=== PATIENT | female | born 1940 | race Caucasian/White ===

== ENCOUNTER → 2017-11-26 17:18 | Outpatient (CLI) | payer MEDICARE, SELFPAY ==
[2016-12-11 18:46] VITALS: BMI 32.9
[2016-12-11 21:25] VITALS: BP 138/54
== END ==
PROVIDERS: Family Provider Family Medicine Geriatric Medicine; PCP Family Medicine Geriatric Medicine; Visit Provider Anesthesiology Pain Medicine
DX: F11.20 Opioid dependence, uncomplicated (principal)

== ENCOUNTER → 2017-11-27 10:04 | Outpatient (CLI) | payer MEDICARE, SELFPAY ==
[2016-12-11 18:46] VITALS: BMI 32.9
[2016-12-11 21:25] VITALS: BP 138/54
[2017-11-27 10:57] LABS: Amphetamine Urine VISTA NEGATIVE (<1000 ng/mL); Barbiturate Urine VISTA NEGATIVE (< 200 ng/mL); Benzodiazepine Urine VISTA NEGATIVE (< 200 ng/mL); Cocaine Urine VISTA NEGATIVE (< 300 ng/mL); Ecstacy Urine VISTA NEGATIVE (< 500 ng/mL); Methadone Urine VISTA NEGATIVE (< 300 ng/mL); PCP Urine VISTA NEGATIVE (< 25 ng/mL); THC Urine VISTA POSITIVE (< 50 ng/mL); Vista UDS pH Range 5
== END ==
PROVIDERS: Family Provider Family Medicine Geriatric Medicine; PCP Family Medicine Geriatric Medicine; Visit Provider Anesthesiology Pain Medicine
DX: F11.20 Opioid dependence, uncomplicated (principal)
CPT/HCPCS: 80307

== ENCOUNTER → 2017-12-02 16:30 | Outpatient (CLI) | payer MEDICARE, SELFPAY ==
--- NOTE | 2017-12-02 16:52 | RAD_ITS ---
STUDY: X-RAY - ABDOMEN/PELVIS REASON FOR EXAM: Female, 77 years old. Diarrhea. TECHNIQUE: AP supine and upright views of the abdomen and pelvis. COMPARISON: None. FINDINGS: Normal visualized lung bases. There is an unremarkable bowel gas pattern. There is no demonstrated free abdominal air. The visualized liver, spleen and kidneys are grossly normal in size and morphology. Normal soft tissue structures. There are diffuse degenerative changes of the visualized lumbar spine. RAD/Abd Inc Decub and/or Erect IMPRESSION: No acute abnormality or evidence for obstruction. Electronically Signed: Lew Chávez MD at 17:12 EST , Service support ,
[2017-12-02 17:40] LABS: Absolute Lymphocyte Count 1.71 X10^3/ul (0.83-4.51); Absolute Neutrophil Count 5.4 X10^3/uL (2.0-7.7); Basophil# 0.04 X10^3/uL; Basophil% 0.5 % (0-1); Eosinophil# 0.11 X10^3/uL; Eosinophils% 1.4 % (0-5); Hematocrit 35.5 % (37-47); Hemoglobin 11.5 g/dl (12.0-15.0); Lymphocyte # 1.71 X10^3/ul (4.0); Lymphocyte % 21.8 % (19-41); Mean Corp Hgb Conc 32.4 g/gl (32-36); Mean Corpuscular Hgb 26.7 pg (27.0-32.0); Mean Corpuscular Volume 82.6 fL (81-99); Mean Platelet Vol. 10.1 fl (6.2-12.0); Monocyte# 0.59 X10^3/uL; Monocyte% 7.5 % (0-10); Neutrophil # 5.37 X10^3/uL (2.7-7.7); Neutrophil % 68.7 % (47-70); Platelet Count 244 K/mm3 (150-450); RBC Distribution Width CV 16.3 % (11.6-14.6); RBC Distribution Width SD 47.9 fl (35.1-43.9); White Blood Count 7.8 K/mm3 (4.4-11.0)
[2017-12-02 17:55] LABS: POSITIVE COUNT NO; POSITIVE DIFFERENTIAL NO; POSITIVE MORPHOLOGY NO
[2017-12-02 18:34] LABS: ALB/GLOB Ratio 0.9 RATIO (0.9-2.4); AST(SGOT) 15 U/L (15-37); Alanine Aminotransfer ALT/SGPT 16 U/L (13-56); Albumin, Serum 3.6 g/dL (3.2-5.0); Alkaline Phosphatase 82 U/L (45-117); Anion Gap 10 (5-15); BUN 11 mg/dL (7-18); BUN/Creat Ratio 10.4 RATIO (10-20); Chloride 106 mmol/L (98-107); Creatinine, Serum 1.06 mg/dL (0.55-1.02); EST Glomerular Filtration Rate 53 mL/min (>60); Est Glom Filt Rate - Afr Amer 65 mL/min (>60); Globulin 3.8 g/dL (2.2-4.2); Glucose 102 mg/dL (74-106); Iron 53 ug/dL (50-170); Iron Binding Capacity,Total 426 ug/dL (250-450); PERCENT IRON SATURATION 12.4 % (15.0-55.0); Potassium 3.9 mmol/L (3.5-5.1); Protein, Total 7.4 g/dL (6.4-8.2); Sodium Level 141 mmol/L (136-145)
== END ==
PROVIDERS: Family Provider Family Medicine Geriatric Medicine; PCP Family Medicine Geriatric Medicine; Visit Provider Family Medicine Geriatric Medicine
DX: D64.9 Anemia, unspecified (principal); R19.7 Diarrhea, unspecified
CPT/HCPCS: 36415; 74019; 80053; 83540; 83550; 85025

== ENCOUNTER → 2018-01-05 16:30 | Outpatient (CLI) | payer MEDICARE, SELFPAY ==
[2018-01-05 18:21] LABS: Vitamin D,25 Hydroxy 8.2 ng/mL (29.95-100.01)
[2018-01-05 18:29] LABS: ALB/GLOB Ratio 0.9 RATIO (0.9-2.4); AST(SGOT) 17 U/L (15-37); Alanine Aminotransfer ALT/SGPT 16 U/L (13-56); Albumin, Serum 3.5 g/dL (3.2-5.0); Alkaline Phosphatase 94 U/L (45-117); Anion Gap 10 (5-15); BUN 21 mg/dL (7-18); BUN/Creat Ratio 13.4 RATIO (10-20); Calcium,Total 8.5 mg/dL (8.5-10.1); Chloride 101 mmol/L (98-107); Creatinine, Serum 1.57 mg/dL (0.55-1.02); EST Glomerular Filtration Rate 34 mL/min (>60); Est Glom Filt Rate - Afr Amer 41 mL/min (>60); Glucose 83 mg/dL (74-106); Potassium 3.7 mmol/L (3.5-5.1); Protein, Total 7.5 g/dL (6.4-8.2); Sodium Level 139 mmol/L (136-145); Thyroid Stim Hormone (TSH) 2.23 uIU/mL (0.358-3.74)
[2018-01-05 20:54] LABS: Absolute Lymphocyte Count 1.62 X10^3/ul (0.83-4.51); Absolute Neutrophil Count 5.2 X10^3/uL (2.0-7.7); Basophil# 0.03 X10^3/uL; Basophil% 0.4 % (0-1); Eosinophil# 0.14 X10^3/uL; Eosinophils% 1.9 % (0-5); Hematocrit 36.2 % (37-47); Hemoglobin 11.1 g/dl (12.0-15.0); Lymphocyte # 1.62 X10^3/ul (4.0); Lymphocyte % 21.8 % (19-41); Mean Corp Hgb Conc 30.7 g/gl (32-36); Mean Corpuscular Hgb 25.1 pg (27.0-32.0); Mean Corpuscular Volume 81.9 fL (81-99); Mean Platelet Vol. 10.2 fl (6.2-12.0); Monocyte# 0.47 X10^3/uL; Monocyte% 6.3 % (0-10); Neutrophil # 5.17 X10^3/uL (2.7-7.7); Neutrophil % 69.5 % (47-70); Platelet Count 279 K/mm3 (150-450); RBC Distribution Width CV 15.4 % (11.6-14.6); Red Blood Count 4.42 M/mm3 (4.2-5.4); White Blood Count 7.4 K/mm3 (4.4-11.0)
[2018-01-05 20:55] LABS: POSITIVE COUNT NO; POSITIVE DIFFERENTIAL NO; POSITIVE MORPHOLOGY NO
== END ==
PROVIDERS: Family Provider Family Medicine Geriatric Medicine; PCP Family Medicine Geriatric Medicine; Visit Provider Family Medicine Geriatric Medicine
DX: E55.9 Vitamin D deficiency, unspecified (principal); I10 Essential (primary) hypertension
CPT/HCPCS: 36415; 80053; 82306; 84443; 85025

== ENCOUNTER → 2018-07-13 16:47 | Outpatient (CLI) | payer MEDICARE, SELFPAY ==
[2018-07-13 17:41] LABS: Absolute Lymphocyte Count 1.75 X10^3/ul (0.83-4.51); Absolute Neutrophil Count 5.5 X10^3/uL (2.0-7.7); Basophil# 0.04 X10^3/uL; Basophil% 0.5 % (0-1); Eosinophil# 0.19 X10^3/uL; Eosinophils% 2.4 % (0-5); Hemoglobin 10.8 g/dl (12.0-15.0); Lymphocyte # 1.75 X10^3/ul (4.0); Lymphocyte % 22.4 % (19-41); Mean Corp Hgb Conc 31.8 g/gl (32-36); Mean Corpuscular Hgb 25.9 pg (27.0-32.0); Mean Corpuscular Volume 81.5 fL (81-99); Mean Platelet Vol. 10.8 fl (6.2-12.0); Monocyte# 0.38 X10^3/uL; Monocyte% 4.9 % (0-10); Neutrophil # 5.45 X10^3/uL (2.7-7.7); Neutrophil % 69.7 % (47-70); Platelet Count 259 K/mm3 (150-450); RBC Distribution Width CV 15.4 % (11.6-14.6); RBC Distribution Width SD 45.2 fl (35.1-43.9); Red Blood Count 4.17 M/mm3 (4.2-5.4); White Blood Count 7.8 K/mm3 (4.4-11.0)
[2018-07-13 17:42] LABS: POSITIVE COUNT NO; POSITIVE DIFFERENTIAL NO; POSITIVE MORPHOLOGY NO
[2018-07-13 18:25] LABS: AST(SGOT) 15 U/L (15-37); Alanine Aminotransfer ALT/SGPT 19 U/L (13-56); Albumin, Serum 3.3 g/dL (3.2-5.0); Alkaline Phosphatase 80 U/L (45-117); Anion Gap 7 (5-15); BUN 23 mg/dL (7-18); Calcium,Total 8.6 mg/dL (8.5-10.1); Chloride 108 mmol/L (98-107); Creatinine, Serum 1.28 mg/dL (0.55-1.02); EST Glomerular Filtration Rate 43 mL/min (>60); Est Glom Filt Rate - Afr Amer 52 mL/min (>60); Globulin 3.4 g/dL (2.2-4.2); Glucose 97 mg/dL (74-106); Potassium 3.8 mmol/L (3.5-5.1); Protein, Total 6.7 g/dL (6.4-8.2); Sodium Level 143 mmol/L (136-145); Thyroid Stim Hormone (TSH) 1.02 uIU/mL (0.358-3.74); Vitamin D,25 Hydroxy 7.1 ng/mL (29.95-100.01)
== END ==
PROVIDERS: Family Provider Family Medicine Geriatric Medicine; PCP Family Medicine Geriatric Medicine; Visit Provider Family Medicine Geriatric Medicine
DX: I10 Essential (primary) hypertension (principal); E55.9 Vitamin D deficiency, unspecified
CPT/HCPCS: 36415; 80053; 82306; 84443; 85025

== ENCOUNTER → 2019-01-11 14:49 | Outpatient (CLI) | payer MEDICARE, SELFPAY ==
[2016-12-11 18:46] VITALS: BMI 32.9
[2019-01-11 15:20] LABS: Absolute Lymphocyte Count 1.17 X10^3/ul (0.83-4.51); Absolute Neutrophil Count 4.3 X10^3/uL (2.0-7.7); Basophil# 0.03 X10^3/uL; Basophil% 0.5 % (0-1); Eosinophil# 0.12 X10^3/uL; Hematocrit 37.9 % (37-47); Hemoglobin 11.5 g/dl (12.0-15.0); Lymphocyte # 1.17 X10^3/ul (4.0); Lymphocyte % 19.5 % (19-41); Mean Corp Hgb Conc 30.3 g/gl (32-36); Mean Corpuscular Hgb 24.3 pg (27.0-32.0); Mean Platelet Vol. 10.5 fl (6.2-12.0); Monocyte# 0.37 X10^3/uL; Monocyte% 6.2 % (0-10); Neutrophil % 71.6 % (47-70); Platelet Count 218 K/mm3 (150-450); RBC Distribution Width CV 16.5 % (11.6-14.6); RBC Distribution Width SD 47.1 fl (35.1-43.9); Red Blood Count 4.74 M/mm3 (4.2-5.4)
[2019-01-11 15:24] LABS: POSITIVE COUNT NO; POSITIVE DIFFERENTIAL NO; POSITIVE MORPHOLOGY NO
[2019-01-11 16:13] LABS: Vitamin D,25 Hydroxy 22.9 ng/mL (29.95-100.01)
[2019-01-11 16:14] LABS: AST(SGOT) 16 U/L (15-37); Alanine Aminotransfer ALT/SGPT 16 U/L (13-56); Albumin, Serum 3.6 g/dL (3.2-5.0); Alkaline Phosphatase 82 U/L (45-117); Anion Gap 4 (5-15); BUN 19 mg/dL (7-18); BUN/Creat Ratio 13.7 RATIO (10-20); Calcium,Total 8.6 mg/dL (8.5-10.1); Chloride 108 mmol/L (98-107); Creatinine, Serum 1.39 mg/dL (0.55-1.02); EST Glomerular Filtration Rate 39 mL/min (>60); Est Glom Filt Rate - Afr Amer 47 mL/min (>60); Globulin 3.6 g/dL (2.2-4.2); Glucose 95 mg/dL (74-106); Potassium 4.4 mmol/L (3.5-5.1); Protein, Total 7.2 g/dL (6.4-8.2); Sodium Level 139 mmol/L (136-145); Thyroid Stim Hormone (TSH) 0.83 uIU/mL (0.358-3.74)
== END ==
PROVIDERS: Family Provider Family Medicine Geriatric Medicine; PCP Family Medicine Geriatric Medicine; Visit Provider Family Medicine Geriatric Medicine
DX: I10 Essential (primary) hypertension (principal); E55.9 Vitamin D deficiency, unspecified
CPT/HCPCS: 36415; 80053; 82306; 84443; 85025

== ENCOUNTER 2019-06-19 11:45 | Emergency (ER) | payer MEDICARE, SELFPAY ==
[2019-06-19 11:45] VITALS: BP 215/96; PULSE 103; RESP 18; TEMP 36.7; O2SAT 95; BMI 36.7
--- NOTE | 2019-06-19 12:08 | CT_ITS ---
STUDY: CT ABDOMEN AND PELVIS WITHOUT CONTRAST REASON FOR EXAM: Female, 78 years old. Cramping. Diarrhea. History of appendectomy, hysterectomy and cholecystectomy. RADIATION DOSAGE (If Supplied By Facility): CTDIvol = ( 32.32 ) mGy, DLP = ( 1485.48 ) mGycm TECHNIQUE: Transaxial images were obtained from the dome of the diaphragm to the symphysis pubis without oral contrast, and without intravenous contrast. Sagittal and coronal images were reconstructed. Individualized dose optimization techniques were used for this CT. COMPARISON: 04/02/2016 FINDINGS: Evaluation of the abdominal viscera is limited in the absence of intravenous contrast. There is atelectasis at the lung bases. The visualized portions of the heart and pericardium are within normal limits. The patient is status post cholecystectomy. There are stable subcentimeter hypodensities in the liver which are too small to characterize. However, these likely represent cysts. The spleen is normal in size. The pancreas demonstrates an unremarkable unenhanced appearance. The adrenal glands are within normal limits. There are no renal or ureteral stones. There is no hydronephrosis. There is a small hiatal hernia. There is no bowel obstruction or inflammation. There are colonic diverticula noted without evidence of diverticulitis. There are surgical clips in the region of the appendix consistent with a prior appendectomy. The patient is status post hysterectomy. The aorta is normal in caliber. There is no abdominal or pelvic free air, free fluid, fluid collection or lymphadenopathy. There are no destructive osseous lesions. CT/Abdomen/Pelvis without Cont IMPRESSION: No acute abdominal or pelvic pathology demonstrated on this noncontrast CT. Electronically Signed: Alexi Velazquez, at 13:36 EDT Tel , Service support ,
--- NOTE | 2019-06-19 12:08 | EKG12_ITS ---
Test Reason : ABD PAIN Blood Pressure : / mmHG Vent. Rate : 082 BPM Atrial Rate : 082 BPM P-R Int : 160 ms QRS Dur : 106 ms QT Int : 432 ms P-R-T Axes : 089 066 004 degrees QTc Int : 504 ms Normal sinus rhythm Prolonged QT Nonspecific T- wave Abnormality Abnormal ECG Confirmed by INGRIS GARRIDO, RAINA ([id number]), photograph editor OMID MONTESINOS ([id number]) on 06/22/2019 10:58:29 AM Referred By: ROXIE Confirmed By:RAINA AMADO MD
[2019-06-19] MEDS: Morphine 4 MG/ML Syringe IV (12:22)
[2019-06-19] MEDS: 0.9% Normal Saline 1,000 ML 150 ML IV (12:22)
[2019-06-19] MEDS: Ondansetron 4 MG/2 ML Vial IV (12:22)
[2019-06-19 12:29] LABS: Absolute Lymphocyte Count 0.99 X10^3/uL (0.83-4.51); Absolute Neutrophil Count 3.9 X10^3/uL (2.0-7.7); Basophil# 0.04 X10^3/uL; Basophil% 0.7 % (0-1); Eosinophil# 0.12 X10^3/uL; Eosinophils% 2.2 % (0-5); Hematocrit 32.4 % (37-47); Hemoglobin 9.8 g/dL (12.0-15.0); Lymphocyte # 0.99 X10^3/ul (4.0); Lymphocyte % 18.3 % (19-41); Mean Corp Hgb Conc 30.2 g/dL (32-36); Mean Corpuscular Volume 79.4 fL (81-99); Mean Platelet Vol. 10.3 fl (6.2-12.0); Monocyte# 0.36 X10^3/uL; Monocyte% 6.7 % (0-10); NRBC Flagged by Analyzer 0 % (0-5); Neutrophil # 3.86 X10^3/uL (2.7-7.7); Neutrophil % 71.5 % (47-70); Platelet Count 198 K/mm3 (150-450); RBC Distribution Width CV 16.1 % (11.6-14.6); RBC Distribution Width SD 46.3 fl (35.1-43.9); Red Blood Count 4.08 M/mm3 (4.2-5.4); White Blood Count 5.4 K/mm3 (4.4-11.0)
[2019-06-19 12:44] LABS: ALB/GLOB Ratio 0.9 RATIO (0.9-2.4); AST(SGOT) 11 U/L (15-37); Alanine Aminotransfer ALT/SGPT 15 U/L (13-56); Albumin, Serum 3.4 g/dL (3.2-5.0); Alkaline Phosphatase 85 U/L (45-117); Anion Gap 4 (5-15); BUN 12 mg/dL (7-18); BUN/Creat Ratio 10.1 RATIO (10-20); Calcium,Total 8.6 mg/dL (8.5-10.1); Chloride 106 mmol/L (98-107); Creatinine, Serum 1.19 mg/dL (0.55-1.02); EST Glomerular Filtration Rate 47 mL/min (>60); Est Glom Filt Rate - Afr Amer 56 mL/min (>60); Estimated Creatinine Clearance 30.82 ml/min; Globulin 3.6 g/dL (2.2-4.2); Glucose 89 mg/dL (74-106); Lipase 66 U/L (73-393); Potassium 3.8 mmol/L (3.5-5.1); Sodium Level 139 mmol/L (136-145)
[2019-06-19 13:02] LABS: Lactic Acid 1.1 mmol/L (0.4-2.0)
[2019-06-19 13:08] LABS: Bacteria 0 SEEN /hpf (None Seen); Mucous, Urine 0 SEEN /hpf (<or=2+); Red Blood Cells-Urine 0 SEEN /hpf (0-5); White Blood Cells 0 SEEN /hpf (0-5)
[2019-06-19 13:10] LABS: Color, Urine Yellow (Yellow); Glucose, Dipstick Normal (Normal); Ketone-Dipstick Negative (Negative); Leukocyte Esterase-Dipstick Negative /ul (Negative); Nitrite-Dipstick Negative (Negative); Occult Blood-Urine 25 /ul (Negative); Protein-Dipstick Negative (Negative); Urine Bilirubin Dipstick Negative (Negative); Urine Clarity Clear (Clear); Urine Urobilinogen Normal (Normal)
[2019-06-19 13:15] VITALS: BP 204/94; PULSE 86; RESP 16; O2SAT 95
[2019-06-19 13:15] LABS: Squamous Epithelial Cells - UA 0-5 SEEN /hpf (5-10)
--- NOTE | 2019-06-19 13:50 | ED.DCSUM_ITS ---
- ER Visit Summary Date of Service: 06/19/19 Chief Complaint: [Abdominal pain and back pain] History of Present Illness: The patient is a 78 F [since the emergency department with abdominal pain for 1 month. Patient states that the pain is relatively continuous. Patient states that food seems to make the pain worse. Patient also states that she has intermittent diarrhea at times up to 8 episodes per day. Patient complains of some pain in her left buttock and lower back for the last for 5 days. She denies any weakness the extremity. She denies any change in bowel or bladder function. She denies urinary symptoms. She is had no fevers. She denies recent antibiotic usage. Patient states she had intermittent blood in her stool small amounts that her doctors attributed to hemorrhoids in the past. Patient also had one episode of dark stool that looked coffee colored 1 week ago. She has had colonoscopy and EGD within the last couple years. States she has had diarrhea intermittently since 22 April.] Physical Examination: [HEENT-PERRLA, EOMI. Cranial nerves II through XII grossly intact. TMs clear. Mucous membranes moist. No adenopathy. Cardiovascular-regular rate and rhythm without murmur or ectopy Lungs-clear to auscultation, chest wall stable without crepitus or subcu emphysema Abdomen-normoactive bowel sounds, soft. Patient has some mild diffuse tenderness to palpation. There is no rebound, rigidity, or perineal signs. No masses palpated. Back exam-patient has diffuse tenderness palpation over the left lumbar paraspinal musculature into the left buttock. Negative straight leg raises. Deep tendon reflexes are plus 2 out of 4 bilaterally at the patella and Achilles. Patient has normal 5 extension bilaterally. Has normal sensation to light touch. Extremities-intact ?4, normal range of motion, normal pulses, atraumatic] Test Results: [CBC with differential was unremarkable other than some chronic anemia with hemoglobin 9.8.. Chemistries were unremarkable.] LFTs were normal. Lipase was normal. Urinalysis normal. EKG obtained arrival shows sinus rhythm with a ventricular rate of 82 bpm and her troponin is less than 0.15. CT scan of the abdomen pelvis without contrast showed nothing acute. Emergency Department Course and Treatment: [Patient was given a liter normal same fluid bolus. Patient was medicated with Zofran and morphine. Patient was given Bentyl 20 mg p.o.] Treatment Plan: [Patient will be given a prescription for Bentyl. Patient advised to use Imodium for diarrhea. Patient states that she is had stool cultures already done as an outpatient and no etiologies been found for diarrhea. 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 Disposition: [Discharged home stable condition. Patient advised to follow-up with her primary care physician within next 3 to 5 days.] Impression: [Abdominal pain Back pain Chronic anemia] This note was generated with [employer] dictation software. It may contain incorrect words, spelling, and punctuation that were not noted in review of the chart prior to signing ED Disposition - Plan for ED Patient: Referrals: Steffen Roper Chi, MD [Primary Care Provider] -
--- NOTE | 2019-06-19 13:53 | ED.DEP ---
ED Disposition - Plan for ED Patient: Instructions: ABDOMINAL PAIN, Unknown Cause, (Female), BACK AND NECK PAIN, General Prescriptions: Dicyclomine HCl [Bentyl] 20 mg PO TIDAC #20 cap Prescription Printed Hydrocodone Bitart/Apap 5-325 [[place] 5MG-325MG] 1 tab PO Q4H PRN PRN 2 Days #15 tab PRN Reason: Pain Prescription Printed Referrals: Steffen Roper Chi, MD [Primary Care Provider] - 3-5 Days
[2019-06-19] MEDS: Dicyclomine 10 MG Capsule 20 MG PO (14:06)
[2019-06-19 14:12] VITALS: BP 194/86
== END 2019-06-19 14:14 | disposition home or self-care (01) ==
LOC: ED 12:10
PROVIDERS: Emergency Provider Emergency Medicine; Family Provider Family Medicine Geriatric Medicine; PCP Family Medicine Geriatric Medicine
DX: R10.9 Unspecified abdominal pain (principal); M54.9 Dorsalgia, unspecified; D64.9 Anemia, unspecified; R19.7 Diarrhea, unspecified; I25.10 Atherosclerotic heart disease of native coronary artery without angina pectoris; I50.9 Heart failure, unspecified; N18.9 Chronic kidney disease, unspecified; Z79.899 Other long term (current) drug therapy; Z95.1 Presence of aortocoronary bypass graft
CPT/HCPCS: 74176; 80053; 81001; 83605; 83690; 84484; 85025; 93005; 96361; 96374; 96375; 99284; J7030; A4216; J2405

== ENCOUNTER → 2019-07-01 16:16 | Outpatient (CLI) | payer MEDICARE, SELFPAY ==
[2019-06-19 11:45] VITALS: BMI 36.7
[2019-07-01 18:01] LABS: Amphetamine Urine VISTA NEGATIVE (<1000 ng/mL); Barbiturate Urine VISTA NEGATIVE (< 200 ng/mL); Benzodiazepine Urine VISTA NEGATIVE (< 200 ng/mL); Cocaine Urine VISTA NEGATIVE (< 300 ng/mL); Ecstacy Urine VISTA NEGATIVE (< 500 ng/mL); Methadone Urine VISTA NEGATIVE (< 300 ng/mL); PCP Urine VISTA NEGATIVE (< 25 ng/mL); THC Urine VISTA POSITIVE (< 50 ng/mL); Vista UDS pH Range 5
== END ==
PROVIDERS: Family Provider Family Medicine Geriatric Medicine; PCP Family Medicine Geriatric Medicine; Referring Provider Anesthesiology Pain Medicine; Visit Provider Anesthesiology Pain Medicine
DX: F11.20 Opioid dependence, uncomplicated (principal)
CPT/HCPCS: 80307

== ENCOUNTER → 2019-07-14 14:56 | Outpatient (CLI) | payer MEDICARE, SELFPAY ==
[2019-06-19 11:45] VITALS: BMI 36.7
[2019-07-14 15:42] LABS: Absolute Lymphocyte Count 1.32 X10^3/uL (0.83-4.51); Absolute Neutrophil Count 8.4 X10^3/uL (2.0-7.7); Basophil# 0.04 X10^3/uL; Basophil% 0.4 % (0-1); Eosinophil# 0.02 X10^3/uL; Eosinophils% 0.2 % (0-5); Hematocrit 37.6 % (37-47); Hemoglobin 11.4 g/dL (12.0-15.0); Lymphocyte # 1.32 X10^3/ul (4.0); Lymphocyte % 12.6 % (19-41); Mean Corp Hgb Conc 30.3 g/dL (32-36); Mean Corpuscular Hgb 23.8 pg (27.0-32.0); Mean Corpuscular Volume 78.5 fL (81-99); Mean Platelet Vol. 10.6 fl (6.2-12.0); Monocyte# 0.65 X10^3/uL; Monocyte% 6.2 % (0-10); NRBC Flagged by Analyzer 0 % (0-5); Neutrophil % 80.3 % (47-70); Platelet Count 308 K/mm3 (150-450); RBC Distribution Width CV 15.8 % (11.6-14.6); Red Blood Count 4.79 M/mm3 (4.2-5.4); White Blood Count 10.5 K/mm3 (4.4-11.0)
[2019-07-14 16:00] LABS: ALB/GLOB Ratio 0.9 RATIO (0.9-2.4); AST(SGOT) 14 U/L (15-37); Alanine Aminotransfer ALT/SGPT 31 U/L (13-56); Albumin, Serum 3.4 g/dL (3.2-5.0); Alkaline Phosphatase 73 U/L (45-117); Anion Gap 7 (5-15); BUN 37 mg/dL (7-18); BUN/Creat Ratio 23.9 RATIO (10-20); Calcium,Total 8.8 mg/dL (8.5-10.1); Chloride 110 mmol/L (98-107); Creatinine, Serum 1.55 mg/dL (0.55-1.02); EST Glomerular Filtration Rate 34 mL/min (>60); Est Glom Filt Rate - Afr Amer 42 mL/min (>60); Globulin 3.7 g/dL (2.2-4.2); Glucose 97 mg/dL (74-106); Potassium 4.9 mmol/L (3.5-5.1); Protein, Total 7.1 g/dL (6.4-8.2); Sodium Level 143 mmol/L (136-145); Thyroid Stim Hormone (TSH) 2.15 uIU/mL (0.358-3.74)
[2019-07-14 17:08] LABS: Vitamin D,25 Hydroxy 13.1 ng/mL (29.95-100.01)
== END ==
PROVIDERS: Family Provider Family Medicine Geriatric Medicine; PCP Family Medicine Geriatric Medicine; Visit Provider Family Medicine Geriatric Medicine
DX: I10 Essential (primary) hypertension (principal); E55.9 Vitamin D deficiency, unspecified
CPT/HCPCS: 36415; 80053; 82306; 84443; 85025

== ENCOUNTER 2019-08-07 22:16 | Emergency (ER) | payer MEDICARE, SELFPAY ==
[2019-08-07 22:17] VITALS: BP 229/92; PULSE 100; RESP 16; TEMP 36.8; O2SAT 97; BMI 35.9
--- NOTE | 2019-08-07 22:33 | EKG12_ITS ---
Test Reason : ABDOMINAL PAIN Blood Pressure : / mmHG Vent. Rate : 101 BPM Atrial Rate : 101 BPM P-R Int : 148 ms QRS Dur : 094 ms QT Int : 380 ms P-R-T Axes : 080 079 053 degrees QTc Int : 492 ms Sinus tachycardia Nonspecific ST abnormality Abnormal ECG Confirmed by BETTY GARRIDO, KAYCEE ([id number]), editor book DANG MERAZ ([id number]) on 08/13/2019 10:14:55 AM Referred By: RAJESH Confirmed By:KAYCEE HERNÁNDEZ MD
--- NOTE | 2019-08-07 22:33 | RAD_ITS ---
STUDY: X-RAY CHEST REASON FOR EXAM: Female, 79 years old. Short of breath. TECHNIQUE: 2 view chest. COMPARISON: 10/23/2016 CXR FINDINGS: No evidence of pneumonia, pulmonary edema, pneumothorax or pleural effusion. Mild elevation right hemidiaphragm. Cardiac silhouette, hilar and mediastinal contours with no acute findings. Atherosclerosis of the thoracic aorta. Prior sternotomy. Degenerative osseous changes with no acute osseous abnormality. RAD/Chest PA and Lateral IMPRESSION: No acute findings. Electronically Signed: Yousuf Tejada, at 0:11 EDT Tel , Service support ,
--- NOTE | 2019-08-07 22:38 | ED.DCSUM_ITS ---
History of Present Illness Chief Complaint: Abd Pain Informant: Patient Onset: Today Context: Gradual Onset Timing: Continuous Narrative: Patient is a 79-year-old female with history of coronary artery disease, Hypertension, CKD, diastolic heart failure and thrombocytopenia presenting from home via EMS for weakness, cough as well as nausea and vomiting. Patient states her symptoms started at 3 AM, approximately 18 hours ago. Friend in the room states that patient had a mild cough for the past few days it seems of been worsening. Patient states she has had sputum production that has been white associated with her cough. She has pain in her upper anterior chest when she coughs. She feels short of breath. She denies any difficulty breathing. She denies any swelling of her extremities or fever. Patient also notes that she had 2 episodes of vomiting as well as some diarrhea today. She denies any black or blood in her vomit or her stool. She notes that before the diarrhea she gets a diffuse cramping abdominal pain but currently denies any abdominal pain. Patient denies any skin changes or rash. She states everyone at home is been sick but she is the most severe in her symptoms. She had a hard time getting down the stairs because she felt like she was going to pass out which is why they called 911. Patient also comments that she did not take any of her blood pressure medication today. Past Medical History - Allergies and Home Meds Allergies/Adverse Reactions: Allergies Sulfa (Sulfonamide Antibiotics) Allergy (Verified 06/19/19 11:50) Hives Primary Care Physician: Steffen Roper Chi, MD [Primary Care Provider] - Surgical History: - - Hysterectomy, x 2, appendecomty, T+A, sinus surgery, coronary artery bypass 12/01/14 Smoking Status: Former smoker - Family History Maternal Family History: Reports: Stroke Paternal Family History: Reports: Heart Disease, Hypertension Review of Systems All systems negative except as indicated General: Reports: Malaise Cardiovascular: Reports: Chest pain - With coughing Respiratory: Reports: Dyspnea, Cough, Sputum Gastrointestinal: Reports: Abdominal pain - Cramping, Nausea, Vomiting, Diarrhea Physical Exam Vital Signs/Narrative: Vital Signs Temp Pulse Resp BP Pulse Ox 08/07/19 22:17 98.3 F 100 16 229/92 H 97 Inital Vital Signs reviewed: Yes General: Well nourished, Well developed, No Acute Distress Head: Normocephalic, Atraumatic Eyes: Perrl, EOMI ENT: Moist mucous membranes, No rhinorrhea. Negative for: Nasal congestion Neck: Supple, Nontender. Negative for: No JVD Cardiovascular: Regular rhythm, No murmurs, Tachycardia Respiratory: No distress, Chest nontender, Wheezing - Diffuse end expiratory wheezing present Abdomen: Soft, Nontender, Nondistended, Hyperactive bowel sounds Back: Nontender, Normal Inspection Extremities: Nontender, No edema. Negative for: Tenderness Skin: Normal color, No rash Neurological: Alert, Oriented x3, Cranial nerves II-XII grossly intact, Normal Strength, Normal Sensation Psychological: Normal affect, Normal Mood Diagnostic/Tx/Re-eval Chest X-Ray - ED: 2 View, Read by ED Physician, Read by Radiologist, No Acute Disease Clinical Impression(s) from Imaging Studies Chest X-Ray 08/07/19 22:33 IMPRESSION: No acute findings. Electronically Signed: Yousuf Tejada, at 0:11 EDT Tel , Service support , Laboratory Data 08/07/19 08/07/19 08/07/19 13:15 23:05 23:05 WBC 6.6 RBC 4.49 Hgb 11.0 L Hct 36.0 L MCV 80.2 L MCH 24.5 L MCHC 30.6 L RDW Std Deviation 50.3 H RDW Coeff of Genny 17.2 H Plt Count 150 MPV 9.9 Immature Gran % (Auto) 0.500 Neut % (Auto) 91.1 H Lymph % (Auto) 4.3 L [place] % (Auto) 3.5 Eos % (Auto) 0.3 Baso % (Auto) 0.3 Absolute Neuts (auto) 6.0 Absolute Lymphs (auto) 0.28 L Nucleated RBC % 0 Differential Comment SCANNED Sodium 135 L Potassium 3.8 Chloride 102 Carbon Dioxide 26.0 Anion Gap 7 BUN 11 Creatinine 1.03 H Estim Creat Clear Calc 38.24 Est GFR (MDRD) Af Amer 67 Est GFR (MDRD) Non-Af 55 L BUN/Creatinine Ratio 10.7 Glucose 106 Lactic Acid Calcium 8.6 Total Bilirubin 0.60 AST 18 ALT 18 Alkaline Phosphatase 86 Troponin I < 0.015 Total Protein 7.3 Albumin 3.4 Globulin 3.9 Albumin/Globulin Ratio 0.9 Urine Color Yellow Urine Clarity Clear Urine pH 8.0 Ur Specific [place] 1.010 Urine Protein 15 H Urine Glucose (UA) Normal Urine Ketones Negative Urine Occult Blood Negative Urine Nitrite Negative Urine Bilirubin Negative Urine Urobilinogen Normal Ur Leukocyte Esterase Negative Urine RBC 0 SEEN Urine WBC 0 SEEN Ur Squamous Epith Cells 0 SEEN Urine Bacteria 0 SEEN Urine Mucus 0 SEEN 08/07/19 23:05 WBC RBC Hgb Hct MCV MCH MCHC RDW Std Deviation RDW Coeff of Genny Plt Count MPV Immature Gran % (Auto) Neut % (Auto) Lymph % (Auto) [place]atte % (Auto) Eos % (Auto) Baso % (Auto) Absolute Neuts (auto) Absolute Lymphs (auto) Nucleated RBC % Differential Comment Sodium Potassium Chloride Carbon Dioxide Anion Gap BUN Creatinine Estim Creat Clear Calc Est GFR (MDRD) Af Amer Est GFR (MDRD) Non-Af BUN/Creatinine Ratio Glucose Lactic Acid 1.8 Calcium Total Bilirubin AST ALT Alkaline Phosphatase Troponin I Total Protein Albumin Globulin Albumin/Globulin Ratio Urine Color Urine Clarity Urine pH Ur Specific [place] Urine Protein Urine Glucose (UA) Urine Ketones Urine Occult Blood Urine Nitrite Urine Bilirubin Urine Urobilinogen Ur Leukocyte Esterase Urine RBC Urine WBC Ur Squamous Epith Cells Urine Bacteria Urine Mucus - Rhythm Strip Rhythm Strip: Sinus Tach Rate: 101 Ectopy: None - EKG Initial EKG Interpretation: Sinus Tachycardia, - - Sinus tachycardia rate of 101 Normal intervals Normal axis Normal ST segments - Medical Decision Making She is evaluated for cough, shortness of breath, nausea and generalized malaise. Vital signs are significant for hypertension tachycardia on arrival. Patient does states she did not take her blood pressure medications including metoprolol today because she was feeling unwell. Patient is given IV fluids.CBC is remarkable for mild anemia however this appears to be patient's baseline. Her BMP shows mildly elevated creatinine but again this is her baseline. Her troponin is normal as well as her lactate. Urinalysis is normal and shows no signs of infection. Chest x-ray does not show any signs of acute infection or fluid overload. Patient does have wheezing on her exam and is given breathing treatments. On reevaluation she states she feels better. I suspect as she might have a URI that is causing her symptoms. Chart review shows that patient does have a history of chronic diarrhea. Her abdomen is soft and nontender. Patient is also given Zofran and Tylenol initially. On reevaluation she states she is feeling better but is complaining of a sinus headache. She is because of sinus pressure and typical of the sinus headache for her. She is given a dose of IV Toradol. Patient be treated for likely acute bronchitis given her wheezing and cough. She is given first dose of prednisone in the emergency room. She is encouraged to follow-up with her primary care doctor. I suspect her hypertension and tachycardia are a result of rebound tachycardia from not taking her beta-jennifer today. EKG is normal and I do not suspect ACS. I do feel that patient is a good candidate for outpatient follow-up and she is agreeable with this. Patient is counseled on signs and symptoms requiring return to the emergency room. Patient verbalizes agreement and understand this plan. Patient discharged home in stable and improved condition. ED Disposition - Plan for ED Patient: Disposition: Home or Assisted Living Diagnosis: Bronchitis Instructions: Acute Bronchitis Prescriptions: Prednisone [Deltasone] 40 mg PO DAILY #8 tab Prescription Printed Ondansetron [Zofran Odt] 4 mg PO Q8H PRN PRN #10 tab PRN Reason: Nausea Prescription Printed Referrals: Steffen Roper Chi, MD [Primary Care Provider] - Additional Instructions: Return to the emergency room if you develop worsening symptoms. It is very important that you take your blood pressure and other daily medications regularly even when you are not feeling well. Please follow-up with your primary care doctor in the next 2 to 3 days. Drink plenty of fluids. You can use [id number] Flonase or nasal rinses as needed for your sinus congest ion. Take Tylenol as needed for headache.
[2019-08-07 22:56] VITALS: PULSE 105; RESP 18
[2019-08-07] MEDS: Ipratropium/Albuterol Sulfate 3 ML AMPUL.NEB INHALATION (22:56)
[2019-08-07 23:12] LABS: Absolute Lymphocyte Count 0.28 X10^3/uL (0.83-4.51); Basophil# 0.02 X10^3/uL; Basophil% 0.3 % (0-1); Eosinophil# 0.02 X10^3/uL; Eosinophils% 0.3 % (0-5); Lymphocyte # 0.28 X10^3/ul (4.0); Lymphocyte % 4.3 % (19-41); Mean Corp Hgb Conc 30.6 g/dL (32-36); Mean Corpuscular Hgb 24.5 pg (27.0-32.0); Mean Corpuscular Volume 80.2 fL (81-99); Mean Platelet Vol. 9.9 fl (6.2-12.0); Monocyte# 0.23 X10^3/uL; Monocyte% 3.5 % (0-10); NRBC Flagged by Analyzer 0 % (0-5); Neutrophil # 5.98 X10^3/uL (2.7-7.7); Neutrophil % 91.1 % (47-70); POSITIVE DIFFERENTIAL YES; Platelet Count 150 K/mm3 (150-450); RBC Distribution Width CV 17.2 % (11.6-14.6); RBC Distribution Width SD 50.3 fl (35.1-43.9); Red Blood Count 4.49 M/mm3 (4.2-5.4); White Blood Count 6.6 K/mm3 (4.4-11.0)
[2019-08-07 23:13] LABS: Differential Indicated SCAN CRITERIA MET
[2019-08-07] MEDS: Ondansetron 4 MG/2 ML Vial IV (23:15)
[2019-08-07] MEDS: Acetaminophen 500 MG Tablet 1000 MG PO (23:15)
[2019-08-07 23:22] LABS: Bacteria 0 SEEN /hpf (None Seen); Mucous, Urine 0 SEEN /hpf (<or=2+); Red Blood Cells-Urine 0 SEEN /hpf (0-5); Squamous Epithelial Cells - UA 0 SEEN /hpf (5-10); White Blood Cells 0 SEEN /hpf (0-5)
[2019-08-07 23:25] LABS: Color, Urine Yellow (Yellow); Glucose, Dipstick Normal (Normal); Ketone-Dipstick Negative (Negative); Leukocyte Esterase-Dipstick Negative /ul (Negative); Nitrite-Dipstick Negative (Negative); Occult Blood-Urine Negative /ul (Negative); Protein-Dipstick 15 mg/dl (Negative); Urine Bilirubin Dipstick Negative (Negative); Urine Clarity Clear (Clear); Urine Urobilinogen Normal (Normal)
[2019-08-07 23:31] LABS: ALB/GLOB Ratio 0.9 RATIO (0.9-2.4); AST(SGOT) 18 U/L (15-37); Alanine Aminotransfer ALT/SGPT 18 U/L (13-56); Albumin, Serum 3.4 g/dL (3.2-5.0); Alkaline Phosphatase 86 U/L (45-117); Anion Gap 7 (5-15); BUN 11 mg/dL (7-18); BUN/Creat Ratio 10.7 RATIO (10-20); Calcium,Total 8.6 mg/dL (8.5-10.1); Chloride 102 mmol/L (98-107); Creatinine, Serum 1.03 mg/dL (0.55-1.02); EST Glomerular Filtration Rate 55 mL/min (>60); Est Glom Filt Rate - Afr Amer 67 mL/min (>60); Estimated Creatinine Clearance 38.24 ml/min; Globulin 3.9 g/dL (2.2-4.2); Glucose 106 mg/dL (74-106); Potassium 3.8 mmol/L (3.5-5.1); Protein, Total 7.3 g/dL (6.4-8.2); Sodium Level 135 mmol/L (136-145)
[2019-08-07 23:38] LABS: Lactic Acid 1.8 mmol/L (0.4-2.0)
[2019-08-07 23:41] LABS: Differential Comment SCANNED
[2019-08-08 00:28] VITALS: BP 170/67; PULSE 106; RESP 17; O2SAT 95
[2019-08-08] MEDS: Ketorolac 15 MG/ML Vial IV (00:37)
[2019-08-08 00:44] VITALS: BP 153/62; PULSE 102; RESP 16; O2SAT 94
[2019-08-08] MEDS: predniSONE 20 MG Tablet 60 MG PO (01:08)
== END 2019-08-08 01:08 | disposition home or self-care (01) ==
PROVIDERS: Emergency Provider Emergency Medicine; Family Provider Family Medicine Geriatric Medicine; PCP Family Medicine Geriatric Medicine
DX: J40 Bronchitis, not specified as acute or chronic (principal); R00.0 Tachycardia, unspecified; I13.0 Hypertensive heart and chronic kidney disease with heart failure and stage 1 through stage 4 chronic kidney disease, or unspecified chronic kidney disease; N18.9 Chronic kidney disease, unspecified; I50.30 Unspecified diastolic (congestive) heart failure; I25.10 Atherosclerotic heart disease of native coronary artery without angina pectoris; D69.6 Thrombocytopenia, unspecified; Z79.899 Other long term (current) drug therapy; Z88.2 Allergy status to sulfonamides; Z95.1 Presence of aortocoronary bypass graft; Z87.891 Personal history of nicotine dependence
CPT/HCPCS: 71046; 80053; 81001; 83605; 84484; 85025; 93005; 94640; 96361; 96374; 96375; 99285; J7040; A4216; J2405

== ENCOUNTER → 2019-11-22 09:52 | Outpatient (CLI) | payer MEDICARE, SELFPAY ==
--- NOTE | 2019-11-22 09:58 | RAD_ITS ---
STUDY: X-RAY - LUMBAR SPINE REASON FOR EXAM: Female, 79 years old. back pain for several years; no known injury TECHNIQUE: 5 view(s) of the lumbar spine were obtained. COMPARISON: July 15, 2017 FINDINGS: Normal lumbar lordosis. There is moderate dextroscoliosis There is multilevel endplate spondylosis of the lumbar vertebrae. There is multi-level degenerative disc disease with multi-level disc space narrowing. There is atherosclerotic calcification of the abdominal aorta. RAD/L/S Spine Min 4 Views IMPRESSION: Degenerative changes of the spine. Electronically Signed: Jihan Benitez MD at 12:55 EST Tel , Service support ,
== END ==
PROVIDERS: PCP Family Medicine Geriatric Medicine; Referring Provider Nurse Practitioner Family; Visit Provider Nurse Practitioner Family
DX: M54.9 Dorsalgia, unspecified (principal)
CPT/HCPCS: 72110

== ENCOUNTER → 2019-12-10 11:23 | Outpatient (CLI) | payer MEDICARE, SELFPAY ==
--- NOTE | 2019-12-10 12:35 | RAD_ITS ---
STUDY: X-RAY - ABDOMEN/PELVIS REASON FOR EXAM: Female, 79 years old. ABDOMINAL PAIN AND DIARRHEA x10 DAYS TECHNIQUE: AP supine and upright views of the abdomen and pelvis. COMPARISON: None. FINDINGS: Normal visualized lung bases. Cholecystectomy clips project in the right upper abdomen. There is a single surgical clip in the right hemipelvis. Nondilated, nonspecific bowel gas pattern without frankly dilated loops of small bowel. There is no demonstrated free abdominal air. The visualized liver, spleen and kidneys are grossly normal in size and morphology. Normal soft tissue structures. There are diffuse degenerative changes of the visualized lumbar spine. There is dextroscoliosis of the lumbar spine. RAD/Abd Inc Decub and/or Erect IMPRESSION: 1. Nonobstructive bowel gas pattern. Electronically Signed: Nadeem Madrigal MD ([place]) at 15:32 EST , Service support ,
[2019-12-10 13:09] LABS: Absolute Neutrophil Count 6.6 X10^3/uL (2.0-7.7); Basophil# 0.02 X10^3/uL; Basophil% 0.2 % (0-1); Eosinophils% 1.2 % (0-5); Hematocrit 33.5 % (37-47); Hemoglobin 9.6 g/dL (12.0-15.0); Lymphocyte % 13.4 % (19-41); Mean Corp Hgb Conc 28.7 g/dL (32-36); Mean Corpuscular Hgb 21.7 pg (27.0-32.0); Mean Corpuscular Volume 75.8 fL (81-99); Mean Platelet Vol. 10.9 fl (6.2-12.0); Monocyte# 0.39 X10^3/uL; Monocyte% 4.8 % (0-10); NRBC Flagged by Analyzer 0 % (0-5); Neutrophil # 6.57 X10^3/uL (2.7-7.7); Platelet Count 260 K/mm3 (150-450); RBC Distribution Width CV 16.6 % (11.6-14.6); RBC Distribution Width SD 45.1 fl (35.1-43.9); Red Blood Count 4.42 M/mm3 (4.2-5.4); White Blood Count 8.2 K/mm3 (4.4-11.0)
[2019-12-10 13:29] LABS: ALB/GLOB Ratio 0.9 RATIO (0.9-2.4); AST(SGOT) 11 U/L (15-37); Alanine Aminotransfer ALT/SGPT 18 U/L (13-56); Albumin, Serum 3.3 g/dL (3.2-5.0); Alkaline Phosphatase 58 U/L (45-117); Amylase 36 U/L (25-115); Anion Gap 8 (5-15); BUN 24 mg/dL (7-18); BUN/Creat Ratio 20.5 RATIO (10-20); Chloride 108 mmol/L (98-107); Creatinine, Serum 1.17 mg/dL (0.55-1.02); EST Glomerular Filtration Rate 47 mL/min (>60); Est Glom Filt Rate - Afr Amer 57 mL/min (>60); Globulin 3.6 g/dL (2.2-4.2); Glucose 84 mg/dL (74-106); Lipase 59 U/L (73-393); Potassium 3.6 mmol/L (3.5-5.1); Protein, Total 6.9 g/dL (6.4-8.2); Sodium Level 139 mmol/L (136-145)
== END ==
LOC: POLAB3 11:23 → RAD 12:29
PROVIDERS: PCP Family Medicine Geriatric Medicine; Referring Provider Family Medicine Geriatric Medicine; Visit Provider Family Medicine Geriatric Medicine
DX: R10.9 Unspecified abdominal pain (principal); D64.9 Anemia, unspecified
CPT/HCPCS: 36415; 74019; 80053; 82150; 83690; 85025

== ENCOUNTER → 2020-01-10 18:51 | Outpatient (CLI) | payer MEDICARE, SELFPAY | PROVIDERS: PCP Family Medicine Geriatric Medicine; Visit Provider Family Medicine Geriatric Medicine | DX: R19.7 Diarrhea, unspecified (principal) | CPT/HCPCS: 82274; 83630; 87177; 87209; 87493; 87506 ==

== ENCOUNTER → 2020-04-18 16:34 | Outpatient (CLI) | payer MEDICARE, SELFPAY ==
[2020-04-18 17:20] LABS: Absolute Lymphocyte Count 0.84 X10^3/uL (0.83-4.51); Absolute Neutrophil Count 4.4 X10^3/uL (2.0-7.7); Basophil# 0.05 X10^3/uL; Basophil% 0.7 % (0-1); Eosinophil# 1.15 X10^3/uL; Eosinophils% 16.7 % (0-5); Hematocrit 23.8 % (37-47); Hemoglobin 6.6 g/dL (12.0-15.0); Lymphocyte # 0.84 X10^3/ul (4.0); Lymphocyte % 12.2 % (19-41); Mean Corp Hgb Conc 27.7 g/dL (32-36); Mean Corpuscular Hgb 20.8 pg (27.0-32.0); Mean Corpuscular Volume 74.8 fL (81-99); Mean Platelet Vol. 10.2 fl (6.2-12.0); Monocyte# 0.44 X10^3/uL; Monocyte% 6.4 % (0-10); NRBC Flagged by Analyzer 0 % (0-5); Neutrophil % 63.7 % (47-70); Platelet Count 205 K/mm3 (150-450); RBC Distribution Width CV 16.5 % (11.6-14.6); RBC Distribution Width SD 44.9 fl (35.1-43.9); Red Blood Count 3.18 M/mm3 (4.2-5.4); White Blood Count 6.9 K/mm3 (4.4-11.0)
[2020-04-18 18:27] LABS: Vitamin D,25 Hydroxy 13.7 ng/mL
[2020-04-18 18:36] LABS: ALB/GLOB Ratio 0.9 RATIO (0.9-2.4); AST(SGOT) 21 U/L (15-37); Alanine Aminotransfer ALT/SGPT 26 U/L (13-56); Albumin, Serum 3.1 g/dL (3.2-5.0); Alkaline Phosphatase 76 U/L (45-117); Anion Gap 6 (5-15); BUN 23 mg/dL (7-18); BUN/Creat Ratio 16.5 RATIO (10-20); Calcium,Total 8.3 mg/dL (8.5-10.1); Chloride 107 mmol/L (98-107); Creatinine, Serum 1.39 mg/dL (0.55-1.02); EST Glomerular Filtration Rate 39 mL/min (>60); Est Glom Filt Rate - Afr Amer 47 mL/min (>60); Globulin 3.4 g/dL (2.2-4.2); Glucose 100 mg/dL (74-106); Potassium 4.6 mmol/L (3.5-5.1); Protein, Total 6.5 g/dL (6.4-8.2); Sodium Level 140 mmol/L (136-145); Thyroid Stim Hormone (TSH) 1.59 uIU/mL (0.358-3.74)
== END ==
PROVIDERS: PCP Family Medicine Geriatric Medicine; Visit Provider Family Medicine Geriatric Medicine
DX: I10 Essential (primary) hypertension (principal); E55.9 Vitamin D deficiency, unspecified
CPT/HCPCS: 36415; 80053; 82306; 84443; 85025

== ENCOUNTER → 2020-04-20 07:42 | Outpatient (CLI) | payer MEDICARE, SELFPAY ==
[2020-04-19 12:58] LABS: Hematocrit 23.4 % (37-47); Hemoglobin 6.5 g/dL (12.0-15.0)
[2020-04-19 20:57] LABS: Xtra Tube EP Lab EXTRA TUBE
[2020-04-20] VITALS (7 sets, daily range): BP systolic 151–203; BP diastolic 75–118; PULSE 76–86; RESP 16–18; TEMP 36.1–36.4; O2SAT 95–97; BMI 36.3
[2020-04-20] MEDS: 0.9% NaCl Peripheral Flush Adult/Peds IV (08:10)
[2020-04-20] MEDS: Furosemide 20 MG/2 ML VIAL IV (10:17)
--- NOTE | 2020-04-20 12:20 | NURSING ---
Pt states she did not take her metoprolol this AM. Pt encouraged to take dose when she gets home and to call PCP regarding elevated BP.
== END ==
PROVIDERS: PCP Family Medicine Geriatric Medicine; Referring Provider Family Medicine Geriatric Medicine; Visit Provider Family Medicine Geriatric Medicine
DX: D64.9 Anemia, unspecified (principal)
CPT/HCPCS: 36415; 36430; 85014; 85018; 86850; 86900; 86901; 86920; 86922; J7040; P9016; P9040; A4216; J1940

== ENCOUNTER 2020-04-24 09:54 | Day surgery (SDC) | payer MEDICARE, SELFPAY ==
[2020-04-20 07:57] VITALS: BMI 36.3
[2020-04-24] VITALS (7 sets, daily range): BP systolic 147–163; BP diastolic 55–77; PULSE 59–62; RESP 16; TEMP 35.9–36.1; O2SAT 93–97; BMI 36.0
[2020-04-24] MEDS: Lactated Ringers 1,000 ML 100 ML IV (10:48)
[2020-04-24] MEDS: MethylPREDNISolone Acetate 80 MG/ML Vial (11:03)
[2020-04-24] MEDS: Bupivacaine 0.25% 30 ML Vial (11:03)
[2020-04-24] MEDS: 0.9% Normal Saline (Pres. free 10 ML Vial (11:03)
--- NOTE | 2020-04-24 11:10 | RAD_ITS ---
PROCEDURE: Caudal block. DATE OF EXAMINATION: April 24, 2020. INDICATION: Female, 79 years old. Back pain. FLUOROSCOPY TIME (if supplied): (4 seconds) minutes/seconds. 2 intraoperative images were obtained. Intraoperative imaging provided for caudal block. RAD/Fluoro Guided Needle Placement IMPRESSION: Intraoperative imaging provided for caudal block. Electronically Signed: Michael Rojas, at 9:04 EDT , Service support ,
--- NOTE | 2020-04-24 11:37 | PCM.OPRPT ---
Report of Operation Date of Procedure: 04/24/20 Description of Surgical Findings:: PREOPERATIVE DIAGNOSIS: Lumbosacral radiculopathy, lumbosacral degenerative disc disease, lumbosacral spinal stenosis POSTOPERATIVE DIAGNOSIS: Lumbosacral radiculopathy, lumbosacral degenerative disc disease, lumbosacral spinal stenosis PROCEDURE PERFORMED: Diagnostic/therapeutic caudal epidural steroid injection. ANESTHESIA: MAC. BLOOD LOSS: Minimal. COMPLICATIONS: None. DESCRIPTION OF PROCEDURE: History and physical of today was reviewed. Risks and benefits of the procedure were explained. The patient understood and agreed to proceed. Informed consent was obtained. IV inserted per routine protocol. The patient was taken to the operating room and placed in the prone position with a pillow positioned underneath the abdomen. The lower back and tailbone area was prepped and draped in a sterile fashion using iodine x3. Under fluoroscopy guidance on a lateral view, the caudal space was identified. The skin and subcutaneous tissue was anesthetized with approximately 3 mL of 1% lidocaine using a 25-gauge regular needle. Under direct visualization with fluoroscopy, using a 22-gauge 3-1/2-inch spinal needle, the needle was advanced via the skin through the sacral hiatus. The tip of the needle was passed through the sacrococcygeal ligament and advanced to approximately S4 area. After negative aspiration of blood or CSF, a total of 3 mL of contrast was injected to confirm correct placement of the needle as well as cephalad spread. The spread was followed to approximately L5 area. After confirmation on AP as well as lateral view and repeated negative aspiration, a total of 15 mL of preservative-free 0.125% Marcaine with 80 mg of Depo-Medrol was injected easily. The needle was then removed intact. The patient experienced no sign or symptoms of intrathecal or intravascular injection. The patient experienced no paresthesia. The procedure was completed without any apparent difficulty or any complications. The patient appeared to tolerate it well. ASSESSMENT AND PLAN: This is a 79-year-old female with lumbosacral radiculopathy, lumbosacral degenerative disc disease, lumbosacral spinal stenosis status post diagnostic/therapeutic caudal epidural steroid injection patient will continue her current medications, patient will follow approximately 2 weeks for reevaluation.
--- NOTE | 2020-05-16 04:12 | HP_ITS ---
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 Is patient in pain?: No Allergies Sulfa (Sulfonamide Antibiotics) Adverse Reaction (Intermediate, Verified 05/16/20 15:48) Hives Medications ALPRAZolam [Xanax] 0.5 mg PO PRN PRN 04/15/15 [History Confirmed 05/16/20] Furosemide [Lasix] 40 mg PO DAILY 04/15/15 [History Confirmed 05/16/20] Omeprazole [Prilosec] 40 mg PO DAILY 04/15/15 [History Confirmed 05/16/20] Ondansetron [Zofran Odt] 4 mg PO Q8H PRN PRN #10 tab 08/08/19 [Rx Confirmed 05/16/20] Hydrocodone/Acetaminophen [[place] 7.5-325 Tablet] 1 ea PO Q4H PRN PRN 04/13/20 [History Confirmed 05/16/20] Metoprolol(XL)Succ [Toprol Xl (Beta Linda)] 25 mg PO BID 04/13/20 [History Confirmed 05/16/20] Atorvastatin Calcium 40 mg PO DAILY 04/20/20 [History Confirmed 05/16/20] Naloxegol Oxalate [Movantik] 25 mg PO DAILY 04/20/20 [History Confirmed 05/16/20] buprenorphine 10 mcg/hour weekly transdermal patch 1 patch TRANSDERMAL QWEEK ea 05/16/20 [History Confirmed 05/16/20] PFSH Medical History Arthritis (Acute) Depression (Acute) GERD (gastroesophageal reflux disease) (Acute) High cholesterol (Acute) Hypertension (Chronic) Osteoarthritis (Acute) Vitamin D deficiency (Acute) Heart attack (Acute) SOB (shortness of breath) (Acute) Iron deficiency anemia due to chronic blood loss (Chronic) Anemia (Chronic) Chronic renal failure, stage 3 (moderate) (Chronic) CKD (chronic kidney disease) (Chronic) Hypertension (Chronic) Obesity (BMI 30-39.9) (Chronic) Cholelithiasis (Chronic) CAD (coronary artery disease) (Chronic) Diastolic heart failure (Chronic) Heme + stool (Chronic) Surgical History History of cardiac catheterization (Acute) S/P triple vessel bypass (Acute) History of appendectomy (Acute) History of sinus surgery (Acute) History of hysterectomy (Acute) History of section (Acute) Hx of cholecystectomy (Acute) Hx of CABG (Chronic) Family History Mother Hypertension CVA (cerebral vascular accident) Grandfather CVA (cerebral vascular accident) Grandmother CVA (cerebral vascular accident) Father Hypertension Social History (Updated 05/16/20 @ 16:[address] Yonathan Shi MD) Smoking Status: Former smoker alcohol intake: never substance use type: does not use HPI HPI HPI: JOSE ARRIETA, is a 79 F who presents to the office today for HPI HPI Surgical H&P: Yes HPI: JOSE ARRIETA, is a 79 F who presents to the office today for Iron deficiency anemia. The patient reports that she does struggle with constipation when her constipation resolves and she is able to have a bowel movement she has bright red blood in it. She reports that she does have hemorrhoids as well. She is having intermittent abdominal pain and she has been on a PPI for years. She reports that she has had this bright red blood and anemia for years as well. ROS General General: Yes fatigue; no weight change Musc Musculoskeletal: Yes back problems, arthritis and rheumatoid arthritis Cardio Cardiovascular: Yes high blood pressure and heart attack; no murmur, pacemaker, heart disease, atrial fibrillation, heart stent, palpitations, shortness of breat with exertion or chest pain Psych Psychiatric: Yes depression and anxiety Resp Respiratory: Yes shortness of breath, No sleep apnea, No cough, No COPD, No asthma, No emphysema, No wheezing Gastro Gastrointestinal: Yes abdominal pain, No nausea or vomiting, No diarrhea, Yes constipation, Yes blood in stool, Yes acid reflux, Yes hemorrhoids, No ulcers, No gallbladder problem, No black,tarry stools Geovanni Hematologic: No blood thinners, Yes anemia Exam Const General: cooperative Orientation: alert, oriented x3 Resp Effort & Inspection: normal respiratory effort Auscultation: clear to auscultation bilaterally Cardio Rate: regular rate Rhythm: regular rhythm Heart Sounds: no murmurs GI Inspection: non-distended Palpation: soft, nontender Assessment & Plan Problems 1. Iron deficiency anemia due to chronic blood loss D50.0 Plan The patient has iron deficiency and she has been on iron supplementation for her anemia for years. She reports that she has had bright red blood in her stool for years as well. She had her most recent colonoscopy in 2016 and her most recent EGD in 2014. I discussed EGD and colonoscopy with her. At this time the patient would like to avoid colonoscopy and I do believe that her having a cancerous bleeding lesion after having her colonoscopy 3 years ago is unlikely. She would like to perform the EGD first and if there is nothing identified then proceed with colonoscopy and I think this is prudent. I will perform EGD. I will also do biopsies to check for H. pylori. I explained endoscopy in detail to the patient. I explained the risks including but not limited to stroke or heart attack with anesthesia, perforation of the GI tract, bleeding, infection. I explained that any of these could necessitate further emergency surgery. The patient understands and all questions were answered sufficiently. The patient wishes to proceed with procedure. We discussed the current risks associated with COVID-19. While it is understood that there is a community spread of COVID-19, the risk of omari COVID-19 while at [facility] ([facility]) is very low; however, the risk cannot be completely mitigated because of the community spread of the disease. We discussed in detail the risk of exposure to and/or potential harm posed by the COVID-19 virus with having a surgery/procedure at this time versus the risk of delaying the surgery/procedure. It is not possible to know either the risk of delaying the surgery or procedure or chance of getting an infection with perfect accuracy, but a joint decision was made to proceed at this time with the scheduled surgery/procedure as indicated on the consent form. Patient was notified that we will need to comply with any screening or testing [facility] wishes to perform or that surgery may be delayed for any positive results. Yonathan Shi MD Pager: [facility] [address] [place] [address], [address] [place] [address] Office: Orders Orders: EGD Today D50.0 Coding Level of Care Code Off vis,new,level 3 Diagnoses Iron deficiency anemia due to chronic blood loss D50.0 05/16/20 1612 <Electronically signed by Yonathan finn MD> Date _ Yonathan Shi MD
== END 2020-04-24 12:06 | disposition home or self-care (01) ==
LOC: SDC 09:58 → AC 09:59
PROVIDERS: PCP Family Medicine Geriatric Medicine; Referring Provider Anesthesiology Pain Medicine; Visit Provider Anesthesiology Pain Medicine
PROC: 3E0S3BZ Introduction of Anesthetic Agent into Epidural Space, Percutaneous Approach (ICD-10-PCS; CPT 62282; principal; 2020-04-24 11:05)
DX: M51.17 Intervertebral disc disorders with radiculopathy, lumbosacral region (principal); M51.37 Other intervertebral disc degeneration, lumbosacral region; M48.07 Spinal stenosis, lumbosacral region; M19.90 Unspecified osteoarthritis, unspecified site; I10 Essential (primary) hypertension; E78.00 Pure hypercholesterolemia, unspecified; F32.9 Major depressive disorder, single episode, unspecified; F41.9 Anxiety disorder, unspecified; Z79.891 Long term (current) use of opiate analgesic; Z79.899 Other long term (current) drug therapy; Z78.0 Asymptomatic menopausal state; I25.2 Old myocardial infarction; Z87.891 Personal history of nicotine dependence; Z95.1 Presence of aortocoronary bypass graft
CPT/HCPCS: 62323; 76000; 77002; J7120; J3490

== ENCOUNTER 2020-06-09 07:30 | Day surgery (SDC) | payer MEDICARE, SELFPAY ==
--- NOTE | 2020-05-16 04:12 | HP_ITS ---
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 Is patient in pain?: No Allergies Sulfa (Sulfonamide Antibiotics) Adverse Reaction (Intermediate, Verified 05/16/20 15:48) Hives Medications ALPRAZolam [Xanax] 0.5 mg PO PRN PRN 04/15/15 [History Confirmed 05/16/20] Furosemide [Lasix] 40 mg PO DAILY 04/15/15 [History Confirmed 05/16/20] Omeprazole [Prilosec] 40 mg PO DAILY 04/15/15 [History Confirmed 05/16/20] Ondansetron [Zofran Odt] 4 mg PO Q8H PRN PRN #10 tab 08/08/19 [Rx Confirmed 05/16/20] Hydrocodone/Acetaminophen [[place] 7.5-325 Tablet] 1 ea PO Q4H PRN PRN 04/13/20 [History Confirmed 05/16/20] Metoprolol(XL)Succ [Toprol Xl (Beta Linda)] 25 mg PO BID 04/13/20 [History Confirmed 05/16/20] Atorvastatin Calcium 40 mg PO DAILY 04/20/20 [History Confirmed 05/16/20] Naloxegol Oxalate [Movantik] 25 mg PO DAILY 04/20/20 [History Confirmed 05/16/20] buprenorphine 10 mcg/hour weekly transdermal patch 1 patch TRANSDERMAL QWEEK ea 05/16/20 [History Confirmed 05/16/20] PFSH Medical History Arthritis (Acute) Depression (Acute) GERD (gastroesophageal reflux disease) (Acute) High cholesterol (Acute) Hypertension (Chronic) Osteoarthritis (Acute) Vitamin D deficiency (Acute) Heart attack (Acute) SOB (shortness of breath) (Acute) Iron deficiency anemia due to chronic blood loss (Chronic) Anemia (Chronic) Chronic renal failure, stage 3 (moderate) (Chronic) CKD (chronic kidney disease) (Chronic) Hypertension (Chronic) Obesity (BMI 30-39.9) (Chronic) Cholelithiasis (Chronic) CAD (coronary artery disease) (Chronic) Diastolic heart failure (Chronic) Heme + stool (Chronic) Surgical History History of cardiac catheterization (Acute) S/P triple vessel bypass (Acute) History of appendectomy (Acute) History of sinus surgery (Acute) History of hysterectomy (Acute) History of section (Acute) Hx of cholecystectomy (Acute) Hx of CABG (Chronic) Family History Mother Hypertension CVA (cerebral vascular accident) Grandfather CVA (cerebral vascular accident) Grandmother CVA (cerebral vascular accident) Father Hypertension Social History (Updated 05/16/20 @ 16:[address] Yonathan Shi MD) Smoking Status: Former smoker alcohol intake: never substance use type: does not use HPI HPI HPI: JOSE ARRIETA, is a 79 F who presents to the office today for HPI HPI Surgical H&P: Yes HPI: JOSE ARRIETA, is a 79 F who presents to the office today for Iron deficiency anemia. The patient reports that she does struggle with constipation when her constipation resolves and she is able to have a bowel movement she has bright red blood in it. She reports that she does have hemorrhoids as well. She is having intermittent abdominal pain and she has been on a PPI for years. She reports that she has had this bright red blood and anemia for years as well. ROS General General: Yes fatigue; no weight change Musc Musculoskeletal: Yes back problems, arthritis and rheumatoid arthritis Cardio Cardiovascular: Yes high blood pressure and heart attack; no murmur, pacemaker, heart disease, atrial fibrillation, heart stent, palpitations, shortness of breat with exertion or chest pain Psych Psychiatric: Yes depression and anxiety Resp Respiratory: Yes shortness of breath, No sleep apnea, No cough, No COPD, No asthma, No emphysema, No wheezing Gastro Gastrointestinal: Yes abdominal pain, No nausea or vomiting, No diarrhea, Yes constipation, Yes blood in stool, Yes acid reflux, Yes hemorrhoids, No ulcers, No gallbladder problem, No black,tarry stools Geovanni Hematologic: No blood thinners, Yes anemia Exam Const General: cooperative Orientation: alert, oriented x3 Resp Effort & Inspection: normal respiratory effort Auscultation: clear to auscultation bilaterally Cardio Rate: regular rate Rhythm: regular rhythm Heart Sounds: no murmurs GI Inspection: non-distended Palpation: soft, nontender Assessment & Plan Problems 1. Iron deficiency anemia due to chronic blood loss D50.0 Plan The patient has iron deficiency and she has been on iron supplementation for her anemia for years. She reports that she has had bright red blood in her stool for years as well. She had her most recent colonoscopy in 2016 and her most recent EGD in 2014. I discussed EGD and colonoscopy with her. At this time the patient would like to avoid colonoscopy and I do believe that her having a cancerous bleeding lesion after having her colonoscopy 3 years ago is unlikely. She would like to perform the EGD first and if there is nothing identified then proceed with colonoscopy and I think this is prudent. I will perform EGD. I will also do biopsies to check for H. pylori. I explained endoscopy in detail to the patient. I explained the risks including but not limited to stroke or heart attack with anesthesia, perforation of the GI tract, bleeding, infection. I explained that any of these could necessitate further emergency surgery. The patient understands and all questions were answered sufficiently. The patient wishes to proceed with procedure. We discussed the current risks associated with COVID-19. While it is understood that there is a community spread of COVID-19, the risk of omari COVID-19 while at [facility] ([facility]) is very low; however, the risk cannot be completely mitigated because of the community spread of the disease. We discussed in detail the risk of exposure to and/or potential harm posed by the COVID-19 virus with having a surgery/procedure at this time versus the risk of delaying the surgery/procedure. It is not possible to know either the risk of delaying the surgery or procedure or chance of getting an infection with perfect accuracy, but a joint decision was made to proceed at this time with the scheduled surgery/procedure as indicated on the consent form. Patient was notified that we will need to comply with any screening or testing [facility] wishes to perform or that surgery may be delayed for any positive results. Yonathan Shi MD Pager: [facility] [address] [place] [address], [address] [place] [address] Office: Orders Orders: EGD Today D50.0 Coding Level of Care Code Off vis,new,level 3 Diagnoses Iron deficiency anemia due to chronic blood loss D50.0 05/16/20 1612 <Electronically signed by Yonathan finn MD> Date _ Yonathan Shi MD I have re-examined the patient. There are no clinical changes since date of exam.
[2020-05-16 15:50] VITALS: BMI 39.2
[2020-06-08 14:49] VITALS: BMI 35.8
[2020-06-09 08:00] VITALS: BP 174/42; PULSE 58; RESP 16; TEMP 36.2; O2SAT 94; BMI 36.1
[2020-06-09] MEDS: Lactated Ringers 1,000 ML 100 ML IV (08:10)
--- NOTE | 2020-06-09 08:30 | IMM_PTH ---
PATIENT: JOSE ARRIETA LOC: EN U#:[id number] AGE/SX: 79/F ROOM: RE06/09/[address]: Dr. Yonathan Shi MD : 1940 BED: DIS: 06/09/2020 SPEC #: [id number] RECD: 06/09/20 11:19 STATUS: LUCIA REQ #: [id number] BRUNO: 06/09/20 08:[address]: Yonathan Shi DEPT: IMMUNOHISTOCHEMISTRY RECD BY: Machelle Drake ENTERED: 06/09/20 11:20 SP TYPE: IMMUNO OTHR DR: Dr. Steffen Roper MD Tissues: Stomach, NOS Procedures: H Pylori (initial) PHYSICIAN & INSTITUTION [place] [id number] SPECIMEN INFORMATION: Tissue Source: Antrum biopsy Clinical Info: Iron deficiency anemia Specimen Number: [id number] CPT code: 17087 METHODOLOGY: Deparaffinized sections of prefer/formalin-fixed tissue or PAP/DQ stained slides are incubated with monoclonal/polyclonal antibodies/oligonucleotide probes. Localization is made via biotin free immunoperoxidase method. Appropriate controls are performed and reacted as expected. Results on target cell population are indicated in the following table: RESULTS: ANTIBODY / CLONE RESULT H Pylori (polyclonal) negative These tests were developed and their performance characteristics determined by [facility]. They may not have been cleared or approved by the U.S. Food and Drug Administration. The FDA has determined that such clearance or approval is not necessary. INTERPRETATION: Antrum biopsy: Negative for Helicobacter pylori organisms. SJ:jesus alberto 06/12/20
--- NOTE | 2020-06-09 08:30 | EGD_PTH ---
PATIENT: JOSE ARRIETA LOC: EN U#:[id number] AGE/SX: 79/F ROOM: RE06/09/[address]: Dr. Yonathan Shi MD : 1940 BED: DIS: 06/09/2020 SPEC #: [id number] RECD: 06/09/20 10:16 STATUS: LUCIA KRYSTA #: [id number] BRUNO: 06/09/20 08:[address]: Yonathan Shi DEPT: SURGICAL PATHOLOGY RECD BY: Adam Arias ENTERED: 06/09/20 11:36 SP TYPE: EGD BIOPSY OT DR: Dr. Steffen Roper MD Tissues: Gastric mucous membrane Procedures: Surgery Specimen Level IV HEADER OPERATION: EGD ([facility]) PRE-OP DIAGNOSIS: Iron deficiency anemia TISSUE SUBMITTED: Antrum biopsy for histo and H. pylori MICROSCOPIC DIAGNOSIS Antrum, biopsy: Mild gastritis. See microscopic description and comment. SJ:jesus alberto 06/12/20 COMMENT The results of immunohistochemistry for Helicobacter pylori will be reported separately ([id number]). MICROSCOPIC DESCRIPTION Slides are reviewed. The specimen shows fragments of gastric mucosa with chronic inflammatory cell infiltrates in the lamina propria consisting of lymphocytes and plasma cells, consistent with mild chronic gastritis. GROSS DESCRIPTION Received in fixative is one container labeled with the patient's name and designated antrum biopsy. The specimen consists of two irregular fragments of light schulz soft tissue that in aggregate measure 0.6 x 0.3 x 0.1 cm. The specimen is totally submitted in one cassette. / CRISTO:jesus alberto 06/09/20 TC:5 CPT: 34451
--- NOTE | 2020-06-09 08:35 | OP.EGD_ITS ---
Patient Name: Pati Diaz Procedure Date: 06/09/2020 8:14 AM Date of : 1940 Age: 79 Procedure: Upper GI endoscopy Indications: Iron deficiency anemia Providers: Yonathan Shi MD Referring MD: Steffen Roper MD Medicines: Monitored Anesthesia Care Patient Profile: This is a 79 year old female. Refer to note in patient chart for documentation of history and physical. Complications: No immediate complications. Estimated blood loss: Minimal. Procedure: Pre-Anesthesia Assessment: - Prior to the procedure, a History and Physical was performed, and patient medications and allergies were reviewed. The patient's tolerance of previous anesthesia was also reviewed. The risks and benefits of the procedure and the sedation options and risks were discussed with the patient. All questions were answered, and informed consent was obtained. Prior Anticoagulants: The patient has taken no previous anticoagulant or antiplatelet agents. After reviewing the risks and benefits, the patient was deemed in satisfactory condition to undergo the procedure. After obtaining informed consent, the endoscope was passed under direct vision. Throughout the procedure, the patient's blood pressure, pulse, and oxygen saturations were monitored continuously. The Endoscope was introduced through the mouth, and advanced to the second part of duodenum. The upper GI endoscopy was accomplished without difficulty. The patient tolerated the procedure well. Scope In: 8:22:17 AM Scope Out: 8:24:47 AM Total Procedure Duration Time 0 hours 2 minutes 30 seconds Findings: The esophagus was normal. The stomach was normal. The examined duodenum was normal. Biopsies were taken with a cold forceps in the gastric antrum for Helicobacter pylori testing. Impression: - Normal esophagus. - Normal stomach. - Normal examined duodenum. - Biopsies were taken with a cold forceps for Helicobacter pylori testing. Recommendation: - Await pathology results. - Discharge patient to home. - Resume previous diet. - Continue present medications. Procedure Code(s): --- Professional --- 82579, Esophagogastroduodenoscopy, flexible, transoral; with biopsy, single or multiple Diagnosis Code(s): --- Professional --- D50.9, Iron deficiency anemia, unspecified CPT copyright 2017 [employer]. All rights reserved. The codes documented in this report are preliminary and upon medical assistant instructor review may be revised to meet current compliance requirements. Yonathan Shi MD 06/09/2020 8:34:54 AM This report has been signed electronically. Number of Addenda: 0 Note Initiated On: 06/09/2020 8:14 AM
--- NOTE | 2020-06-09 08:35 | OP.CCLET_ITS ---
06/09/2020 Steffen Roper MD [id number] [place] [address] Re : Upper GI endoscopy procedure for Pati Plunkettinger Dear Dr. Roper This procedure was performed on Tuesday, June 09, 2020. My impressions and recommendations are as follows: Impressions : - Normal esophagus. - Normal stomach. - Normal examined duodenum. - Biopsies were taken with a cold forceps for Helicobacter pylori testing. Recommendations : - Await pathology results. - Discharge patient to home. - Resume previous diet. - Continue present medications. My findings are described in the full procedure note, which is enclosed. If I can be of further assistance, please feel free to contact me at Doctor phone number(s): , Work: . Sincerely, Yonathan Sih MD 06/09/2020 8:34:54 AM This report has been signed electronically.
[2020-06-09 08:38] VITALS: BP 142/74; BP 174/42; PULSE 72; RESP 18; TEMP 36.8; O2SAT 95
[2020-06-09 08:40] VITALS: BP 160/62; BP 174/42; PULSE 71; RESP 18; O2SAT 94
[2020-06-09 08:45] VITALS: BP 131/61; BP 174/42; PULSE 61; RESP 18; O2SAT 94
[2020-06-09 08:50] VITALS: BP 133/59; BP 174/42; PULSE 60; RESP 18; O2SAT 96
[2020-06-09 08:55] VITALS: BP 131/60; BP 174/42; PULSE 57; RESP 18; TEMP 36.7; O2SAT 95
== END 2020-06-09 09:15 | disposition home or self-care (01) ==
LOC: EN 07:31 → AC 07:32
PROVIDERS: Anesthesiology; PCP Family Medicine Geriatric Medicine; Referring Provider Family Medicine Geriatric Medicine; Visit Provider Surgery
PROC: 0DJ08ZZ Inspection of Upper Intestinal Tract, Via Natural or Artificial Opening Endoscopic (ICD-10-PCS; CPT 43235; principal; 2020-06-09 08:25)
DX: D50.0 Iron deficiency anemia secondary to blood loss (chronic) (principal); K29.70 Gastritis, unspecified, without bleeding; K59.00 Constipation, unspecified; Z11.59 Encounter for screening for other viral diseases; K21.9 Gastro-esophageal reflux disease without esophagitis; I13.0 Hypertensive heart and chronic kidney disease with heart failure and stage 1 through stage 4 chronic kidney disease, or unspecified chronic kidney disease; N18.3 Chronic kidney disease, stage 3 (moderate); I50.32 Chronic diastolic (congestive) heart failure; I25.10 Atherosclerotic heart disease of native coronary artery without angina pectoris; E78.00 Pure hypercholesterolemia, unspecified; M19.90 Unspecified osteoarthritis, unspecified site; E55.9 Vitamin D deficiency, unspecified; E66.9 Obesity, unspecified; Z68.36 Body mass index [BMI] 36.0-36.9, adult; F32.9 Major depressive disorder, single episode, unspecified; F41.9 Anxiety disorder, unspecified; Z78.0 Asymptomatic menopausal state; I25.2 Old myocardial infarction; Z87.891 Personal history of nicotine dependence; Z95.1 Presence of aortocoronary bypass graft
CPT/HCPCS: 43239; 87635; 88305; 88342; 94799; J7120; J2405; U0003

== ENCOUNTER 2020-06-21 23:16 | Inpatient (IN) | payer MEDICARE, SELFPAY ==
[2020-06-21 23:17] VITALS: BP 176/69; PULSE 102; RESP 30; TEMP 37.7; O2SAT 83; BMI 37.3
--- NOTE | 2020-06-21 23:19 | EKG12_ITS ---
Test Reason : DYSRHYTHMIA Blood Pressure : / mmHG Vent. Rate : 102 BPM Atrial Rate : 102 BPM P-R Int : 162 ms QRS Dur : 110 ms QT Int : 356 ms P-R-T Axes : 072 073 038 degrees QTc Int : [address] & T wave abnormality, consider inferior ischemia Abnormal ECG Confirmed by ROSY GARRIDO, VERNON ([id number]), material expeditor ZOHAIB WU ([id number]) on 06/27/2020 8:04:57 AM Referred By: EVENS Confirmed By:CYNDIE GALLEGOS MD
[2020-06-21 23:23] VITALS: O2SAT 98
[2020-06-21 23:47] LABS: Absolute Lymphocyte Count 0.33 X10^3/uL (0.83-4.51); Absolute Neutrophil Count 3.4 X10^3/uL (2.0-7.7); Basophil# 0.01 X10^3/uL; Basophil% 0.3 % (0-1); Eosinophil# 0.03 X10^3/uL; Eosinophils% 0.8 % (0-5); Hematocrit 38.6 % (37-47); Hemoglobin 11.2 g/dL (12.0-15.0); Lymphocyte # 0.33 X10^3/ul (4.0); Lymphocyte % 8.7 % (19-41); Mean Corpuscular Hgb 25.3 pg (27.0-32.0); Mean Corpuscular Volume 87.1 fL (81-99); Mean Platelet Vol. 9.9 fl (6.2-12.0); Monocyte# 0.04 X10^3/uL; NRBC Flagged by Analyzer 0 % (0-5); Neutrophil # 3.39 X10^3/uL (2.7-7.7); Neutrophil % 88.9 % (47-70); POSITIVE DIFFERENTIAL YES; POSITIVE MORPHOLOGY YES; Platelet Count 141 K/mm3 (150-450); RBC Distribution Width CV 20.4 % (11.6-14.6); RBC Distribution Width SD 66.1 fl (35.1-43.9); Red Blood Count 4.43 M/mm3 (4.2-5.4); White Blood Count 3.8 K/mm3 (4.4-11.0)
[2020-06-21 23:59] LABS: Differential Indicated SCAN CRITERIA MET
[2020-06-22] VITALS (10 sets, daily range): BP systolic 107–162; BP diastolic 49–90; PULSE 71–102; RESP 16–18; TEMP 36.6–37.4; O2SAT 94–99; BMI 36.3
[2020-06-22 00:03] LABS: ALB/GLOB Ratio 0.9 RATIO (0.9-2.4); AST(SGOT) 19 U/L (15-37); Alanine Aminotransfer ALT/SGPT 16 U/L (13-56); Albumin, Serum 3.5 g/dL (3.2-5.0); Alkaline Phosphatase 83 U/L (45-117); Anion Gap 4 (5-15); BUN 22 mg/dL (7-18); Calcium,Total 8.8 mg/dL (8.5-10.1); Chloride 107 mmol/L (98-107); Creatinine, Serum 1.16 mg/dL (0.55-1.02); EST Glomerular Filtration Rate 48 mL/min (>60); Est Glom Filt Rate - Afr Amer 58 mL/min (>60); Estimated Creatinine Clearance 32.53 ml/min; Globulin 4.1 g/dL (2.2-4.2); Glucose 99 mg/dL (74-106); Lipase 84 U/L (73-393); Potassium 3.8 mmol/L (3.5-5.1); Protein, Total 7.6 g/dL (6.4-8.2); Sodium Level 140 mmol/L (136-145)
[2020-06-22 00:05] LABS: Lactic Acid 2.1 mmol/L (0.4-1.9)
[2020-06-22] MEDS: 0.9% Normal Saline 1,000 ML 125 ML IV (00:10)
--- NOTE | 2020-06-22 00:32 | PCM.CONS.GEN ---
Problem List (1) Gastrointestinal bleeding, lower Status: Acute Reason for Consult Date of Consultation: 06/22/20 History of Present Illness: The patient is a 79 year old F who I have been asked to see by Dr. Aldana. The patient has recently been under evaluation by Dr. Endy Shi and Dr. Brayden Lucero. By the report of the patient's daughter she is had persistent rectal bleeding. Tonight the bleeding was more than usual. They brought her to the emergency room. She was seen in the office on May 16, [address] Endy Shi. At that time she was referred for iron deficiency anemia. She complained of chronic constipation. There was complaint of bright red blood within her stool. She complains of hemorrhoids. It was reported that colonoscopy was done in 2016 and her most recent upper endoscopy at that time was 2014. Subsequently on June 09, 2020 she had an upper endoscopy. Normal esophagus stomach duodenum. That she showed mild gastritis. H. pylori was negative. She had been seen by Dr. Lucero on May 10, 2020. He noted iron deficiency anemia due to chronic blood loss and chronic renal failure stage III in addition to coronary artery disease and hypertension and dyslipidemia and GERD and hemorrhoids. He had noted that March 2020 she had received 2 units of blood transfusion. He treated her with IV iron infusion. On this occasion however she appears to be having more bright red rectal bleeding. She also had one episode of food emesis. There was no blood or discoloration of her emesis. The daughter was concerned enough that she brought the patient to the emergency room. White blood cell count is 3.8 with a hemoglobin 11.2 hematocrit 38.6 platelet count 141,000. BUN is 22 and creatinine 1.16. Lactic acid level was 2.1. Past Medical History Past Medical History (Chronic Problems): Chronic Problems (Last Reviewed 05/16/20 @ 15:50 by Divine Hanks) Hypertension (Chronic) Iron deficiency anemia due to chronic blood loss (Chronic) Anemia (Chronic) Chronic renal failure, stage 3 (moderate) (Chronic) CKD (chronic kidney disease) (Chronic) Hypertension (Chronic) Obesity (BMI 30-39.9) (Chronic) Cholelithiasis (Chronic) CAD (coronary artery disease) (Chronic) Diastolic heart failure (Chronic) Hx of CABG (Chronic) Heme + stool (Chronic) Medical History: Medical History (Last Reviewed 05/16/20 @ 15:50 by Divine Hanks) Arthritis (Acute) M19.90 Depression (Acute) F32.9 GERD (gastroesophageal reflux disease) (Acute) K21.9 High cholesterol (Acute) E78.00 Hypertension (Chronic) I10 Osteoarthritis (Acute) M19.90 Vitamin D deficiency (Acute) E55.9 Heart attack (Acute) I21.9 X2 SOB (shortness of breath) (Acute) R06.02 Iron deficiency anemia due to chronic blood loss (Chronic) D50.0 Anemia (Chronic) D64.9 Chronic renal failure, stage 3 (moderate) (Chronic) N18.3 CKD (chronic kidney disease) (Chronic) N18.9 Hypertension (Chronic) I10 Obesity (BMI 30-39.9) (Chronic) E66.9 Cholelithiasis (Chronic) K80.20 CAD (coronary artery disease) (Chronic) I25.10 Diastolic heart failure (Chronic) I50.30 Heme + stool (Chronic) Allergies Sulfa (Sulfonamide Antibiotics) Adverse Reaction (Intermediate, Verified 06/09/20 07:53) Hives Home Medications: Ambulatory Orders Medication Instructions Recorded Furosemide [Lasix] 40 mg PO DAILY 04/15/15 Omeprazole [Prilosec] 40 mg PO DAILY 04/15/15 Hydrocodone/Acetaminophen [[place] 1 ea PO Q4H PRN PRN 04/13/20 7.5-325 Tablet] Metoprolol(XL)Succ [Toprol Xl 25 mg PO BID 04/13/20 ([place]eta [place])] Atorvastatin Calcium 40 mg PO DAILY 04/20/20 Naloxegol Oxalate [Movantik] 25 mg PO DAILY PRN 04/20/20 buprenorphine 10 mcg/hour weekly 1 patch TRANSDERMAL QWEEK ea 05/16/20 transdermal patch Surgical History: Surgical History (Last Reviewed 05/16/20 @ 15:50 by Divine Hanks) History of cardiac catheterization (Acute) Z98.890 S/P triple vessel bypass (Acute) Z95.1 2015 History of appendectomy (Acute) Z90.49 History of sinus surgery (Acute) Z98.890 History of hysterectomy (Acute) Z90.710 History of section (Acute) Z98.891 Hx of cholecystectomy (Acute) Z90.49 2015 Hx of CABG (Chronic) Surgical History: - - Hysterectomy, x 2, appendecomty, T+A, sinus surgery, coronary artery bypass 12/01/14 Psychiatric History: Anxiety [employer]OR [employer] History: No pertinent [employer] history Smoking Status: Former smoker - *Family History Maternal Family History: Family History (Last Reviewed 05/16/20 @ 15:50 by Divine Hanks) Mother Hypertension CVA (cerebral vascular accident) Grandfather CVA (cerebral vascular accident) Grandmother CVA (cerebral vascular accident) Father Hypertension History Items: Stroke Paternal Family History: Family History (Last Reviewed 05/16/20 @ 15:50 by Divine Hanks) Mother Hypertension CVA (cerebral vascular accident) Grandfather CVA (cerebral vascular accident) Grandmother CVA (cerebral vascular accident) Father Hypertension History Items: Heart Disease, Hypertension Review of Systems Constitutional: Denies: Anorexia HEENT: Denies: Difficulty Swallowing Cardiovascular: Denies: Chest Pain Respiratory: Denies: Cough Gastrointestinal: Reports: Nausea, Vomiting. Denies: Abdominal Pain Endocrine: Denies: Change in Body Habitus Patient Problems: Active and Suspected Problems (Last Reviewed 05/16/20 @ 15:50 by Divine Hanks) Gastrointestinal bleeding, lower (Acute) - Physical Exam Vitals/I&O's: Vital Signs Temp Pulse Resp BP Pulse Ox 99.8 F H 102 H 30 H 176/69 H 98 06/21/20 23:17 06/21/20 23:17 06/21/20 23:17 06/21/20 23:17 06/21/20 23:23 Oxygen Flow Rate (L/min) 3 Oxygen Delivery Method Nasal Cannula Weight: 210 lb 12.191 oz Body Mass Index (BMI) 37.3 General: Alert, - - Patient is able to respond. She appears pale. She does not appear to be in acute distress. HEENT: Atraumatic Lungs: Wheezes Cardiovascular: Regular rate, Regular Rhythm, - - Harsh 3/6 systolic ejection murmur Abdomen: Soft, Hypoactive Bowel Sounds, - - Fullness noted with a 8 x 10 cm rubbery mass slight tenderness to the right of the umbilicus. Otherwise well-healed infraumbilical midline incision. Infrequent bowel sounds Extremities: No edema Neurological: - - Normal cognition Psych/Mental Status: Normal Affect Microbiology Past 72 Hours 06/21/20 23:25 Stool Stool Occult Blood (RADHA) - Final Occult Blood Positive Laboratory Results 06/21/20 22:55: WBC 3.8 L, RBC 4.43, Hgb 11.2 L, Hct 38.6, MCV 87.1, MCH 25.3 L, MCHC 29.0 L, RDW Std Deviation 66.1 H, RDW Coeff of Genny 20.4 H, Plt Count 141 L, MPV 9.9, Immature Gran % (Auto) 0.300, Neut % (Auto) 88.9 H, Lymph % (Auto) 8.7 L, [place] % (Auto) 1.0, Eos % (Auto) 0.8, Baso % (Auto) 0.3, Absolute Neuts (auto) 3.4, Absolute Lymphs (auto) 0.33 L, Nucleated RBC % 0 06/21/20 22:55: Sodium 140, Potassium 3.8, Chloride 107, Carbon Dioxide 29.0, Anion Gap 4 L, BUN 22 H, Creatinine 1.16 H, Estim Creat Clear Calc 32.53, Est GFR (MDRD) Af Amer 58 L, Est GFR (MDRD) Non-Af 48 L, BUN/Creatinine Ratio 19.0, Glucose 99, Calcium 8.8, Total Bilirubin 0.70, AST 19, ALT 16, Alkaline Phosphatase 83, Troponin I < 0.015, Total Protein 7.6, Albumin 3.5, Globulin 4.1, Albumin/Globulin Ratio 0.9, Lipase 84 06/21/20 23:25: Lactic Acid 2.1 H* 06/21/20 23:25: Blood Type A POSITIVE, Antibody Screen NEGATIVE Current Medications Sodium Chloride () 1,000 mls @ 125 mls/hr IV .Q8H [facility] Assessment/Plan All Active Problems (Last Reviewed 05/16/20 @ 15:50 by Divine Hanks) Gastrointestinal bleeding, lower (Acute) Arthritis (Acute) Depression (Acute) GERD (gastroesophageal reflux disease) (Acute) High cholesterol (Acute) Osteoarthritis (Acute) Vitamin D deficiency (Acute) Heart attack (Acute) SOB (shortness of breath) (Acute) History of cardiac catheterization (Acute) S/P triple vessel bypass (Acute) History of appendectomy (Acute) History of sinus surgery (Acute) History of hysterectomy (Acute) History of section (Acute) Hx of cholecystectomy (Acute) Dehydration (Resolved) Gastroenteritis (Resolved) Hypomagnesemia (Resolved) Hypophosphatemia (Resolved) Lactic acidosis (Resolved) Thrombocytopenia (Resolved) 79-year-old female. Pertinent findings include ongoing bright red rectal bleeding which apparently according to the daughter is been ongoing now for weeks but was much more excessive today. She appears pale although her lab work does not absolutely demonstrate a critical anemia I concur with hospitalization. On clinical examination she has a fullness in the abdomen to the right of the umbilicus. She is slightly tender there. This may simply be bowel filled with stool. She does not seem to have an acute surgical abdomen. She has wheezing at rest. She has a harsh cardiac murmur. I concur with medical hospitalization. She needs to be carefully observed and stabilized. Cardiac and pulmonary status needs to be maximized. Subsequently might consider a CT scan of the abdomen because of the fullness to the right of the umbilicus. In addition at this point I think that patient would likely be a candidate for colonoscopy if she is able to tolerate a bowel prep. I will notify Dr. Endy Shi in the morning of her presentation. We will provide ongoing surgical coverage. I will check coagulation factors. I recommend keeping her n.p.o. until director process review. Obviously serial laboratory will be obtained. I appreciate the opportunity of assisting with her surgical care Benjamin Solitario M.D., F.A.C.S.
[2020-06-22 00:43] LABS: Differential Comment SCANNED
[2020-06-22 00:44] LABS: Anisocytosis 1+; Ovalocyte 1+
--- NOTE | 2020-06-22 00:54 | CT_ITS ---
STUDY: CT ABDOMEN AND PELVIS WITH CONTRAST REASON FOR EXAM: Female, 79 years old. BLOODY STOOLS X 1 MONTH EMESIS NOW, HX APPY, HYSTERECTOMY, GB,MN,CABG RADIATION DOSAGE (If Supplied By Facility): CTDIvol = ( 20.01 ) mGy, DLP = ( 1145.54 ) mGycm TECHNIQUE: Transaxial images were obtained from the dome of the diaphragm to the symphysis pubis without oral contrast. IV 100mL Isovue-370 was administered. Sagittal and coronal images were reconstructed. Individualized dose optimization techniques were used for this CT. COMPARISON: 06/19/2019 FINDINGS: Atelectasis/scarring within the lungs. Coronary artery calcifications. Small right effusion and tiny left pleural effusions. Posterior segment right hepatic lobe partially exophytic 1.5 cm low-attenuation structure limited by patient''s motion artifact. Similar in size to prior exam. No significant intrahepatic ductal dilatation. Subcentimeter low-attenuation structure within the liver too small to characterize by CT criteria however statistically likely represents a cyst. There are surgical clips in the gallbladder fossa consistent with a prior cholecystectomy. There is mild splenomegaly. Normal pancreas. Normal bilateral adrenal glands. No hydronephrosis identified. Subcentimeter low-attenuation structures within the bilateral kidney are too small to characterize by CT criteria however statistically likely represent cysts. There is a small hiatal hernia. Evaluation of bowel is limited by lack of oral contrast. There is gastric wall thickening present. Correlate for gastritis. No dilated loops of bowel by CT criteria. No free air or free fluid identified. Diverticulosis. There is mild focal narrowing of a segment of sigmoid colon. No significant pericolonic stranding identified. There is non-visualization of the appendix. There is diffuse atherosclerotic calcification of the abdominal aorta, without a demonstrated aneurysm. Normal inferior vena cava. Normal retroperitoneum. Normal urinary bladder. There is absence of the uterus consistent with a prior hysterectomy. Scarring within the ventral abdominal wall soft tissues. There are diffuse degenerative changes of the visualized lumbar spine. Severe L5-S1 neural foraminal narrowing. Scoliotic curvature to the spine. CT/Abdomen/Pelvis W IV Cont ONLY IMPRESSION: Evaluation of bowel is limited by lack of oral contrast. There is gastric wall thickening present. This may represent gastritis. Within the stomach there is a 4 mm area of hyperdensity which may represent ingested material. However A small gastric bleed cannot be totally excluded. There was no noncontrast study performed to evaluate for post contrast blush. Consider direct visualization as clinically indicated. Bilateral pleural effusions. Status post cholecystectomy. Diverticulosis. There is a short segment mild sigmoid colonic wall thickening. There is no pericolonic stranding identified. This may represent underdistention. A mild focal colitis or underlying mass cannot be totally excluded. This could be further evaluated with follow-up nonemergent oral contrast enhanced study versus colonoscopy. Other findings as above. Electronically Signed: Geoff St, at 2:19 EDT Tel , Service support ,
[2020-06-22 01:02] LABS: International Normalized Ratio 1.1; Prothrombin Time (Protime)PT. 14.1 SECONDS (11.7-14.9)
[2020-06-22 01:03] LABS: Partial Thromboplast Time 31.9 Seconds (24.1-36.2)
--- NOTE | 2020-06-22 01:04 | HP.PCM_ITS ---
Problem List (1) Acute GI bleeding Status: Acute (2) Enterocolitis Status: Acute (3) Gastrointestinal bleeding, lower Status: Acute (4) Arthritis Status: Chronic (5) Depression Status: Chronic (6) GERD (gastroesophageal reflux disease) Status: Chronic (7) High cholesterol Status: Chronic (8) Hypertension Status: Chronic (9) Osteoarthritis Status: Chronic (10) Vitamin D deficiency Status: Chronic (11) Heart attack Status: Inactive Comment: X2 (12) SOB (shortness of breath) Status: Inactive (13) History of cardiac catheterization Status: Chronic (14) S/P triple vessel bypass Status: Chronic Comment: 2014 (15) History of appendectomy Status: Chronic (16) History of sinus surgery Status: Chronic (17) History of hysterectomy Status: Chronic (18) History of section Status: Chronic (19) Hx of cholecystectomy Status: Chronic Comment: 2014 (20) Iron deficiency anemia due to chronic blood loss Status: Chronic (21) Anemia Status: Chronic (22) Chronic renal failure, stage 3 (moderate) Status: Chronic (23) CKD (chronic kidney disease) Status: Chronic Qualifiers: Chronic kidney disease stage: stage 3 (moderate) Qualified Code(s): N18.3 - Chronic kidney disease, stage 3 (moderate) (24) Hypertension Status: Chronic (25) Obesity (BMI 30-39.9) Status: Chronic (26) Cholelithiasis Status: Chronic (27) CAD (coronary artery disease) Status: Chronic (28) Diastolic heart failure Status: Chronic (29) Hx of CABG Status: Chronic (30) Heme + stool Status: Chronic History of Present Illness Date of Admission: 06/22/20 Chief Complaint: Hematochezia The patient is a 79 year old F with a significant history of chronic pain and iron deficiency anemia who presents emergency department with hematochezia that started on the same day of presentation. Patient had extensive bloody stools. She began to shake after the episode of hematochezia. Further she had nausea vomiting and shortness of breath. She vomited about 4 times. Also she has abdominal pain. Of note patient has about 1 month history of hematochezia. EGD was done on 06/09/2020. EGD was unremarkable. Past Medical History Past Medical History (Chronic Problems): Chronic Problems (Last Reviewed 06/22/20 @ 04:[address] Saeid Salinas MD) Arthritis (Chronic) Depression (Chronic) GERD (gastroesophageal reflux disease) (Chronic) High cholesterol (Chronic) Hypertension (Chronic) Osteoarthritis (Chronic) Vitamin D deficiency (Chronic) History of cardiac catheterization (Chronic) S/P triple vessel bypass (Chronic) 2014 History of appendectomy (Chronic) History of sinus surgery (Chronic) History of hysterectomy (Chronic) History of section (Chronic) Hx of cholecystectomy (Chronic) 2014 Iron deficiency anemia due to chronic blood loss (Chronic) Anemia (Chronic) Chronic renal failure, stage 3 (moderate) (Chronic) CKD (chronic kidney disease) (Chronic) Hypertension (Chronic) Obesity (BMI 30-39.9) (Chronic) Cholelithiasis (Chronic) CAD (coronary artery disease) (Chronic) Diastolic heart failure (Chronic) Hx of CABG (Chronic) Heme + stool (Chronic) Medical History: Medical History (Last Reviewed 06/22/20 @ 04:[address] Saeid Salinas MD) Arthritis (Chronic) M19.90 Depression (Chronic) F32.9 GERD (gastroesophageal reflux disease) (Chronic) K21.9 High cholesterol (Chronic) E78.00 Hypertension (Chronic) I10 Osteoarthritis (Chronic) M19.90 Vitamin D deficiency (Chronic) E55.9 Heart attack (Inactive) I21.9 X2 SOB (shortness of breath) (Inactive) R06.02 Iron deficiency anemia due to chronic blood loss (Chronic) D50.0 Anemia (Chronic) D64.9 Chronic renal failure, stage 3 (moderate) (Chronic) N18.3 CKD (chronic kidney disease) (Chronic) N18.9 Hypertension (Chronic) I10 Obesity (BMI 30-39.9) (Chronic) E66.9 Cholelithiasis (Chronic) K80.20 CAD (coronary artery disease) (Chronic) I25.10 Diastolic heart failure (Chronic) I50.30 Heme + stool (Chronic) Allergies Sulfa (Sulfonamide Antibiotics) Adverse Reaction (Intermediate, Verified 06/09/20 07:53) Hives Home Medications: Ambulatory Orders Medication Instructions Recorded Furosemide [Lasix] 40 mg PO DAILY 04/15/15 Omeprazole [Prilosec] 40 mg PO DAILY 04/15/15 Hydrocodone/Acetaminophen [[place] 1 ea PO Q4H PRN PRN 04/13/20 7.5-325 Tablet] Metoprolol(XL)Succ [Toprol Xl 25 mg PO BID 04/13/20 ([place])] Atorvastatin Calcium 40 mg PO DAILY 04/20/20 Naloxegol Oxalate [Movantik] 25 mg PO DAILY PRN 04/20/20 buprenorphine 10 mcg/hour weekly 1 patch TRANSDERMAL QWEEK ea 05/16/20 transdermal patch Surgical History: Surgical History (Last Reviewed 06/22/20 @ 04:[address] 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 Saeid Salinas MD) Mother Hypertension CVA (cerebral vascular accident) Grandfather CVA (cerebral vascular accident) Grandmother CVA (cerebral vascular accident) Father Hypertension History Items: Stroke Paternal Family History: Family History (Last Reviewed 06/22/20 @ 04:[address] Saeid Salinas MD) Mother Hypertension CVA (cerebral vascular accident) Grandfather CVA (cerebral vascular accident) Grandmother CVA (cerebral vascular accident) Father Hypertension History Items: Heart Disease, Hypertension Review of Systems Constitutional: Denies: Fever, Weight Change HEENT: Denies: Head Aches, Sinus Congestion, Sinus Drainage Cardiovascular: Denies: Chest Pain, Palpitations Respiratory: Reports: Shortness of Breath. Denies: Cough, Sputum production Gastrointestinal: Reports: Abdominal Pain, Hematochezia, Nausea, Vomiting Genitourinary: Denies: Dysuria Musculoskeletal: Reports: Back Pain - Chronic. Denies: Joint Pain, Joint Tenderness Skin: Denies: Rash, Wounds Neurological: Denies: Numbness, Tingling, Focal weakness Psychiatric: Denies: Anxiety, Depression, Homicidal Ideations, Suicidal Ideations Hematologic/ Lymphatic: Denies: Easy Bruising, Easy Bleeding VTE Information - Inpt Only VTE Present on Admission: No VTE Mechan Device Prophylaxis: SCD's VTE Pharm Prophylaxis ordered?: No Patient Problems: Active and Suspected Problems (Last Reviewed 06/22/20 @ 04:[address] Saeid Salinas MD) Gastrointestinal bleeding, lower (Acute) Acute GI bleeding (Acute) Enterocolitis (Acute) - Physical Exam Vitals/I&O's: Vital Signs Temp Pulse Resp BP Pulse Ox 99.8 F H 102 H 30 H 176/69 H 98 06/21/20 23:17 06/21/20 23:17 06/21/20 23:17 06/21/20 23:17 06/21/20 23:23 Oxygen Flow Rate (L/min) 3 Oxygen Delivery Method Nasal Cannula Weight: 95.6 kg Body Mass Index (BMI) 37.3 General: Alert, Oriented x3, Cooperative HEENT: Atraumatic, PERRLA, EOMI, Normocephalic Neck: Supple, No JVD, Negative Carotid Bruits Lungs: Clear to auscultation, Normal air movement Cardiovascular: Regular rate, Normal S1, Normal S2, Murmur Abdomen: Bowel Sounds Present, Soft, Non Tender Extremities: Capillary Refill Less than 3 Seconds, Edema - Bilateral feet, 1+. Skin: No rashes, No breakdown Musculoskeletal: No Tenderness to Palpation of Joints or Extremities Neurological: Cranial nerves II-XII grossly intact Psych/Mental Status: Normal Affect, Appropriate Microbiology Past 72 Hours 06/21/20 23:25 Stool Stool Occult Blood (RADHA) - Final Occult Blood Positive Laboratory Results 06/21/20 22:55: WBC 3.8 L, RBC 4.43, Hgb 11.2 L, Hct 38.6, MCV 87.1, MCH 25.3 L, MCHC 29.0 L, RDW Std Deviation 66.1 H, RDW Coeff of Genny 20.4 H, Plt Count 141 L , MPV 9.9, Immature Gran % (Auto) 0.300, Neut % (Auto) 88.9 H, Lymph % (Auto) 8.7 L, [place] % (Auto) 1.0, Eos % (Auto) 0.8, Baso % (Auto) 0.3, Absolute Neuts (auto) 3.4, Absolute Lymphs (auto) 0.33 L, Nucleated RBC % 0, Differential Comment SCANNED, Anisocytosis 1+, Ovalocytes 1+ 06/21/20 22:55: Sodium 140, Potassium 3.8, Chloride 107, Carbon Dioxide 29.0, Anion Gap 4 L, BUN 22 H, Creatinine 1.16 H, Estim Creat Clear Calc 32.53, Est GFR (MDRD) Af Amer 58 L, Est GFR (MDRD) Non-Af 48 L, BUN/Creatinine Ratio 19.0, Glucose 99, Calcium 8.8, Total Bilirubin 0.70, AST 19, ALT 16, Alkaline Phosphatase 83, Troponin I < 0.015, Total Protein 7.6, Albumin 3.5, Globulin 4.1, Albumin/Globulin Ratio 0.9, Lipase 84 06/21/20 22:55: PT 14.1, INR 1.1, APTT 31.9 06/21/20 23:25: Lactic Acid 2.1 H* 06/21/20 23:25: Blood Type A POSITIVE, Antibody Screen NEGATIVE Current Medications Sodium Chloride () 1,000 mls @ 125 mls/hr IV .Q8H [facility] Assessment/Plan All Active Problems (Last Reviewed 06/22/20 @ 04:[address] Saeid Salinas MD) Gastrointestinal bleeding, lower (Acute) Acute GI bleeding (Acute) Enterocolitis (Acute) Dehydration (Resolved) Gastroenteritis (Resolved) Hypomagnesemia (Resolved) Hypophosphatemia (Resolved) Lactic acidosis (Resolved) Thrombocytopenia (Resolved) The patient is a 79 year old F with a significant history of chronic pain and iron deficiency anemia who presents emergency department with hematochezia; nausea vomiting and shortness of breath. Acute GI bleed General surgery saw patient at emergency department and recommended CT of the abdomen and pelvis which was ordered at emergency department. We will keep patient n.p.o. IV fluids started emergency department and continued. Of note patient takes Lasix as needed at home. Trend H&H. No chemical thromboprophylaxis. General surgery consult. Acute Gastroenteritis and colitis PRN Zofran ordered IV hydration as above. Follow abdominal CT scan Chronic pain Hold home p.o. pain medications. PRN morphine ordered. Hypertension Blood pressure is elevated. In the setting of GI bleed hold home metoprolol. Hydralazine PRN for systolic blood pressure of more than 170 Trend blood pressures. CKD stage III Stable. DVT prophylaxis SCD ordered. Inpatient E&M: 46964 Init Hosp L3
[2020-06-22] MEDS: Ondansetron 4 MG/2 ML Vial IV (02:45)
[2020-06-22 03:41] LABS: Reflex Lactate? Y
[2020-06-22] MEDS: Morphine 2 MG/ML Syringe 1 MG IV ×2 (03:42→12:54)
[2020-06-22] MEDS: 0.9% Normal Saline 1,000 ML 100 ML IV (03:42)
--- NOTE | 2020-06-22 04:03 | ED.VIS.GI ---
History of Present Illness Chief Complaint: GI Bleed Informant: Patient, Family - Abdominal Pain/Flank Pain Onset: Weeks Context: Sudden Onset Timing: Intermittent Quality: Aching Location: Diffuse - Nausea/Vomiting/Emesis GI Symptom: Nausea, Vomiting Onset: Today - Diarrhea/Melena/Hematochezia GI Symptom: Diarrhea, Hematochezia. Negative for: Melena Narrative: Patient is a 79-year-old female presenting from home via EMS for worsening rectal bleeding. Patient is having bright red blood per rectum as well as small clots. She states they are about the size of a nickel. Today patient also developed nausea and vomiting which is new. She is also had diarrhea. Patient is been under evaluation by Dr. Shi, for the past month as well as hematology for GI bleeding. Patient so far has had blood transfusion, iron transfusions as well as EGD. She not had a colonoscopy yet. Patient did have an episode of abdominal pain tonight which resolved. He states the pain was in her mid abdomen and radiated to her legs. Her last colonoscopy was in 2017. Patient states she is chronic chest pain which is a pressure in the center of her chest and is unchanged from her baseline. Past Medical History - Allergies and Home Meds Allergies/Adverse Reactions: Allergies Sulfa (Sulfonamide Antibiotics) Adverse Reaction (Intermediate, Verified 06/09/20 07:53) Hives Prior records reviewed: Yes Past Medical History: - - chronic renal failure stage III, coronary artery disease and hypertension and dyslipidemia and GERD and hemorrhoids Surgical History: - - Hysterectomy, x 2, appendecomty, T+A, sinus surgery, coronary artery bypass 12/01/14 Lives: With Family Smoking Status: Former smoker - Family History Maternal Family History: Family History (Last Reviewed 06/22/20 @ 04:[address] Saeid Salinas MD) Mother Hypertension CVA (cerebral vascular accident) Grandfather CVA (cerebral vascular accident) Grandmother CVA (cerebral vascular accident) Father Hypertension Family History: Reports: Stroke Paternal Family History: Family History (Last Reviewed 06/22/20 @ 04:[address] Saeid Salinas MD) Mother Hypertension CVA (cerebral vascular accident) Grandfather CVA (cerebral vascular accident) Grandmother CVA (cerebral vascular accident) Father Hypertension Family History: Reports: Heart Disease, Hypertension Review of Systems General: Denies: Chills, Fever, Sweats Eyes: Denies: Visual changes - bilaterally, Diplopia ENT: Denies: Rhinorrhea, Sore throat Cardiovascular: Denies: Chest pain, Palpitations Respiratory: Denies: Dyspnea, Cough, Dyspnea on exertion Gastrointestinal: Reports: Abdominal pain, Nausea, Vomiting, Diarrhea, Hematochezia. Denies: Melena Genitourinary: Denies: Dysuria, Hematuria, Frequency Musculoskeletal: Denies: Back pain, Extremity Pain Skin: Denies: Rash, Wounds Neurological: Denies: Headache, Weakness, Numbness Physical Exam Inital Vital Signs reviewed: Yes General: Well nourished, Well developed, Obese, No Acute Distress Head: Normocephalic, Atraumatic Eyes: Perrl, EOMI. Negative for: Pale conjunctiva ENT: Moist mucous membranes, No rhinorrhea Neck: Supple, Nontender, No JVD Cardiovascular: Regular rate, Regular rhythm, No murmurs Respiratory: No distress, CTA bilaterally, Chest nontender Abdomen: Soft, Nondistended, Normal bowel sounds, Tender - Diffuse, mild . Negative for: Guarding, Rebound tenderness Rectal: Guaiac positive, Nontender, - - Bright red blood seen on rectal exam, external hemorrhoids are present. Back: Nontender, Normal Inspection Extremities: Nontender, No edema Skin: Normal color, No rash Neurological: Alert, Oriented x3, Cranial nerves II-XII grossly intact, Normal Strength, Normal Sensation Psychological: Normal affect, Normal Mood Diagnostic/Tx/Re-eval Clinical Impression(s) from Imaging Studies Abdomen/Pelvis CT 06/22/20 00:54 IMPRESSION: Evaluation of bowel is limited by lack of oral contrast. There is gastric wall thickening present. This may represent gastritis. Within the stomach there is a 4 mm area of hyperdensity which may represent ingested material. However A small gastric bleed cannot be totally excluded. There was no noncontrast study performed to evaluate for post contrast blush. Consider direct visualization as clinically indicated. Bilateral pleural effusions. Status post cholecystectomy. Diverticulosis. There is a short segment mild sigmoid colonic wall thickening. There is no pericolonic stranding identified. This may represent underdistention. A mild focal colitis or underlying mass cannot be totally excluded. This could be further evaluated with follow-up nonemergent oral contrast enhanced study versus colonoscopy. Other findings as above. Electronically Signed: Geoff St, at 2:19 EDT Tel , Service support , Laboratory Data 06/21/20 06/21/20 06/21/20 22:55 22:55 22:55 WBC 3.8 L RBC 4.43 Hgb 11.2 L Hct 38.6 MCV 87.1 MCH 25.3 L MCHC 29.0 L RDW Std Deviation 66.1 H RDW Coeff of Genny 20.4 H Plt Count 141 L MPV 9.9 Immature Gran % (Auto) 0.300 Neut % (Auto) 88.9 H Lymph % (Auto) 8.7 L [place] % (Auto) 1.0 Eos % (Auto) 0.8 Baso % (Auto) 0.3 Absolute Neuts (auto) 3.4 Absolute Lymphs (auto) 0.33 L Nucleated RBC % 0 Differential Comment SCANNED Anisocytosis 1+ Ovalocytes 1+ PT 14.1 INR 1.1 APTT 31.9 Sodium 140 Potassium 3.8 Chloride 107 Carbon Dioxide 29.0 Anion Gap 4 L BUN 22 H Creatinine 1.16 H Estim Creat Clear Calc 32.53 Est GFR (MDRD) Af Amer 58 L Est GFR (MDRD) Non-Af 48 L BUN/Creatinine Ratio 19.0 Glucose 99 Lactic Acid Calcium 8.8 Total Bilirubin 0.70 AST 19 ALT 16 Alkaline Phosphatase 83 Troponin I < 0.015 Total Protein 7.6 Albumin 3.5 Globulin 4.1 Albumin/Globulin Ratio 0.9 Lipase 84 Blood Type Antibody Screen 06/21/20 06/21/20 23:25 23:25 WBC RBC Hgb Hct MCV MCH MCHC RDW Std Deviation RDW Coeff of Genny Plt Count MPV Immature Gran % (Auto) Neut % (Auto) Lymph % (Auto) [place] % (Auto) Eos % (Auto) Baso % (Auto) Absolute Neuts (auto) Absolute Lymphs (auto) Nucleated RBC % Differential Comment Anisocytosis Ovalocytes PT INR APTT Sodium Potassium Chloride Carbon Dioxide Anion Gap BUN Creatinine Estim Creat Clear Calc Est GFR (MDRD) Af Amer Est GFR (MDRD) Non-Af BUN/Creatinine Ratio Glucose Lactic Acid 2.1 H* Calcium Total Bilirubin AST ALT Alkaline Phosphatase Troponin I Total Protein Albumin Globulin Albumin/Globulin Ratio Lipase Blood Type A POSITIVE Antibody Screen NEGATIVE - Rhythm Strip Rhythm Strip: Sinus Tach Rate: 102 Ectopy: None - EKG Initial EKG Interpretation: Sinus Tachycardia, - - Sinus tachycardia at a rate of 102 Normal axis Nonspecific T wave inversions in 3 and aVF with no reciprocal changes Prior: Unchanged - 07/08/19 - Medical Decision Making Patient is evaluated for worsening bright red blood per rectum. She also has now associated diarrhea and vomiting. Chart view shows that patient does have a history of chronic diarrhea. Patient's anemia actually appears to be improving. Patient has been receiving iron transfusions and did receive blood transfusion 1 month ago. On exam patient does have persistent bright red blood per rectum however she remains hemodynamically stable in the emergency room. Type and screen is obtained however she is not transfused at this time. I did discussed the case with surgery on-call, Dr. Benjamin Solitario, who agrees that a medical admission would be appropriate as well as likely colonoscopy indicated. He did recommend a CT of the abdomen pelvis which is ordered. Patient's lactate is mildly elevated at 2.1. Patient is given IV fluids and Zofran with improvement of her symptoms while in the emergency room. Patient is admitted to PCU for further evaluation of this bright red blood per rectum. She is agreeable to plan. She is stable at time of disposition. ED Disposition - Plan for ED Patient: Disposition: Acute Care Hospital [facility] Diagnosis: CAD (coronary artery disease), Acute GI bleeding, Chronic renal failure, stage 3 (moderate), Elevated lactic acid level
[2020-06-22 04:08] LABS: Hematocrit 32.9 % (37-47); Hemoglobin 9.9 g/dL (12.0-15.0)
--- NOTE | 2020-06-22 05:59 | PCM.PN.BLA ---
Progress Note CT scan reviewed Admittedly I would have obtain 1 with oral contrast. This is a noncontrasted CT. However the mass that I was feeling to the right of the umbilicus correlates with subcutaneous scarring. There is a small incisional hernia close to the umbilicus. The other pertinent finding however does appear to be wall thickening and narrowing of the sigmoid colon. I believe that a colonoscopy is in order. As previously noted I will discuss with Dr. Endy Shi. Benjamin Solitario M.D., F.A.C.S. [facility] Vital Signs/Narrative: Vital Signs Temp Pulse Resp BP BP Pulse Ox 06/22/20 03:02 99.4 F H 102 H 16 162/87 H 99 06/22/20 02:09 98.0 F 102 H 18 153/90 H 98
--- NOTE | 2020-06-22 09:12 | PCM.PN.BLA ---
Progress Note I saw the patient this morning. The patient reports that she was feeling very constipated and had to push a lot and then had a bowel movement with dark and bright red blood. She is having some abdominal pain in the periumbilical region currently. She said that after she had the bloody bowel movement she also vomited but it was nonbloody. I recommend the patient have EGD and colonoscopy tomorrow and I have ordered a bowel prep. I have discussed this with her and she agrees. I explained endoscopy in detail to the patient. I explained the risks including but not limited to stroke or heart attack with anesthesia, perforation of the GI tract, bleeding, infection. I explained that any of these could necessitate further emergency surgery. The patient understands and all questions were answered sufficiently. The patient wishes to proceed with procedure. Yonathan Shi MD Pager: [facility] [address] [place] [address], [address] [place] [address] Office: [facility] Vital Signs/Narrative: Vital Signs Temp Pulse Resp BP Pulse Ox 06/22/20 08:20 16 06/22/20 07:59 97.8 F 75 16 107/71 99 06/22/20 07:36 95
[2020-06-22] MEDS: HYDROcodone Bitartrate/Apap 5/325 Tablet PO ×2 (11:17→21:56)
--- NOTE | 2020-06-22 11:53 | CASEMGMT ---
RHYS FLAHERTY assessment: Face to Face with patient for initial transition planning/care coordination assessment. RHYS FLAHERTY introduced self and role at [facility], pt voices understanding and consents to assessment at this time. Pt is sitting up in chair in no distress at this time. Pt is A/Ox4 at this time and answers all questions appropriately at this time. Care providers, pharmacy, and demographics verified at this time. Presentation: Pt w/ bloody stools for one month started vomiting this evening Admitting dx: Acute GI bleed PCP: [facility] Specialists: Yuridia, surg; Halima, heme; Aaron, GREGG Preferred Pharmacy: [facility] Insurance: [employer] Prescription Benefit: [employer] Living Will/HPOA: Pt states has LW/HPOA and is aware that they are not on file at [facility] at this time. Pt states her daughter, Amanda Lujan, is HPOA. LNOK: Amanda Lujan, daughter Living Arrangements: Pt states lives with daughter/son-in-law in 2 story home and states no concerns at home at this time. Pt states daughter helps with most ADL's but pt states she dresses/bathes self. Pt states that she does not go upstairs or long distances with her daughter's assist. Transportation: Pt states family drives and states no transportation concerns at this time. DME/HHC: Pt states has the following DME: cane, walker, grab bars, and shower chair. Pt states no need for any further DME at this time. Pt states has had HHC in the past and has been to [facility] in the past. Pt states no concerns with going home at time of discharge. Pt states is retired. Pt states does not smoke cigarettes or drink ETOH. Pt states no further concerns/needs at this time. CM to follow for PT/OT evals and any further discharge planning/needs. Advised pt to ask for CM if any further questions/concerns/needs arise, voices understanding. Pt Goal: Home Plan: [place] [facility] [place]
[2020-06-22] MEDS: Bisacodyl 5 MG Tablet 20 MG PO (12:53)
--- NOTE | 2020-06-22 13:30 | PCM.PN.HOSP ---
<Rhett Greer - Last Filed: 06/22/20 13:30> Patient Problems: Active and Suspected Problems (Last Updated 06/22/20 @ 09:[address] Germán Cortes MD) Acute GI bleeding (Acute) Elevated lactic acid level (Acute) Reason for Visit: GI bleed Subjective: EGD earlier this week negative. Was having red blood in her stool this week. Pt with ongoing fatigue. No LH/SOB. Agreeable to endoscopy tomorrow. Vitals/I&O's: Vital Signs Temp Pulse Resp BP Pulse Ox 98.3 F 71 18 129/49 H 96 06/22/20 12:40 06/22/20 12:40 06/22/20 12:40 06/22/20 12:40 06/22/20 12:40 Oxygen Flow Rate (L/min) 2 Oxygen Delivery Method Nasal Cannula Weight: 198 lb 6.656 oz Body Mass Index (BMI) 36.3 Intake and Output for Last 24 Hours 06/20/20 06/21/20 06/22/20 23:59 23:59 23:59 Intake Total / Balance / General: Alert, Oriented x3, Cooperative HEENT: Atraumatic, PERRLA, EOMI, Normocephalic Neck: Supple, No JVD, Negative Carotid Bruits Lungs: Clear to auscultation, Normal air movement Cardiovascular: Regular rate, No murmurs Abdomen: Bowel Sounds Present, Soft, Non Tender Extremities: No edema, Capillary Refill Less than 3 Seconds Skin: No rashes, No breakdown Musculoskeletal: No Tenderness to Palpation of Joints or Extremities Neurological: Cranial nerves II-XII grossly intact Psych/Mental Status: Normal Affect, Appropriate, Alert and oriented to time, place, person, mood and affect Microbiology Past 72 Hours 06/21/20 23:25 Stool Stool Occult Blood (RADHA) - Final Occult Blood Positive Laboratory Results 06/21/20 22:55: WBC 3.8 L, RBC 4.43, Hgb 11.2 L, Hct 38.6, MCV 87.1, MCH 25.3 L, MCHC 29.0 L, RDW Std Deviation 66.1 H, RDW Coeff of Genny 20.4 H, Plt Count 141 L, MPV 9.9, Immature Gran % (Auto) 0.300, Neut % (Auto) 88.9 H, Lymph % (Auto) 8.7 L, [place] % (Auto) 1.0, Eos % (Auto) 0.8, Baso % (Auto) 0.3, Absolute Neuts (auto) 3.4, Absolute Lymphs (auto) 0.33 L, Nucleated RBC % 0, Differential Comment SCANNED, Anisocytosis 1+, Ovalocytes 1+ 06/21/20 22:55: Sodium 140, Potassium 3.8, Chloride 107, Carbon Dioxide 29.0, Anion Gap 4 L, BUN 22 H, Creatinine 1.16 H, Estim Creat Clear Calc 32.53, Est GFR (MDRD) Af Amer 58 L, Est GFR (MDRD) Non-Af 48 L, BUN/Creatinine Ratio 19.0, Glucose 99, Calcium 8.8, Total Bilirubin 0.70, AST 19, ALT 16, Alkaline Phosphatase 83, Troponin I < 0.015, Total Protein 7.6, Albumin 3.5, Globulin 4.1, Albumin/Globulin Ratio 0.9, Lipase 84 06/21/20 22:55: PT 14.1, INR 1.1, APTT 31.9 06/21/20 23:25: Lactic Acid 2.1 H* 06/21/20 23:25: Blood Type A POSITIVE, Antibody Screen NEGATIVE 06/22/20 03:54: Hgb 9.9 L, Hct 32.9 L 06/22/20 03:54: Lactic Acid 1.0 Current Medications Acetaminophen (Tylenol) 650 mg PO Q6H PRN PRN PRN Reason: HEADACHE PAIN 1-10/10 Hydrocodone Bitart/Acetaminophen ([place] 5mg-325mg) 1 tablet PO Q6H PRN PRN PRN Reason: Pain Score 6-10/10 Last Admin: 06/22/20 11:17 Dose: 1 tablet Documented by: Bisacodyl (Dulcolax) 20 mg PO 1400 ONE Stop: 06/22/20 14:01 Last Admin: 06/22/20 12:53 Dose: 20 mg Documented by: Hydralazine HCl (Apresoline Iv) 5 mg IV Q6H PRN PRN PRN Reason: SBP GREATER THAN 170 Sodium Chloride () 1,000 mls @ 60 mls/hr IV .[id number] DORON Last Infusion: 06/22/20 09:47 Dose: 60 mls/hr Documented by: Pantoprazole Sodium 80 mg/ (Sodium Chloride) 100 mls @ 10 mls/hr CONT INF Q10H [facility] Last Admin: 06/22/20 06:00 Dose: 10 mls/hr Documented by: Morphine Sulfate () 1 mg IV Q4H PRN PRN PRN Reason: pain 6-1010 Last Admin: 06/22/20 12:54 Dose: 1 mg Documented by: Ondansetron HCl (Zofran) 4 mg IV Q8H PRN PRN PRN Reason: NAUSEA/VOMITING Polyethylene Glycol (Clearlax For Bowel Prep) 0 bottle PO .Q15-30 MIN PRN PRN Reason: 8 OZ [id number] FOR BOWEL PREP Sodium Chloride () 10 - 40 ml IV UD PRN PRN Reason: SALINE FLUSH [facility] Vital Signs/Narrative: Vital Signs Temp Pulse Resp BP Pulse Ox 06/22/20 12:40 98.3 F 71 18 129/49 H 96 Medical Necessity - Tobacco Use Smoking Status: Former smoker Assessment/Plan All Active Problems (Last Updated 06/22/20 @ 09:[address] Germán Cortes MD) Acute GI bleeding (Acute) Elevated lactic acid level (Acute) 1. Acute blood loss anemia 2/2 GI bleed - unclear source - Gen surgery consulted. Endoscopy tomorrow AM. EGD earlier this week - negative. H/H q8. Continue protonix. Pt not on blood thinners. CT abdomen shows gastritis, possible gastric bleed, pleural effusions, diverticulosis, mass not excluded. 2. Mild thrombocytopenia - recheck in AM. DVT ppx: SCDs This patient was seen by Rhett Greer PA-C under the supervision of Dr. Cortes <Germán Cortes - Last Filed: 06/22/20 13:57> Vitals/I&O's: Vital Signs Temp Pulse Resp BP Pulse Ox 98.3 F 71 18 129/49 H 96 06/22/20 12:40 06/22/20 12:40 06/22/20 12:40 06/22/20 12:40 06/22/20 12:40 Oxygen Flow Rate (L/min) 2 Oxygen Delivery Method Nasal Cannula Weight: 198 lb 6.656 oz Body Mass Index (BMI) 36.3 Intake and Output for Last 24 Hours 06/20/20 06/21/20 06/22/20 23:59 23:59 23:59 Intake Total Balance Microbiology Past 72 Hours 06/21/20 23:25 Stool Stool Occult Blood (RADHA) - Final Occult Blood Positive Laboratory Results 06/21/20 22:55: WBC 3.8 L, RBC 4.43, Hgb 11.2 L, Hct 38.6, MCV 87.1, MCH 25.3 L, MCHC 29.0 L, RDW Std Deviation 66.1 H, RDW Coeff of Genny 20.4 H, Plt Count 141 L, MPV 9.9, Immature Gran % (Auto) 0.300, Neut % (Auto) 88.9 H, Lymph % (Auto) 8.7 L, [place] % (Auto) 1.0, Eos % (Auto) 0.8, Baso % (Auto) 0.3, Absolute Neuts (auto) 3.4, Absolute Lymphs (auto) 0.33 L, Nucleated RBC % 0, Differential Comment SCANNED, Anisocytosis 1+, Ovalocytes 1+ 06/21/20 22:55: Sodium 140, Potassium 3.8, Chloride 107, Carbon Dioxide 29.0, Anion Gap 4 L, BUN 22 H, Creatinine 1.16 H, Estim Creat Clear Calc 32.53, Est GFR (MDRD) Af Amer 58 L, Est GFR (MDRD) Non-Af 48 L, BUN/Creatinine Ratio 19.0, Glucose 99, Calcium 8.8, Total Bilirubin 0.70, AST 19, ALT 16, Alkaline Phosphatase 83, Troponin I < 0.015, Total Protein 7.6, Albumin 3.5, Globulin 4.1, Albumin/Globulin Ratio 0.9, Lipase 84 06/21/20 22:55: PT 14.1, INR 1.1, APTT 31.9 06/21/20 23:25: Lactic Acid 2.1 H* 06/21/20 23:25: Blood Type A POSITIVE, Antibody Screen NEGATIVE 06/22/20 03:54: Hgb 9.9 L, Hct 32.9 L 06/22/20 03:54: Lactic Acid 1.0 Current Medications Acetaminophen (Tylenol) 650 mg PO Q6H PRN PRN PRN Reason: HEADACHE PAIN 1-1010 Hydrocodone Bitart/Acetaminophen ([place] 5mg-325mg) 1 tablet PO Q6H PRN PRN PRN Reason: Pain Score 6-10/10 Last Admin: 06/22/20 11:17 Dose: 1 tablet Documented by: Bisacodyl (Dulcolax) 20 mg PO 1400 ONE Stop: 06/22/20 14:01 Last Admin: 06/22/20 12:53 Dose: 20 mg Documented by: Hydralazine HCl (Apresoline Iv) 5 mg IV Q6H PRN PRN PRN Reason: SBP GREATER THAN 170 Sodium Chloride () 1,000 mls @ 60 mls/hr IV .[id number] [facility] Last Infusion: 06/22/20 09:47 Dose: 60 mls/hr Documented by: Pantoprazole Sodium 80 mg/ (Sodium Chloride) 100 mls @ 10 mls/hr CONT INF Q10H [facility] Last Admin: 06/22/20 06:00 Dose: 10 mls/hr Documented by: Morphine Sulfate () 1 mg IV Q4H PRN PRN PRN Reason: pain 6-1010 Last Admin: 06/22/20 12:54 Dose: 1 mg Documented by: Ondansetron HCl (Zofran) 4 mg IV Q8H PRN PRN PRN Reason: NAUSEA/VOMITING Polyethylene Glycol (Clearlax For Bowel Prep) 0 bottle PO .Q15-30 MIN PRN PRN Reason: 8 OZ Q15-90LAB FOR BOWEL PREP Sodium Chloride () 10 - 40 ml IV UD PRN PRN Reason: SALINE FLUSH STROKE Vital Signs/Narrative: Vital Signs Temp Pulse Resp BP Pulse Ox 06/22/20 12:40 98.3 F 71 18 129/49 H 96 Assessment/Plan Hospitalist note: I am seeing this patient in conjunction with Rhett Greer. I independently seen and examined the patient. Progress note above , laboratory data and imaging studies reviewed and I concur with above work-up and treatment plan. She complains of vague mild abdominal pain, no nausea or vomiting. She complained of weakness. Denied chest pain or shortness of breath. Denies dizziness or lightheadedness. Her vital signs are stable. - Physical Exam General: Alert, Oriented x3, Cooperative, No apparent distress. HEENT: Atraumatic, PERRLA, EOMI. Neck: Supple, No JVD, Negative Carotid Bruits, Trachea Midline, Thyroid Normal. Lungs: Clear to auscultation, Normal air movement, No rhonchi, No wheeze, No rales. Cardiovascular: Regular rate, Regular Rhythm, Normal S1, Normal S2, PMI Normal. Abdomen: Bowel Sounds Present, Soft, Non Tender, Non-Distended, No Hepato-splenomegaly. Extremities: No clubbing, No cyanosis, No edema Skin: No rashes, No breakdown Neurological: Cranial nerves are intact, neuro grossly intact Vital Signs are stable. Assessment and plan: #1 GI bleed: Unknown source. Hemoglobin and hematocrit are trending down. Patient's vital signs are stable. Apparently, she had upper EGD recently that shows no upper GI bleed. Today hemoglobin is 9.9, it was 11.2 on admission. Platelet count is close to normal, pro time and INR were normal. She is on IV Protonix drip. CT scan abdomen and pelvis reviewed. General surgery consulted, plan for upper EGD and colonoscopy tomorrow morning. #2 mild lactic acidosis: Direct due to acute illness and stress. No evidence of infection, sepsis or severe sepsis. Lactic acid is back to normal with IV fluids. Patient has been afebrile. #3 other chronic medical problems: Stable, continue current medications as above. This note was generated with [employer] dictation software. It may contain incorrect words, spelling, and punctuation that were not noted in checking the note before signing.
[2020-06-22 14:41] LABS: Hematocrit 31.3 % (37-47); Hemoglobin 9.4 g/dL (12.0-15.0)
[2020-06-22] MEDS: Polyethylene Glycol 3350 BOWEL PREP PO (15:18)
[2020-06-22] MEDS: 0.9% Normal Saline 1,000 ML 60 ML IV (16:58)
--- NOTE | 2020-06-22 19:00 | NURSING ---
All documentation, care, and medication administration completed by SN Magalis, done under the supervision of this RN.
[2020-06-22 22:41] LABS: Hematocrit 30.9 % (37-47); Hemoglobin 9.2 g/dL (12.0-15.0)
[2020-06-23] VITALS (21 sets, daily range): BP systolic 124–176; BP diastolic 56–77; PULSE 81–98; RESP 16–24; TEMP 36.2–37.3; O2SAT 91–100; BMI 36.3
--- NOTE | 2020-06-23 05:55 | EKG12_ITS ---
Test Reason : AM EKG Blood Pressure : / mmHG Vent. Rate : 090 BPM Atrial Rate : 090 BPM P-R Int : 164 ms QRS Dur : 104 ms QT Int : 410 ms P-R-T Axes : 074 086 022 degrees QTc Int : 501 ms Normal sinus rhythm Prolonged QT Abnormal ECG Confirmed by INGRIS GARRIDO, RAINA ([id number]), non linear editor OMID MONTESINOS ([id number]) on 06/29/2020 9:53:36 AM Referred By: MARCO ANTONIO Confirmed By:RAINA AMADO MD
[2020-06-23 06:21] LABS: Absolute Lymphocyte Count 0.31 X10^3/uL (0.83-4.51); Absolute Neutrophil Count 2.7 X10^3/uL (2.0-7.7); Basophil# 0.03 X10^3/uL; Basophil% 0.9 % (0-1); Eosinophil# 0.18 X10^3/uL; Eosinophils% 5.1 % (0-5); Hematocrit 31.3 % (37-47); Lymphocyte # 0.31 X10^3/ul (4.0); Lymphocyte % 8.8 % (19-41); Mean Corp Hgb Conc 28.8 g/dL (32-36); Mean Corpuscular Hgb 25.4 pg (27.0-32.0); Mean Corpuscular Volume 88.2 fL (81-99); Mean Platelet Vol. 10.2 fl (6.2-12.0); Monocyte# 0.25 X10^3/uL; Monocyte% 7.1 % (0-10); NRBC Flagged by Analyzer 0 % (0-5); Neutrophil # 2.73 X10^3/uL (2.7-7.7); Neutrophil % 77.8 % (47-70); POSITIVE DIFFERENTIAL YES; POSITIVE MORPHOLOGY YES; Platelet Count 107 K/mm3 (150-450); RBC Distribution Width CV 20.4 % (11.6-14.6); Red Blood Count 3.55 M/mm3 (4.2-5.4); White Blood Count 3.5 K/mm3 (4.4-11.0)
[2020-06-23 06:23] LABS: Differential Indicated SCAN CRITERIA MET
[2020-06-23 06:45] LABS: Anion Gap 7 (5-15); BUN 15 mg/dL (7-18); BUN/Creat Ratio 13.5 RATIO (10-20); Chloride 108 mmol/L (98-107); Creatinine, Serum 1.11 mg/dL (0.55-1.02); EST Glomerular Filtration Rate 50 mL/min (>60); Est Glom Filt Rate - Afr Amer 61 mL/min (>60); Glucose 83 mg/dL (74-106); Potassium 3.8 mmol/L (3.5-5.1); Sodium Level 140 mmol/L (136-145)
[2020-06-23 07:02] LABS: Differential Comment SCANNED; Hypochromasia 2+; Microcytosis 2+
[2020-06-23] MEDS: hydrALAZINE 20 MG/ML Vial 5 MG IV (10:09)
[2020-06-23] MEDS: 0.9% Saline Lock 10 ML Syringe IV (10:11)
[2020-06-23] MEDS: 0.9% Normal Saline 1,000 ML 60 ML IV (10:13)
[2020-06-23] MEDS: Lactated Ringers 1,000 ML 100 ML IV (10:38)
--- NOTE | 2020-06-23 11:00 | COLBX_PTH ---
PATIENT: JOSE ARRIETA LOC: [facility] U#:[id number] AGE/SX: 79/F ROOM: [facility] RE06/22/[address]: Dr. Germán Cortes MD : [id number] BED: 1 DIS: 06/24/2020 SPEC #: [id number] RECD: 06/23/20 12:06 STATUS: LUCIA KRYSTA #: [id number] BRUNO: 06/23/20 11:[address]: Yonathan Shi DEPT: SURGICAL PATHOLOGY RECD BY: Adam Arias ENTERED: 06/23/20 13:03 SP TYPE: COLON BX OTHR DR: MD Dr. Saeid Kearns MD Dr. Robert D Cebul, MD Dr. Tai Chi Kwok, MD Tissues: Cecum, NOS Procedures: Surgery Specimen Level IV HEADER OPERATION: [place] [place] DIAGNOSIS: Acute GI bleed TISSUE SUBMITTED: Cecum polyps (3) MICROSCOPIC DIAGNOSIS Cecum polyps (3), biopsy: Fragments of tubular adenoma. Hyperplastic polyp. CRISTO:jesus alberto 06/27/20 MICROSCOPIC DESCRIPTION Slides are reviewed. GROSS DESCRIPTION Received in fixative is one container labeled with the patient's name and designated cecum polyps. The specimen consists of multiple irregular fragments of schulz-pink polyp mixed with fecal material that in aggregate measure 1.7 x 1 x 0.3 cm. The specimen is totally submitted in one cassette. / CRISTO:jesus alberto 06/23/20 TC:1 CPT: 36016
--- NOTE | 2020-06-23 12:01 | PCM.PN.BLA ---
Progress Note I performed an EGD and colonoscopy on the patient. EGD was normal. Colonoscopy revealed 3 polyps in the cecum with no active bleeding. There is no old blood in the colon. Patient did have an inflamed hemorrhoid which was likely the cause of the bleeding. I would recommend starting a diet and stool softeners and observing until tomorrow. If the patient rebleeds she would need hemorrhoidectomy. Yonathan Shi MD Pager: [facility] [address] [place] [address] [address] [place] [address] Office: STROKE Vital Signs/Narrative: Vital Signs Temp Pulse Resp BP Pulse Ox 06/23/20 12:00 85 18 146/62 H 98 06/23/20 11:55 83 20 H 143/66 H 98 06/23/20 11:50 90 18 127/64 H 99 06/23/20 11:45 97.1 F L 88 18 135/63 H 100 06/23/20 10:26 98.8 F 97 24 H 172/59 H 91 06/23/20 10:09 92 06/23/20 09:50 98.4 F 92 22 H 176/77 H 92 06/23/20 09:11 92 22 H 92
--- NOTE | 2020-06-23 12:08 | OP.EGD_ITS ---
Patient Name: Pati Diaz Procedure Date: 06/23/2020 10:37 AM Date of : 1940 Age: 79 Procedure: Upper GI endoscopy Indications: Hematochezia Providers: Yonathan Shi MD Medicines: Monitored Anesthesia Care Patient Profile: This is a 79 year old female. Refer to note in patient chart for documentation of history and physical. Complications: No immediate complications. Procedure: Pre-Anesthesia Assessment: - Prior to the procedure, a History and Physical was performed, and patient medications and allergies were reviewed. The patient's tolerance of previous anesthesia was also reviewed. The risks and benefits of the procedure and the sedation options and risks were discussed with the patient. All questions were answered, and informed consent was obtained. Prior Anticoagulants: The patient has taken no previous anticoagulant or antiplatelet agents. After reviewing the risks and benefits, the patient was deemed in satisfactory condition to undergo the procedure. After obtaining informed consent, the endoscope was passed under direct vision. Throughout the procedure, the patient's blood pressure, pulse, and oxygen saturations were monitored continuously. The gastroscope was introduced through the mouth, and advanced to the second part of duodenum. The upper GI endoscopy was accomplished without difficulty. The patient tolerated the procedure well. Scope In: 11:06:16 AM Scope Out: 11:07:12 AM Total Procedure Duration Time 0 hours 0 minutes 56 seconds Findings: The esophagus was normal. The stomach was normal. The examined duodenum was normal. Impression: - Normal esophagus. - Normal stomach. - Normal examined duodenum. - No specimens collected. Recommendation: - [facility]. - Resume regular diet. - Continue present medications. Procedure Code(s): --- Professional --- 10650, Esophagogastroduodenoscopy, flexible, transoral; diagnostic, including collection of specimen(s) by brushing or washing, when performed (separate procedure) Diagnosis Code(s): --- Professional --- K92.1, Melena (includes Hematochezia) CPT copyright 2017 [employer]. All rights reserved. The codes documented in this report are preliminary and upon medical records director review may be revised to meet current compliance requirements. Yonathan Shi MD 06/23/2020 12:08:17 PM This report has been signed electronically. Number of Addenda: 0 Note Initiated On: 06/23/2020 10:37 AM
--- NOTE | 2020-06-23 12:08 | OP.CCLET_ITS ---
06/23/2020 Steffen Roper MD [address] [place] [address] Re : Upper GI endoscopy procedure for Pati Diaz Dear Dr. Roper This procedure was performed on Tuesday, June 23, 2020. My impressions and recommendations are as follows: Impressions : - Normal esophagus. - Normal stomach. - Normal examined duodenum. - No specimens collected. Recommendations : - [facility]. - Resume regular diet. - Continue present medications. My findings are described in the full procedure note, which is enclosed. If I can be of further assistance, please feel free to contact me at Doctor phone number(s): , Work: . Sincerely, Yonathan Shi MD 06/23/2020 12:08:17 PM This report has been signed electronically.
--- NOTE | 2020-06-23 12:11 | OP.COLON_ITS ---
Patient Name: Pati Diaz Procedure Date: 06/23/2020 11:07 AM Date of : 1940 Age: 79 Procedure: Colonoscopy Indications: Hematochezia Providers: Yonathan Shi MD Medicines: Monitored Anesthesia Care Patient Profile: This is a 79 year old female. Refer to note in patient chart for documentation of history and physical. Last Colonoscopy: 3 years ago. Complications: No immediate complications. Estimated blood loss: Minimal. Procedure: Pre-Anesthesia Assessment: - Prior to the procedure, a History and Physical was performed, and patient medications and allergies were reviewed. The patient's tolerance of previous anesthesia was also reviewed. The risks and benefits of the procedure and the sedation options and risks were discussed with the patient. All questions were answered, and informed consent was obtained. Prior Anticoagulants: The patient has taken no previous anticoagulant or antiplatelet agents. After reviewing the risks and benefits, the patient was deemed in satisfactory condition to undergo the procedure. - Prior to the procedure, a History and Physical was performed, and patient medications and allergies were reviewed. The patient's tolerance of previous anesthesia was also reviewed. The risks and benefits of the procedure and the sedation options and risks were discussed with the patient. All questions were answered, and informed consent was obtained. Prior Anticoagulants: The patient has taken no previous anticoagulant or antiplatelet agents. After reviewing the risks and benefits, the patient was deemed in satisfactory condition to undergo the procedure. After I obtained informed consent, the scope was passed under direct vision. Throughout the procedure, the patient's blood pressure, pulse, and oxygen saturations were monitored continuously. The colonoscope was introduced through the anus and advanced to the cecum, identified by appendiceal orifice and ileocecal valve. The colonoscopy was performed without difficulty. The patient tolerated the procedure well. Scope In: 11:11:13 AM Scope Withdrawal Time 0 hours 22 minutes 45 seconds Scope Out: 11:38:46 AM Total Procedure Duration Time 0 hours 27 minutes 33 seconds Findings: Three polyps were found in the cecum. These polyps were removed with a hot snare. Resection and retrieval were complete. Tissue edges were approximated and two hemostatic clips were successfully placed. There was no bleeding at the end of the procedure. Internal hemorrhoids were found during retroflexion and during anoscopy. The hemorrhoids were large. Impression: - Three polyps in the cecum, removed with a hot snare. Resected and retrieved. Clips were placed. - Internal hemorrhoids. Recommendation: - Repeat colonoscopy in 5 years for surveillance based on pathology results. - [facility]. - Resume previous diet. - Continue present medications. Procedure Code(s): --- Professional --- 55851, Colonoscopy, flexible; with removal of tumor(s), polyp(s), or other lesion(s) by snare technique Diagnosis Code(s): --- Professional --- D12.0, Benign neoplasm of cecum K64.8, Other hemorrhoids K92.1, Melena (includes Hematochezia) CPT copyright 2017 [employer] [place] [employer]. All rights reserved. The codes documented in this report are preliminary and upon auto air conditioning installer review may be revised to meet current compliance requirements. Yonathan Shi MD 06/23/2020 12:11:23 PM This report has been signed electronically. Number of Addenda: 0 Note Initiated On: 06/23/2020 11:07 AM
--- NOTE | 2020-06-23 12:11 | OP.CCLET_ITS ---
06/23/2020 Steffen Roper MD [address] [place] [address] Re : Colonoscopy procedure for Pati Diaz Dear Dr. Roper This procedure was performed on Tuesday, June 23, 2020. My impressions and recommendations are as follows: Impressions : - Three polyps in the cecum, removed with a hot snare. Resected and retrieved. Clips were placed. - Internal hemorrhoids. Recommendations : - Repeat colonoscopy in 5 years for surveillance based on pathology results. - [facility]. - Resume previous diet. - Continue present medications. My findings are described in the full procedure note, which is enclosed. If I can be of further assistance, please feel free to contact me at Doctor phone number(s): , Work: . Sincerely, Yonathan Shi MD 06/23/2020 12:11:23 PM This report has been signed electronically.
[2020-06-23 12:35] LABS: Pathologist Review Reviewed
--- NOTE | 2020-06-23 13:43 | PN_ITS ---
<Rhett rGeer - Last Filed: 06/23/20 13:43> Patient Problems: Active and Suspected Problems (Last Updated 06/22/20 @ 13:[address] Germán Cortes MD) Acute GI bleeding (Acute) Elevated lactic acid level (Acute) Reason for Visit: no active bleed noted on colon/egd. patient has polyps that were biopsied. pt had large internal hemorrhoids. pt is intermittently constipated with IBS and chronic opiate use. Vitals/I&O's: Vital Signs Temp Pulse Resp BP Pulse Ox 98.1 F 81 20 H 148/66 H 94 06/23/20 12:20 06/23/20 12:20 06/23/20 12:20 06/23/20 12:20 06/23/20 12:20 Oxygen Flow Rate (L/min) 4 Oxygen Delivery Method Nasal Cannula Weight: 198 lb 6.656 oz Body Mass Index (BMI) 36.3 Intake and Output for Last 24 Hours 06/21/20 06/22/20 06/23/20 23:59 23:59 23:59 Intake Total 4223.41 / 4223.41 880.66 / 880.66 Balance 4223.41 / 4223.41 880.66 / 880.66 General: Alert, Oriented x3, Cooperative HEENT: Atraumatic, PERRLA, EOMI, Normocephalic Neck: Supple, No JVD, Negative Carotid Bruits Lungs: Clear to auscultation, Normal air movement Cardiovascular: Regular rate, No murmurs, Murmur - 3/6 holosystolic murmur RSB 2nd ICS Abdomen: Bowel Sounds Present, Soft, Non Tender Extremities: No edema, Capillary Refill Less than 3 Seconds Skin: No rashes, No breakdown Musculoskeletal: No Tenderness to Palpation of Joints or Extremities Neurological: Cranial nerves II-XII grossly intact Psych/Mental Status: Normal Affect, Appropriate, Alert and oriented to time, place, person, mood and affect Microbiology Past 72 Hours 06/21/20 23:25 Stool Stool Occult Blood (RADHA) - Final Occult Blood Positive Laboratory Results 06/22/20 14:19: Hgb 9.4 L, Hct 31.3 L 06/22/20 22:32: Hgb 9.2 L, Hct 30.9 L 06/23/20 05:51: Sodium 140, Potassium 3.8, Chloride 108 H, Carbon Dioxide 25.0, Anion Gap 7, BUN 15, Creatinine 1.11 H, Estim Creat Clear Calc 32.50, Est GFR (MDRD) Af Amer 61, Est GFR (MDRD) Non-Af 50 L, BUN/Creatinine Ratio 13.5, Glucose 83, Calcium 8.0 L 06/23/20 05:51: WBC 3.5 L, RBC 3.55 L, Hgb 9.0 L, Hct 31.3 L, MCV 88.2, MCH 25.4 L, MCHC 28.8 L, RDW Std Deviation 67.0 H, RDW Coeff of Genny 20.4 H, Plt Count 107 L, MPV 10.2, Immature Gran % (Auto) 0.300, Neut % (Auto) 77.8 H, Lymph % (Auto) 8.8 L, Fulton % (Auto) 7.1, Eos % (Auto) 5.1 H, Baso % (Auto) 0.9, Absolute Neuts (auto) 2.7, Absolute Lymphs (auto) 0.31 L, Nucleated RBC % 0, Differential Comment SCANNED, Diff Path Review Reviewed, Hypochromasia 2+, Microcytosis 2+ Current Medications Acetaminophen (Tylenol) 650 mg PO Q6H PRN PRN PRN Reason: HEADACHE PAIN 1-10/10 Hydrocodone Bitart/Acetaminophen ([place] 5mg-325mg) 1 tablet PO Q6H PRN PRN PRN Reason: Pain Score 6-10/10 Last Admin: 06/22/20 21:56 Dose: 1 tablet Documented by: Atorvastatin Calcium (Lipitor) 40 mg PO QHS DORON Docusate Sodium (Colace) 100 mg PO BID DO[facility] Furosemide (Lasix) 40 mg PO DAILY DORON Hydralazine HCl (Apresoline Iv) 5 mg IV Q6H PRN PRN PRN Reason: SBP GREATER THAN 170 Last Admin: 06/23/20 10:09 Dose: 5 mg Documented by: Metoprolol Succinate (Toprol Xl (Beta Linda)) 25 mg PO BID DORON Morphine Sulfate () 1 mg IV Q4H PRN PRN PRN Reason: pain 6-10/10 Last Admin: 06/22/20 12:54 Dose: 1 mg Documented by: Ondansetron HCl (Zofran) 4 mg IV Q8H PRN PRN PRN Reason: NAUSEA/VOMITING Pantoprazole Sodium (Protonix) 40 mg PO DAILY [facility]OR[facility] Polyethylene Glycol (Clearlax For Bowel Prep) 0 bottle PO .Q15-30 MIN PRN PRN Reason: 8 OZ [id number] FOR BOWEL PREP Last Admin: 06/22/20 15:18 Dose: 238 gm Documented by: Sodium Chloride () 10 - 40 ml IV UD PRN PRN Reason: SALINE FLUSH Last Admin: 06/23/20 10:11 Dose: 10 ml Documented by: STROKE Vital Signs/Narrative: Vital Signs Temp Pulse Resp BP Pulse Ox 06/23/20 12:20 98.1 F 81 20 H 148/66 H 94 06/23/20 12:05 97.4 F L 81 18 148/56 H 98 06/23/20 12:00 85 18 146/62 H 98 06/23/20 11:55 83 20 H 143/66 H 98 06/23/20 11:50 90 18 127/64 H 99 06/23/20 11:45 97.1 F L 88 18 135/63 H 100 06/23/20 10:26 98.8 F 97 24 H 172/59 H 91 06/23/20 10:09 92 06/23/20 09:50 98.4 F 92 22 H 176/77 H 92 Medical Necessity - Tobacco Use Smoking Status: Former smoker Assessment/Plan All Active Problems (Last Updated 06/22/20 @ 13:[address] Germán Cortes MD) Acute GI bleeding (Acute) Elevated lactic acid level (Acute) 1. Acute blood loss anemia 2/2 GI bleed - unclear source - EGD clear, colonoscopy with polyps and internal hemorrhoids. no active bleed noted. monitor H/H overnight 2. Mild thrombocytopenia - recheck in AM. 3. chronic back pain - chronic opiate use with IBS - patient has intermittent constipation which likely worsens the hemorrhoids. Advised daily stools softener and metamucil. DVT ppx: SCDs This patient was seen by Rhett Greer PA-C under the supervision of Dr. Cortes <Germán Cortes - Last Filed: 06/24/20 11:57> Vitals/I&O's: Vital Signs Temp Pulse Resp BP Pulse Ox 99.2 F H 86 24 H 124/59 H 93 06/23/20 14:23 06/23/20 14:23 06/23/20 14:23 06/23/20 14:23 06/23/20 14:23 Oxygen Flow Rate (L/min) 3.5 Oxygen Delivery Method Nasal Cannula Weight: 198 lb 6.656 oz Body Mass Index (BMI) 36.3 Intake and Output for Last 24 Hours 06/21/20 06/22/20 06/23/20 23:59 23:59 23:59 Intake Total 4223.41 / 4223.41 1040.66 / 1040.66 Balance 4223.41 / 4223.41 1040.66 / 1040.66 Microbiology Past 72 Hours 06/21/20 23:25 Stool Stool Occult Blood (RADHA) - Final Occult Blood Positive Laboratory Results 06/22/20 22:32: Hgb 9.2 L, Hct 30.9 L 06/23/20 05:51: Sodium 140, Potassium 3.8, Chloride 108 H, Carbon Dioxide 25.0, Anion Gap 7, BUN 15, Creatinine 1.11 H, Estim Creat Clear Calc 32.50, Est GFR (MDRD) Af Amer 61, Est GFR (MDRD) Non-Af 50 L, BUN/Creatinine Ratio 13.5, Glucose 83, Calcium 8.0 L 06/23/20 05:51: WBC 3.5 L, RBC 3.55 L, Hgb 9.0 L, Hct 31.3 L, MCV 88.2, MCH 25.4 L, MCHC 28.8 L, RDW Std Deviation 67.0 H, RDW Coeff of Genny 20.4 H, Plt Count 107 L, MPV 10.2, Immature Gran % (Auto) 0.300, Neut % (Auto) 77.8 H, Lymph % (Auto) 8.8 L, Fulton % (Auto) 7.1, Eos % (Auto) 5.1 H, Baso % (Auto) 0.9, Absolute Neuts (auto) 2.7, Absolute Lymphs (auto) 0.31 L, Nucleated RBC % 0, Differential Comment SCANNED, Diff Path Review Reviewed, Hypochromasia 2+, Microcytosis 2+ Current Medications Acetaminophen (Tylenol) 650 mg PO Q6H PRN PRN PRN Reason: HEADACHE PAIN 1-07/29 Hydrocodone Bitart/Acetaminophen ([place] 5mg-325mg) 1 tablet PO Q6H PRN PRN PRN Reason: Pain Score 6-07/29 Last Admin: 06/23/20 13:46 Dose: 1 tablet Documented by: Atorvastatin Calcium (Lipitor) 40 mg PO QHS DORON Docusate Sodium (Colace) 100 mg PO BID DORON Furosemide (Lasix) 40 mg PO DAILY DORON Hydralazine HCl (Apresoline Iv) 5 mg IV Q6H PRN PRN PRN Reason: SBP GREATER THAN 170 Last Admin: 06/23/20 10:09 Dose: 5 mg Documented by: Metoprolol Succinate (Toprol Xl (Beta Linda)) 25 mg PO BID DORON Last Admin: 06/23/20 13:45 Dose: 25 mg Documented by: Morphine Sulfate () 1 mg IV Q4H PRN PRN PRN Reason: pain 6-07/29 Last Admin: 06/22/20 12:54 Dose: 1 mg Documented by: Ondansetron HCl (Zofran) 4 mg IV Q8H PRN PRN PRN Reason: NAUSEA/VOMITING Pantoprazole Sodium (Protonix) 40 mg PO DAILY [facility] Polyethylene Glycol (Clearlax For Bowel Prep) 0 bottle PO .Q15-30 MIN PRN PRN Reason: 8 OZ [id number] FOR BOWEL PREP Last Admin: 06/22/20 15:18 Dose: 238 gm Documented by: Sodium Chloride () 10 - 40 ml IV UD PRN PRN Reason: SALINE FLUSH Last Admin: 06/23/20 10:11 Dose: 10 ml Documented by: STROKE Vital Signs/Narrative: Vital Signs Temp Pulse Resp BP Pulse Ox 06/23/20 14:23 99.2 F H 86 24 H 124/59 H 93 06/23/20 14:05 99.2 F H 98 18 124/59 H 93 06/23/20 14:01 86 24 H 06/23/20 13:45 81 06/23/20 12:20 98.1 F 81 20 H 148/66 H 94 06/23/20 12:05 97.4 F L 81 18 148/56 H 98 06/23/20 12:00 85 18 146/62 H 98 06/23/20 11:55 83 20 H 143/66 H 98 06/23/20 11:50 90 18 127/64 H 99 06/23/20 11:45 97.1 F L 88 18 135/63 H 100 Assessment/Plan Hospitalist note: I am seeing this patient in conjunction with Rhett Greer. I independently seen and examined the patient. Progress note above , laboratory data and imaging studies reviewed and I concur with above work-up and treatment plan. She underwent upper EGD and colonoscopy today, had large internal hemorrhoids, no active GI bleed. Abdominal pain improved. Denied nausea or vomiting. Her vital signs are stable. - Physical Exam General: Alert, Oriented x3, Cooperative, No apparent distress. HEENT: Atraumatic, PERRLA, EOMI. Neck: Supple, No JVD, Negative Carotid Bruits, Trachea Midline, Thyroid Normal. Lungs: Clear to auscultation, Normal air movement, No rhonchi, No wheeze, No rales. Cardiovascular: Regular rate, Regular Rhythm, Normal S1, Normal S2, PMI Normal. Abdomen: Bowel Sounds Present, Soft, Non Tender, Non-Distended, No Hepato- splenomegaly. Extremities: No clubbing, No cyanosis, No edema Skin: No rashes, No breakdown Neurological: Cranial nerves are intact, neuro grossly intact Vital Signs are stable. Assessment and plan: #1 GI bleed: Unknown source. Upper EGD showed no ulcers or active bleeding. Colonoscopy revealed polyps and internal hemorrhoids, no active bleeding. This GI bleed probably due to hemorrhoids which currently are nonbleeding. Hemoglobin and hematocrit are trending down but not significantly. Patient's vital signs are stable. Plan to start diet, repeat CBC tomorrow morning, anticipate discharge home tomorrow morning. #2 mild lactic acidosis: Direct due to acute illness and stress. No evidence of infection, sepsis or severe sepsis. Lactic acid is back to normal with IV fluids. Patient has been afebrile. #3 other chronic medical problems: Stable, continue current medications as above. This note was generated with [employer] dictation software. It may contain incorrect words, spelling, and punctuation that were not noted in checking the note before signing. Inpatient E&M: 39162 Subs Hosp L2
[2020-06-23] MEDS: Metoprolol(XL)Succ 25 MG Tablet PO ×2 (13:45→21:27)
[2020-06-23] MEDS: HYDROcodone Bitartrate/Apap 5/325 Tablet PO ×2 (13:46→21:26)
--- NOTE | 2020-06-23 14:30 | NURSING ---
Read and Reviewed SN Documentation
--- NOTE | 2020-06-23 15:35 | CASEMGMT ---
This RN CM to room to discuss discharge plan with pt at this time. Pt declines HHC/OP therapy at this time. Pt states no concerns with going home at time of discharge. Pt voices no further questions/concerns/needs at this time. SStaten RN CM
--- NOTE | 2020-06-23 18:30 | NURSING ---
All documentation, care, and medication administration completed by SN Magalis, done under the supervision of this RN.
[2020-06-23] MEDS: Atorvastatin Calcium 40 MG Tablet PO (21:27)
[2020-06-24] VITALS (8 sets, daily range): BP systolic 126–191; BP diastolic 49–85; PULSE 63–77; RESP 15–18; TEMP 36.4–36.7; O2SAT 84–97; BMI 36.3
[2020-06-24] MEDS: Ondansetron 4 MG/2 ML Vial IV (02:20)
[2020-06-24] MEDS: 0.9% Saline Lock 10 ML Syringe IV (02:20)
--- NOTE | 2020-06-24 02:34 | NURSING ---
PT WOKE UP FEELING NAUSEATED AND SOB. UP TO THE BATHROOM & VOIDED YELLOW URINE. ASSISTED BACK TO BED BY FINANCIAL ADVISER. PT GIVEN ZOFRAN 4 MG IVP AND PLACED ON 2L N/C FOR RA POX OF 84% WHILE AMBULATING BACK FROM THE BATHROOM. BP WAS INITIALLY ELEVATED AT 191/82. AFTER RESTING IN BED FOR A FEW MINUTES, PT REPORTED SHE WAS STARTING TO FEEL BETTER. RECHECKED BP AND NOTED AT 143/67. 98% ON 2L N/C. WEANED DOWN TO 1L N/C. 96% AT THIS TIME. NO BLOODY STOOLS NOTED. WILL CONTINUE TO MONITOR.
--- NOTE | 2020-06-24 03:53 | NURSING ---
PT AWAKE RESTING IN BED & REPORTS HER NAUSEA HAS SUBSIDED AND SHE IS FEELING BETTER.
--- NOTE | 2020-06-24 05:30 | NURSING ---
96% on 1l n/c. weaned to room air at this time. pt denies c/o nausea. resting well.
[2020-06-24 08:31] LABS: Hematocrit 30.8 % (37-47); Hemoglobin 9.4 g/dL (12.0-15.0); Mean Corp Hgb Conc 30.5 g/dL (32-36); Mean Corpuscular Hgb 27.2 pg (27.0-32.0); Mean Platelet Vol. 11.3 fl (6.2-12.0); POSITIVE COUNT YES; Platelet Count 93 K/mm3 (150-450); RBC Distribution Width CV 19.4 % (11.6-14.6); Red Blood Count 3.46 M/mm3 (4.2-5.4); White Blood Count 5.3 K/mm3 (4.4-11.0)
[2020-06-24 08:41] LABS: Scan Indicated on CBC? Y/N YES- FLAGS NOTED
[2020-06-24] MEDS: Furosemide 40 MG Tablet PO (08:43)
[2020-06-24] MEDS: Pantoprazole Sodium 40 MG Tablet PO (08:43)
[2020-06-24] MEDS: Metoprolol(XL)Succ 25 MG Tablet PO (08:43)
--- NOTE | 2020-06-24 08:44 | PN.SURG_ITS ---
Patient Problems: Active and Suspected Problems (Last Updated 06/22/20 @ 13:[address] Germán Cortes MD) Acute GI bleeding (Acute) Elevated lactic acid level (Acute) Subjective: Patient reports no GI bleeding overnight. She is still having some epigastric pain but no nausea or vomiting. - Physical Exam Vitals/I&O's: Vital Signs Temp Pulse Resp BP Pulse Ox 97.6 F L 63 17 167/85 H 94 06/24/20 08:30 06/24/20 08:30 06/24/20 08:30 06/24/20 08:30 06/24/20 08:30 Oxygen Flow Rate (L/min) 1 Oxygen Delivery Method Room Air Weight: 198 lb 6.656 oz Body Mass Index (BMI) 36.3 Intake and Output for Last 24 Hours 06/22/20 06/23/20 06/24/20 23:59 23:59 23:59 Intake Total 4223.41 / 4223.41 1400.66 / 1550.66 150 / 150 Balance 4223.41 / 4223.41 1400.66 / 1550.66 150 / 150 General: Alert, Oriented x3 Cardiovascular: Regular rate, Regular Rhythm Abdomen: Soft, Non-Distended, Tender - Mild tenderness in the epigastric region Microbiology Past 72 Hours 06/21/20 23:25 Stool Stool Occult Blood (RADHA) - Final Occult Blood Positive Laboratory Results 06/21/20 22:55: Diff Path Review Pending 06/23/20 05:51: Diff Path Review Reviewed 06/24/20 06:20: WBC 5.3, RBC 3.46 L, Hgb 9.4 L, Hct 30.8 L, MCV 89.0, MCH 27.2, MCHC 30.5 L D, RDW Std Deviation 64.0 H, RDW Coeff of Genny 19.4 H, Plt Count 93 L , MPV 11.3 Current Medications Acetaminophen (Tylenol) 650 mg PO Q6H PRN PRN PRN Reason: HEADACHE PAIN 1-10/10 Hydrocodone Bitart/Acetaminophen ([place] 5mg-325mg) 1 tablet PO Q6H PRN PRN PRN Reason: Pain Score 6-10/10 Last Admin: 06/23/20 21:26 Dose: 1 tablet Documented by: Atorvastatin Calcium (Lipitor) 40 mg PO QHS [facility] Last Admin: 06/23/20 21:27 Dose: 40 mg Documented by: Docusate Sodium (Colace) 100 mg PO BID [facility] Last Admin: 06/23/20 21:27 Dose: Not Given Documented by: Furosemide (Lasix) 40 mg PO DAILY [facility] Hydralazine HCl (Apresoline Iv) 5 mg IV Q6H PRN PRN PRN Reason: SBP GREATER THAN 170 Last Admin: 06/23/20 10:09 Dose: 5 mg Documented by: Metoprolol Succinate (Toprol Xl (Beta Linda)) 25 mg PO BID [facility] Last Admin: 06/23/20 21:27 Dose: 25 mg Documented by: Morphine Sulfate () 1 mg IV Q4H PRN PRN PRN Reason: pain 6-07/29 Last Admin: 06/22/20 12:54 Dose: 1 mg Documented by: Ondansetron HCl (Zofran) 4 mg IV Q8H PRN PRN PRN Reason: NAUSEA/VOMITING Last Admin: 06/24/20 02:20 Dose: 4 mg Documented by: Pantoprazole Sodium (Protonix) 40 mg PO DAILY [facility] Polyethylene Glycol (Clearlax For Bowel Prep) 0 bottle PO .Q15-30 MIN PRN PRN Reason: 8 OZ [id number] FOR BOWEL PREP Last Admin: 06/22/20 15:18 Dose: 238 gm Documented by: Sodium Chloride () 10 - 40 ml IV UD PRN PRN Reason: SALINE FLUSH Last Admin: 06/24/20 02:20 Dose: 10 ml Documented by: Medical Necessity - Tobacco Use Smoking Status: Former smoker Assessment/Plan All Active Problems (Last Updated 06/22/20 @ 13:[address] Germán Cortes MD) Acute GI bleeding (Acute) Elevated lactic acid level (Acute) 79-year-old female with GI bleed 1. Patient EGD and colonoscopy yesterday. EGD was normal. Colonoscopy revealed 3 polyps in the ascending colon which were removed. There was no blood or stigmata of bleeding in the colon. She did have an inflamed hemorrhoid but she is not having continuing bleeding. I would recommend that she start Colace to avoid constipation. If the patient rebleeds I would recommend hemorrhoidectomy. Hemoglobin is stable and she is okay for discharge from my standpoint. She is to follow-up with me if there is any bleeding. Yonathan Shi MD Pager: [facility] [address] [place] [address], [address] [place] [address] Office:
[2020-06-24 09:24] LABS: Differential Comment SCANNED
--- NOTE | 2020-06-24 11:00 | DCINST_ITS ---
- Discharge Diagnoses Current Active Problems: Current Active and Chronic Problems (Last Updated 06/22/20 @ 13:[address] Germán Cortes MD) Acute GI bleeding (Acute) Elevated lactic acid level (Acute) Chronic renal failure, stage 3 (moderate) (Chronic) CAD (coronary artery disease) (Chronic) You will use the following diet at home:: Cardiac Your food should be the consistency of: Regular Your liquids should be the consistency of: Regular/Thin Discharge Activity: Return to Normal Activity Allergies/Adverse Reactions: Allergies Sulfa (Sulfonamide Antibiotics) Adverse Reaction (Intermediate, Verified 06/09/20 07:53) Hives Medications to take at Discharge Furosemide [Lasix] 40 mg PO DAILY 04/15/15 Omeprazole [Prilosec] 40 mg PO DAILY 04/15/15 Hydrocodone/Acetaminophen [[place] 7.5-325 Tablet] 1 ea PO Q4H PRN PRN 04/13/20 Metoprolol(XL)Succ [Toprol Xl (Beta Linda)] 25 mg PO BID 04/13/20 Atorvastatin Calcium 40 mg PO DAILY 04/20/20 Naloxegol Oxalate [Movantik] 25 mg PO DAILY PRN 04/20/20 buprenorphine 10 mcg/hour weekly transdermal patch 1 patch TRANSDERMAL QWEEK ea 05/16/20 Docusate Sodium [Colace] 100 mg PO DAILY #30 cap 06/24/20 The following prescriptions were given: Docusate Sodium [Colace] 100 mg PO DAILY #30 cap Transmission Status: Pending to [facility]/pharmacy #[id number] Primary Care Physician: Steffen Roper Chi, MD [Primary Care Provider] - Please follow up with your Primary Care Physician in: 1-2 weeks Test Results: Test results from this visit will be discussed in further detail at your follow- up appointment, if applicable. Please Follow Up With: Yonathan Shi MD When: as needed Proposed Discharge Date: 06/24/20
[2020-06-24] MEDS: HYDROcodone Bitartrate/Apap 5/325 Tablet PO (11:07)
--- NOTE | 2020-06-24 13:29 | DS.PCM_ITS ---
<Rhett Greer - Last Filed: 06/24/20 13:29> Discharge Date and Diagnosis - Problem List Patient Problems: Active and Suspected Problems (Last Updated 06/22/20 @ 13:[address] Germán Cortes MD) Acute GI bleeding (Acute) Elevated lactic acid level (Acute) Date of Admission: 06/22/20 Date of Discharge: 06/24/20 - Primary Discharge Diagnosis Acute Problems: Active Problems (Last Updated 06/22/20 @ 13:[address] 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 Germán Cortes MD) Depression (Chronic) GERD (gastroesophageal reflux disease) (Chronic) High cholesterol (Chronic) Osteoarthritis (Chronic) Vitamin D deficiency (Chronic) History of cardiac catheterization (Chronic) S/P triple vessel bypass (Chronic) 2014 Iron deficiency anemia due to chronic blood loss (Chronic) Chronic renal failure, stage 3 (moderate) (Chronic) Hypertension (Chronic) Obesity (BMI 30-39.9) (Chronic) CAD (coronary artery disease) (Chronic) Diastolic heart failure (Chronic) Hx of CABG (Chronic) Heme + stool (Chronic) Hospital Course and Treatment Imaging Results: CT/Abdomen/Pelvis W IV Cont ONLY IMPRESSION: Evaluation of bowel is limited by lack of oral contrast. There is gastric wall thickening present. This may represent gastritis. Within the stomach there is a 4 mm area of hyperdensity which may represent ingested material. However A small gastric bleed cannot be totally excluded. There was no noncontrast study performed to evaluate for post contrast blush. Consider direct visualization as clinically indicated. Bilateral pleural effusions. Status post cholecystectomy. Diverticulosis. There is a short segment mild sigmoid colonic wall thickening. There is no pericolonic stranding identified. This may represent underdistention. A mild focal colitis or underlying mass cannot be totally excluded. This could be further evaluated with follow-up nonemergent oral contrast enhanced study versus colonoscopy. Other findings as above. Consults: Gen Surg - [place] Operations: None Procedures: Colonoscopy, EGD Summary of Care Provided: Hospital course: The patient is a 79 year old F past medical history of chronic iron deficiency anemia followed by Dr. Daily for iron infusions as she is oral iron intoleramt, CKDIII, chronic back pain on chronic opiates at home, also with a history of chronic hemorrhoids, irritable bowel syndrome with intermittent constipation, who presented to the emergency room with complaints of blood in her stool. The patient had recently had an EGD which was negative for acute process. The patient had nay red blood in her stool. Her hemoglobin was decreased at 11.2, platelets were mildly low at 141. She was not on any blood thinning agents at home. The patient had a CT of the abdomen which showed gastric wall thickening possibly gastritis possible ingested material in the stomach, possible small gastric bleed. Patient was admitted to the PCU and placed on telemetry. The patient was seen by general surgery. General surgery recommended repeat EGD and colonoscopy. EGD was negative. Colonoscopy demonstrated large internal hemorrhoids, also there were polyps present which were removed. Internal hemorrhoids were felt to be the source of bleeding although no acute bleed was present on the endoscopies. Patient's hemoglobin decreased to 9.0 at its lowest before coming back up to 9.4 without any intervention. As the patient has intermittent constipation with her chronic opiate use we strongly recommended use of a daily stool softener. General surgery recommended Colace daily. She had no further blood loss from her stool. The patient was discharged home in stable condition. She will follow with her PCP in 1 to 2 weeks, and follow-up with general surgery as needed. This patient was seen by Rhett Greer PA-C under the supervision of Doctor Sophia. [] Patient Problems: Active and Suspected Problems (Last Updated 06/22/20 @ 13:[address] Germán Cortes MD) Acute GI bleeding (Acute) Elevated lactic acid level (Acute) - Physical Exam Vitals/I&O's: Vital Signs Temp Pulse Resp BP Pulse Ox 97.6 F L 63 17 167/85 H 94 06/24/20 08:30 06/24/20 08:43 06/24/20 08:30 06/24/20 08:43 06/24/20 08:30 Oxygen Flow Rate (L/min) 1 Oxygen Delivery Method Room Air Weight: 198 lb 6.656 oz Body Mass Index (BMI) 36.3 Intake and Output for Last 24 Hours 06/22/20 06/23/20 06/24/20 23:59 23:59 23:59 Intake Total 4223.41 / 4223.41 1400.66 / 1550.66 510 / 510 Balance 4223.41 / 4223.41 1400.66 / 1550.66 510 / 510 General: Alert, Oriented x3, Cooperative HEENT: Atraumatic, PERRLA, EOMI, Normocephalic Neck: Supple, No JVD, Negative Carotid Bruits Lungs: Clear to auscultation, Normal air movement Cardiovascular: Regular rate, No murmurs Abdomen: Bowel Sounds Present, Soft, Non Tender Extremities: No edema, Capillary Refill Less than 3 Seconds Skin: No rashes, No breakdown Musculoskeletal: No Tenderness to Palpation of Joints or Extremities Neurological: Cranial nerves II-XII grossly intact Psych/Mental Status: Normal Affect, Appropriate, Alert and oriented to time, place, person, mood and affect Microbiology Past 72 Hours 06/21/20 23:25 Stool Stool Occult Blood (RADHA) - Final Occult Blood Positive Laboratory Results 06/21/20 22:55: Diff Path Review Pending 06/24/20 06:20: WBC 5.3, RBC 3.46 L, Hgb 9.4 L, Hct 30.8 L, MCV 89.0, MCH 27.2, MCHC 30.5 L D, RDW Std Deviation 64.0 H, RDW Coeff of Genny 19.4 H, Plt Count 93 L , MPV 11.3, Differential Comment SCANNED Current Medications Acetaminophen (Tylenol) 650 mg PO Q6H PRN PRN PRN Reason: HEADACHE PAIN 1-10/10 Hydrocodone Bitart/Acetaminophen ([place] 5mg-325mg) 1 tablet PO Q6H PRN PRN PRN Reason: Pain Score 6-10/10 Last Admin: 06/24/20 11:07 Dose: 1 tablet Documented by: Atorvastatin Calcium (Lipitor) 40 mg PO QHS [facility] Last Admin: 06/23/20 21:27 Dose: 40 mg Documented by: Docusate Sodium (Colace) 100 mg PO BID [facility] Last Admin: 06/24/20 08:41 Dose: Not Given Documented by: Furosemide (Lasix) 40 mg PO DAILY [facility] Last Admin: 06/24/20 08:43 Dose: 40 mg Documented by: Hydralazine HCl (Apresoline Iv) 5 mg IV Q6H PRN PRN PRN Reason: SBP GREATER THAN 170 Last Admin: 06/23/20 10:09 Dose: 5 mg Documented by: Metoprolol Succinate (Toprol Xl (Beta Linda)) 25 mg PO BID [facility] Last Admin: 06/24/20 08:43 Dose: 25 mg Documented by: Morphine Sulfate () 1 mg IV Q4H PRN PRN PRN Reason: pain 6-10 Last Admin: 06/22/20 12:54 Dose: 1 mg Documented by: Ondansetron HCl (Zofran) 4 mg IV Q8H PRN PRN PRN Reason: NAUSEA/VOMITING Last Admin: 06/24/20 02:20 Dose: 4 mg Documented by: Pantoprazole Sodium (Protonix) 40 mg PO DAILY [facility] Last Admin: 06/24/20 08:43 Dose: 40 mg Documented by: Polyethylene Glycol (Clearlax For Bowel Prep) 0 bottle PO .Q15-30 MIN PRN PRN Reason: 8 OZ [id number] FOR BOWEL PREP Last Admin: 06/22/20 15:18 Dose: 238 gm Documented by: Sodium Chloride () 10 - 40 ml IV UD PRN PRN Reason: SALINE FLUSH Last Admin: 06/24/20 02:20 Dose: 10 ml Documented by: Discharge Diet: Low fat/ Low Cholesterol, 2000 mg Sodium Diet Discharge Activity: Return to Normal Activity Home Medications: Medications to take at Discharge Furosemide [Lasix] 40 mg PO DAILY 04/15/15 Omeprazole [Prilosec] 40 mg PO DAILY 04/15/15 Hydrocodone/Acetaminophen [[place] 7.5-325 Tablet] 1 ea PO Q4H PRN PRN 04/13/20 Metoprolol(XL)Succ [Toprol Xl (Beta Linda)] 25 mg PO BID 04/13/20 Atorvastatin Calcium 40 mg PO DAILY 04/20/20 Naloxegol Oxalate [Movantik] 25 mg PO DAILY PRN 04/20/20 buprenorphine 10 mcg/hour weekly transdermal patch 1 patch TRANSDERMAL QWEEK ea 05/16/20 Docusate Sodium [Colace] 100 mg PO DAILY #30 cap 06/24/20 Following Prescriptions Were Given to Patient: Docusate Sodium [Colace] 100 mg PO DAILY #30 cap Transmission Status: Received by [facility]pharmacy #[id number] Primary Care Physician: Steffen Roper Chi, MD [Primary Care Provider] - Please follow up with your Primary Care Physician in: 1-2 weeks Please Follow Up With: Yonathan Shi MD When: as needed Disposition: Home Minutes spent on discharge:: 35 Patient Condition:: Stable Medical Necessity - Tobacco Use Smoking Status: Former smoker Meaningful Use Info Meaningful Use Diagnoses (Choose all that apply): None applicable <Germán Cortes - Last Filed: 06/24/20 14:22> Discharge Date and Diagnosis - Primary Discharge Diagnosis Acute Problems: Active Problems (Last Updated 06/22/20 @ 13:[address] Germán Cortes MD) Acute GI bleeding (Acute) Elevated lactic acid level (Acute) - Secondary Discharge Diagnosis Chronic Problems: Chronic Problems (Last Updated 06/22/20 @ 13:[address] Germán Cortes MD) Depression (Chronic) GERD (gastroesophageal reflux disease) (Chronic) High cholesterol (Chronic) Osteoarthritis (Chronic) Vitamin D deficiency (Chronic) History of cardiac catheterization (Chronic) S/P triple vessel bypass (Chronic) 2014 Iron deficiency anemia due to chronic blood loss (Chronic) Chronic renal failure, stage 3 (moderate) (Chronic) Hypertension (Chronic) Obesity (BMI 30-39.9) (Chronic) CAD (coronary artery disease) (Chronic) Diastolic heart failure (Chronic) Hx of CABG (Chronic) Heme + stool (Chronic) Hospital Course and Treatment Summary of Care Provided: Hospitalist note: Discharge summary above reviewed and I concur with above discharge treatment plan. Patient presented to the emergency room because of rectal bleeding, found to have GI bleed. Patient was treated with IV fluids and IV PPI. She had recent upper EGD that showed no evidence of upper GI bleed, no ulcers or masses. On admission, hemoglobin was 11.2 g/dL and it came down because of the GI bleed and lowest was 9 g/dL. Upon discharge, hemoglobin was 9.4 g/dL. General surgery consulted and she underwent upper EGD and colonoscopy. Upper EGD was normal, there was no evidence of ulcers or bleeding. Colonoscopy performed and she was found to have 3 polyps in the cecum that was removed and biopsy lysed, there was no evidence of bleeding in the colon and she was found to have internal hemorrhoids which were not bleeding. Patient was found to have mild lactic acidosis which is attributed to acute illness and stress. There was no evidence of sepsis or severe sepsis, no infection. Lactic acid came back to normal with IV fluids and patient remained afebrile. After the upper EGD and colonoscopy, patient started back on diet. She had no more rectal bleeding. Hemoglobin and hematocrit remained stable. Patient discharged home on a stable medical condition, discharged on PPI and Colace daily to avoid constipation, general surgery stated that if the patient started bleeding again, she might need to go for hemorrhoidectomy, patient continued on her previous home medications without any changes, recommended follow-up with PCP in 1 to 2 weeks and follow-up with general surgery as needed. - Physical Exam General: Alert, Oriented x3, Cooperative, No apparent distress. HEENT: Atraumatic, PERRLA, EOMI. Neck: Supple, No JVD, Negative Carotid Bruits, Trachea Midline, Thyroid Normal. Lungs: Clear to auscultation, Normal air movement, No rhonchi, No wheeze, No r ales. Cardiovascular: Regular rate, Regular Rhythm, Normal S1, Normal S2, PMI Normal. Abdomen: Bowel Sounds Present, Soft, Non Tender, Non-Distended, No Hepato- splenomegaly. Extremities: No clubbing, No cyanosis, No edema Skin: No rashes, No breakdown Neurological: Cranial nerves are intact, neuro grossly intact Vital Signs are stable. This note was generated with [employer] dictation software. It may contain incorrect words, spelling, and punctuation that were not noted in checking the note before signing. - Physical Exam Vitals/I&O's: Vital Signs Temp Pulse Resp BP Pulse Ox 97.6 F L 63 17 167/85 H 94 06/24/20 08:30 06/24/20 08:43 06/24/20 08:30 06/24/20 08:43 06/24/20 08:30 Oxygen Flow Rate (L/min) 1 Oxygen Delivery Method Room Air Weight: 198 lb 6.656 oz Body Mass Index (BMI) 36.3 Intake and Output for Last 24 Hours 06/22/20 06/23/20 06/24/20 23:59 23:59 23:59 Intake Total 4223.41 / 4223.41 1400.66 / 1550.66 510 / 510 Balance 4223.41 / 4223.41 1400.66 / 1550.66 510 / 510 Microbiology Past 72 Hours 06/21/20 23:25 Stool Stool Occult Blood (RADHA) - Final Occult Blood Positive Laboratory Results 06/21/20 22:55: Diff Path Review February06/24/20 06:20: WBC 5.3, RBC 3.46 L, Hgb 9.4 L, Hct 30.8 L, MCV 89.0, MCH 27.2, MCHC 30.5 L D, RDW Std Deviation 64.0 H, RDW Coeff of Genny 19.4 H, Plt Count 93 L , MPV 11.3, Differential Comment SCANNED Current Medications Acetaminophen (Tylenol) 650 mg PO Q6H PRN PRN PRN Reason: HEADACHE PAIN -07/29 Hydrocodone Bitart/Acetaminophen ([place] 5mg-325mg) 1 tablet PO Q6H PRN PRN PRN Reason: Pain Score -07/29 Last Admin: 06/24/20 11:07 Dose: 1 tablet Documented by: Atorvastatin Calcium (Lipitor) 40 mg PO QHS [facility] Last Admin: 06/23/20 21:27 Dose: 40 mg Documented by: Docusate Sodium (Colace) 100 mg PO BID [facility] Last Admin: 06/24/20 08:41 Dose: Not Given Documented by: Furosemide (Lasix) 40 mg PO DAILY [facility] Last Admin: 06/24/20 08:43 Dose: 40 mg Documented by: Hydralazine HCl (Apresoline Iv) 5 mg IV Q6H PRN PRN PRN Reason: SBP GREATER THAN 170 Last Admin: 06/23/20 10:09 Dose: 5 mg Documented by: Metoprolol Succinate (Toprol Xl (Beta Linda)) 25 mg PO BID [facility] Last Admin: 06/24/20 08:43 Dose: 25 mg Documented by: Morphine Sulfate () 1 mg IV Q4H PRN PRN PRN Reason: pain -07/29 Last Admin: 06/22/20 12:54 Dose: 1 mg Documented by: Ondansetron HCl (Zofran) 4 mg IV Q8H PRN PRN PRN Reason: NAUSEA/VOMITING Last Admin: 06/24/20 02:20 Dose: 4 mg Documented by: Pantoprazole Sodium (Protonix) 40 mg PO DAILY [facility] Last Admin: 06/24/20 08:43 Dose: 40 mg Documented by: Polyethylene Glycol (Clearlax For Bowel Prep) 0 bottle PO .Q15-30 MIN PRN PRN Reason: 8 OZ [id number] FOR BOWEL PREP Last Admin: 06/22/20 15:18 Dose: 238 gm Documented by: Sodium Chloride () 10 - 40 ml IV UD PRN PRN Reason: SALINE FLUSH Last Admin: 06/24/20 02:20 Dose: 10 ml Documented by: Disposition: Home Minutes spent on discharge:: 32 Patient Condition:: Stable Meaningful Use Info Meaningful Use Diagnoses (Choose all that apply): None applicable Inpatient E&M: 40904 Disch Hosp
--- NOTE | 2020-06-24 16:31 | NURSING ---
Dc'd with daughter via wheelchair.
--- NOTE | 2020-06-27 11:50 | CASEMGMT ---
RHYS FLAHERTY DC PHONE CALL DC DATE: 06/27/2020 DC Disposition: Home Diagnosis on Discharge: WENDY Bleed LACE/STRATA: 07/22 Intro role of CM to patient's daughter, Amanda. Daughter stated patient is doing well, has her medications, and no questions re: instructions. Discussed f/u and recommendation to see PCP in 1-2 weeks. Daughter states she is seeing her pain management physician this friday and Dr. Stallings next week. Daughter states she will ask her mother re: PCP follow up. No further concerns and no care improvement suggestions were given. Janie CESARN RN ACM
[2020-06-27 13:42] LABS: Pathologist Review Reviewed
== END 2020-06-24 16:31 | disposition home or self-care (01) | DRG 394 ==
LOC: ED 06-22 01:27 → PCU 06-22 02:27
PROVIDERS: Physician Assistant; Surgery; Admitting Provider Hospitalist; Emergency Provider Emergency Medicine; PCP Family Medicine Geriatric Medicine; Visit Provider Hospitalist
PROC: 0DJD8ZZ Inspection of Lower Intestinal Tract, Via Natural or Artificial Opening Endoscopic (ICD-10-PCS; CPT 45378; principal; 2020-06-23 10:55)
DX: K64.8 Other hemorrhoids (principal); D50.0 Iron deficiency anemia secondary to blood loss (chronic); E87.2 Acidosis; I13.0 Hypertensive heart and chronic kidney disease with heart failure and stage 1 through stage 4 chronic kidney disease, or unspecified chronic kidney disease; I50.32 Chronic diastolic (congestive) heart failure; N18.3 Chronic kidney disease, stage 3 (moderate); D12.0 Benign neoplasm of cecum; K58.1 Irritable bowel syndrome with constipation; K59.03 Drug induced constipation; T40.605A Adverse effect of unspecified narcotics, initial encounter; D69.6 Thrombocytopenia, unspecified; I25.10 Atherosclerotic heart disease of native coronary artery without angina pectoris; E78.5 Hyperlipidemia, unspecified; M19.90 Unspecified osteoarthritis, unspecified site; G89.29 Other chronic pain; K21.9 Gastro-esophageal reflux disease without esophagitis; E66.9 Obesity, unspecified; Z68.36 Body mass index [BMI] 36.0-36.9, adult; I25.2 Old myocardial infarction; Z79.891 Long term (current) use of opiate analgesic; Z79.899 Other long term (current) drug therapy; Z87.891 Personal history of nicotine dependence; Z95.1 Presence of aortocoronary bypass graft
CPT/HCPCS: 36415; 74177; 80048; 80053; 82274; 83605; 83690; 84484; 85014; 85018; 85025; 85027; 85610; 85730; 86850; 86900; 86901; 88305; 93005; 97162; 97166; 97530; 99285; J7030; J7120; Q9967; A4216; J2405

== ENCOUNTER → 2020-07-13 16:42 | Outpatient (CLI) | payer MEDICARE, SELFPAY ==
[2020-06-23 10:26] VITALS: BMI 36.3
[2020-07-13 17:17] LABS: Absolute Lymphocyte Count 1.07 X10^3/uL (0.83-4.51); Absolute Neutrophil Count 4.4 X10^3/uL (2.0-7.7); Basophil# 0.06 X10^3/uL; Eosinophil# 0.08 X10^3/uL; Eosinophils% 1.4 % (0-5); Hemoglobin 10.7 g/dL (12.0-15.0); Lymphocyte # 1.07 X10^3/ul (4.0); Lymphocyte % 18.1 % (19-41); Mean Corp Hgb Conc 29.7 g/dL (32-36); Mean Corpuscular Hgb 25.7 pg (27.0-32.0); Mean Corpuscular Volume 86.3 fL (81-99); Mean Platelet Vol. 9.8 fl (6.2-12.0); Monocyte# 0.28 X10^3/uL; Monocyte% 4.7 % (0-10); NRBC Flagged by Analyzer 0 % (0-5); Neutrophil # 4.39 X10^3/uL (2.7-7.7); Neutrophil % 74.5 % (47-70); Platelet Count 203 K/mm3 (150-450); RBC Distribution Width CV 17.4 % (11.6-14.6); RBC Distribution Width SD 55.1 fl (35.1-43.9); Red Blood Count 4.17 M/mm3 (4.2-5.4); White Blood Count 5.9 K/mm3 (4.4-11.0)
[2020-07-13 17:48] LABS: Ferritin 57 ng/mL (8-252); Iron 56 ug/dL (50-170); Iron Binding Capacity,Total 334 ug/dL (250-450); PERCENT IRON SATURATION 16.8 % (15.0-55.0)
== END ==
PROVIDERS: PCP Family Medicine Geriatric Medicine; Referring Provider Internal Medicine Hematology & Oncology; Visit Provider Internal Medicine Hematology & Oncology
DX: D64.9 Anemia, unspecified (principal)
CPT/HCPCS: 82728; 83540; 83550; 85025

== ENCOUNTER → 2020-07-17 16:29 | Outpatient (CLI) | payer MEDICARE, SELFPAY ==
[2020-06-23 10:26] VITALS: BMI 36.3
[2020-07-17 17:19] LABS: Absolute Lymphocyte Count 0.83 X10^3/uL (0.83-4.51); Absolute Neutrophil Count 3.7 X10^3/uL (2.0-7.7); Basophil# 0.02 X10^3/uL; Basophil% 0.4 % (0-1); Eosinophil# 0.47 X10^3/uL; Eosinophils% 8.9 % (0-5); Hematocrit 35.1 % (37-47); Hemoglobin 10.9 g/dL (12.0-15.0); Lymphocyte # 0.83 X10^3/ul (4.0); Lymphocyte % 15.7 % (19-41); Mean Corp Hgb Conc 31.1 g/dL (32-36); Mean Corpuscular Hgb 26.2 pg (27.0-32.0); Mean Corpuscular Volume 84.4 fL (81-99); Mean Platelet Vol. 10.2 fl (6.2-12.0); Monocyte# 0.25 X10^3/uL; Monocyte% 4.7 % (0-10); NRBC Flagged by Analyzer 0 % (0-5); Neutrophil % 69.9 % (47-70); Platelet Count 177 K/mm3 (150-450); RBC Distribution Width CV 17.2 % (11.6-14.6); RBC Distribution Width SD 52.9 fl (35.1-43.9); Red Blood Count 4.16 M/mm3 (4.2-5.4); White Blood Count 5.3 K/mm3 (4.4-11.0)
[2020-07-17 18:21] LABS: Vitamin D,25 Hydroxy 13.1 ng/mL
[2020-07-17 18:24] LABS: AST(SGOT) 13 U/L (15-37); Alanine Aminotransfer ALT/SGPT 13 U/L (13-56); Albumin, Serum 3.4 g/dL (3.2-5.0); Alkaline Phosphatase 84 U/L (45-117); Anion Gap 4 (5-15); BUN 13 mg/dL (7-18); Calcium,Total 8.7 mg/dL (8.5-10.1); Chloride 109 mmol/L (98-107); Creatinine, Serum 1.08 mg/dL (0.55-1.02); EST Glomerular Filtration Rate 52 mL/min (>60); Est Glom Filt Rate - Afr Amer 63 mL/min (>60); Globulin 3.3 g/dL (2.2-4.2); Glucose 104 mg/dL (74-106); Protein, Total 6.7 g/dL (6.4-8.2); Sodium Level 141 mmol/L (136-145); Thyroid Stim Hormone (TSH) 1.48 uIU/mL (0.358-3.74)
== END ==
PROVIDERS: PCP Family Medicine Geriatric Medicine; Visit Provider Family Medicine Geriatric Medicine
DX: I10 Essential (primary) hypertension (principal); E55.9 Vitamin D deficiency, unspecified
CPT/HCPCS: 36415; 80053; 82306; 84443; 85025

== ENCOUNTER 2020-09-06 13:22 | Inpatient (IN) | payer MEDICARE, SELFPAY ==
[2020-07-26 14:07] VITALS: BMI 35.6
[2020-09-06] VITALS (12 sets, daily range): BP systolic 122–158; BP diastolic 57–104; PULSE 98–112; RESP 18–22; TEMP 36.8–37.7; O2SAT 92–98; BMI 35.4; BMI 33.0; BMI 33.1
--- NOTE | 2020-09-06 13:37 | EKG12_ITS ---
Test Reason : Blood Pressure : / mmHG Vent. Rate : 107 BPM Atrial Rate : 107 BPM P-R Int : 164 ms QRS Dur : 104 ms QT Int : 368 ms P-R-T Axes : 062 056 031 degrees QTc Int : 491 ms Sinus tachycardia Otherwise normal ECG Confirmed by ROSY GARRIDO, VERNON ([id number]), purchasing expeditor ZOHAIB WU ([id number]) on 09/11/2020 9:30:10 A M Referred By: SHIRA Confirmed By:CYNDIE GALLEGOS MD
--- NOTE | 2020-09-06 13:57 | ED.DCSUM_ITS ---
History of Present Illness Chief Complaint: Nausea/Vomiting Informant: Patient Narrative: Patient is an 80-year-old female who presents to the emergency department for nausea/vomiting and diarrhea. She has been having shortness of breath. Her symptoms have been going on for the past 4 days. She has a dry cough. Her daughter who she lives with did test positive for coronavirus. Patient has not been taking anything for her symptoms. She denies any chest pain. No leg swelling or calf pain. She does have a history of coronary artery disease with bypass graft. She has a very distant smoking history. She denies any significant abdominal pain. Past Medical History - Allergies and Home Meds Allergies/Adverse Reactions: Allergies Sulfa (Sulfonamide Antibiotics) Adverse Reaction (Intermediate, Verified 07/19/20 15:40) Hives Prior records reviewed: Yes Past Medical History: - - CAD, hypertension, hyperlipidemia Surgical History: - - Hysterectomy, x 2, appendecomty, T+A, sinus surgery, coronary artery bypass 12/01/14 Smoking Status: Former smoker - Family History Maternal Family History: Family History (Last Reviewed 07/19/20 @ 15:40 by Gertrude Gaviria) Mother Hypertension CVA (cerebral vascular accident) Grandfather CVA (cerebral vascular accident) Grandmother CVA (cerebral vascular accident) Father Hypertension Family History: Reports: Stroke Paternal Family History: Family History (Last Reviewed 07/19/20 @ 15:40 by Gertrude Gaviria) Mother Hypertension CVA (cerebral vascular accident) Grandfather CVA (cerebral vascular accident) Grandmother CVA (cerebral vascular accident) Father Hypertension Family History: Reports: Heart Disease, Hypertension Review of Systems All systems negative except as indicated General: Denies: Chills, Fever, Sweats Eyes: Denies: Visual changes - bilaterally, Diplopia ENT: Denies: Rhinorrhea, Sore throat Cardiovascular: Denies: Chest pain, Palpitations Respiratory: Reports: Dyspnea, Cough. Denies: Sputum Gastrointestinal: Reports: Nausea, Vomiting, Diarrhea. Denies: Abdominal pain Genitourinary: Denies: Dysuria, Hematuria, Frequency Musculoskeletal: Denies: Back pain, Extremity Pain Skin: Denies: Rash, Wounds Neurological: Denies: Headache, Weakness, Numbness Physical Exam Vital Signs/Narrative: Vital Signs Temp Pulse Resp BP Pulse Ox 09/06/20 13:36 95 09/06/20 13:26 99.7 F H 112 H 18 147/104 H 92 Inital Vital Signs reviewed: Yes General: Well nourished, Well developed, No Acute Distress Head: Normocephalic, Atraumatic Eyes: Perrl, EOMI ENT: Moist mucous membranes, No rhinorrhea Neck: Supple, Nontender Cardiovascular: Regular rhythm, No murmurs, Tachycardia, Murmur Respiratory: No distress, CTA bilaterally, Chest nontender Abdomen: Soft, Nontender, Nondistended, Normal bowel sounds Back: Nontender, Normal Inspection Extremities: Nontender, No edema, - - Legs tender to palpation bilateral. Skin: Normal color, No rash Neurological: Alert, Cranial nerves II-XII grossly intact, Normal Strength, Normal Sensation Psychological: Normal affect, Normal Mood Diagnostic/Tx/Re-eval Chest X-Ray - ED: - - Single view x-ray did not show any acute cardiopulmonary abnormality. No evidence of consolidation. Normal cardiac silhouette. Status post CABG. Agree with radiologist. - EKG Initial EKG Interpretation: - - Rate of 107 bpm and normal sinus rhythm. Normal intervals. Normal axis. No ST elevations or depressions appreciated. No T wave abnormalities. - Medical Decision Making Patient presents to the emergency department for shortness of breath and nausea/vomiting and diarrhea. She has a coronavirus exposure. I believe this is most likely what is causing her symptoms. Will check basic lab work, chest x-ray. Will give Zofran for symptomatic treatment. Will give small dose of fluids due to the coronavirus suspicion and tachycardia. Upon arrival to the emergency department she is borderline hypoxic. When ambulating she desatted to 88% is requiring supplemental oxygen via nasal cannula. No significant acute abnormality on lab work. Given her hypoxia, comorbidities and Covid status will bring her to the hospital for further evaluation and management. Will defer treatment to hospitalist. She otherwise has been stable throughout ED stay. Patient updated on findings. ED Disposition - Plan for ED Patient: Disposition: Acute Care Hospital [facility] Diagnosis: Pneumonia due to COVID-19 virus, Hypoxia, Nausea and vomiting, Diarrhea
[2020-09-06 14:10] LABS: Absolute Lymphocyte Count 0.32 X10^3/uL (0.83-4.51); Absolute Neutrophil Count 2.5 X10^3/uL (2.0-7.7); Hematocrit 36.2 % (37-47); Hemoglobin 11.6 g/dL (12.0-15.0); Lymphocyte # 0.32 X10^3/ul (4.0); Lymphocyte % 10.6 % (19-41); Mean Corpuscular Volume 84.2 fL (81-99); Monocyte# 0.14 X10^3/uL; Monocyte% 4.6 % (0-10); NRBC Flagged by Analyzer 0 % (0-5); Neutrophil # 2.54 X10^3/uL (2.7-7.7); Neutrophil % 84.1 % (47-70); POSITIVE DIFFERENTIAL YES; Platelet Count 154 K/mm3 (150-450); RBC Distribution Width SD 46.1 fl (35.1-43.9)
--- NOTE | 2020-09-06 14:20 | RAD_ITS ---
STUDY: X-RAY CHEST REASON FOR EXAM: Female, 80 years old. Increased shortness of breath and nausea/vomiting 4 days ago, patient''s daughter COVID positive TECHNIQUE: Single AP portable view of the chest. COMPARISON: Comparison is made with prior study dated 08/07/2019. FINDINGS: EKG electrodes are seen. The lungs are clear and expanded. There is no demonstrated pleural abnormality. Sternal cerclage wires and vascular clips are present from a prior sternotomy and coronary artery bypass graft procedure (CABG). Borderline cardiomegaly. Normal mediastinum and zoë. Normal visualized pulmonary arteries. There is atherosclerotic tortuosity of the aortic arch and descending thoracic aorta. There are diffuse degenerative changes of the visualized thoracic spine. Normal visualized ribs, clavicles, and shoulders. There is no demonstrated abnormality of the visualized soft tissue structures of the upper abdomen. RAD/Chest 1 View (Portable) IMPRESSION: Status post CABG. No acute abnormality is seen. Electronically Signed: Michael Rojas, at 14:56 EST , Service support ,
[2020-09-06 14:25] LABS: Differential Indicated SCAN CRITERIA MET
[2020-09-06 14:27] LABS: ALB/GLOB Ratio 0.7 RATIO (0.9-2.4); AST(SGOT) 23 U/L (15-37); Alanine Aminotransfer ALT/SGPT 15 U/L (13-56); Albumin, Serum 2.7 g/dL (3.2-5.0); Alkaline Phosphatase 66 U/L (45-117); Anion Gap 5 (5-15); BUN 13 mg/dL (7-18); BUN/Creat Ratio 13.2 RATIO (10-20); Calcium,Total 8.3 mg/dL (8.5-10.1); Chloride 103 mmol/L (98-107); Creatinine, Serum 0.99 mg/dL (0.55-1.02); EST Glomerular Filtration Rate 58 mL/min (>60); Est Glom Filt Rate - Afr Amer 70 mL/min (>60); Estimated Creatinine Clearance 35.85 ml/min; Globulin 3.7 g/dL (2.2-4.2); Glucose 89 mg/dL (74-106); Potassium 3.2 mmol/L (3.5-5.1); Protein, Total 6.4 g/dL (6.4-8.2); Sodium Level 136 mmol/L (136-145)
[2020-09-06] MEDS: Ondansetron 4 MG/2 ML Vial IV ×2 (14:29→21:22)
[2020-09-06 14:32] LABS: Differential Comment SCANNED
[2020-09-06 15:08] LABS: Probe Check PASS; Specimen Processing Control PASS
--- NOTE | 2020-09-06 17:10 | PCM.HP.STD ---
History of Present Illness Date of Admission: 09/06/20 Chief Complaint: Shortness of breath nausea and vomiting The patient is a 80 year old F with an extensive past medical history as outlined was admitted through the ED on 09/06/2020 with a complaint of nausea, vomiting and shortness of breath for the past 4 days prior to admission. She also had an associated dry cough. She lives with her daughter and daughter had tested positive for Covid. Her symptoms were not improving so she decided coming to the ED. She denied any chest pain, palpitations, dizziness or any other symptoms. Review of systems otherwise negative. In the ED, vitals showed temperature of 99 Fahrenheit with blood pressure of 158/74, pulse rate of 102 and respiratory of 22. She was saturating at 96% on 2 L of oxygen. Chemistry showed sodium of 136 with potassium of 3.2. Initial troponin was negative. CBC showed WBC of 3 with hemoglobin of 11.6 and platelets of 154. Chest x-ray showed no acute cardiopulmonary process. Patient is being admitted to be managed for COVID-19 infection and acute hypoxic respiratory insufficiency due to Covid. [] Past Medical History Past Medical History (Chronic Problems): Chronic Problems (Last Reviewed 07/19/20 @ 15:39 by Gertrude Gaviria) Hemorrhoids (Chronic) Depression (Chronic) GERD (gastroesophageal reflux disease) (Chronic) High cholesterol (Chronic) Osteoarthritis (Chronic) Vitamin D deficiency (Chronic) History of cardiac catheterization (Chronic) S/P triple vessel bypass (Chronic) 2014 Iron deficiency anemia due to chronic blood loss (Chronic) Chronic renal failure, stage 3 (moderate) (Chronic) Hypertension (Chronic) Obesity (BMI 30-39.9) (Chronic) CAD (coronary artery disease) (Chronic) Diastolic heart failure (Chronic) Hx of CABG (Chronic) Heme + stool (Chronic) Medical History: Medical History (Last Reviewed 07/19/20 @ 15:39 by Gertrude Gaviria) Depression (Chronic) F32.9 GERD (gastroesophageal reflux disease) (Chronic) K21.9 High cholesterol (Chronic) E78.00 Osteoarthritis (Chronic) M19.90 Vitamin D deficiency (Chronic) E55.9 Iron deficiency anemia due to chronic blood loss (Chronic) D50.0 Chronic renal failure, stage 3 (moderate) (Chronic) N18.3 Hypertension (Chronic) I10 Obesity (BMI 30-39.9) (Chronic) E66.9 CAD (coronary artery disease) (Chronic) I25.10 Diastolic heart failure (Chronic) I50.30 Heme + stool (Chronic) Heart attack (Inactive) I21.9 X2 Allergies Sulfa (Sulfonamide Antibiotics) Adverse Reaction (Intermediate, Verified 07/19/20 15:40) Hives Home Medications: Ambulatory Orders Medication Instructions Recorded Omeprazole [Prilosec] 40 mg PO DAILY 04/15/15 Hydrocodone/Acetaminophen [[place] 1 tab PO Q8H PRN PRN 04/13/20 7.5-325 Tablet] Metoprolol(XL)Succ [Toprol Xl 25 mg PO BID 04/13/20 ([place])] Atorvastatin Calcium 40 mg PO DAILY 04/20/20 Docusate Sodium [Colace] 100 mg PO DAILY #30 cap 06/24/20 Paroxetine [Paxil] 20 mg PO DAILY 09/06/20 Surgical History: Surgical History (Last Reviewed 07/19/20 @ 15:39 by Gertrude Gaviria) History of cardiac catheterization (Chronic) Z98.890 S/P triple vessel bypass (Chronic) Z95.1 2015 Hx of CABG (Chronic) History of appendectomy (Inactive) Z90.49 History of section (Inactive) Z98.891 History of hysterectomy (Inactive) Z90.710 History of sinus surgery (Inactive) Z98.890 Hx of cholecystectomy (Inactive) Z90.49 2014 Surgical History: - - Hysterectomy, x 2, appendecomty, T+A, sinus surgery, coronary artery bypass 12/01/14 Psychiatric History: Anxiety 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 Smoking Status: Former smoker Alcohol: None Drugs: None - *Family History Maternal Family History: Family History (Last Reviewed 07/19/20 @ 15:40 by Gertrude Gaviria) Mother Hypertension CVA (cerebral vascular accident) Grandfather CVA (cerebral vascular accident) Grandmother CVA (cerebral vascular accident) Father Hypertension History Items: Stroke Paternal Family History: Family History (Last Reviewed 07/19/20 @ 15:40 by Gertrude Gaviria) Mother Hypertension CVA (cerebral vascular accident) Grandfather CVA (cerebral vascular accident) Grandmother CVA (cerebral vascular accident) Father Hypertension History Items: Heart Disease, Hypertension Review of Systems Constitutional: Reports: Anorexia, Malaise, Weakness. Denies: Chills, Fever Eyes: Denies: Blurred vision HEENT: Denies: Head Aches, Sinus Congestion, Sinus Drainage Cardiovascular: Denies: Chest Pain, Palpitations Respiratory: Reports: Cough, Shortness of Breath, Shortness of breath at rest, Shortness of breath upon exertion. Denies: Sputum production, Wheezing Gastrointestinal: Reports: Nausea, Vomiting. Denies: Abdominal Pain Genitourinary: Denies: Dysuria Musculoskeletal: Denies: Joint Pain, Joint Tenderness Skin: Denies: Rash, Wounds Neurological: Denies: Numbness, Tingling, Focal weakness Psychiatric: Denies: Anxiety, Depression, Homicidal Ideations, Suicidal Ideations Hematologic/ Lymphatic: Denies: Easy Bruising, Easy Bleeding VTE Information - Inpt Only VTE Present on Admission: No VTE Pharm Prophylaxis ordered?: Yes Patient Problems: Active and Suspected Problems (Last Reviewed 07/19/20 @ 15:39 by Gertrude Gaviria) Pneumonia due to COVID-19 virus (Acute) Hypoxia (Acute) Nausea and vomiting (Acute) Diarrhea (Acute) - Physical Exam Vitals/I&O's: Vital Signs Temp Pulse Resp BP Pulse Ox 99 F 102 H 22 H 158/74 H 96 09/06/20 15:32 09/06/20 15:32 09/06/20 15:32 09/06/20 15:32 09/06/20 17:05 Oxygen Flow Rate (L/min) 2 Oxygen Delivery Method Nasal Cannula Weight: 193 lb 12.581 oz Body Mass Index (BMI) 35.4 Intake and Output for Last 24 Hours 09/04/20 09/05/20 09/06/20 23:59 23:59 23:59 Intake Total 500 / 500 Balance 500 / 500 General: Alert, Oriented x3, Cooperative, No apparent distress HEENT: Atraumatic, PERRLA, EOMI, Normocephalic Oral: Dry Mucosa Neck: Supple, No JVD, Negative Carotid Bruits Lungs: Tachypneic, - - mildly diminished breath sounds bibasally, no wheezes or crackles. On 2L of oxygen Cardiovascular: Normal S1, Normal S2, No murmurs, Tachycardic Abdomen: Bowel Sounds Present, Soft, Non Tender, Non-Distended, No Hepato-splenomegaly Extremities: No clubbing, No cyanosis, No edema, Capillary Refill Less than 3 Seconds Skin: No rashes, No breakdown Musculoskeletal: No Tenderness to Palpation of Joints or Extremities Lymphatic: No Cervical, Supraclavicular, or Inguinal Adenopathy Neurological: Cranial nerves II-XII grossly intact, Neuro grossly intact, Motor Exam 5/5 strength throughout Psych/Mental Status: Normal Affect, Appropriate, Alert and oriented to time, place, person, mood and affect Laboratory Results 09/06/20 13:58: WBC 3.0 L, RBC 4.30, Hgb 11.6 L, Hct 36.2 L, MCV 84.2, MCH 27.0, MCHC 32.0, RDW Std Deviation 46.1 H, RDW Coeff of Genny 15.0 H, Plt Count 154, MPV 10.0, Immature Gran % (Auto) 0.700, Neut % (Auto) 84.1 H, Lymph % (Auto) 10.6 L, [place] % (Auto) 4.6, Eos % (Auto) 0.0, Baso % (Auto) 0.0, Absolute Neuts (auto) 2.5, Absolute Lymphs (auto) 0.32 L, Nucleated RBC % 0, Differential Comment SCANNED, Diff Path Review February foll 09/06/20 13:58: Sodium 136, Potassium 3.2 L, Chloride 103, Carbon Dioxide 28.0, Anion Gap 5, BUN 13, Creatinine 0.99, Estim Creat Clear Calc 35.85, Est GFR (MDRD) Af Amer 70, Est GFR (MDRD) Non-Af 58 L, BUN/Creatinine Ratio 13.2, Glucose 89, Calcium 8.3 L, Total Bilirubin 0.70, AST 23, ALT 15, Alkaline Phosphatase 66, Troponin I < 0.015, Total Protein 6.4, Albumin 2.7 L, Globulin 3.7, Albumin/Globulin Ratio 0.7 L 09/06/20 14:03: COVID-19 (MARGARET) Positive Diagnostic Data Chest X-Ray 09/06/20 14:20 IMPRESSION: Status post CABG. No acute abnormality is seen. Electronically Signed: Michael Rojas, at 14:56 EST , Service support , Assessment/Plan All Active Problems (Last Reviewed 07/19/20 @ 15:39 by Gertrude Gaviria) Pneumonia due to COVID-19 virus (Acute) Hypoxia (Acute) Nausea and vomiting (Acute) Diarrhea (Acute) Acute GI bleeding (Acute) Elevated lactic acid level (Acute) Hyperplastic colon polyp (Resolved) Patient admitted with a complaint of shortness of breath, nausea and vomiting #Acute hypoxic respiratory insufficiency due to COVID-19 infection Currently on 2 L of oxygen. Chest x-ray showed no acute cardiopulmonary process. Start on IV 6 mg daily. Titrate oxygen to maintain saturation above 90%. Consult infectious diseases. *COVID-19 infection: as Above #Hypokalemia: Patient is 3.2. Will replace per protocol and trend. #SIRS criteria: Likely due to COVID-19 infection. No evidence of superimposed bacterial infection. Will hold off on antibiotics for now. Check procalcitonin. *Hyperlipidemia: On atorvastatin #Hypertension: On metoprolol 25 mg twice daily. DVT prophylaxis: Lovenox CODE STATUS: Full code Patient counseled extensively about different types of CODE STATUS including full code, DNR CCA and DNR CCA. Patient elects to be full code. Total [id number] time 16 minutes. Inpatient E&M: 30285 Init Hosp L3 Procedures: 29066 Advncd Care Plan 30 Min
[2020-09-06] MEDS: 0.9% Normal Saline 1,000 ML 100 ML IV (21:08)
[2020-09-06] MEDS: 0.9% Saline Lock 10 ML Syringe IV (21:11)
[2020-09-06] MEDS: Enoxaparin 30 MG/0.3 ML Syringe SC (21:22)
[2020-09-06] MEDS: Metoprolol(XL)Succ 25 MG Tablet PO (21:22)
[2020-09-06] MEDS: HYDROcodone Bitartrate/Apap 5/325 Tablet PO (21:23)
[2020-09-07] VITALS (16 sets, daily range): BP systolic 140–178; BP diastolic 60–109; PULSE 70–88; RESP 16–20; TEMP 36.4–37.2; O2SAT 98–100
[2020-09-07] MEDS: 0.9% Saline Lock 10 ML Syringe IV ×3 (06:56→14:39)
--- NOTE | 2020-09-07 07:23 | PN_ITS ---
Patient Problems: Active and Suspected Problems (Last Reviewed 07/19/20 @ 15:39 by Gertrude Gaviria) Pneumonia due to COVID-19 virus (Acute) Hypoxia (Acute) Nausea and vomiting (Acute) Diarrhea (Acute) Reason for Visit: Acute hypoxic respiratory failure secondary to COVID-19 pneumonia. Objective: Patient is admitted with 4 days symptoms of nausea, vomiting, dry cough. Exposed to her daughter who is COVID-19 positive. She has history of coronary artery disease status post triple-vessel CABG in 2015, anemia of chronic anemia, CKD stage III and chronic diastolic heart failure. Patient denies history of emphysema. Patient diarrhea has improved. Started on oral diet. Did not vomit in the morning. Still cough and complain of chest congestion. No dysuria. General: Alert, Oriented x3, Cooperative HEENT: Atraumatic, PERRLA, EOMI, Normocephalic Oral: No Gingival or Mucosal Lesions/ Ulcerations Neck: Supple, No JVD, Negative Carotid Bruits Lungs: Air entry diminished in bilateral lung bases. Mild bilateral expiratory rhonchi. Hypoxia. Cardiovascular: Regular rate, Regular Rhythm, Normal S1, Normal S2, No murmurs Abdomen: Bowel Sounds Present, Soft, Non Tender, Non-Distended : No renal angle tenderness. No suprapubic tenderness. Extremities: No edema, Capillary Refill Less than 3 Seconds Skin: No rashes, No breakdown Musculoskeletal: No Tenderness to Palpation of Joints or Extremities Neurological: Cranial nerves II-XII grossly intact, Deep Tendon Reflexes 2+/4 and Symmetrical, Neuro grossly intact Psych/Mental Status: Normal Affect, Appropriate. Vitals/I&O's: Vital Signs Temp Pulse Resp BP Pulse Ox 97.5 F L 75 20 H 152/109 H 98 09/07/20 06:45 09/07/20 06:45 09/07/20 06:45 09/07/20 06:45 09/07/20 06:45 Oxygen Flow Rate (L/min) 1 Oxygen Delivery Method Nasal Cannula Weight: 181 lb Body Mass Index (BMI) 33.0 Intake and Output for Last 24 Hours 09/05/20 09/06/20 09/07/20 23:59 23:59 23:59 Intake Total 500 / 700 1278.33 / 1278.33 Balance 500 / 700 1278.33 / 1278.33 Microbiology Past 72 Hours 11/18/20 19:20 Mucosa - Nose Respiratory Panel (PCR) - Final 09/06/20 22:43 Urine, Clean Catch Legionella Antigen - Final 09/06/20 22:43 Urine, Clean Catch Streptococcus pneumoniae Antigen (M - Final Laboratory Results 09/06/20 13:58: WBC 3.0 L, RBC 4.30, Hgb 11.6 L, Hct 36.2 L, MCV 84.2, MCH 27.0, MCHC 32.0, RDW Std Deviation 46.1 H, RDW Coeff of [place] 15.0 H, Plt Count 154, MPV 10.0, Immature Gran % (Auto) 0.700, Neut % (Auto) 84.1 H, Lymph % (Auto) 10.6 L, [place] % (Auto) 4.6, Eos % (Auto) 0.0, Baso % (Auto) 0.0, Absolute Neuts (auto) 2.5, Absolute Lymphs (auto) 0.32 L, Nucleated RBC % 0, Differential Comment SCANNED, Diff Path Review February09/06/20 13:58: Sodium 136, Potassium 3.2 L, Chloride 103, Carbon Dioxide 28.0, Anion Gap 5, BUN 13, Creatinine 0.99, Estim Creat Clear Calc 35.85, Est GFR (MDRD) Af Amer 70, Est GFR (MDRD) Non-Af 58 L, BUN/Creatinine Ratio 13.2, Gluc ose 89, Calcium 8.3 L, Total Bilirubin 0.70, AST 23, ALT 15, Alkaline Phosphatase 66, Troponin I < 0.015, Total Protein 6.4, Albumin 2.7 L, Globulin 3 .7, Albumin/Globulin Ratio 0.7 L 09/06/20 14:03: COVID-19 (MARGARET) Positive Current Medications Acetaminophen (Acetaminophen 325 Mg Tablet) 650 mg PO Q4H PRN PRN PRN Reason: Pain Score 1-10/Temp > 100.7 F Hydrocodone Bitart/Acetaminophen (Hydrocodone Bitartrate/Apap 5/325 Tablet) 1 tablet PO Q8H PRN PRN PRN Reason: PAIN 1-10/FEVER Last Admin: 09/06/20 21:23 Dose: 1 tablet Documented by: Albuterol Sulfate (Albuterol Sulfate 8 Gm Inhaler (60 Puffs)) 2 puff INHALATION Q4H PRN PRN PRN Reason: Shortness of Breath/Wheezing Atorvastatin Calcium (Atorvastatin Calcium 40 Mg Tablet) 40 mg PO DAILY [facility] Dexamethasone Sodium Phosphate (Dexamethasone 10 Mg/Ml Vial) 6 mg IV DAILY [facility] Docusate Sodium (Docusate Sodium 100 Mg Capsule) 100 mg PO DAILY [facility] Enoxaparin Sodium (Enoxaparin 30 Mg/0.3 Ml Syringe) 30 mg SC BID [facility] Last Admin: 09/06/20 21:22 Dose: 30 mg Documented by: Hydralazine HCl (Hydralazine 20 Mg/Ml Vial) 10 mg IV Q4H PRN PRN PRN Reason: sys >160 Metoprolol Succinate (Metoprolol(Xl)Succ 25 Mg Tablet) 25 mg PO BID [facility] Last Admin: 09/06/20 21:22 Dose: 25 mg Documented by: Morphine Sulfate (Morphine 2 Mg/Ml Syringe) 1 - 2 mg IV Q4H PRN PRN PRN Reason: Pain Score 4-5 Morphine Sulfate (Morphine 2 Mg/Ml Syringe) 2 - 4 mg IV Q3H PRN PRN PRN Reason: Pain Score 6-10 Nitroglycerin (Nitroglycerin (Inpatient Use) 0.4 Mg Tab.Subl) 0.4 mg SUBLINGUAL Q5M PRN PRN Reason: CARDIAC/CHEST PAIN Nutritional Formula (Lactose Free) (Ensure Enlive 120 Ml Liquid) 120 ml PO 4X/DAY [facility] Last Admin: 09/06/20 21:22 Dose: 120 ml Documented by: Nystatin (Nystatin Powder 15gm Bottle) 1 applic TOPICAL BID [facility]; Protocol Ondansetron HCl (Ondansetron 4 Mg/2 Ml Vial) 4 mg IV Q8H PRN PRN PRN Reason: NAUSEA/VOMITING Last Admin: 09/06/20 21:22 Dose: 4 mg Documented by: Oxycodone HCl (Oxycodone 5 Mg Tablet) 5 mg PO Q4H PRN PRN PRN Reason: Pain Score 4-5 Pantoprazole Sodium (Pantoprazole Sodium 40 Mg Tablet) 40 mg PO DAILY [facility] Paroxetine HCl (Paroxetine 20 Mg Tablet) 20 mg PO DAILY [facility] Potassium Chloride (Potassium Chloride 20 Meq Tablet) 40 meq PO X1 ONE Stop: 09/07/20 07:22 Prochlorperazine Edisylate (Prochlorperazine 10 Mg/2 Ml Vial) 10 mg IV Q6H PRN PRN PRN Reason: Nausea/Vomiting Sodium Chloride (0.9% Saline Lock 10 Ml Syringe) 10 - 40 ml IV UD PRN PRN Reason: SALINE FLUSH Last Admin: 09/07/20 06:56 Dose: 10 ml Documented by: ROSE Vital Signs/Narrative: Vital Signs Temp Pulse Resp BP Pulse Ox 09/07/20 06:45 97.5 F L 75 20 H 152/109 H 98 Medical Necessity - Tobacco Use Smoking Status: Former smoker Tobacco Use: Cigarettes Assessment/Plan All Active Problems (Last Reviewed 07/19/20 @ 15:39 by Gertrude Gaviria) Pneumonia due to COVID-19 virus (Acute) Hypoxia (Acute) Nausea and vomiting (Acute) Diarrhea (Acute) Acute GI bleeding (Acute) Elevated lactic acid level (Acute) Hyperplastic colon polyp (Resolved) Patient is admitted with 4 days symptoms of nausea, vomiting, dry cough. Exposed to her daughter who is COVID-19 positive. She has history of coronary artery disease attention status post triple-vessel CABG in 2014, chronic tiredness since anemia, CKD stage III and chronic diastolic heart failure #Acute hypoxic respiratory insufficiency due to COVID-19 infection:: Currently on 1 to 2 L of oxygen. Chest x-ray does not show acute cardiopulmonary abnormality. Seen by ID. On dexamethasone oral, remdesivir. *COVID-19 infection: as Above. Currently no evidence of superimposed bacterial infection. Patient had mild to moderate symptoms of COVID-19. #Hypokalemia: Patient is 3.2. Repeat K3.8. Magnesium 1.5 and magnesium sulfate 2 g IV ordered. *Hyperlipidemia: On atorvastatin #Hypertension: On metoprolol 25 mg twice daily. DVT prophylaxis: Lovenox Clinical Impression(s) from Imaging Studies Chest X-Ray 09/06/20 14:20 IMPRESSION: Status post CABG. No acute abnormality is seen. Microbiology Past 72 Hours 09/06/20 19:20 Mucosa - Nose Respiratory Panel (PCR) - Final 09/06/20 22:43 Urine, Clean Catch Legionella Antigen - Final 09/06/20 22:43 Urine, Clean Catch Streptococcus pneumoniae Antigen (M - Final Laboratory Results 09/06/20 13:58: WBC 3.0 L, RBC 4.30, Hgb 11.6 L, Hct 36.2 L, MCV 84.2, MCH 27.0, MCHC 32.0, RDW Std Deviation 46.1 H, RDW Coeff of [place] 15.0 H, Plt Count 154, MPV 10.0, Immature Gran % (Auto) 0.700, Neut % (Auto) 84.1 H, Lymph % (Auto) 10.6 L, [place] % (Auto) 4.6, Eos % (Auto) 0.0, Baso % (Auto) 0.0, Absolute Neuts (auto) 2.5, Absolute Lymphs (auto) 0.32 L, Nucleated RBC % 0, Differential Comment SCANNED, Diff Path Review February09/06/20 13:58: Sodium 136, Potassium 3.2 L, Chloride 103, Carbon Dioxide 28.0, Anion Gap 5, BUN 13, Creatinine 0.99, Estim Creat Clear Calc 35.85, Est GFR (MDRD) Af Amer 70, Est GFR (MDRD) Non-Af 58 L, BUN/Creatinine Ratio 13.2, Glucose 89, Calcium 8.3 L, Total Bilirubin 0.70, AST 23, ALT 15, Alkaline Phosphatase 66, Troponin I < 0.015, Total Protein 6.4, Albumin 2.7 L, Globulin 3.7, Albumin/Globulin Ratio 0.7 L 09/06/20 14:03: COVID-19 (MARGARET) Positive Inpatient E&M: 49050 Subs Hosp L2
[2020-09-07 08:00] LABS: Absolute Lymphocyte Count 0.58 X10^3/uL (0.83-4.51); Absolute Neutrophil Count 1.5 X10^3/uL (2.0-7.7); Basophil# 0.01 X10^3/uL; Basophil% 0.4 % (0-1); Eosinophil# 0.02 X10^3/uL; Eosinophils% 0.9 % (0-5); Hematocrit 39.2 % (37-47); Hemoglobin 11.3 g/dL (12.0-15.0); Lymphocyte # 0.58 X10^3/ul (4.0); Lymphocyte % 25.8 % (19-41); Mean Corp Hgb Conc 28.8 g/dL (32-36); Mean Corpuscular Hgb 26.1 pg (27.0-32.0); Mean Corpuscular Volume 90.5 fL (81-99); Mean Platelet Vol. 9.7 fl (6.2-12.0); Monocyte# 0.18 X10^3/uL; NRBC Flagged by Analyzer 0 % (0-5); Neutrophil # 1.45 X10^3/uL (2.7-7.7); Neutrophil % 64.5 % (47-70); POSITIVE DIFFERENTIAL YES; POSITIVE MORPHOLOGY YES; Platelet Count 145 K/mm3 (150-450); RBC Distribution Width CV 15.1 % (11.6-14.6); RBC Distribution Width SD 50.3 fl (35.1-43.9); Red Blood Count 4.33 M/mm3 (4.2-5.4); White Blood Count 2.3 K/mm3 (4.4-11.0)
[2020-09-07 08:06] LABS: Differential Indicated SCAN CRITERIA MET
[2020-09-07 08:49] LABS: Magnesium 1.5 mg/dL (1.6-2.6)
[2020-09-07] MEDS: Enoxaparin 30 MG/0.3 ML Syringe SC ×2 (08:49→22:24)
[2020-09-07] MEDS: Metoprolol(XL)Succ 25 MG Tablet PO ×2 (08:49→22:24)
[2020-09-07] MEDS: Atorvastatin Calcium 40 MG Tablet PO (08:50)
[2020-09-07] MEDS: Pantoprazole Sodium 40 MG Tablet PO (08:50)
[2020-09-07] MEDS: Docusate Sodium 100 MG Capsule PO (08:50)
[2020-09-07 08:51] LABS: ALB/GLOB Ratio 0.7 RATIO (0.9-2.4); AST(SGOT) 17 U/L (15-37); Alanine Aminotransfer ALT/SGPT 15 U/L (13-56); Albumin, Serum 2.4 g/dL (3.2-5.0); Alkaline Phosphatase 59 U/L (45-117); Anion Gap 4 (5-15); BUN 11 mg/dL (7-18); BUN/Creat Ratio 11.9 RATIO (10-20); Calcium,Total 8.1 mg/dL (8.5-10.1); Chloride 110 mmol/L (98-107); Creatinine, Serum 0.92 mg/dL (0.55-1.02); EST Glomerular Filtration Rate 62 mL/min (>60); Est Glom Filt Rate - Afr Amer 75 mL/min (>60); Estimated Creatinine Clearance 38.57 ml/min; Globulin 3.5 g/dL (2.2-4.2); Glucose 78 mg/dL (74-106); Potassium 3.8 mmol/L (3.5-5.1); Protein, Total 5.9 g/dL (6.4-8.2); Sodium Level 139 mmol/L (136-145)
[2020-09-07] MEDS: Paroxetine 20 MG Tablet PO (08:51)
[2020-09-07] MEDS: dexAMETHasone 10 MG/ML Vial 6 MG IV (08:51)
[2020-09-07] MEDS: Nystatin Powder 15gm Bottle 1 APPLIC TOPICAL ×2 (08:51→22:23)
[2020-09-07 12:51] LABS: Pathologist Review Reviewed
--- NOTE | 2020-09-07 12:56 | CON.PCM_ITS ---
Problem List (1) Pneumonia due to COVID-19 virus Status: Acute Reason for Consult: covid Consulted by: Dr. Day History of Present Illness: The patient is a 80 year old F presented with 6 days of symptoms, c/o headache, aches, cough, SOB with yellow sputum. Not on O2 at home. Lives with daughter who has covid. No change in taste or smell. Came to ED, sat of 92%, admitted on dex. Full ROS performed and neg except as noted above. - Medical History Past Medical History (Chronic Problems): Chronic Problems (Last Reviewed 07/19/20 @ 15:39 by Gertrude Gaviria) Hemorrhoids (Chronic) Depression (Chronic) GERD (gastroesophageal reflux disease) (Chronic) High cholesterol (Chronic) Osteoarthritis (Chronic) Vitamin D deficiency (Chronic) History of cardiac catheterization (Chronic) S/P triple vessel bypass (Chronic) 2014 Iron deficiency anemia due to chronic blood loss (Chronic) Chronic renal failure, stage 3 (moderate) (Chronic) Hypertension (Chronic) Obesity (BMI 30-39.9) (Chronic) CAD (coronary artery disease) (Chronic) Diastolic heart failure (Chronic) Hx of CABG (Chronic) Heme + stool (Chronic) Allergies/Adverse Reactions: Allergies Sulfa (Sulfonamide Antibiotics) Adverse Reaction (Intermediate, Verified 07/19/20 15:40) Hives Home Medications: Ambulatory Orders Medication Instructions Recorded Omeprazole [Prilosec] 40 mg PO DAILY 04/15/15 Hydrocodone/Acetaminophen [[place] 1 tab PO Q8H PRN PRN 04/13/20 7.5-325 Tablet] Metoprolol(XL)Succ [Toprol Xl 25 mg PO BID 04/13/20 ([place])] Atorvastatin Calcium 40 mg PO DAILY 04/20/20 Docusate Sodium [Colace] 100 mg PO DAILY #30 cap 06/24/20 Paroxetine [Paxil] 20 mg PO DAILY 09/06/20 - Social History SMOKING STATUS:: Former smoker Vital Signs Temp Pulse Resp BP Pulse Ox 98.7 F 84 18 158/60 H 98 09/07/20 08:40 09/07/20 10:00 09/07/20 08:40 09/07/20 08:49 09/07/20 08:40 Oxygen Flow Rate (L/min) 1 Oxygen Delivery Method Nasal Cannula Weight: 82.1 kg Body Mass Index (BMI) 33.0 Microbiology Past 72 Hours 09/06/20 19:20 Respiratory Panel (PCR) - Final Mucosa - Nose 09/06/20 22:43 Legionella Antigen - Final Urine, Clean Catch Streptococcus pneumoniae Antigen (M - Final Laboratory Tests Past 24 Hrs 09/06/20 09/06/20 09/06/20 13:58 13:58 14:03 WBC 3.0 L RBC 4.30 Hgb 11.6 L Hct 36.2 L MCV 84.2 MCH 27.0 MCHC 32.0 RDW Std Deviation 46.1 H RDW Coeff of Genny 15.0 H Plt Count 154 MPV 10.0 Immature Gran % (Auto) 0.700 Neut % (Auto) 84.1 H Lymph % (Auto) 10.6 L [place] % (Auto) 4.6 Eos % (Auto) 0.0 Baso % (Auto) 0.0 Absolute Neuts (auto) 2.5 Absolute Lymphs (auto) 0.32 L Nucleated RBC % 0 Differential Comment SCANNED Diff Path Review Reviewed Sodium 136 Potassium 3.2 L Chloride 103 Carbon Dioxide 28.0 Anion Gap 5 BUN 13 Creatinine 0.99 Estim Creat Clear Calc 35.85 Est GFR (MDRD) Af Amer 70 Est GFR (MDRD) Non-Af 58 L BUN/Creatinine Ratio 13.2 Glucose 89 Calcium 8.3 L Magnesium Total Bilirubin 0.70 AST 23 ALT 15 Alkaline Phosphatase 66 Troponin I < 0.015 Total Protein 6.4 Albumin 2.7 L Globulin 3.7 Albumin/Globulin Ratio 0.7 L COVID-19 (MARGARET) Positive 09/07/20 09/07/20 09/07/20 07:36 07:36 07:36 WBC 2.3 L RBC 4.33 Hgb 11.3 L Hct 39.2 MCV 90.5 D MCH 26.1 L MCHC 28.8 L D RDW Std Deviation 50.3 H RDW Coeff of [place]enny 15.1 H Plt Count 145 L MPV 9.7 Immature Gran % (Auto) 0.400 Neut % (Auto) 64.5 Lymph % (Auto) 25.8 [place] % (Auto) 8.0 Eos % (Auto) 0.9 Baso % (Auto) 0.4 Absolute Neuts (auto) 1.5 L Absolute Lymphs (auto) 0.58 L Nucleated RBC % 0 Differential Comment COMMENT Diff Path Review May foll Sodium 139 Potassium 3.8 Chloride 110 H Carbon Dioxide 25.0 Anion Gap 4 L BUN 11 Creatinine 0.92 Estim Creat Clear Calc 38.57 Est GFR (MDRD) Af Amer 75 Est GFR (MDRD) Non-Af 62 BUN/Creatinine Ratio 11.9 Glucose 78 Calcium 8.1 L Magnesium 1.5 L Total Bilirubin 0.50 AST 17 ALT 15 Alkaline Phosphatase 59 Troponin I Total Protein 5.9 L Albumin 2.4 L Globulin 3.5 Albumin/Globulin Ratio 0.7 L COVID-19 (MARGARET) - Other Studies Radiology: [] reviewed Other Studies: [] Route of nutrition/ use of supplements: [] Nutritional Intake: [] IV Site: [] Peña Catheter: [] - Physical Exam General: Alert, Oriented x3, Cooperative, No apparent distress HEENT: Atraumatic, PERRLA, EOMI Neck: Supple, No Nodes Lungs: Diminished Cardiovascular: Regular rate, Regular Rhythm Abdomen: Soft, Non Tender, Non-Distended Extremities: No edema Skin: No rashes IV Site: Peripheral, without redness Musculoskeletal: No Tenderness to Palpation of Joints or Extremities Neurological: Cranial nerves II-XII grossly intact - Assessment/Plan Antibiotics: [] Assessment/Plan: [] Active and Suspected Problems (Last Reviewed 07/19/20 @ 15:39 by Gertrude Gaviria) Pneumonia due to COVID-19 virus (Acute) Hypoxia (Acute) Nausea and vomiting (Acute) Diarrhea (Acute) covid with hypoxia, mild symptoms, sx started around 09/01. Will order dex po, remdesivir. Will follow, thank you
[2020-09-07] MEDS: hydrALAZINE 20 MG/ML Vial 10 MG IV (14:38)
--- NOTE | 2020-09-07 14:57 | CASEMGMT ---
Attempted multiple times to reach pt via phone without success at this time. Pt is in COVID precautions. CM will attempt to reach daughter at this time. SStgurpreet JOINER CM
--- NOTE | 2020-09-07 15:00 | CASEMGMT ---
Attempted multiple times to reach pt via phone without success at this time. Pt is in COVID precautions. CM will attempt to reach pt at later time. SStgurpreet JOINER CM
[2020-09-07] MEDS: ALPRAZolam 0.25 MG Tablet 0.125 MG PO (16:54)
[2020-09-07] MEDS: Ondansetron 4 MG/2 ML Vial IV (22:30)
[2020-09-08] VITALS (7 sets, daily range): BP systolic 148–153; BP diastolic 75–87; PULSE 72–81; RESP 16–24; TEMP 36.4–36.6; O2SAT 94–99
[2020-09-08 06:02] LABS: Absolute Lymphocyte Count 0.37 X10^3/uL (0.83-4.51); Absolute Neutrophil Count 2.8 X10^3/uL (2.0-7.7); Basophil# 0.02 X10^3/uL; Basophil% 0.6 % (0-1); Hematocrit 38.6 % (37-47); Lymphocyte # 0.37 X10^3/ul (4.0); Lymphocyte % 10.9 % (19-41); Mean Corp Hgb Conc 28.5 g/dL (32-36); Mean Corpuscular Hgb 26.7 pg (27.0-32.0); Mean Corpuscular Volume 93.7 fL (81-99); Mean Platelet Vol. 10.4 fl (6.2-12.0); Monocyte# 0.16 X10^3/uL; Monocyte% 4.7 % (0-10); NRBC Flagged by Analyzer 0 % (0-5); Neutrophil # 2.83 X10^3/uL (2.7-7.7); Neutrophil % 83.5 % (47-70); POSITIVE DIFFERENTIAL YES; Platelet Count 178 K/mm3 (150-450); RBC Distribution Width CV 15.2 % (11.6-14.6); RBC Distribution Width SD 52.9 fl (35.1-43.9); Red Blood Count 4.12 M/mm3 (4.2-5.4); White Blood Count 3.4 K/mm3 (4.4-11.0)
[2020-09-08 06:04] LABS: Differential Indicated SCAN CRITERIA MET
[2020-09-08 06:27] LABS: Differential Comment SCANNED
[2020-09-08 06:36] LABS: ALB/GLOB Ratio 0.9 RATIO (0.9-2.4); AST(SGOT) 24 U/L (15-37); Alanine Aminotransfer ALT/SGPT 17 U/L (13-56); Albumin, Serum 2.8 g/dL (3.2-5.0); Alkaline Phosphatase 63 U/L (45-117); Anion Gap 9 (5-15); BUN 20 mg/dL (7-18); BUN/Creat Ratio 21.8 RATIO (10-20); Calcium,Total 8.3 mg/dL (8.5-10.1); Chloride 111 mmol/L (98-107); Creatinine, Serum 0.92 mg/dL (0.55-1.02); EST Glomerular Filtration Rate 63 mL/min (>60); Est Glom Filt Rate - Afr Amer 76 mL/min (>60); Estimated Creatinine Clearance 38.57 ml/min; Globulin 3.2 g/dL (2.2-4.2); Glucose 117 mg/dL (74-106); Magnesium 2.1 mg/dL (1.6-2.6); Potassium 4.8 mmol/L (3.5-5.1); Sodium Level 140 mmol/L (136-145)
[2020-09-08 09:29] LABS: Procalcitonin 0.04 ng/mL (0.00-0.09)
[2020-09-08] MEDS: Docusate Sodium 100 MG Capsule PO (09:48)
[2020-09-08] MEDS: dexAMETHasone 4 MG Tablet 6 MG PO (09:48)
[2020-09-08] MEDS: Nystatin Powder 15gm Bottle 1 APPLIC TOPICAL (09:49)
[2020-09-08] MEDS: Enoxaparin 30 MG/0.3 ML Syringe SC (09:49)
[2020-09-08] MEDS: Atorvastatin Calcium 40 MG Tablet PO (09:49)
[2020-09-08] MEDS: Paroxetine 20 MG Tablet PO (09:49)
[2020-09-08] MEDS: Metoprolol(XL)Succ 25 MG Tablet PO (09:50)
[2020-09-08] MEDS: Pantoprazole Sodium 40 MG Tablet PO (09:50)
--- NOTE | 2020-09-08 10:00 | PCM.DC ---
- Discharge Diagnoses Current Active Problems: Current Active and Chronic Problems (Last Reviewed 07/19/20 @ 15:39 by Gertrude Gaviria) Pneumonia due to COVID-19 virus (Acute) Hypoxia (Acute) Nausea and vomiting (Acute) Diarrhea (Acute) You will use the following diet at home:: Cardiac Your food should be the consistency of: Regular Discharge Activity: May Not Drive Call your doctor if you observe: Fever of 101 or Higher, Coldness, Increased Pain, Numbness or Tingling, Change in Color, Inability to urinate, Inability to have a bowel movement, Using more than one pad per hour, Shortness of breath, Dizziness, Fainting spells, Swelling in the ankles, Chest pain, Prolonged hiccoughing, Increased palpitations (irregular heartbeat), Calf discomfort, Uncontrolled pain Additional Instructions: Self quarantine for 2 weeks from the start of the symptoms, therefore 10 more days, till 09/18/2020 Allergies/Adverse Reactions: Allergies Sulfa (Sulfonamide Antibiotics) Adverse Reaction (Intermediate, Verified 07/19/20 15:40) Hives Medications to take at Discharge Omeprazole [Prilosec] 40 mg PO DAILY 04/15/15 Hydrocodone/Acetaminophen [[place] 7.5-325 Tablet] 1 tab PO Q8H PRN PRN 04/13/20 Metoprolol(XL)Succ [Toprol Xl (Beta Linda)] 25 mg PO BID 04/13/20 Atorvastatin Calcium 40 mg PO DAILY 04/20/20 Docusate Sodium [Colace] 100 mg PO DAILY #30 cap 06/24/20 Paroxetine [Paxil] 20 mg PO DAILY 09/06/20 Albuterol Inhaler [Ventolin Hfa] 2 puff INHALATION Q4H PRN PRN #1 inhaler 09/08/20 Dexamethasone [Decadron] 6 mg PO DAILY #8 tab 09/08/20 Guaifenesin [Mucinex] 1,200 mg PO BID #14 tab.er.12h 09/08/20 The following prescriptions were given: Dexamethasone [Decadron] 6 mg PO DAILY #8 tab Transmission Status: Pending to [id number] Guaifenesin [Mucinex] 1,200 mg PO BID #14 tab.er.12h Transmission Status: Pending to [id number] Albuterol Inhaler [Ventolin Hfa] 2 puff INHALATION Q4H PRN PRN #1 inhaler PRN Reason: Shortness of Breath/Wheezing Transmission Status: Pending to [facility]/pharmacy #[id number] Primary Care Physician: Steffen Roper Chi, MD [Primary Care Provider] - Please follow up with your Primary Care Physician in: In 1 to 2 weeks Test Results: Test results from this visit will be discussed in further detail at your follow-up appointment, if applicable. Please Follow Up With: Brayden Lucero MD When: For chronic iron versus anemia. Mild leukopenia
--- NOTE | 2020-09-08 10:05 | PCM.DC.SUM ---
Discharge Date and Diagnosis - Problem List Patient Problems: Active and Suspected Problems (Last Reviewed 07/19/20 @ 15:39 by Gertrude Gaviria) Pneumonia due to COVID-19 virus (Acute) Hypoxia (Acute) Nausea and vomiting (Acute) Diarrhea (Acute) Date of Admission: 09/06/20 Date of Discharge: 09/08/20 - Primary Discharge Diagnosis Acute Problems: Active Problems (Last Reviewed 07/19/20 @ 15:39 by Gertrude Gaviria) Pneumonia due to COVID-19 virus (Acute) Hypoxia (Acute) Nausea and vomiting (Acute) Diarrhea (Acute) - Secondary Discharge Diagnosis Chronic Problems: Chronic Problems (Last Reviewed 07/19/20 @ 15:39 by Gertrude Gaviria) Hemorrhoids (Chronic) Depression (Chronic) GERD (gastroesophageal reflux disease) (Chronic) High cholesterol (Chronic) Osteoarthritis (Chronic) Vitamin D deficiency (Chronic) History of cardiac catheterization (Chronic) S/P triple vessel bypass (Chronic) 2014 Iron deficiency anemia due to chronic blood loss (Chronic) Chronic renal failure, stage 3 (moderate) (Chronic) Hypertension (Chronic) Obesity (BMI 30-39.9) (Chronic) CAD (coronary artery disease) (Chronic) Diastolic heart failure (Chronic) Hx of CABG (Chronic) Heme + stool (Chronic) Hospital Course and Treatment Operations: None Summary of Care Provided: The patient is a 80 year old F was admitted with 4 days symptoms of nausea, vomiting, dry cough. Exposed to her daughter who is COVID-19 positive. She has history of coronary artery disease attention status post triple-vessel CABG in 2014, chronic tiredness since anemia, CKD stage III and chronic diastolic heart failure #Acute hypoxic respiratory insufficiency due to COVID-19 infection: She was admitted on Covid cohort floor. Initially put on oxygen but hypoxia resolved. Chest x-ray does not show acute cardiopulmonary abnormality. Seen by ID. On dexamethasone oral, remdesivir. Patient remdesivir discontinued as she improved. Discharged on dexamethasone 6 mg daily, to complete a total of 10 days. *COVID-19 infection: Currently no evidence of superimposed bacterial infection. Patient had mild to moderate symptoms of COVID-19. Currently only mild occasional cough otherwise no symptoms. #Hypokalemia: Patient is 3.2. Magnesium was 1.5. Potassium and magnesium were replaced. Repeat K4.8. Magnesium repeat 2.1. *Hyperlipidemia: On atorvastatin #Hypertension: On metoprolol 25 mg twice daily. DVT prophylaxis: Lovenox Discharge medication reconciliation done. Discharge follow-up instructions completed. Discharge process discussed with the patient and all questions were answered to patient's satisfaction. Total time spent, exact 35 minutes on discharge meds reconciliation, examination, coordination of care with nurses and ancillary staff, review of imaging and blood test and discussion with the patient on follow-up instructions Clinical Impression(s) from Imaging Studies Chest X-Ray 09/06/20 14:20 IMPRESSION: Status post CABG. No acute abnormality is seen. Patient Problems: Active and Suspected Problems (Last Reviewed 07/19/20 @ 15:39 by Gertrude Gaviria) Pneumonia due to COVID-19 virus (Acute) Hypoxia (Acute) Nausea and vomiting (Acute) Diarrhea (Acute) Objective: Seen and examined. Patient does not have shortness of breath. Mild occasional dry cough. No sputum production. Denies nausea, vomiting. Diarrhea has resolved. Tolerating oral diet. Wants to go home. General: Alert, Oriented x3, Cooperative HEENT: Atraumatic, PERRLA, EOMI, Normocephalic Oral: No Gingival or Mucosal Lesions/ Ulcerations Neck: Supple, No JVD, Negative Carotid Bruits Lungs: Air entry diminished in bilateral lung bases. No crepitation/rhonchi. Hypoxia resolved. Patient pulse ox 94% on room air Cardiovascular: Regular rate, Regular Rhythm, Normal S1, Normal S2, No murmurs Abdomen: Bowel Sounds Present, Soft, Non Tender, Non-Distended : No renal angle tenderness. No suprapubic tenderness. Extremities: No edema, Capillary Refill Less than 3 Seconds Skin: No rashes, No breakdown Musculoskeletal: No Tenderness to Palpation of Joints or Extremities Neurological: Cranial nerves II-XII grossly intact, Deep Tendon Reflexes 2+/4 and Symmetrical, Neuro grossly intact Psych/Mental Status: Normal Affect, Appropriate. - Physical Exam Vitals/I&O's: Vital Signs Temp Pulse Resp BP Pulse Ox 97.5 F L 73 24 H 153/75 H 94 09/08/20 09:43 09/08/20 09:50 09/08/20 09:43 09/08/20 09:50 09/08/20 09:43 Oxygen Flow Rate (L/min) 1 Oxygen Delivery Method Room Air Weight: 180 lb 15.992 oz Body Mass Index (BMI) 33.0 Intake and Output for Last 24 Hours 09/06/20 09/07/20 09/08/20 23:59 23:59 23:59 Intake Total 500 / 700 3302.33 / 3302.33 120 / 120 Balance 500 / 700 3302.33 / 3302.33 120 / 120 Microbiology Past 72 Hours 09/06/20 19:20 Mucosa - Nose Respiratory Panel (PCR) - Final 09/06/20 22:43 Urine, Clean Catch Legionella Antigen - Final 09/06/20 22:43 Urine, Clean Catch Streptococcus pneumoniae Antigen (M - Final Laboratory Results 09/06/20 13:58: Diff Path Review Reviewed 09/08/20 05:10: WBC 3.4 L, RBC 4.12 L, Hgb 11.0 L, Hct 38.6, MCV 93.7, MCH 26.7 L, MCHC 28.5 L, RDW Std Deviation 52.9 H, RDW Coeff of Genny 15.2 H, Plt Count 178, MPV 10.4, Immature Gran % (Auto) 0.300, Neut % (Auto) 83.5 H, Lymph % (Auto) 10.9 L, [place] % (Auto) 4.7, Eos % (Auto) 0.0, Baso % (Auto) 0.6, Absolute Neuts (auto) 2.8, Absolute Lymphs (auto) 0.37 L, Nucleated RBC % 0, Differential Comment SCANNED, Diff Path Review February09/08/20 05:10: Sodium 140, Potassium 4.8, Chloride 111 H, Carbon Dioxide 20.0 L, Anion Gap 9, BUN 20 H, Creatinine 0.92, Estim Creat Clear Calc 38.57, Est GFR (MDRD) Af Amer 76, Est GFR (MDRD) Non-Af 63, BUN/Creatinine Ratio 21.8 H, Glucose 117 H, Calcium 8.3 L, Magnesium 2.1, Total Bilirubin 0.50, AST 24, ALT 17, Alkaline Phosphatase 63, Total Protein 6.0 L, Albumin 2.8 L, Globulin 3.2, Albumin/Globulin Ratio 0.9 09/08/20 05:10: Blood Type A POSITIVE 09/08/20 05:10: Procalcitonin 0.04 Current Medications Acetaminophen (Acetaminophen 325 Mg Tablet) 650 mg PO Q4H PRN PRN PRN Reason: Pain Score 1-10/Temp > 100.7 F Hydrocodone Bitart/Acetaminophen (Hydrocodone Bitartrate/Apap 5/325 Tablet) 1 tablet PO Q8H PRN PRN PRN Reason: PAIN 1-10/FEVER Last Admin: 09/06/20 21:23 Dose: 1 tablet Documented by: Albuterol Sulfate (Albuterol Sulfate 8 Gm Inhaler (60 Puffs)) 2 puff INHALATION Q4H PRN PRN PRN Reason: Shortness of Breath/Wheezing Alprazolam (Alprazolam 0.25 Mg Tablet) 0.125 mg PO BID PRN PRN PRN Reason: ANXIETY Last Admin: 09/07/20 16:54 Dose: 0.125 mg Documented by: Atorvastatin Calcium (Atorvastatin Calcium 40 Mg Tablet) 40 mg PO DAILY [facility] Last Admin: 09/08/20 09:49 Dose: 40 mg Documented by: Dexamethasone (Dexamethasone 4 Mg Tablet) 6 mg PO DAILY [facility] Stop: 09/16/20 10:01 Last Admin: 09/08/20 09:48 Dose: 6 mg Documented by: Docusate Sodium (Docusate Sodium 100 Mg Capsule) 100 mg PO DAILY [facility] Last Admin: 09/08/20 09:48 Dose: 100 mg Documented by: Enoxaparin Sodium (Enoxaparin 30 Mg/0.3 Ml Syringe) 30 mg SC BID [facility] Last Admin: 09/08/20 09:49 Dose: 30 mg Documented by: Hydralazine HCl (Hydralazine 20 Mg/Ml Vial) 10 mg IV Q4H PRN PRN PRN Reason: sys >160 Last Admin: 09/07/20 14:38 Dose: 10 mg Documented by: Remdesivir 100 mg/ Sodium (Chloride) 250 mls @ 125 mls/hr IV DAILY [facility]; Protocol Stop: 09/11/20 11:59 Metoprolol Succinate (Metoprolol(Xl)Succ 25 Mg Tablet) 25 mg PO BID [facility] Last Admin: 09/08/20 09:50 Dose: 25 mg Documented by: Morphine Sulfate (Morphine 2 Mg/Ml Syringe) 1 - 2 mg IV Q4H PRN PRN PRN Reason: Pain Score 4-5 Morphine Sulfate (Morphine 2 Mg/Ml Syringe) 2 - 4 mg IV Q3H PRN PRN PRN Reason: Pain Score 6-10 Nitroglycerin (Nitroglycerin (Inpatient Use) 0.4 Mg Tab.Subl) 0.4 mg SUBLINGUAL Q5M PRN PRN Reason: CARDIAC/CHEST PAIN Nystatin (Nystatin Powder 15gm Bottle) 1 applic TOPICAL BID [facility]; Protocol Last Admin: 09/08/20 09:49 Dose: 1 dose Documented by: Ondansetron HCl (Ondansetron 4 Mg/2 Ml Vial) 4 mg IV Q8H PRN PRN PRN Reason: NAUSEA/VOMITING Last Admin: 09/07/20 22:30 Dose: 4 mg Documented by: Oxycodone HCl (Oxycodone 5 Mg Tablet) 5 mg PO Q4H PRN PRN PRN Reason: Pain Score 4-5 Pantoprazole Sodium (Pantoprazole Sodium 40 Mg Tablet) 40 mg PO DAILY [facility] Last Admin: 09/08/20 09:50 Dose: 40 mg Documented by: Paroxetine HCl (Paroxetine 20 Mg Tablet) 20 mg PO DAILY [facility] Last Admin: 09/08/20 09:49 Dose: 20 mg Documented by: Prochlorperazine Edisylate (Prochlorperazine 10 Mg/2 Ml Vial) 10 mg IV Q6H PRN PRN PRN Reason: Nausea/Vomiting Sodium Chloride (0.9% Saline Lock 10 Ml Syringe) 10 - 40 ml IV UD PRN PRN Reason: SALINE FLUSH Last Admin: 09/07/20 14:39 Dose: 10 ml Documented by: Discharge Activity: May Not Drive Call your doctor if you observe: Fever of 101 or Higher, Coldness, Increased Pain, Numbness or Tingling, Change in Color, Inability to urinate, Inability to have a bowel movement, Using more than one pad per hour, Shortness of breath, Dizziness, Fainting spells, Swelling in the ankles, Chest pain, Prolonged hiccoughing, Increased palpitations (irregular heartbeat), Calf discomfort, Uncontrolled pain Home Medications: Medications to take at Discharge Omeprazole [Prilosec] 40 mg PO DAILY 04/15/15 Hydrocodone/Acetaminophen [[place] 7.5-325 Tablet] 1 tab PO Q8H PRN PRN 04/13/20 Metoprolol(XL)Succ [Toprol Xl (Beta Linda)] 25 mg PO BID 04/13/20 Atorvastatin Calcium 40 mg PO DAILY 04/20/20 Docusate Sodium [Colace] 100 mg PO DAILY #30 cap 06/24/20 Paroxetine [Paxil] 20 mg PO DAILY 09/06/20 Albuterol Inhaler [Ventolin Hfa] 2 puff INHALATION Q4H PRN PRN #1 inhaler 09/08/20 Dexamethasone [Decadron] 6 mg PO DAILY #8 tab 09/08/20 Guaifenesin [Mucinex] 1,200 mg PO BID #14 tab.er.12h 09/08/20 Following Prescriptions Were Given to Patient: Dexamethasone [Decadron] 6 mg PO DAILY #8 tab Transmission Status: Received by [facility]/pharmacy #[id number] Guaifenesin [Mucinex] 1,200 mg PO BID #14 tab.er.12h Transmission Status: Received by [facility]/pharmacy #[id number] Albuterol Inhaler [Ventolin Hfa] 2 puff INHALATION Q4H PRN PRN #1 inhaler PRN Reason: Shortness of Breath/Wheezing Transmission Status: Re[facility] by [id number] Primary Care Physician: Steffen Roper Chi, MD [Primary Care Provider] - Please follow up with your Primary Care Physician in: In 1 to 2 weeks Please Follow Up With: Brayden Lucero MD When: For chronic iron versus anemia. Mild leukopenia Medical Necessity - Tobacco Use Smoking Status: Former smoker Tobacco Use: Cigarettes Meaningful Use Info Meaningful Use Diagnoses (Choose all that apply): None applicable Inpatient E&M: 00173 [facility]
--- NOTE | 2020-09-08 10:48 | CASEMGMT ---
RN CM Assessment Note. Intro role of CM to patient in room via phone. The patient was awake, alert and able to participate in assessment. Denies needs @ home. States she will be staying with her daughter who recently was positive for Covid, is through quarantine and is back to work. Daughter will be able to assist with groceries, etc. Diagnosis: COVID-19 PCP: Dr. Roper Insurance: [facility] Medicare Pharmacy: [facility] Medical Living arrangements: living with her daughter, Amanda Lujan. Patient states she is independent in ADL and daughter is able to assist if needed. DME: walker cane DERIK Plan: home on discharge. No needs identified. Janie NEVAREZ RN ACM
[2020-09-08 13:45] LABS: Pathologist Review Reviewed
[2020-09-08 13:52] LABS: Pathologist Review Reviewed
--- NOTE | 2020-09-12 13:19 | CASEMGMT ---
RHYS CM DC PHONE CALL DC DATE: 09.08.2020 DC DISPOSITION: Home DC DIAGNOSIS: COVID-19 LACE/STRATA: 11 F/U APPTS MADE PRIOR TO DC: no Attempted call to patient's phone. No answer, and no messaging with name identifier. Janie CESARN RN ACM
== END 2020-09-08 12:16 | disposition home or self-care (01) | DRG 177 ==
LOC: ED 14:56 → MS2 16:07
PROVIDERS: Family Medicine; Admitting Provider Student in an Organized Health Care Education/Training Program; Emergency Provider Emergency Medicine; PCP Family Medicine Geriatric Medicine; Visit Provider Internal Medicine
DX: U07.1 COVID-19 (principal); J12.89 Other viral pneumonia; I13.0 Hypertensive heart and chronic kidney disease with heart failure and stage 1 through stage 4 chronic kidney disease, or unspecified chronic kidney disease; I50.32 Chronic diastolic (congestive) heart failure; N18.30 Chronic kidney disease, stage 3 unspecified; E87.6 Hypokalemia; R09.02 Hypoxemia; I25.10 Atherosclerotic heart disease of native coronary artery without angina pectoris; E78.5 Hyperlipidemia, unspecified; R11.2 Nausea with vomiting, unspecified; R19.7 Diarrhea, unspecified; M19.90 Unspecified osteoarthritis, unspecified site; E55.9 Vitamin D deficiency, unspecified; K21.9 Gastro-esophageal reflux disease without esophagitis; F32.9 Major depressive disorder, single episode, unspecified; F41.9 Anxiety disorder, unspecified; E66.9 Obesity, unspecified; Z68.35 Body mass index [BMI] 35.0-35.9, adult; Z79.899 Other long term (current) drug therapy; I25.2 Old myocardial infarction; Z87.891 Personal history of nicotine dependence; Z95.1 Presence of aortocoronary bypass graft
CPT/HCPCS: 36415; 71045; 80053; 83735; 84145; 84484; 85025; 86900; 86901; 87449; 87633; 87635; 93005; 97162; 97166; 99285; J7030; J7040; J7050; A4216; J2405; U0002

== ENCOUNTER 2020-09-24 10:46 | Inpatient (IN) | payer MEDICARE, SELFPAY ==
[2020-09-06 17:49] VITALS: BMI 33.0
[2020-09-24] VITALS (11 sets, daily range): BP systolic 156–193; BP diastolic 76–95; PULSE 66–97; RESP 17–22; TEMP 36.3–36.7; O2SAT 96–99; BMI 34.2; BMI 33.7
--- NOTE | 2020-09-24 11:11 | CT_ITS ---
STUDY: CT ABDOMEN AND PELVIS WITH CONTRAST REASON FOR EXAM: Female, 80 years old. RIGHT SIDED AB PAIN. PRIOR GB,APPY AND HYSTERECTOMY RADIATION DOSAGE (If Supplied By Facility): CTDIvol = ( 25.78 ) mGy, DLP = ( 1400.09 ) mGycm TECHNIQUE: Transaxial images were obtained from the dome of the diaphragm to the symphysis pubis without oral contrast. Oral and amp; IV Gastrografin and amp; 100mL Isovue-370 was administered. Sagittal and coronal images were reconstructed. Individualized dose optimization techniques were used for this CT. COMPARISON: None. FINDINGS: Lung bases demonstrate no evidence for consolidative process. Pleural-based nodularity and scarring in the left lower lobe as well as the left lingula. Patchy pleural-based nodules in the right middle lobe also seen. No pericardial effusion. Coronary vascular calcifications. The adrenal glands appear unremarkable. Pancreas are within normal limits. Gallbladder is nondistended. Prior cholecystectomy. Low-attenuation cystic lesion in the right hepatic lobe posterior segment likely exophytic small cysts. Portal vein is patent. No discrete lesions in the spleen. Mild splenomegaly There is uncomplicated colonic diverticulosis seen. Nonspecific wall thickening of the colonic loops seen which can be seen in the setting of colitis No evidence for acute appendicitis. Nonobstructive bowel gas pattern. Kidneys demonstrate no evidence for hydronephrosis. Degenerative changes of the sacroiliac joints and the lumbar spine. Multilevel neural foraminal narrowing. Central canal stenosis in the lumbar spine. IMPRESSION: Nonspecific wall thickening of the colonic loops which can be seen in the setting of colitis. No evidence for acute appendicitis or diverticulitis. Nonobstructive bowel gas pattern. Splenomegaly No evidence for obstructive uropathy. Pleural-based nodularity in the lung bases Electronically Signed: Indio Padilla, at 14:24 EST Tel , Service support , CT/Abdomen/Pelvis WITH Contrast
--- NOTE | 2020-09-24 11:11 | EKG12_ITS ---
Test Reason : ABDOMINAL PAIN Blood Pressure : / mmHG Vent. Rate : 093 BPM Atrial Rate : 093 BPM P-R Int : 160 ms QRS Dur : 094 ms QT Int : 382 ms P-R-T Axes : 054 057 080 degrees QTc Int : 474 ms Normal sinus rhythm Possible Left atrial enlargement Nonspecific ST and T wave abnormality Abnormal ECG Confirmed by INGRIS GARRIDO, RAINA ([id number]), electronic news gathering editor ZOHAIB WU ([id number]) on 09/26/2020 8:44:06 AM Referred By: Confirmed By:RAINA AMADO MD
--- NOTE | 2020-09-24 11:13 | CT_ITS ---
STUDY: CTA CHEST REASON FOR EXAM: Female, 80 years old. R/O PE chest pain RADIATION DOSAGE (If Supplied By Facility): CTDIvol = ( 25.78 ) mGy, DLP = ( 1400.09 ) mGycm TECHNIQUE: The examination was performed with the intravenous administration of Oral and amp; IV Gastrografin and amp; 100mL Isovue-370. Post-processing of the angiographic images was performed, with multiplanar reformation and 3D reconstruction. Individualized dose optimization techniques were used for this CT. COMPARISON: None. FINDINGS: The pulmonary artery and its branches demonstrate no evidence of filling defects. Calcifications of the thoracic aorta. Coronary vascular calcifications. Filling defect in the right atrium noted right atrial thrombus is not excluded. Please consider cardiac echo examination. Reflux of contrast into the IVC. Prior CABG. No evidence for mediastinal lymphadenopathy. Bilateral mild pulmonary congestive changes noted and patchy interstitial opacities likely subsegmental atelectasis in the lung bases. Upper abdominal structures demonstrate no acute abnormalities. Small exophytic lesion in the right hepatic lobe posterior segment possibly cyst IMPRESSION: No evidence for acute pulmonary embolism. No evidence for aortic dissection. Bilateral mild pulmonary edema with cardiomegaly and coronary vascular calcifications. Following defect in the region of the right atrium seen. Right atrial thrombus is not excluded. Please consider cardiac echo. Electronically Signed: [place] Padilla, at 14:46 EST Tel , Service support , CT/CTA Chest W/WO Contrast
--- NOTE | 2020-09-24 11:19 | ED.VISSUMM ---
- ER Visit Summary Date of Service: 09/24/20 Chief Complaint: Abdominal pain History of Present Illness: The patient is a 80 F presenting with abdominal pain. She states this started 3 days ago. Pain is in the right upper and left upper quadrant. She has associated nausea with no vomiting. She is having frequent diarrhea. She states she is unsure if she has blood in her stool because she has hemorrhoids and it is not uncommon for her to have blood in her stools. She denies fever. She was diagnosed with Covid September 06. She was admitted from September 06 and September 08. She states she was starting to improve and then 3 days ago developed this abdominal pain. She has history of appendectomy, cholecystectomy, hysterectomy. Physical Examination: Vitals are stable. Patient is afebrile. Alert no acute distress. HEENT exam is unremarkable. Neck is supple. Lungs are clear and equal bilaterally. Heart is regular rate and rhythm. Abdomen is soft right upper and left upper quadrant tenderness with no guarding or rebound Extremities are unremarkable. Skin is warm and dry. No focal neurologic deficit. Remainder of exam is unremarkable. Emergency Department Course and Treatment: Patient was given IV fluids, morphine, Zofran. CBC shows hemoglobin 11.3, platelet 108. Chemistries show potassium 3.2, creatinine 1.05. Lipase is normal. Troponin 0.05. Lactic acid is normal. CTA chest was obtained and shows No evidence for acute pulmonary embolism. No evidence for aortic dissection. Bilateral mild pulmonary edema with cardiomegaly and coronary vascular calcifications. Following defect in the region of the right atrium seen. Right atrial thrombus is not excluded. Please consider cardiac echo. CT abdomen shows nonspecific wall thickening of the colonic loops which can be seen in the setting of colitis. No evidence for acute appendicitis or diverticulitis. Nonobstructive bowel gas pattern. Splenomegaly. No evidence for obstructive uropathy. Pleural-based nodularity in the lung bases. Stool studies were ordered. Urine culture was ordered. Patient was given Rocephin. Discussed with hospitalist for admission. Disposition: Admission Impression: UTI, colitis, abdominal pain This note was generated with wumo dictation software. It may contain incorrect words, spelling, and punctuation that were not noted in review of the chart prior to signing ED Disposition - Plan for ED Patient: Disposition: Acute Care Hospital [facility]
[2020-09-24] MEDS: 0.9% Normal Saline 1,000 ML 1000 ML IV (11:33)
[2020-09-24] MEDS: Ondansetron 4 MG/2 ML Vial IV (11:34)
[2020-09-24] MEDS: Morphine 4 MG/ML Syringe IV ×2 (11:35→12:54)
[2020-09-24 11:48] LABS: Absolute Lymphocyte Count 0.51 X10^3/uL (0.83-4.51); Absolute Neutrophil Count 3.8 X10^3/uL (2.0-7.7); Basophil# 0.02 X10^3/uL; Basophil% 0.4 % (0-1); Eosinophil# 0.12 X10^3/uL; Eosinophils% 2.6 % (0-5); Hematocrit 34.8 % (37-47); Hemoglobin 11.3 g/dL (12.0-15.0); Lymphocyte # 0.51 X10^3/ul (4.0); Lymphocyte % 10.9 % (19-41); Mean Corp Hgb Conc 32.5 g/dL (32-36); Mean Corpuscular Hgb 27.5 pg (27.0-32.0); Mean Corpuscular Volume 84.7 fL (81-99); Mean Platelet Vol. 10.8 fl (6.2-12.0); Monocyte# 0.26 X10^3/uL; Monocyte% 5.5 % (0-10); NRBC Flagged by Analyzer 0 % (0-5); Neutrophil # 3.77 X10^3/uL (2.7-7.7); Neutrophil % 80.4 % (47-70); POSITIVE DIFFERENTIAL YES; Platelet Count 108 K/mm3 (150-450); RBC Distribution Width CV 16.4 % (11.6-14.6); Red Blood Count 4.11 M/mm3 (4.2-5.4); White Blood Count 4.7 K/mm3 (4.4-11.0)
[2020-09-24 11:55] LABS: Differential Indicated SCAN CRITERIA MET
[2020-09-24 12:01] LABS: ALB/GLOB Ratio 0.8 RATIO (0.9-2.4); AST(SGOT) 14 U/L (15-37); Alanine Aminotransfer ALT/SGPT 18 U/L (13-56); Albumin, Serum 2.8 g/dL (3.2-5.0); Alkaline Phosphatase 66 U/L (45-117); Anion Gap 7 (5-15); BUN 12 mg/dL (7-18); BUN/Creat Ratio 11.4 RATIO (10-20); Calcium,Total 8.5 mg/dL (8.5-10.1); Chloride 111 mmol/L (98-107); Creatinine, Serum 1.05 mg/dL (0.55-1.02); EST Glomerular Filtration Rate 54 mL/min (>60); Est Glom Filt Rate - Afr Amer 65 mL/min (>60); Globulin 3.5 g/dL (2.2-4.2); Glucose 91 mg/dL (74-106); Lipase 53 U/L (73-393); Potassium 3.2 mmol/L (3.5-5.1); Protein, Total 6.3 g/dL (6.4-8.2); Sodium Level 144 mmol/L (136-145)
[2020-09-24 12:09] LABS: Differential Comment SCANNED
[2020-09-24 12:10] LABS: Lactic Acid 1.1 mmol/L (0.4-1.9)
[2020-09-24 12:54] LABS: Mucous, Urine 0 SEEN /hpf (<or=2+)
[2020-09-24 12:56] LABS: Color, Urine Straw (Yellow); Glucose, Dipstick Normal (Normal); Ketone-Dipstick Negative (Negative); Leukocyte Esterase-Dipstick 100 /ul (Negative); Nitrite-Dipstick Positive (Negative); Occult Blood-Urine 150 /ul (Negative); Protein-Dipstick Negative (Negative); Urine Bilirubin Dipstick Negative (Negative); Urine Clarity Sl. Cloudy (Clear); Urine Urobilinogen Normal (Normal); Urine pH 6.5 (5.0 - 8.0)
[2020-09-24 13:06] LABS: Bacteria 3+ /hpf (None Seen); Red Blood Cells-Urine 10-25 SEEN /hpf (0-5); Squamous Epithelial Cells - UA 0-5 SEEN /hpf (5-10); White Blood Cells 10-25 SEEN /hpf (0-5)
--- NOTE | 2020-09-24 13:45 | ED.RN ---
dr loza aware that pt with 3/4 bottom of bsc with nay blood from hemmorhoids. pt reports that has had in past when gets diarrhea flare up
--- NOTE | 2020-09-24 15:25 | HP.PCM_ITS ---
History of Present Illness Date of Admission: 09/24/20 Chief Complaint: abdominal pain, diarrhea The patient is a 80 year old F with a past medical history as outlined was admitted through the ED on 09/24/2020 with a complaint of abdominal pain and diarrhea which have been going on for 2 days prior to admission. Patient was diagnosed with Covid on September 06, 2020 was on admission in the hospital from September 06 to September 08, 2020. She has been feeling well at home but subsequently started having abdominal pain which was mainly in the epigastric region. She states she ate a big Mac and a milkshake on the day symptoms started. Her daughter also had the same thing but did not have the same symptom s. Abdominal pain was accompanied by profuse diarrhea. She states there was some blood in the diarrhea but she thinks this was from her hemorrhoids as she often has occasional blood in her stool. She denied any fever or chills and had assisted nausea but no vomiting. Review of symptoms otherwise negative. She denied any chest pain or palpitations. In the ED, vitals showed temperature of 98 Fahrenheit with blood pressure of 156/79, pulse rate of 96 and respiratory of 17. Pulse ox was 98% on room air. Chemistry showed potassium of 3.2 and creatinine of 1.05. Initial troponin was 0.05. CBC showed hemoglobin of 11.3 with WBC of 4.7 and platelets of 108. Lipase was 53. CT of the chest was negative for any PE and showed bilateral mild pulmonary edema with cardiomegaly and coronary vascular calcifications with a filling defect seen in the region of the right atrium; right atrial thrombus cannot be excluded. CT of the abdomen showed nonspecific wall thickening of the colonic loops which could be seen in the setting of colitis and a nonobstructive gas pattern with splenomegaly. UA showed evidence of UTI. She has been admitted to be managed for colitis likely due to acute gastroenteritis and UTI. [] Past Medical History Past Medical History (Chronic Problems): Chronic Problems (Last Reviewed 07/19/20 @ 15:39 by Gertrude Gaviria) Hemorrhoids (Chronic) Depression (Chronic) GERD (gastroesophageal reflux disease) (Chronic) High cholesterol (Chronic) Osteoarthritis (Chronic) Vitamin D deficiency (Chronic) History of cardiac catheterization (Chronic) S/P triple vessel bypass (Chronic) 2014 Iron deficiency anemia due to chronic blood loss (Chronic) Chronic renal failure, stage 3 (moderate) (Chronic) Hypertension (Chronic) Obesity (BMI 30-39.9) (Chronic) CAD (coronary artery disease) (Chronic) Diastolic heart failure (Chronic) Hx of CABG (Chronic) Heme + stool (Chronic) Medical History: Medical History (Last Reviewed 07/19/20 @ 15:39 by Gertrude Gaviria) Depression (Chronic) F32.9 GERD (gastroesophageal reflux disease) (Chronic) K21.9 High cholesterol (Chronic) E78.00 Osteoarthritis (Chronic) M19.90 Vitamin D deficiency (Chronic) E55.9 Iron deficiency anemia due to chronic blood loss (Chronic) D50.0 Chronic renal failure, stage 3 (moderate) (Chronic) N18.3 Hypertension (Chronic) I10 Obesity (BMI 30-39.9) (Chronic) E66.9 CAD (coronary artery disease) (Chronic) I25.10 Diastolic heart failure (Chronic) I50.30 Heme + stool (Chronic) Heart attack (Inactive) I21.9 X2 Allergies Sulfa (Sulfonamide Antibiotics) Adverse Reaction (Intermediate, Verified 07/19/20 15:40) Hives Home Medications: Ambulatory Orders Medication Instructions Recorded Omeprazole [Prilosec] 40 mg PO DAILY 04/15/15 Hydrocodone/Acetaminophen [[place] 1 tab PO Q8H PRN PRN 04/13/20 7.5-325 Tablet] Metoprolol(XL)Succ [Toprol Xl 25 mg PO BID 04/13/20 ([place])] Atorvastatin Calcium 40 mg PO DAILY 04/20/20 Albuterol Inhaler [Ventolin Hfa] 2 puff INHALATION Q4H PRN PRN #1 09/08/20 inhaler Docusate Sodium [Colace] 100 mg PO DAILY PRN 09/24/20 Linaclotide [Linzess] mcg PO DAILY PRN 09/24/20 Surgical History: Surgical History (Last Reviewed 07/19/20 @ 15:39 by Gertrude Gaviria) History of cardiac catheterization (Chronic) Z98.890 S/P triple vessel bypass (Chronic) Z95.1 2015 Hx of CABG (Chronic) History of appendectomy (Inactive) Z90.49 History of section (Inactive) Z98.891 History of hysterectomy (Inactive) Z90.710 History of sinus surgery (Inactive) Z98.890 Hx of cholecystectomy (Inactive) Z90.49 2015 Surgical History: - - Hysterectomy, x 2, appendecomty, T+A, sinus surgery, coronary artery bypass 12/01/14 Psychiatric History: Anxiety PST MANAGER History: No pertinent PST MANAGER history Smoking Status: Former smoker Tobacco Use: Cigarettes - *Family History Maternal Family History: Family History (Last Reviewed 07/19/20 @ 15:40 by Gertrude Gaviria) Mother Hypertension CVA (cerebral vascular accident) Grandfather CVA (cerebral vascular accident) Grandmother CVA (cerebral vascular accident) Father Hypertension History Items: Stroke Paternal Family History: Family History (Last Reviewed 07/19/20 @ 15:40 by Gertrude Gaviria) Mother Hypertension CVA (cerebral vascular accident) Grandfather CVA (cerebral vascular accident) Grandmother CVA (cerebral vascular accident) Father Hypertension History Items: Heart Disease, Hypertension Review of Systems Constitutional: Reports: Anorexia, Malaise, Weakness, Fatigue. Denies: Chills, Fever Eyes: Denies: Blurred vision HEENT: Denies: Head Aches, Sinus Congestion, Sinus Drainage Cardiovascular: Denies: Chest Pain, Palpitations Respiratory: Denies: Cough, Shortness of Breath, Shortness of breath at rest, Shortness of breath upon exertion, Sputum production Gastrointestinal: Reports: Abdominal Pain, Diarrhea, Hematochezia, Nausea. Denies: Dyspepsia, Hematemesis, Melena, Vomiting Genitourinary: Denies: Dysuria Musculoskeletal: Denies: Joint Pain, Joint Tenderness Skin: Denies: Rash, Wounds Neurological: Denies: Numbness, Tingling, Focal weakness Psychiatric: Denies: Anxiety, Depression, Homicidal Ideations, Suicidal Ideations Hematologic/ Lymphatic: Denies: Easy Bruising, Easy Bleeding VTE Information - Inpt Only VTE Present on Admission: No VTE Pharm Prophylaxis ordered?: Yes - Physical Exam Vitals/I&O's: Vital Signs Temp Pulse Resp BP Pulse Ox 98.0 F 81 17 157/88 H 99 09/24/20 10:49 09/24/20 12:18 09/24/20 12:18 09/24/20 12:18 09/24/20 12:18 Oxygen Delivery Method Room Air Weight: 187 lb 6.287 oz Body Mass Index (BMI) 34.2 Intake and Output for Last 24 Hours 09/22/20 09/23/20 09/24/20 23:59 23:59 23:59 Intake Total 1000 / 1000 Balance 1000 / 1000 General: Alert, Oriented x3, Cooperative, No apparent distress HEENT: Atraumatic, PERRLA, EOMI, Normocephalic Oral: Dry Mucosa Neck: Supple, No JVD, Negative Carotid Bruits Lungs: Clear to auscultation, Normal air movement, No rhonchi, No wheeze, No rales Cardiovascular: Regular rate, Regular Rhythm, Normal S1, Normal S2, No murmurs Abdomen: Bowel Sounds Present, Soft, Non Tender, Non-Distended, No Hepato- splenomegaly, Obese Extremities: No clubbing, No cyanosis, No edema, Capillary Refill Less than 3 Seconds Skin: No rashes, No breakdown Musculoskeletal: No Tenderness to Palpation of Joints or Extremities Lymphatic: No Cervical, Supraclavicular, or Inguinal Adenopathy Neurological: Cranial nerves II-XII grossly intact, Neuro grossly intact, Motor Exam 5/5 strength throughout Psych/Mental Status: Normal Affect, Appropriate, Alert and oriented to time, place, person, mood and affect Laboratory Results 09/24/20 11:40: WBC 4.7, RBC 4.11 L, Hgb 11.3 L, Hct 34.8 L, MCV 84.7, MCH 27.5, MCHC 32.5, RDW Std Deviation 50.0 H, RDW Coeff of Genny 16.4 H, Plt Count 108 L, MPV 10.8, Immature Gran % (Auto) 0.200, Neut % (Auto) 80.4 H, Lymph % (Auto) 10.9 L, [place] % (Auto) 5.5, Eos % (Auto) 2.6, Baso % (Auto) 0.4, Absolute Neuts ( auto) 3.8, Absolute Lymphs (auto) 0.51 L, Nucleated RBC % 0, Differential Comment SCANNED 09/24/20 11:40: Sodium 144, Potassium 3.2 L, Chloride 111 H, Carbon Dioxide 26.0, Anion Gap 7, BUN 12, Creatinine 1.05 H, Estim Creat Clear Calc 33.80, Est GFR (MDRD) Af Amer 65, Est GFR (MDRD) Non-Af 54 L, BUN/Creatinine Ratio 11.4, Glucose 91, Calcium 8.5, Total Bilirubin 0.60, AST 14 L, ALT 18, Alkaline Phosphatase 66, Troponin I 0.050 H, Total Protein 6.3 L, Albumin 2.8 L, Globulin 3.5, Albumin/Globulin Ratio 0.8 L, Lipase 53 L 09/24/20 11:40: Lactic Acid 1.1 09/24/20 12:50: Urine Color Straw, Urine Clarity Sl. Cloudy, Urine pH 6.5, Ur Specific Flushing 1.010, Urine Protein Negative, Urine Glucose (UA) Normal, Urine Ketones Negative, Urine Occult Blood 150 H, Urine Nitrite Positive H, Urine Bilirubin Negative, Urine Urobilinogen Normal, Ur Leukocyte Esterase 100 H, Urine RBC 10-25 SEEN, Urine WBC 10-25 SEEN, Ur Squamous Epith Cells 0-5 SEEN, Urine Bacteria 3+, Urine Mucus 0 SEEN Diagnostic Data Abdomen/Pelvis CT 09/24/20 11:11 Chest CTA 09/24/20 11:13 Assessment/Plan All Active Problems (Last Reviewed 07/19/20 @ 15:39 by Gertrude Gaviria) Pneumonia due to COVID-19 virus (Acute) Hypoxia (Acute) Nausea and vomiting (Acute) Diarrhea (Acute) Acute GI bleeding (Acute) Elevated lactic acid level (Acute) Hyperplastic colon polyp (Resolved) 80 y/o admitted with a complaint of abdominal pain and diarrhea # Acute gastroenteritis * CT fo the abdomen showed evidence of colitis * admit to [facility] * keep on clear liquids * hydrate wtih IVF NS @ 125cc/hr * check stool for enteric pathogens and parasites * started on IV ceftriaxone o/a of UTI * will add on metronidazole * # UTI; UA showed evidence of UTI. get urine culture. IV ceftriaxone # Colitis due to gastroenteritis * as under gastroenteritis #Possible right atrial thrombus * CTA of the chest shwoed a filling defect in the right atrium; * will get 2D echo tomorrow * #Hypokalemia: K is 3.2. Will replace and monitor #Indeterminate troponin * Troponin on admission was 0.050. Denies any chest pain. We will cycle troponins x3. * : 1 nitroglycerin as needed. P.o. aspirin 81 mg daily. * #Hypertension: on metoprolol #Hyperlipidemia: on statin DVT prophylaxis: SCDs Inpatient E&M: 63017 Init Hosp L2
[2020-09-24] MEDS: Ceftriaxone 1 GM/50 ML BAG IV (15:34)
[2020-09-24] MEDS: 0.9% Normal Saline 1,000 ML 125 ML IV (16:40)
--- NOTE | 2020-09-24 16:52 | NURSING ---
flagyl not on nursing unit, meds in [facility] not confirmed at this time, unable to remove k dur, or or [place] for pt at this time
--- NOTE | 2020-09-24 17:12 | NURSING ---
tang still not on unit for pt administration unable to obtain k+ or norco from [facility]
[2020-09-24] MEDS: metroNIDAZOLE 500 MG/100 ML BAG 100 MG IV ×2 (17:55→22:22)
[2020-09-24] MEDS: HYDROcodone Bitartrate/Apap 5/325 Tablet PO (18:14)
[2020-09-24] MEDS: Morphine 2 MG/ML Syringe IV ×2 (19:24→22:22)
[2020-09-24] MEDS: Metoprolol(XL)Succ 25 MG Tablet PO (21:44)
[2020-09-24] MEDS: Atorvastatin Calcium 40 MG Tablet PO (21:44)
[2020-09-24] MEDS: Labetalol (Prefilled) 20 MG/4 ML 10 MG IV (23:18)
[2020-09-25] VITALS (15 sets, daily range): BP systolic 122–182; BP diastolic 55–82; PULSE 67–82; RESP 18–20; TEMP 36.4–36.9; O2SAT 94–98
[2020-09-25] MEDS: Morphine 2 MG/ML Syringe IV ×5 (01:55→22:29)
[2020-09-25] MEDS: 0.9% Normal Saline 1,000 ML 125 ML IV (01:55)
[2020-09-25] MEDS: HYDROcodone Bitartrate/Apap 5/325 Tablet PO (03:40)
[2020-09-25] MEDS: Labetalol (Prefilled) 20 MG/4 ML 10 MG IV ×2 (04:06→15:56)
[2020-09-25] MEDS: metroNIDAZOLE 500 MG/100 ML BAG 100 MG IV (05:44)
--- NOTE | 2020-09-25 05:55 | ECHOD_ITS ---
Reason For Study: R/O RIGHT ATRIAL THROMBUS Procedure This was a 2D Doppler, Color Flow transthoracic echocardiogram. Exam performed portable in patient room. Left Ventricle Normal LV size. Moderate concentric left ventricular hypertrophy. Left ventricular systolic function is normal. The estimated ejection fraction is 60 %. Stage 2 diastolic dysfunction. No regional wall motion abnormalities noted. Right Ventricle Normal RV size. Normal systolic function. Atria Normal left atrium. Normal right atrium. Immobile mass of the right atrium. Mass plastered against the right atrial wall measuring 2.4 x 1.3 cm. Mitral Valve There is mild mitral annular calcification. Tricuspid Valve Trivial tricuspid valve insufficiency. Aortic Valve Trisinus/trileaflet aortic valve. Mild focal aortic valve calcification. Mean aortic valve gradient 20 mmHg. Mild (1+) aortic valve insufficiency. Pulmonic Valve Normal pulmonic valve. Great Vessels Normal aortic root. The pulmonary artery is normal size. Normal inferior vena cava. Pericardium/Pleural No pericardial effusion. MMode/2D Measurements & Calculations LVIDd: 4.2 cm IVSd: 1.3 cm LVOT diam: 2.0 cm LVIDs: 3.0 cm LVPWd: 1.3 cm LVOT area: 3.1 cm2 FS: 30.0 % Ao root diam: 3.0 cm LAV(MOD-bp): 50.0 ml LVAd ap4: 24.2 cm2 LAV(MOD-bp) Indexed: 27.1 ml/m2 EDV(MOD-sp4): 67.8 ml LAV(MOD-sp2): 48.8 ml EDV(sp4-el): 70.3 ml LAV(MOD-sp4): 48.0 ml LVAs ap4: 15.0 cm2 ESV(MOD-sp4): 29.4 ml ESV(sp4-el): 30.0 ml EF(MOD-sp4): 56.7 % EF(sp4-el): 57.3 % SV(MOD-sp4): 38.4 ml SV(sp4-el): 40.2 ml LA A4 area: 18.7 cm2 LA dimension(2D): 4.0 cm RA A4 area: 13.9 cm2 Time Measurements MV dec time: 0.22 sec Doppler Measurements & Calculations MV E max apolinar: 160.3 cm/sec Lat Peak E' Apolinar: 5.8 cm/sec Med Peak E' Apolinar: 4.1 cm/sec MV A max apolinar: 128.4 cm/sec E/E' lat: 27.5 E/E' med: 38.7 MV E/A: 1.2 Ao V2 max: 288.1 cm/sec AI max apolinar: 440.1 cm/sec LV V1 max: 76.0 cm/sec Ao max P.2 mmHg AI max P.5 mmHg LV V1 max P.3 mmHg Ao V2 mean: 207.0 cm/sec LV V1 mean P.5 mmHg Ao mean P.9 mmHg AI dec slope: 431.0 cm/sec2 LV V1 mean: 57.7 cm/sec Ao V2 VTI: 76.6 cm AI P1/2t: 299.1 msec LV V1 VTI: 20.7 cm SILKE(I,D): 0.85 cm2 SILKE(V,D): 0.83 cm2 SV(LVOT): 64.9 ml PA V2 max: 87.1 cm/sec Interpretation Summary Normal LV size. Left ventricular systolic function is normal. The estimated ejection fraction is 60 %. Stage 2 diastolic dysfunction. Moderate concentric left ventricular hypertrophy. Mass plastered against the right atrial wall measuring 2.4 x 1.3 cm Ordering Physician: Renetta Hernandez Referring Physician: ALIYA MARTINEZ Performed By: Krystyna Andres RDCS
[2020-09-25 06:46] LABS: Absolute Lymphocyte Count 0.52 X10^3/uL (0.83-4.51); Absolute Neutrophil Count 2.9 X10^3/uL (2.0-7.7); Basophil# 0.02 X10^3/uL; Basophil% 0.5 % (0-1); Eosinophil# 0.13 X10^3/uL; Eosinophils% 3.3 % (0-5); Hematocrit 29.9 % (37-47); Hemoglobin 9.5 g/dL (12.0-15.0); Lymphocyte # 0.52 X10^3/ul (4.0); Lymphocyte % 13.1 % (19-41); Mean Corp Hgb Conc 31.8 g/dL (32-36); Mean Corpuscular Hgb 27.7 pg (27.0-32.0); Mean Corpuscular Volume 87.2 fL (81-99); Mean Platelet Vol. 10.6 fl (6.2-12.0); Monocyte# 0.33 X10^3/uL; Monocyte% 8.3 % (0-10); NRBC Flagged by Analyzer 0 % (0-5); Neutrophil # 2.94 X10^3/uL (2.7-7.7); Neutrophil % 74.3 % (47-70); POSITIVE COUNT YES; POSITIVE DIFFERENTIAL YES; Platelet Count 82 K/mm3 (150-450); RBC Distribution Width SD 54.3 fl (35.1-43.9); Red Blood Count 3.43 M/mm3 (4.2-5.4)
[2020-09-25 06:54] LABS: Differential Indicated SCAN CRITERIA MET
[2020-09-25 07:15] LABS: Anion Gap 5 (5-15); BUN 7 mg/dL (7-18); Calcium,Total 7.4 mg/dL (8.5-10.1); Chloride 112 mmol/L (98-107); Creatinine, Serum 0.78 mg/dL (0.55-1.02); EST Glomerular Filtration Rate 76 mL/min (>60); Est Glom Filt Rate - Afr Amer 92 mL/min (>60); Estimated Creatinine Clearance 35.49 ml/min; Glucose 91 mg/dL (74-106); Potassium 3.6 mmol/L (3.5-5.1); Sodium Level 141 mmol/L (136-145)
[2020-09-25] MEDS: Metoprolol(XL)Succ 25 MG Tablet PO ×2 (09:59)
[2020-09-25] MEDS: Pantoprazole Sodium 40 MG Tablet PO (10:01)
--- NOTE | 2020-09-25 10:10 | CASEMGMT ---
RN CM Face to Face with patient for initial transition planning/care coordination assessment. RN CM introduced self and role at [facility]. Patient lying in bed, alert and oriented. Patient willing to participate in assessment and is able to answer all questions appropriately. Care providers, pharmacy, and demographics verified. Patient wishes to discharge home, denies need for home health at this time. Patient states she has no further needs or concerns at this time. CM to follow for discharge planning needs that may arise. PCP: Judson Specialists: Jazmine, oncology; Aaron, pain Preferred Pharmacy: [facility] Insurance: [employer] Prescription Benefit: yes Living Will/HPOA: yes, daughter Amanda Tai LNOK: Daughter Living Arrangements: Patient lives with daughter in a 2 story home and is able to ambulate stairs. Patient is independent at home. Transportation: self DME/HHC: patient states she has shower chair, cane, walker, grab bars at home. Patient denies previous HHC. Disposition Plan: Patient to discharge home with family support and follow-up plans in place. Lillie NEVAREZ, RN, CM
[2020-09-25] MEDS: 0.9% Saline Lock 10 ML Syringe IV ×6 (10:55→19:22)
[2020-09-25] MEDS: HYDROCODONE/APAP 7.5-325/15ML 15 ML UDC PO ×2 (12:17→21:26)
[2020-09-25] MEDS: proMETHazine 25 MG/ML Syringe 6.25 MG IV (12:17)
--- NOTE | 2020-09-25 13:59 | PN_ITS ---
Reason for Visit: gastroenteritis Subjective: Still with chest and abdominal pain and requesting more morphine. Vitals/I&O's: Vital Signs Temp Pulse Resp BP Pulse Ox 36.9 C 71 18 154/81 H 98 09/25/20 09:50 09/25/20 10:00 09/25/20 10:00 09/25/20 09:59 09/25/20 09:50 Oxygen Flow Rate (L/min) 97 Oxygen Delivery Method Room Air Weight: 83.6 kg Body Mass Index (BMI) 33.7 Intake and Output for Last 24 Hours 09/23/20 09/24/20 09/25/20 23:59 23:59 23:59 Intake Total 1962.5 / 2362.5 2026.5 / 2026.5 Output Total 550 / 550 Balance 1961.5 / 2111.1476.5 / 1476.5 General: Alert, No apparent distress HEENT: Atraumatic, Normocephalic Oral: Moist Mucosa, No Gingival or Mucosal Lesions/ Ulcerations Neck: No Nodes, Thyroid Normal Size and Texture Lungs: Clear to auscultation, Normal air movement, No rhonchi, No wheeze Cardiovascular: Regular rate, Regular Rhythm, Normal S1, Normal S2, No murmurs Abdomen: Bowel Sounds Present, Soft, Non Tender, Non-Distended, No Hepato- splenomegaly Extremities: No edema, No Calf Tenderness Microbiology Past 72 Hours 09/24/20 12:50 Urine, Clean Catch Urine Culture - Preliminary Presumptive E. coli Laboratory Results 09/25/20 06:23: WBC 4.0 L, RBC 3.43 L, Hgb 9.5 L, Hct 29.9 L, MCV 87.2, MCH 27.7, MCHC 31.8 L, RDW Std Deviation 54.3 H, RDW Coeff of Genny 17.0 H, Plt Count 82 L, MPV 10.6, Immature Gran % (Auto) 0.500, Neut % (Auto) 74.3 H, Lymph % (Auto) 13.1 L, Lewis % (Auto) 8.3, Eos % (Auto) 3.3, Baso % (Auto) 0.5, Absolute Neuts (auto) 2.9, Absolute Lymphs (auto) 0.52 L, Nucleated RBC % 0, Diff Path Review February09/25/20 06:23: Sodium 141, Potassium 3.6, Chloride 112 H, Carbon Dioxide 24.0, Anion Gap 5, BUN 7, Creatinine 0.78, Estim Creat Clear Calc 35.49, Est GFR (MDRD) Af Amer 92, Est GFR (MDRD) Non-Af 76, BUN/Creatinine Ratio 9.0 L, Glucose 91, Calcium 7.4 L Current Medications Hydrocodone Bitart/Acetaminophen (Hydrocodone/Apap 7.5-325/15ml 15 Ml Udc) 15 ml PO Q6H PRN PRN PRN Reason: pain 6-10/10 Last Admin: 09/25/20 12:17 Dose: 15 ml Documented by: Albuterol Sulfate (Albuterol 2.5 Mg/3 Ml Vial.Neb.) 2.5 mg INHALATION Q4H PRN PRN PRN Reason: Shortness of Breath/Wheezing Atorvastatin Calcium (Atorvastatin Calcium 40 Mg Tablet) 40 mg PO QHS [facility] Last Admin: 09/24/20 21:44 Dose: 40 mg Documented by: Labetalol HCl (Labetalol (Prefilled) 20 Mg/4 Ml) 10 mg IV Q4 PRN PRN Reason: SOB> 160 OR DBP > 120 Last Admin: 09/25/20 04:06 Dose: 10 mg Documented by: Metoprolol Succinate (Metoprolol(Xl)Succ 25 Mg Tablet) 25 mg PO BID [facility] Last Admin: 09/25/20 09:59 Dose: 25 mg Documented by: Morphine Sulfate (Morphine 2 Mg/Ml Syringe) 2 mg IV Q3H PRN PRN PRN Reason: breakthrough pain Last Admin: 09/25/20 10:54 Dose: 2 mg Documented by: Nitroglycerin (Nitroglycerin (Inpatient Use) 0.4 Mg Tab.Subl) 0.4 mg SUBLINGUAL Q5M PRN PRN Reason: CARDIAC/CHEST PAIN Ondansetron HCl (Ondansetron 4 Mg/2 Ml Vial) 4 mg IV Q8H PRN PRN PRN Reason: NAUSEA/VOMITING Oxycodone HCl (Oxycodone 5 Mg Tablet) 5 mg PO Q4H PRN PRN PRN Reason: Pain Score 4-5 Oxycodone HCl (Oxycodone 5 Mg Tablet) 10 mg PO Q4H PRN PRN PRN Reason: Pain Score 6-10 Pantoprazole Sodium (Pantoprazole Sodium 40 Mg Tablet) 40 mg PO DAILY DORON Last Admin: 09/25/20 10:01 Dose: 40 mg Documented by: Promethazine HCl (Promethazine 25 Mg/Ml Syringe) 6.25 mg IV Q6H PRN PRN PRN Reason: NAUSEA/VOMITING Last Admin: 09/25/20 12:17 Dose: 6.25 mg Documented by: Sodium Chloride (0.9% Saline Lock 10 Ml Syringe) 10 - 40 ml IV UD PRN PRN Reason: SALINE FLUSH Last Admin: 09/25/20 12:17 Dose: 10 ml Documented by: STROKE Vital Signs/Narrative: Vital Signs Pulse Resp 09/25/20 10:00 71 18 Medical Necessity - Tobacco Use Smoking Status: Former smoker Tobacco Use: Cigarettes Assessment/Plan All Active Problems (Last Reviewed 07/19/20 @ 15:39 by Gertrude Gaviria) Pneumonia due to COVID-19 virus (Acute) Hypoxia (Acute) Nausea and vomiting (Acute) Diarrhea (Acute) Acute GI bleeding (Acute) Elevated lactic acid level (Acute) Hyperplastic colon polyp (Resolved) 1. colitis * amp/SB * supportive mgmt * no clinical ischemic colitis * pain out of proportion to exam. 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 Marroquin, it appears more like a clot rather than myxoma * he recommended NOAC, particularlly with apixaban 5mg BID and follow up as outpt. 3. UTI: ruled out 4. elevated troponin: scant elevation 5. VTE prophylaxis: anticoagulation Inpatient E&M: 83220 Subs Hosp L2
[2020-09-25 14:22] LABS: Pathologist Review Reviewed
--- NOTE | 2020-09-25 14:49 | CON.PCM_ITS ---
Reason for Consult Date of Consultation: 09/25/20 Reason for Consultation: Right atrial thrombus History of Present Illness: The patient is a 80 year old F who was admitted through the emergency room with abdominal pain and diarrhea. She had previously been diagnosed with Covid in [place] August 2020 and after she was discharged while at home she started having abdominal discomfort in the epigastric region accompanied by profuse diarrhea. She presented to the emergency room was evaluated she was noted to be afebrile but mildly hypertensive and she denied any chest discomfort but for reasons that are not entirely clear she had a CT scan of her chest which was negative for PE but she did have mild evidence of pulmonary edema coronary calcifications and a filling defect was seen in the region of the right atrium. An echocardiogram was requested and recommended and this was performed and confirmed a right atrial mass which appeared to be adherent to the right atrial wall. It was not pedunculated and measured 2.3 x 1.4 cm. She has not had any prior pulmonary emboli. There is no evidence of a malignancy apparent at this time. Cardiology was called to opine on the right atrial mass. She denies any chest pain or shortness breath or paroxysmal nocturnal dyspnea. [] She has not had any strokelike symptoms. Past Medical History Allergies/Adverse Reactions: Allergies Sulfa (Sulfonamide Antibiotics) Adverse Reaction (Intermediate, Verified 07/19/20 15:40) Hives Home Medications: Ambulatory Orders Medication Instructions Recorded Omeprazole [Prilosec] 40 mg PO DAILY 04/15/15 Hydrocodone/Acetaminophen [[place] 1 tab PO Q8H PRN PRN 04/13/20 7.5-325 Tablet] Metoprolol(XL)Succ [Toprol Xl 25 mg PO BID 04/13/20 (Beta Linda)] Atorvastatin Calcium 40 mg PO DAILY 04/20/20 Albuterol Inhaler [Ventolin Hfa] 2 puff INHALATION Q4H PRN PRN #1 09/08/20 inhaler Docusate Sodium [Colace] 100 mg PO DAILY PRN 09/24/20 Linaclotide [Linzess] mcg PO DAILY PRN 09/24/20 Past Medical History (Chronic Problems): Chronic Problems (Last Reviewed 07/19/20 @ 15:39 by Gertrude Gaviria) Hemorrhoids (Chronic) Depression (Chronic) GERD (gastroesophageal reflux disease) (Chronic) High cholesterol (Chronic) Osteoarthritis (Chronic) Vitamin D deficiency (Chronic) History of cardiac catheterization (Chronic) S/P triple vessel bypass (Chronic) 2014 Iron deficiency anemia due to chronic blood loss (Chronic) Chronic renal failure, stage 3 (moderate) (Chronic) Hypertension (Chronic) Obesity (BMI 30-39.9) (Chronic) CAD (coronary artery disease) (Chronic) Diastolic heart failure (Chronic) Hx of CABG (Chronic) Heme + stool (Chronic) Surgical History: - - Hysterectomy, x 2, appendecomty, T+A, sinus surgery, coronary artery bypass 12/01/14 Psychiatric History: Anxiety CASH ACCOUNTANT History: No pertinent CASH ACCOUNTANT history - *Family History Maternal Family History: Family History (Last Reviewed 07/19/20 @ 15:40 by Gertrude Gaviria) Mother Hypertension CVA (cerebral vascular accident) Grandfather CVA (cerebral vascular accident) Grandmother CVA (cerebral vascular accident) Father Hypertension History Items: Stroke Paternal Family History: Family History (Last Reviewed 07/19/20 @ 15:40 by Gertrude Gaviria) Mother Hypertension CVA (cerebral vascular accident) Grandfather CVA (cerebral vascular accident) Grandmother CVA (cerebral vascular accident) Father Hypertension History Items: Heart Disease, Hypertension Smoking Status: Former smoker Tobacco Use: Cigarettes Review of Systems - Review of Systems General: Denies: Fever, Night Sweats, Fatigue HEENT: Denies: Vision Change Cardiovascular: Denies: Chest Discomfort, Shortness of Breath, Orthopnea, PND, Peripheral Edema, Palpitations, Lightheadedness, Dizziness, Near Syncope, Syncope Respiratory: Denies: Cough, Sputum Production, Hemoptysis Gastrointestinal: Reports: Indigestion, Abdominal Discomfort, Diarrhea. Denies: Hematemesis, Hematochezia, Melena Genitourinary: Denies: Dysuria, Hematuria Skin: Denies: Rash Neurological: Denies: Dizziness Psychiatric: Denies: Anxiety Subjectve: Elderly lady in bed asleep, recently administered pain medication Objective: Vital Signs Temp Pulse Resp BP Pulse Ox 98.5 F 76 18 154/81 H 98 09/25/20 09:50 09/25/20 14:00 09/25/20 10:00 09/25/20 09:59 09/25/20 09:50 Oxygen Flow Rate (L/min) 97 Oxygen Delivery Method Room Air Weight: 184 lb 4.903 oz Body Mass Index (BMI) 33.7 Intake and Output for Last 24 Hours 09/23/20 09/24/20 09/25/20 23:59 23:59 23:59 Intake Total 1962.5 / 2362.5 2027.5 / 2026.5 Output Total 550 / 550 Balance 1962.5 / 2112.5 1477.5 / 1477.5 General: Awake, Alert, Oriented x 3 HEENT: PERRL, EOMI, Sclera Non Icteric Neck: Supple, Good ROM, No Lymph Node Enlargement Lungs: Clear to auscultation Cardiovascular: Regular Rhythm, Normal S1, Normal S2, No Murmurs, No Rubs, No Gallops Vascular: No Carotid Bruits, Normal Femoral Pulses, Normal Radial Pulses, Normal Dorsalis Pedal Pulse, Normal Posterior Tibial Pulses Abdomen: Bowel Sounds Present, Soft, Non Tender, No HSM, No Organomegaly Extremities: No Cyanosis, No Clubbing, No edema Neurological: No Focal Motor or Sensory Deficit 09/25/20 06:23: WBC 4.0 L, RBC 3.43 L, Hgb 9.5 L, Hct 29.9 L, MCV 87.2, MCH 27.7, MCHC 31.8 L, Plt Count 82 L, MPV 10.6, Immature Gran % (Auto) 0.500, Neut % (Auto) 74.3 H, Lymph % (Auto) 13.1 L, [place] % (Auto) 8.3, Eos % (Auto) 3.3, Baso % (Auto) 0.5, Absolute Neuts (auto) 2.9, Nucleated RBC % 0 09/25/20 06:23: Sodium 141, Potassium 3.6, Chloride 112 H, Carbon Dioxide 24.0, Anion Gap 5, BUN 7, Creatinine 0.78, Est GFR (MDRD) Af Amer 92, Est GFR (MDRD) Non-Af 76, BUN/Creatinine Ratio 9.0 L, Glucose 91, Calcium 7.4 L Rhythm: EKG: Normal sinus rhythm ECHO: See report Stress Test: Cardiac Cath: PCI: CT Surgery: Holter monitor: EPS: PPM: CXR: Chest CT Scan: Assessment/Plan 1. Asymptomatic right atrial mass Patient presents with abdominal discomfort and has a CT scan which diagnosis a possible right atrial thrombus which appears to be on the echocardiogram as well. The etiology of the above is unclear. At this time it does not appear that there is any malignancy apparent. She however has had recent Covid infection and this may be part of the thrombogenicity of the Covid sequela. * My recommendation at this time will be to start her on anticoagulation with a NOAC with Eliquis 5 mg twice a day * Monitor her hemoglobin * Repeat her echocardiogram in 3 months * Depending on those findings further recommendations will be made. * 2. Status post coronary bypass surgery * The above appears to be stable at this particular time we will continue to follow * 3. Hypertension * Good control continue current medical therapy. * * Thank you for allowing me to participate in the care of your patient. Please don't hesitate to call if any issues arise.
[2020-09-25] MEDS: Ondansetron 4 MG/2 ML Vial IV (18:17)
[2020-09-25] MEDS: Atorvastatin Calcium 40 MG Tablet PO (21:24)
[2020-09-25] MEDS: APIXABAN 5 MG TABLET PO (21:24)
[2020-09-26] VITALS (7 sets, daily range): BP systolic 135–150; BP diastolic 59–75; PULSE 62–103; RESP 18; TEMP 36.6–36.8; O2SAT 93–95
[2020-09-26] MEDS: Morphine 2 MG/ML Syringe IV ×2 (03:07→09:09)
[2020-09-26] MEDS: oxyCODONE 5 MG Tablet 10 MG PO (04:32)
[2020-09-26 07:34] LABS: Absolute Lymphocyte Count 0.51 X10^3/uL (0.83-4.51); Absolute Neutrophil Count 3.7 X10^3/uL (2.0-7.7); Basophil# 0.02 X10^3/uL; Basophil% 0.4 % (0-1); Eosinophil# 0.19 X10^3/uL; Eosinophils% 4.1 % (0-5); Hemoglobin 10.6 g/dL (12.0-15.0); Lymphocyte # 0.51 X10^3/ul (4.0); Lymphocyte % 10.9 % (19-41); Mean Corp Hgb Conc 31.2 g/dL (32-36); Mean Corpuscular Volume 86.7 fL (81-99); Mean Platelet Vol. 10.9 fl (6.2-12.0); Monocyte# 0.25 X10^3/uL; Monocyte% 5.4 % (0-10); NRBC Flagged by Analyzer 0 % (0-5); Neutrophil # 3.69 X10^3/uL (2.7-7.7); POSITIVE COUNT YES; POSITIVE DIFFERENTIAL YES; Platelet Count 86 K/mm3 (150-450); RBC Distribution Width CV 17.3 % (11.6-14.6); RBC Distribution Width SD 53.9 fl (35.1-43.9); Red Blood Count 3.92 M/mm3 (4.2-5.4); White Blood Count 4.7 K/mm3 (4.4-11.0)
[2020-09-26 07:47] LABS: Differential Indicated SCAN CRITERIA MET
[2020-09-26 07:52] LABS: Anion Gap 7 (5-15); BUN 7 mg/dL (7-18); BUN/Creat Ratio 8.8 RATIO (10-20); Calcium,Total 7.9 mg/dL (8.5-10.1); Chloride 111 mmol/L (98-107); Creatinine, Serum 0.79 mg/dL (0.55-1.02); EST Glomerular Filtration Rate 74 mL/min (>60); Est Glom Filt Rate - Afr Amer 90 mL/min (>60); Estimated Creatinine Clearance 35.49 ml/min; Glucose 90 mg/dL (74-106); Potassium 3.5 mmol/L (3.5-5.1); Sodium Level 141 mmol/L (136-145)
[2020-09-26 08:04] LABS: Platelet Estimate MOD DEC (ADEQ)
--- NOTE | 2020-09-26 08:51 | RAD_ITS ---
STUDY: X-RAY - ABDOMEN/PELVIS REASON FOR EXAM: Female, 80 years old. Colitis, abd pain TECHNIQUE: Single AP view of the abdomen / pelvis. COMPARISON: None. FINDINGS: There is elevation of the right hemidiaphragm. Oral contrast is seen within the right hemicolon. Surgical clips are seen in the right upper quadrant in keeping with prior cholecystectomy. There are calcified phleboliths in the pelvis. There are diffuse degenerative changes of the visualized lumbar spine. Mild dextroscoliosis. RAD/Abdomen Single View IMPRESSION: Follow-up contrast is seen within the right hemicolon. The gas pattern is unremarkable. Electronically Signed: Michael Rojas, at 10:47 EST , Service support ,
[2020-09-26] MEDS: 0.9% Saline Lock 10 ML Syringe IV ×2 (09:10→12:23)
[2020-09-26] MEDS: Ondansetron 4 MG/2 ML Vial IV (09:10)
[2020-09-26] MEDS: APIXABAN 5 MG TABLET PO (10:51)
[2020-09-26] MEDS: Pantoprazole Sodium 40 MG Tablet PO (10:52)
[2020-09-26] MEDS: HYDROCODONE/APAP 7.5-325/15ML 15 ML UDC PO (12:33)
--- NOTE | 2020-09-26 14:25 | DCINST_ITS ---
You will use the following diet at home:: No restrictions Your food should be the consistency of: Regular Call your doctor if you observe: - - blood in stool. dark tarry stools. worsening abdominal pain. Allergies/Adverse Reactions: Allergies Sulfa (Sulfonamide Antibiotics) Adverse Reaction (Intermediate, Verified 07/19/20 15:40) Hives Medications to take at Discharge Omeprazole [Prilosec] 40 mg PO DAILY 04/15/15 Hydrocodone/Acetaminophen [[place] 7.5-325 Tablet] 1 tab PO Q8H PRN PRN 04/13/20 Metoprolol(XL)Succ [Toprol Xl ([place])] 25 mg PO BID 04/13/20 Atorvastatin Calcium 40 mg PO DAILY 04/20/20 Albuterol Inhaler [Ventolin Hfa] 2 puff INHALATION Q4H PRN PRN #1 inhaler 09/08/20 Docusate Sodium [Colace] 100 mg PO DAILY PRN 09/24/20 Linaclotide [Linzess] mcg PO DAILY PRN 09/24/20 Apixaban [Eliquis] 5 mg PO BID #60 tab 09/26/20 Ciprofloxacin [Cipro] 500 mg PO BID #10 tab 09/26/20 Metronidazole 500 mg PO TID #15 tab 09/26/20 Ondansetron [Zofran] 8 mg PO Q8H #20 tab 09/26/20 The following prescriptions were given: Ciprofloxacin [Cipro] 500 mg PO BID #10 tab Transmission Status: Pending to [facility]/pharmacy #[id number] Apixaban [Eliquis] 5 mg PO BID #60 tab Transmission Status: Pending to [facility]/pharmacy #[id number] Metronidazole 500 mg PO TID #15 tab Transmission Status: Pending to [facility]acy [id number] Ondansetron [Zofran] 8 mg PO Q8H #20 tab Transmission Status: Pending to [facility]acy [id number] Primary Care Physician: Steffen Roper Chi, MD [Primary Care Provider] - Within 1 Week Test Results: Test results from this visit will be discussed in further detail at your follow- up appointment, if applicable. Please Follow Up With: Brayden Lucero MD When: 1-2 months Please Follow Up With: Aleksey Marroquin MD - cardiology When: 3 months Proposed Discharge Date: 09/26/20
--- NOTE | 2020-09-26 14:28 | DS.PCM_ITS ---
Discharge Date and Diagnosis Date of Admission: 09/24/20 Date of Discharge: 09/26/20 - Primary Discharge Diagnosis Acute Problems: colitisi right atrial thrombus - Secondary Discharge Diagnosis Chronic Problems: Chronic Problems (Last Reviewed 07/19/20 @ 15:39 by Gertrude Gaviria) Hemorrhoids (Chronic) Depression (Chronic) GERD (gastroesophageal reflux disease) (Chronic) High cholesterol (Chronic) Osteoarthritis (Chronic) Vitamin D deficiency (Chronic) History of cardiac catheterization (Chronic) S/P triple vessel bypass (Chronic) 2014 Iron deficiency anemia due to chronic blood loss (Chronic) Chronic renal failure, stage 3 (moderate) (Chronic) Hypertension (Chronic) Obesity (BMI 30-39.9) (Chronic) CAD (coronary artery disease) (Chronic) Diastolic heart failure (Chronic) Hx of CABG (Chronic) Heme + stool (Chronic) Hospital Course and Treatment Imaging Results: 09/26/20 08:51 Abdomen Single View [RAD] Urgent Operations: None Procedures: 2-D Echocardiogram Summary of Care Provided: The patient is a 80 year old F presents with chest and abdominal pain. Patient was found to have nonspecific wall thickening of the colonic loops. Patient started on antibiotics for colitis. Patient did have a CAT scan of her chest and showed a right atrial area that did not fill. Echocardiogram showed was co ncerning for thrombus. Patient was seen by cardiology who recommended apixaban. Patient will follow up with cardiology in the next coming months for repeat echocardiogram to see how long the anticoagulation would need to continue. Patient splinting abdominal pain and nausea. Patient's abdominal pain is out of proportion to exam and patient planing of nausea but wanting to eat. Patient has eaten today and tolerated that well. Concern is patient may be embellishing some of her symptoms but otherwise patient is otherwise stable. For the right atrial thrombus, it is unclear the patient did develop that 1 possibility could be hypercoagulable state associated with her previous COVID-19 infection but it is still unclear. [] - Physical Exam Vitals/I&O's: Vital Signs Temp Pulse Resp BP Pulse Ox 36.6 C 96 18 135/75 H 95 09/26/20 09:18 09/26/20 14:00 09/26/20 09:18 09/26/20 10:53 09/26/20 09:18 Oxygen Flow Rate (L/min) 97 Oxygen Delivery Method Room Air Weight: 83.6 kg Body Mass Index (BMI) 33.7 Intake and Output for Last 24 Hours 09/24/20 09/25/20 09/26/20 23:59 23:59 23:59 Intake Total 1962.5 / 2362.5 2551.5 / 2551.5 224 / 224 Output Total 800 / 800 Balance 1962.5 / 2112.5 1751.5 / 1751.5 224 / 224 General: Alert, No apparent distress HEENT: Atraumatic, Normocephalic Oral: Moist Mucosa, No Gingival or Mucosal Lesions/ Ulcerations Neck: No Nodes, Thyroid Normal Size and Texture Lungs: Clear to auscultation, Normal air movement, No rhonchi, No wheeze, No rales Cardiovascular: Regular rate, Regular Rhythm, Normal S1, Normal S2, No murmurs Abdomen: Bowel Sounds Present, Soft, Non Tender, Non-Distended, No Hepato- splenomegaly Extremities: No edema, No Calf Tenderness Microbiology Past 72 Hours 09/24/20 12:50 Urine, Clean Catch Urine Culture - Preliminary Presumptive E. coli Laboratory Results 09/26/20 07:03: WBC 4.7, RBC 3.92 L, Hgb 10.6 L, Hct 34.0 L, MCV 86.7, MCH 27.0, MCHC 31.2 L, RDW Std Deviation 53.9 H, RDW Coeff of [place] 17.3 H, Plt Count 86 L, MPV 10.9, Immature Gran % (Auto) 0.200, Neut % (Auto) 79.0 H, Lymph % (Auto) 10.9 L, [place] % (Auto) 5.4, Eos % (Auto) 4.1, Baso % (Auto) 0.4, Absolute Neuts (auto) 3.7, Absolute Lymphs (auto) 0.51 L, Nucleated RBC % 0, Platelet Estimate MOD DEC 09/26/20 07:03: Sodium 141, Potassium 3.5, Chloride 111 H, Carbon Dioxide 23.0, Anion Gap 7, BUN 7, Creatinine 0.79, Estim Creat Clear Calc 35.49, Est GFR (MDRD) Af Amer 90, Est GFR (MDRD) Non-Af 74, BUN/Creatinine Ratio 8.8 L, Glucose 90, Calcium 7.9 L Current Medications Hydrocodone Bitart/Acetaminophen (Hydrocodone/[place]ap 7.5-325/15ml 15 Ml Udc) 15 ml PO Q6H PRN PRN PRN Reason: pain 6-10/10 Last Admin: 09/26/20 12:33 Dose: 15 ml Documented by: Albuterol Sulfate (Albuterol 2.5 Mg/3 Ml Vial.Neb.) 2.5 mg INHALATION Q4H PRN PRN PRN Reason: Shortness of Breath/Wheezing Apixaban (Apixaban 5 Mg Tablet) 5 mg PO BID [facility] Last Admin: 09/26/20 10:51 Dose: 5 mg Documented by: Atorvastatin Calcium (Atorvastatin Calcium 40 Mg Tablet) 40 mg PO QHS [facility] Last Admin: 09/25/20 21:24 Dose: 40 mg Documented by: Ampicillin Sodium/Sulbactam (Sodium 3 gm/ Sodium Chloride) 112 mls @ 150 mls/hr IV Q6 [facility] Last Infusion: 09/26/20 13:09 Dose: Infused Documented by: Labetalol HCl (Labetalol (Prefilled) 20 Mg/4 Ml) 10 mg IV Q4 PRN PRN Reason: SOB> 160 OR DBP > 120 Last Admin: 09/25/20 15:56 Dose: 10 mg Documented by: Metoprolol Succinate (Metoprolol(Xl)Succ 25 Mg Tablet) 25 mg PO BID [facility] Last Admin: 09/26/20 10:53 Dose: Not Given Documented by: Morphine Sulfate (Morphine 2 Mg/Ml Syringe) 2 mg IV Q3H PRN PRN PRN Reason: breakthrough pain 1-10 Last Admin: 09/26/20 09:09 Dose: 2 mg Documented by: Nitroglycerin (Nitroglycerin (Inpatient Use) 0.4 Mg Tab.Subl) 0.4 mg SUBLINGUAL Q5M PRN PRN Reason: CARDIAC/CHEST PAIN Ondansetron HCl (Ondansetron 4 Mg/2 Ml Vial) 4 mg IV Q8H PRN PRN PRN Reason: NAUSEA/VOMITING Last Admin: 09/26/20 09:10 Dose: 4 mg Documented by: Oxycodone HCl (Oxycodone 5 Mg Tablet) 5 mg PO Q4H PRN PRN PRN Reason: Pain Score 6-10 Pantoprazole Sodium (Pantoprazole Sodium 40 Mg Tablet) 40 mg PO DAILY [facility] Last Admin: 09/26/20 10:52 Dose: 40 mg Documented by: Promethazine HCl (Promethazine 25 Mg/Ml Syringe) 6.25 mg IV Q6H PRN PRN PRN Reason: NAUSEA/VOMITING Last Admin: 09/25/20 12:17 Dose: 6.25 mg Documented by: Sodium Chloride (0.9% Saline Lock 10 Ml Syringe) 10 - 40 ml IV UD PRN PRN Reason: SALINE FLUSH Last Admin: 09/26/20 12:23 Dose: 10 ml Documented by: Discharge Diet: No Restrictions Call your doctor if you observe: - - blood in stool. dark tarry stools. worseni ng abdominal pain. Home Medications: Medications to take at Discharge Omeprazole [Prilosec] 40 mg PO DAILY 04/15/15 Hydrocodone/Acetaminophen [[place] 7.5-325 Tablet] 1 tab PO Q8H PRN PRN 04/13/20 Metoprolol(XL)Succ [Toprol Xl ([place])] 25 mg PO BID 04/13/20 Atorvastatin Calcium 40 mg PO DAILY 04/20/20 Albuterol Inhaler [Ventolin Hfa] 2 puff INHALATION Q4H PRN PRN #1 inhaler 09/08/20 Docusate Sodium [Colace] 100 mg PO DAILY PRN 09/24/20 Linaclotide [Linzess] mcg PO DAILY PRN 09/24/20 Apixaban [Eliquis] 5 mg PO BID #60 tab 09/26/20 Ciprofloxacin [Cipro] 500 mg PO BID #10 tab 09/26/20 Metronidazole 500 mg PO TID #15 tab 09/26/20 Ondansetron [Zofran] 8 mg PO Q8H #20 tab 09/26/20 Following Prescriptions Were Given to Patient: Ciprofloxacin [Cipro] 500 mg PO BID #10 tab Transmission Status: [facility] to [id number] Apixaban [Eliquis] 5 mg PO BID #60 tab Transmission Status: P[facility] to [id number] Metronidazole 500 mg PO TID #15 tab Transmission Status: P[facility] to [id number] Ondansetron [Zofran] 8 mg PO Q8H #20 tab Transmission Status: [id number] Primary Care Physician: Steffen Roper Chi, MD [Primary Care Provider] - Within 1 Week Please Follow Up With: Brayden Lucero MD When: 1-2 months Please Follow Up With: Aleksey Marroquin MD - cardiology When: 3 months Disposition: Home Minutes spent on discharge:: 32 Patient Condition:: Fair Medical Necessity - Tobacco Use Smoking Status: Former smoker Tobacco Use: Cigarettes Meaningful Use Info Meaningful Use Diagnoses (Choose all that apply): None applicable Inpatient E&M: 23515 Disch Hosp
--- NOTE | 2020-09-26 16:09 | NURSING ---
PT NOTIFIED DAUGHTER OF DC
--- NOTE | 2020-09-28 15:16 | CASEMGMT ---
RHYS FLAHERTY Discharge Follow-up Phone Call: CHANTE: Wagner Strata: 3 Call Date: 09/28/20 Discharge Date: 09/26/20 Time of Call: 1515 Duration: 5min Admitting Diagnosis: Colitis RHYS FLAHERTY completed follow-up phone call after recent hospitalization. Patient states she is still nausea, but is taking medication and it helps. Patient had no questions or concerns regarding discharge instructions. Patient states she was able to fill prescriptions without any issues. Patient aware of follow-up appt with PCP on 10/02. Patient had no further questions or concerns at this time.
== END 2020-09-26 16:56 | disposition home or self-care (01) | DRG 392 ==
LOC: ED 12:19 → MS3 15:54
PROVIDERS: Admitting Provider Student in an Organized Health Care Education/Training Program; Emergency Provider Emergency Medicine; PCP Family Medicine Geriatric Medicine
DX: K52.9 Noninfective gastroenteritis and colitis, unspecified (principal); I13.0 Hypertensive heart and chronic kidney disease with heart failure and stage 1 through stage 4 chronic kidney disease, or unspecified chronic kidney disease; I50.32 Chronic diastolic (congestive) heart failure; N18.30 Chronic kidney disease, stage 3 unspecified; I51.3 Intracardiac thrombosis, not elsewhere classified; E87.6 Hypokalemia; I25.10 Atherosclerotic heart disease of native coronary artery without angina pectoris; E78.5 Hyperlipidemia, unspecified; M19.90 Unspecified osteoarthritis, unspecified site; K21.9 Gastro-esophageal reflux disease without esophagitis; E66.9 Obesity, unspecified; Z68.33 Body mass index [BMI] 33.0-33.9, adult; Z79.01 Long term (current) use of anticoagulants; Z79.899 Other long term (current) drug therapy; Z86.19 Personal history of other infectious and parasitic diseases; Z87.891 Personal history of nicotine dependence; Z95.1 Presence of aortocoronary bypass graft
CPT/HCPCS: 36415; 71275; 74018; 74177; 80048; 80053; 81001; 83605; 83690; 84484; 85025; 87086; 87088; 87186; 93005; 93306; 97162; 99285; J7030; Q9957; Q9967; A4216; J0295; J2405

== ENCOUNTER → 2020-10-24 15:19 | Outpatient (CLI) | payer MEDICARE, SELFPAY ==
[2020-09-24 16:15] VITALS: BMI 33.7
[2020-10-24 17:18] LABS: Absolute Lymphocyte Count 0.82 X10^3/uL (0.83-4.51); Absolute Neutrophil Count 3.8 X10^3/uL (2.0-7.7); Basophil# 0.04 X10^3/uL; Basophil% 0.8 % (0-1); Eosinophil# 0.13 X10^3/uL; Eosinophils% 2.6 % (0-5); Hematocrit 34.3 % (37-47); Hemoglobin 10.7 g/dL (12.0-15.0); Lymphocyte # 0.82 X10^3/ul (4.0); Lymphocyte % 16.1 % (19-41); Mean Corp Hgb Conc 31.2 g/dL (32-36); Mean Corpuscular Hgb 27.6 pg (27.0-32.0); Mean Corpuscular Volume 88.6 fL (81-99); Mean Platelet Vol. 9.8 fl (6.2-12.0); Monocyte# 0.27 X10^3/uL; Monocyte% 5.3 % (0-10); NRBC Flagged by Analyzer 0 % (0-5); Neutrophil # 3.81 X10^3/uL (2.7-7.7); Platelet Count 192 K/mm3 (150-450); RBC Distribution Width CV 17.5 % (11.6-14.6); RBC Distribution Width SD 57.1 fl (35.1-43.9); Red Blood Count 3.87 M/mm3 (4.2-5.4); White Blood Count 5.1 K/mm3 (4.4-11.0)
[2020-10-24 17:47] LABS: Ferritin 113 ng/mL (8-252); Iron 67 ug/dL (50-170); Iron Binding Capacity,Total 329 ug/dL (250-450); PERCENT IRON SATURATION 20.4 % (15.0-55.0)
== END ==
PROVIDERS: PCP Family Medicine Geriatric Medicine; Visit Provider Internal Medicine Hematology & Oncology
DX: N39.0 Urinary tract infection, site not specified (principal); D50.0 Iron deficiency anemia secondary to blood loss (chronic)
CPT/HCPCS: 36415; 82728; 83540; 83550; 85025; 87077; 87086; 87088; 87186

== ENCOUNTER 2020-12-04 08:01 | Day surgery (SDC) | payer MEDICARE, SELFPAY ==
[2020-11-06 15:51] VITALS: BMI 32.9
[2020-12-04] VITALS (7 sets, daily range): BP systolic 101–178; BP diastolic 51–83; PULSE 55–59; RESP 16; TEMP 35.7–36.6; O2SAT 96–98; BMI 35.0
[2020-12-04] MEDS: Lactated Ringers 1,000 ML 100 ML IV (08:43)
--- NOTE | 2020-12-04 09:08 | RAD_ITS ---
STUDY: X-RAY - LUMBAR SPINE REASON FOR EXAM: Female, 80 years old. LEFT L3-S1 FACET INJECTION TECHNIQUE: 3 view(s) of the lumbar spine were obtained. COMPARISON: None FINDINGS: Intraoperative imaging provided for left L3-S1 facet joint injection. RAD/Lumbar Spine 2 or 3 Views IMPRESSION: Intraoperative imaging provided for left L3-S1 facet joint injection. Electronically Signed: Michael Rojas MD at 12:25 EST , Service support ,
[2020-12-04] MEDS: MethylPREDNISolone Acetate 40 MG/ML Vial IM (09:17)
[2020-12-04] MEDS: Bupivacaine 0.25% 30 ML Vial (09:18)
[2020-12-04] MEDS: Lidocaine 1% (5 ml sdv) 5 ML Vial (09:18)
--- NOTE | 2020-12-04 15:50 | OP.PCM_ITS ---
Report of Operation Date of Procedure: 12/04/20 Description of Surgical Findings:: PREOPERATIVE DIAGNOSIS: Lumbosacral spondylosis, lumbosacral degenerative disc disease, lumbar facet arthropathy POSTOPERATIVE DIAGNOSIS: Lumbosacral spondylosis, lumbosacral degenerative disc disease, lumbar facet arthropathy PROCEDURE PERFORMED: Left-sided lumbar facet steroid injection, L3, L4, L5, and S1. ANESTHESIA: MAC. BLOOD LOSS: Minimal. COMPLICATIONS: None. DESCRIPTION OF PROCEDURE: History and physical of today was reviewed. Risks and benefits of the procedure were explained. The patient understood and agreed to proceed. Informed consent was obtained. IV inserted per routine protocol. The patient was taken to the operating room and placed in the prone position with a pillow positioned underneath the abdomen. The left side of her lower back was prepped and draped in a sterile fashion using iodine x3. Under fluoroscopy on oblique view, the L3 through S1 vertebral bodies were visualized. The skin and subcutaneous tissue was anesthetized with approximately 5 mL of 1% lidocaine using a 25-gauge regular needle. Under direct visualization with fluoroscopy, at approximately 25-degree angle starting on the left L3, ending on the left S1, passing through the L4 and L5, using a 22-gauge 3-1/2-inch spinal needle, the needle was advanced via the skin. The tip of the needle was maneuvered and directed towards the superior medial gutter of the transverse process at the vicinity of the medial branch. Once tip of the needle was in contact with the bone, the needle was pulled approximately 2 mm off the bone. A fter negative aspiration of blood or CSF and confirmation on AP as well as oblique view, a total of 8 mL of preservative-free 0.25% Marcaine with 80 mg of Depo-Medrol was injected in divided doses between those four levels. The needles were then removed intact. The patient experienced no sign or symptoms of intrathecal or intravascular injection. The patient experienced no paresthesia. The procedure was completed without any apparent difficulty or any complications. The patient appeared to tolerate it well. ASSESSMENT AND PLAN: This is an 80-year-old female with lumbosacral spondylosis, lumbosacral degenerative disc disease, lumbar facet arthropathy, status post left-sided lumbar facet steroid injection L3-S1, patient will continue her current medications, patient will follow in approximately 2 weeks for reevaluation.
== END 2020-12-04 10:10 | disposition home or self-care (01) ==
LOC: SDC 08:02 → AC 08:02
PROVIDERS: PCP Family Medicine Geriatric Medicine; Referring Provider Anesthesiology Pain Medicine; Visit Provider Anesthesiology Pain Medicine
PROC: 3E0T3BZ Introduction of Anesthetic Agent into Peripheral Nerves and Plexi, Percutaneous Approach (ICD-10-PCS; CPT 64493; principal; 2020-12-04 09:15)
DX: M47.27 Other spondylosis with radiculopathy, lumbosacral region (principal); M51.37 Other intervertebral disc degeneration, lumbosacral region; M46.96 Unspecified inflammatory spondylopathy, lumbar region; I10 Essential (primary) hypertension; E78.00 Pure hypercholesterolemia, unspecified; M19.90 Unspecified osteoarthritis, unspecified site; E55.9 Vitamin D deficiency, unspecified; K21.9 Gastro-esophageal reflux disease without esophagitis; F32.9 Major depressive disorder, single episode, unspecified; Z79.891 Long term (current) use of opiate analgesic; I25.2 Old myocardial infarction; Z78.0 Asymptomatic menopausal state; Z95.1 Presence of aortocoronary bypass graft
CPT/HCPCS: 01992; 64493; 64494; 64495; 64483; 72100

== ENCOUNTER → 2021-01-15 16:38 | Outpatient (CLI) | payer MEDICARE, SELFPAY ==
[2020-12-04 08:27] VITALS: BMI 35.0
[2021-01-15 17:32] LABS: Absolute Lymphocyte Count 0.95 X10^3/uL (0.83-4.51); Absolute Neutrophil Count 4.4 X10^3/uL (2.0-7.7); Basophil# 0.04 X10^3/uL; Basophil% 0.7 % (0-1); Eosinophil# 0.11 X10^3/uL; Eosinophils% 1.9 % (0-5); Hematocrit 32.1 % (37-47); Hemoglobin 9.9 g/dL (12.0-15.0); Lymphocyte # 0.95 X10^3/ul (4.0); Mean Corp Hgb Conc 30.8 g/dL (32-36); Mean Corpuscular Hgb 27.3 pg (27.0-32.0); Mean Corpuscular Volume 88.4 fL (81-99); Mean Platelet Vol. 10.2 fl (6.2-12.0); Monocyte# 0.38 X10^3/uL; Monocyte% 6.4 % (0-10); NRBC Flagged by Analyzer 0 % (0-5); Neutrophil # 4.43 X10^3/uL (2.7-7.7); Neutrophil % 74.8 % (47-70); Platelet Count 211 K/mm3 (150-450); RBC Distribution Width CV 15.5 % (11.6-14.6); RBC Distribution Width SD 49.9 fl (35.1-43.9); Red Blood Count 3.63 M/mm3 (4.2-5.4); White Blood Count 5.9 K/mm3 (4.4-11.0)
[2021-01-15 17:42] LABS: Vitamin D,25 Hydroxy 12.6 ng/mL
[2021-01-15 17:53] LABS: AST(SGOT) 19 U/L (15-37); Alanine Aminotransfer ALT/SGPT 22 U/L (13-56); Albumin, Serum 3.4 g/dL (3.2-5.0); Alkaline Phosphatase 78 U/L (45-117); Anion Gap 5 (5-15); BUN 20 mg/dL (7-18); BUN/Creat Ratio 20.8 RATIO (10-20); Chloride 110 mmol/L (98-107); Creatinine, Serum 0.96 mg/dL (0.55-1.02); EST Glomerular Filtration Rate 59 mL/min (>60); Est Glom Filt Rate - Afr Amer 72 mL/min (>60); Globulin 3.4 g/dL (2.2-4.2); Glucose 90 mg/dL (74-106); Protein, Total 6.8 g/dL (6.4-8.2); Sodium Level 142 mmol/L (136-145); Thyroid Stim Hormone (TSH) 1.85 uIU/mL (0.358-3.74)
== END ==
PROVIDERS: PCP Family Medicine Geriatric Medicine; Visit Provider Family Medicine Geriatric Medicine
DX: E55.9 Vitamin D deficiency, unspecified (principal); I10 Essential (primary) hypertension
CPT/HCPCS: 36415; 80053; 82306; 84443; 85025

== ENCOUNTER → 2021-02-05 13:46 | Outpatient (CLI) | payer MEDICARE, SELFPAY ==
[2020-12-04 08:27] VITALS: BMI 35.0
[2021-02-05 14:08] LABS: Absolute Lymphocyte Count 1.06 X10^3/uL (0.83-4.51); Absolute Neutrophil Count 4.2 X10^3/uL (2.0-7.7); Basophil# 0.04 X10^3/uL; Basophil% 0.7 % (0-1); Eosinophil# 0.25 X10^3/uL; Eosinophils% 4.2 % (0-5); Hematocrit 34.1 % (37-47); Hemoglobin 10.4 g/dL (12.0-15.0); Lymphocyte # 1.06 X10^3/ul (0.83-4.51); Lymphocyte % 17.8 % (19-41); Mean Corp Hgb Conc 30.5 g/dL (32-36); Mean Corpuscular Hgb 26.9 pg (27.0-32.0); Mean Corpuscular Volume 88.3 fL (81-99); Mean Platelet Vol. 9.5 fl (6.2-12.0); Monocyte# 0.38 X10^3/uL; Monocyte% 6.4 % (0-10); NRBC Flagged by Analyzer 0 % (0-5); Neutrophil % 70.6 % (47-70); Platelet Count 211 K/mm3 (150-450); RBC Distribution Width CV 15.4 % (11.6-14.6); RBC Distribution Width SD 49.6 fl (35.1-43.9); Red Blood Count 3.86 M/mm3 (4.2-5.4)
[2021-02-05 14:28] LABS: Ferritin 38 ng/mL (8-252); Iron 62 ug/dL (50-170); Iron Binding Capacity,Total 371 ug/dL (250-450); PERCENT IRON SATURATION 16.7 % (15.0-55.0)
== END ==
PROVIDERS: PCP Family Medicine Geriatric Medicine; Referring Provider Internal Medicine Hematology & Oncology; Visit Provider Internal Medicine Hematology & Oncology
DX: D50.0 Iron deficiency anemia secondary to blood loss (chronic) (principal)
CPT/HCPCS: 36415; 82728; 83540; 83550; 85025

== ENCOUNTER 2021-03-05 07:24 | Day surgery (SDC) | payer MEDICARE, SELFPAY ==
[2021-02-08 13:05] VITALS: BMI 34.3
[2021-03-05 07:50] VITALS: BP 170/72; PULSE 66; RESP 18; TEMP 36.4; O2SAT 98; BMI 34.0
[2021-03-05] MEDS: Lactated Ringers 1,000 ML 100 ML IV (08:05)
--- NOTE | 2021-03-05 08:53 | RAD_ITS ---
STUDY: X-RAY - LUMBAR SPINE REASON FOR EXAM: Female, 80 years old. Low back pain, facet injection TECHNIQUE: 5 limited intraoperative view(s) of the lumbar spine were obtained. COMPARISON: None FINDINGS: 5 Limited C-arm films of the lumbar spine were performed as the patient has undergone left-sided facet joint injection from L3 to S1. No plain film evidence of complications noted. RAD/Lumbar Spine 2 or 3 Views IMPRESSION: Facet joint injections from L3 to S1. Electronically Signed: Leroy Murphy MD at 10:40 EDT , Service support ,
[2021-03-05] MEDS: Bupivacaine 0.25% 30 ML Vial (08:56)
[2021-03-05] MEDS: Lidocaine 1% (5 ml sdv) 5 ML Vial (08:56)
[2021-03-05] MEDS: MethylPREDNISolone Acetate 80 MG/ML Vial (08:56)
--- NOTE | 2021-03-05 09:06 | OP.PCM_ITS ---
Report of Operation Date of Procedure: 03/05/21 Description of Surgical Findings:: PREOPERATIVE DIAGNOSIS: Lumbosacral spondylosis, lumbosacral degenerative disc disease, lumbar facet arthropathy POSTOPERATIVE DIAGNOSIS: Lumbosacral spondylosis, lumbosacral degenerative disc disease, lumbar facet arthropathy PROCEDURE PERFORMED: Left-sided lumbar facet steroid injection, L3, L4, L5, and S1. ANESTHESIA: MAC. BLOOD LOSS: Minimal. COMPLICATIONS: None. DESCRIPTION OF PROCEDURE: History and physical of today was reviewed. Risks and benefits of the procedure were explained. The patient understood and agreed to proceed. Informed consent was obtained. IV inserted per routine protocol. The patient was taken to the operating room and placed in the prone position with a pillow positioned underneath the abdomen. The left side of her lower back was prepped and draped in a sterile fashion using iodine x3. Under fluoroscopy on oblique view, the L3 through S1 vertebral bodies were visualized. The skin and subcutaneous tissue was anesthetized with approximately 5 mL of 1% lidocaine using a 25-gauge regular needle. Under direct visualization with fluoroscopy, at approximately 25-degree angle starting on the left L3, ending on the left S1, passing through the L4 and L5, using a 22-gauge 3-1/2-inch spinal needle, the needle was advanced via the skin. The tip of the needle was maneuvered and directed towards the superior medial gutter of the transverse process at the vicinity of the medial branch. Once tip of the needle was in contact with the bone, the needle was pulled approximately 2 mm off the bone. After negative aspiration of blood or CSF and confirmation on AP as well as oblique view, a total of 8 mL of preservative-free 0.25% Marcaine with 80 mg of Depo-Medrol was injected in divided doses between those four levels. The needles were then removed intact. The patient experienced no sign or symptoms of intrathecal or intravascular injection. The patient experienced no paresthesia. The procedure was completed without any apparent difficulty or any complications. The patient appeared to tolerate it well. ASSESSMENT AND PLAN: This is an 80-year-old female with lumbosacral spondylosis, lumbosacral degenerative disc disease, lumbar facet arthropathy status post left-sided lumbar facet steroid injection L3-S1, patient will continue her current medic ations, patient will follow in approximately 2 weeks for reevaluation.
[2021-03-05 09:08] VITALS: BP 132/62; BP 150/90; PULSE 59; RESP 16; TEMP 36.4; O2SAT 97
[2021-03-05 09:10] VITALS: BP 141/86; BP 150/90; PULSE 56; RESP 16; O2SAT 97
[2021-03-05 09:15] VITALS: BP 150/90; BP 151/71; PULSE 56; RESP 16; O2SAT 97
[2021-03-05 09:19] VITALS: BP 150/90; BP 163/58; PULSE 55; RESP 16; TEMP 36.9; O2SAT 100
[2021-03-05 09:31] VITALS: BP 150/90
== END 2021-03-05 09:45 | disposition home or self-care (01) ==
LOC: SDC 07:24 → AC 07:25
PROVIDERS: PCP Family Medicine Geriatric Medicine; Referring Provider Anesthesiology Pain Medicine; Visit Provider Anesthesiology Pain Medicine
PROC: 3E0T3BZ Introduction of Anesthetic Agent into Peripheral Nerves and Plexi, Percutaneous Approach (ICD-10-PCS; CPT 64493; principal; 2021-03-05 08:55)
DX: M51.17 Intervertebral disc disorders with radiculopathy, lumbosacral region (principal); M47.27 Other spondylosis with radiculopathy, lumbosacral region; M46.96 Unspecified inflammatory spondylopathy, lumbar region; I13.0 Hypertensive heart and chronic kidney disease with heart failure and stage 1 through stage 4 chronic kidney disease, or unspecified chronic kidney disease; N18.30 Chronic kidney disease, stage 3 unspecified; I50.32 Chronic diastolic (congestive) heart failure; I25.10 Atherosclerotic heart disease of native coronary artery without angina pectoris; E78.00 Pure hypercholesterolemia, unspecified; D64.9 Anemia, unspecified; E55.9 Vitamin D deficiency, unspecified; M19.90 Unspecified osteoarthritis, unspecified site; K21.9 Gastro-esophageal reflux disease without esophagitis; F32.9 Major depressive disorder, single episode, unspecified; E66.9 Obesity, unspecified; Z68.33 Body mass index [BMI] 33.0-33.9, adult; Z79.891 Long term (current) use of opiate analgesic; Z79.01 Long term (current) use of anticoagulants; Z79.899 Other long term (current) drug therapy; I25.2 Old myocardial infarction; Z95.1 Presence of aortocoronary bypass graft
CPT/HCPCS: 01992; 64493; 64494; 64495; 64483; 72100; J7120

== ENCOUNTER 2021-04-20 14:19 | Observation (INO) | payer MEDICARE, SELFPAY ==
[2021-04-19 14:11] VITALS: BMI 33.8
[2021-04-20] VITALS (15 sets, daily range): BP systolic 143–228; BP diastolic 52–94; PULSE 61–89; RESP 14–24; TEMP 36.7; O2SAT 94–97; BMI 35.9; BMI 34.7
--- NOTE | 2021-04-20 14:29 | EKG12_ITS ---
Test Reason : CP Blood Pressure : / mmHG Vent. Rate : 065 BPM Atrial Rate : 065 BPM P-R Int : 154 ms QRS Dur : 096 ms QT Int : 454 ms P-R-T Axes : 079 061 119 degrees QTc Int : 472 ms Normal sinus rhythm T wave abnormality, consider lateral ischemia Prolonged QT Abnormal ECG Confirmed by INGRIS GARRIDO, RAINA ([id number]), mushroom press operator OMID MONTESINOS ([id number]) on 04/25/2021 1:29:00 PM Referred By: JOSE ALFREDO Confirmed By:RAINA AMADO MD
--- NOTE | 2021-04-20 14:36 | ED.VIS.CHEST ---
HPI History of Present Illness Chief Complaint: Chest Pain Informant: patient Onset/Context/Timing Onset: Today and Hours Timing: Continuous Quality: Positive for Heaviness Location: Substernal Current Severity: Mild Worsened By: Nothing Relieved By: Nothing Associated Symptoms: Positive for Nausea and Dyspnea; Negative for Vomiting, Diaphoresis, Cough and Fever Narrative Narrative: 80-year-old female history of prior CA with triple bypass 2014. Denies any stents. Currently on no blood thinners not even aspirin. Patient states that today around 10 AM she noticed chest discomfort across her chest. Still having it mildly. Brought in by squad. Treated with p.o. aspirin. No history of DVT or PE. Not pleuritic. No hemoptysis. No new leg calf pain or swelling. No recent travel surgery or immobilization. Prior Similar Symptoms: Yes Recent Illness/Hospitalization: No CVD Risk Factors: Positive for Hypertension; Negative for Diabetes, Hypercholesterolemia, Family History 1' </=55 and Smoking PE Risk Factors: Negative for Recent Travel/Surgery, Recent Immobilization, Prior DVT or PE, Cancer and OCP + Smoking + >/=35 TAD Risk Factors: Negative for Marfan's Syndrome, Hypertension and Family History [facility] Medical History Blood in urine CAD (coronary artery disease) Chronic renal failure, stage 3 (moderate) Depression Diastolic heart failure GERD (gastroesophageal reflux disease) Heart attack Heme + stool High cholesterol Hypertension Iron deficiency anemia due to chronic blood loss Obesity (BMI 30-39.9) Osteoarthritis Vitamin D deficiency Home Medications omeprazole 40 mg PO DAILY 04/15/15 [History Last Taken 04/20/21] metoprolol succinate 25 mg PO BID 04/13/20 [History Last Taken 04/20/21] atorvastatin 40 mg PO DAILY 04/20/20 [History Last Taken 04/20/21] apixaban 5 mg PO BID #60 tab 09/26/20 [Rx Last Taken 12/04/20 06:45 5 MG] ondansetron HCl 8 mg PO Q8H PRN 11/06/20 [History Last Taken 04/20/21] acetaminophen [Tylenol Arthritis] 1,300 mg PO Q12H PRN 04/20/21 [History Last Taken 04/20/21 .] magnesium oxide 400 mg PO DAILY 04/20/21 [History Last Taken 04/20/21] potassium 99 mg PO DAILY 04/20/21 [History Last Taken 04/20/21] Allergy/AdvReac Type Severity Reaction Status Date / Time Sulfa (Sulfonamide AdvReac Intermediate Hives Verified 04/20/21 14:24 Antibiotics) Family History Mother Hypertension CVA (cerebral vascular accident) Grandfather CVA (cerebral vascular accident) Grandmother CVA (cerebral vascular accident) Father Hypertension Surgical History History of appendectomy History of cardiac catheterization History of section History of hysterectomy History of sinus surgery Hx of CABG Hx of cholecystectomy S/P triple vessel bypass Social History Smoking Status: Former smoker alcohol intake: never substance use type: does not use ROS ROS ED ROS Narrative Chest pain, nausea and mild shortness of breath. No recent illness. Has had some recent intermittent chest pain but not frequently. Review of Systems ROS Unobtainable: Denies due to encephalopathy Constitutional Constitutional ED: Denies fever(s) Eyes Eyes: Denies none or change in vision ENT ENT ED: Denies ear pain or sore throat Cardiovascular Cardiovascular: Reports as per HPI and chest pain; Denies palpitations Respiratory/Chest Respiratory/Chest: Reports dyspnea; Denies cough Gastrointestinal Gastrointestinal: Reports nausea; Denies abdominal pain, diarrhea or vomiting Genitourinary Genitourinary ED: Denies dysuria Musculoskeletal Musculoskeletal: Denies myalgias Integumentary Denies rash Neurologic Neurologic: Denies headache(s) Psychiatric Psychiatric: Denies depression Endocrine Endocrinology: Denies polyuria Hematologic/Lymphatic Hematologic/Lymphatic: Denies easy bruising Allergic/Immunologic Allergic/Immunologic ED: Denies urticaria EXAM Physical Exam Narrative Exam Narrative: Older female no acute distress. Vital signs stable. She is afebrile. Pulse ox 96% on room air no signs of hypoxia. HEENT exam unremarkable. Moist mucous membranes. Neck nontender no JVD. Lungs clear to auscultation bilaterally. Heart regular rate and rhythm 3/6 stock ejection murmur. Abdomen soft nontender normal bowel sounds no peritoneal signs. Moving all 4 extremities. Calves have no edema. Neurologically she is awake alert with no focal motor deficits. Const Vital Signs: 04/20/21 14:20 04/20/21 14:24 04/20/21 14:35 Temperature 98.0 F 98.0 F Temperature Source Temporal Temporal Pulse Rate 68 63 67 Respiratory Rate 18 14 24 H Respiratory Effort Respiratory Pattern Blood Pressure 205/69 H 205/69 H 165/52 H Blood Pressure Mean 114 114 89 Pulse Ox 96 97 96 Oxygen Delivery Method Room Air Room Air Room Air 04/20/21 14:37 04/20/21 14:48 04/20/21 15:28 Temperature Temperature Source Pulse Rate 61 Respiratory Rate 20 H Respiratory Effort Normal Non-Labored Respiratory Pattern Normal Blood Pressure 143/59 H Blood Pressure Mean 87 Pulse Ox 94 94 Oxygen Delivery Method Room Air Room Air 04/20/21 16:16 Temperature Temperature Source Pulse Rate 67 Respiratory Rate 18 Respiratory Effort Respiratory Pattern Blood Pressure 150/60 H Blood Pressure Mean 90 Pulse Ox 95 Oxygen Delivery Method Room Air Positive well nourished and well developed General Appearance ED: well developed HEENT Reports moist mucous membranes normocephalic and atraumatic; Negative for trauma or tenderness Eyes PERRL and EOMs intact bilaterally General Eye ED: Negative for pale conjunctiva Neck no lymphadenopathy, supple and no JVD General: Negative for tenderness Chest Wall inspection of chest normal and palpation of chest normal Resp normal respiratory effort and clear to auscultation bilaterally Effort and Inspection: respiratory distress Cardio regular rate and regular rhythm; Negative for no murmurs GI normal to inspection, nondistended, normoactive bowel sounds, soft to palpation, non-tender, non-distended and no masses Back/Spine no CVA tenderness and no thoracic nor lumbar tenderness General Back: Negative for CVA tenderness Extremity normal to inspection General Extremety ED: Negative for edema or tenderness General Extremity: Negative for edema Neuro oriented x3 and CN's II-XII intact bilaterally Sensorium / Orientation: awake, alert, oriented to person, oriented to place and oriented to time Motor Exam: strength 5/5 throughout Psych mental status grossly normal Skin no rashes or lesions noted and no wounds Heart Score History: Moderately Suspicious ECG: Nonspecific Repolarization Age: >/= 65 years Risk Factors: >/= 3 Risk Factors or History of CAD Troponin: </= Normal Limit Score: 6 MDM MDM MDM Narrative Medical decision making narrative: Patient with chest pain is not reproducible. She has EKG with inverted T waves in V3 through V6 which is unchanged from a EKG from September 2020. She undergo cardiac work-up. Receive aspirin. And most likely need admission for further testing. Repeat exam at 430 no change. Went over all test results with the patient and friend at bedside. And she will be admitted. I am hospitalist on page. Patient is clinically doing well at this time. Lab Data Attestation: I reviewed the patient's lab results. Lab results narrative: Electrolytes gap of 5. Creatinine of 1. Troponin high-sensitivity 14. Chest x-ray portable 1 view interpreted by myself and radiologist shows cardiomegaly with mild CHF.CBC White count of 6. Hemoglobin 8.8 Labs: Laboratory Results - last 24 hr 04/20/21 04/20/21 14:20 14:20 WBC 6.6 RBC 3.34 L Hgb 8.8 L Hct 28.4 L MCV 85.0 MCH 26.3 L MCHC 31.0 L RDW Std Deviation 52.0 H RDW Coeff of Genny 17.1 H Plt Count 189 MPV 10.1 Immature Gran % (Auto) 0.300 Neut % (Auto) 80.3 H Lymph % (Auto) 10.7 L [place] % (Auto) 5.5 Eos % (Auto) 2.4 Baso % (Auto) 0.8 Absolute Neuts (auto) 5.3 Absolute Lymphs (auto) 0.70 L Nucleated RBC % 0 Sodium 142 Potassium 3.9 Chloride 110 H Carbon Dioxide 27.0 Anion Gap 5 BUN 18 Creatinine 1.08 H Estim Creat Clear Calc 32.86 Est GFR (MDRD) Af Amer 63 Est GFR (MDRD) Non-Af 52 L BUN/Creatinine Ratio 16.7 Glucose 105 Calcium 8.9 Troponin I High Sens 14.6 Radiography Chest X-Ray - ED: 1 View, Read by ED Physician, Read by Radiologist, Cardiomegaly and CHF Diagnostic Testing: Radiology Impression Chest X-Ray 04/20/21 14:39 IMPRESSION: Mild cardiomegaly and mild degree of CHF. Electronically Signed: Michael Rojas MD at 14:56 EDT , Service support , Rhythm Strip Rhythm Strip: Sinus Rhythm Rate: 65 Ectopy: None EKG Initial EKG: Attestation: I personally reviewed and interpreted this EKG as follows: Interpretation: Sinus Rhythm, No Acute Injury Pattern and Inverted T-Waves Comments: Normal sinus rhythm rate of 65 with inverted T waves V3 through V6 which are new and changed from a prior EKG from September 2020. Prior: Changed Discharge Plan Dx/Rx/DC Orders Clinical Impression: Chest pain Disposition Disposition: Acute Care Hospital [facility]
[2021-04-20 14:39] LABS: Absolute Neutrophil Count 5.3 X10^3/uL (2.0-7.7); Basophil# 0.05 X10^3/uL; Basophil% 0.8 % (0-1); Eosinophil# 0.16 X10^3/uL; Eosinophils% 2.4 % (0-5); Hematocrit 28.4 % (37-47); Hemoglobin 8.8 g/dL (12.0-15.0); Lymphocyte % 10.7 % (19-41); Mean Corpuscular Hgb 26.3 pg (27.0-32.0); Mean Platelet Vol. 10.1 fl (6.2-12.0); Monocyte# 0.36 X10^3/uL; Monocyte% 5.5 % (0-10); NRBC Flagged by Analyzer 0 % (0-5); Neutrophil # 5.26 X10^3/uL (2.7-7.7); Neutrophil % 80.3 % (47-70); Platelet Count 189 K/mm3 (150-450); RBC Distribution Width CV 17.1 % (11.6-14.6); Red Blood Count 3.34 M/mm3 (4.2-5.4); White Blood Count 6.6 K/mm3 (4.4-11.0)
--- NOTE | 2021-04-20 14:39 | RAD_ITS ---
STUDY: X-RAY CHEST REASON FOR EXAM: Female, 80 years old. Chest pain TECHNIQUE: Single AP portable view of the chest. COMPARISON: Comparison is made with prior study dated 09/06/2020. FINDINGS: EKG electrodes are seen. Mild degree of vascular congestion and mild increased interstitial markings along the peripheral aspects of both lower lobes suggests a mild degree of CHF. There is no demonstrated pleural abnormality. Sternal cerclage wires and vascular clips are present from a prior sternotomy and coronary artery bypass graft procedure (CABG). Mild cardiomegaly. Normal mediastinum and zoë. Normal visualized pulmonary arteries. Normal visualized aortic arch and descending thoracic aorta. There are diffuse degenerative changes of the visualized thoracic spine. Normal visualized ribs, clavicles, and shoulders. There is no demonstrated abnormality of the visualized soft tissue structures of the upper abdomen. RAD/Chest 1 View (Portable) IMPRESSION: Mild cardiomegaly and mild degree of CHF. Electronically Signed: Michael Rojas MD at 14:56 EDT , Service support ,
[2021-04-20 15:06] LABS: Anion Gap 5 (5-15); BUN 18 mg/dL (7-18); BUN/Creat Ratio 16.7 RATIO (10-20); Calcium,Total 8.9 mg/dL (8.5-10.1); Chloride 110 mmol/L (98-107); Creatinine, Serum 1.08 mg/dL (0.55-1.02); EST Glomerular Filtration Rate 52 mL/min (>60); Est Glom Filt Rate - Afr Amer 63 mL/min (>60); Estimated Creatinine Clearance 32.86 ml/min; Glucose 105 mg/dL (74-106); Potassium 3.9 mmol/L (3.5-5.1); Sodium Level 142 mmol/L (136-145); Troponin-I HS 14.6 pg/mL (3.0-53.7)
--- NOTE | 2021-04-20 16:52 | NURSING ---
124 CP, CAD, HX S/P CABG KOR
--- NOTE | 2021-04-20 17:17 | PCM.HP.STD ---
Documented by User: Bere Buck NP, GEOPHYSICS SCIENTIST-C 04/20/21 17:41 HPI - General General Date of Admission: 04/20/21 HPI Narrative JOSE ARRIETA, is a 80 F who presents to the Emergency Room due chest pressure and dyspnea. Patient reports the symptoms have been intermittent for the past few months. She states symptoms typically occur with exertion and resolve with rest. Today, she states symptoms were worse than previous episodes and she felt pressure up into her neck as well. She reports associated nausea. Denies diaphoresis, palpitations. Patient reports a history of CABG in 2014. She denies any stress test or heart cath since that time. Patient reports being diagnosed with clot in her heart September 2020. She was placed on Eliquis at that time however states she quit taking Eliquis in March due to routine bleeding of hemorrhoids. She states she she has not followed up with cardiology in the past several years. She has a past medical history of CAD with history of CABG, hypertension, hyperlipidemia, GERD. [facility] Medical History (Updated 04/20/21 @ 17:54 by Lillie Antony) Anemia Anxiety Blood in urine CAD (coronary artery disease) Chronic renal failure, stage 3 (moderate) Depression Diastolic heart failure GERD (gastroesophageal reflux disease) GI bleed Heart attack Heme + stool High cholesterol Hypertension Iron deficiency anemia due to chronic blood loss Marijuana use Obesity (BMI 30-39.9) Osteoarthritis Vitamin D deficiency Home Medications omeprazole 40 mg PO DAILY 04/15/15 [History Last Taken 04/20/21] atorvastatin 40 mg PO DAILY 04/20/20 [History Last Taken 04/20/21] apixaban 5 mg PO BID #60 tab 09/26/20 [Rx Last Taken 12/04/20 06:45 5 MG] ondansetron HCl 8 mg PO Q8H PRN 11/06/20 [History Last Taken 04/20/21] acetaminophen [Tylenol Arthritis] 1,300 mg PO Q12H PRN 04/20/21 [History Last Taken 04/20/21 .] magnesium oxide 400 mg PO DAILY 04/20/21 [History Last Taken 04/20/21] meloxicam 15 mg PO DAILY 04/20/21 [History Last Taken 04/20/21] metoprolol tartrate 25 mg PO BID 04/20/21 [History Last Taken 04/20/21] potassium 99 mg PO DAILY 04/20/21 [History Last Taken 04/20/21] Allergy/AdvReac Type Severity Reaction Status Date / Time Sulfa (Sulfonamide Allergy Intermediate Hives Verified 04/20/21 17:56 Antibiotics) Family History Mother Hypertension CVA (cerebral vascular accident) Grandfather CVA (cerebral vascular accident) Grandmother CVA (cerebral vascular accident) Father Hypertension Surgical History (Updated 04/20/21 @ 17:55 by Lillie Antony) History of appendectomy History of cardiac catheterization History of section History of hysterectomy History of sinus surgery Hx of bilateral cataract extraction Hx of CABG Hx of cholecystectomy Hx of tonsillectomy S/P triple vessel bypass Social History (Updated 04/20/21 @ 17:25 by Bere Buck GEOPHYSICS SCIENTIST, GEOPHYSICS SCIENTIST-C) Smoking Status: Former smoker alcohol intake: never substance use type: marijuana and other details: reports occasional marijuana use ROS Constitutional Constitutional: Denies change in weight, chills, fatigue, fever(s) or weakness Cardiovascular Cardiovascular: Reports chest pain; Denies edema, lightheadedness, palpitations or syncope Respiratory/Chest Respiratory/Chest: Reports shortness of breath with exertion; Denies cough, dyspnea, productive cough, shortness of breath at rest or wheezing Gastrointestinal Gastrointestinal: Denies abdominal pain, constipation, diarrhea, nausea or vomiting Genitourinary Genitourinary: Denies burning urination, difficulty urinating, dysuria, hematuria, urinary frequency, urinary incontinence or urinary urgency Musculoskeletal Musculoskeletal: Denies back pain, joint pain or muscle weakness Integumentary Integumentary: Denies erythema, lesions, rash or wounds Neurologic Neurologic: Denies abnormal speech, confusion, dizziness, focal weakness, numbness, paresthesias, seizure-like activity or syncope Psychiatric Psychiatric: Denies anxiety or depression Hematologic/Lymphatic Hematologic/Lymphatic: Denies anemia, easy bleeding or easy bruising Allergic/Immunologic Allergic/Immunologic: Denies hives or asthma Vital Signs Vital Signs Vital Signs: 04/20/21 14:20 04/20/21 14:24 04/20/21 14:35 Temperature 98.0 F 98.0 F Temperature Source Temporal Temporal Pulse Rate 68 63 67 Respiratory Rate 18 14 24 H Respiratory Effort Respiratory Pattern Blood Pressure 205/69 H 205/69 H 165/52 H Blood Pressure Mean 114 114 89 Pulse Ox 96 97 96 Oxygen Delivery Method Room Air Room Air Room Air 04/20/21 14:37 04/20/21 14:48 04/20/21 15:28 Temperature Temperature Source Pulse Rate 61 Respiratory Rate 20 H Respiratory Effort Normal Non-Labored Respiratory Pattern Normal Blood Pressure 143/59 H Blood Pressure Mean 87 Pulse Ox 94 94 Oxygen Delivery Method Room Air Room Air 04/20/21 16:16 04/20/21 17:13 Temperature 98.1 F Temperature Source Oral Pulse Rate 67 74 Respiratory Rate 18 20 H Respiratory Effort Respiratory Pattern Blood Pressure 150/60 H 155/91 H Blood Pressure Mean 90 112 Pulse Ox 95 95 Oxygen Delivery Method Room Air Room Air Weight Weight: 196 lb 6.91 oz Body Mass Index (BMI) 35.9 Physical Exam Const alert, oriented x3 and no apparent distress Orientation / Consciousness: awake, oriented to person, oriented to place and oriented to time HEENT normocephalic and moist oral mucous membranes Eyes PERRL, EOMs intact bilaterally and conjunctivae normal Neck no lymphadenopathy Resp normal respiratory effort and clear to auscultation bilaterally Cardio Rate: regular rate Rhythm: regular rhythm Heart Sounds: murmur Peripheral Pulses: pulses 2+ throughout GI normal to inspection, nondistended, normoactive bowel sounds, non-tender and non-distended Extremity normal to inspection Skin no rashes or lesions noted Lesions: no lesions Rashes: no rashes Trauma: no lacerations or abrasions Neuro CN's II-XII intact bilaterally, no focal motor deficits, no sensory deficits noted and deep tendon reflexes 2+ bilaterally Psych mental status grossly normal and affect normal Results Lab / Micro Data Result Diagrams: 04/20/21 14:20 04/20/21 14:20 Labs: Laboratory Results - last 24 hr 04/20/21 04/20/21 14:20 14:20 WBC 6.6 RBC 3.34 L Hgb 8.8 L Hct 28.4 L MCV 85.0 MCH 26.3 L MCHC 31.0 L RDW Std Deviation 52.0 H RDW Coeff of Genny 17.1 H Plt Count 189 MPV 10.1 Immature Gran % (Auto) 0.300 Neut % (Auto) 80.3 H Lymph % (Auto) 10.7 L [place] % (Auto) 5.5 Eos % (Auto) 2.4 Baso % (Auto) 0.8 Absolute Neuts (auto) 5.3 Absolute Lymphs (auto) 0.70 L Nucleated RBC % 0 Sodium 142 Potassium 3.9 Chloride 110 H Carbon Dioxide 27.0 Anion Gap 5 BUN 18 Creatinine 1.08 H Estim Creat Clear Calc 32.86 Est GFR (MDRD) Af Amer 63 Est GFR (MDRD) Non-Af 52 L BUN/Creatinine Ratio 16.7 Glucose 105 Calcium 8.9 Troponin I High Sens 14.6 Rhythm Strip Rhythm Strip: Sinus Rhythm Rate: 65 Ectopy: None Radiology Impression Chest X-Ray 04/20/21 14:39 IMPRESSION: Mild cardiomegaly and mild degree of CHF. Electronically Signed: Michael Rojas MD at 14:56 EDT , Service support , Assessment & Plan Assessment/Plan (1) Chest pain: PLAN: 1. Chest pain, dyspnea on exertion-initial troponin negative. EKG without ST-T changes. Given concerning symptoms as well as history, will consult cardiology. Trend enzymes. Aspirin, statin. Lipid profile in a.m. Plan for stress test and echo in a.m. 2. CAD with history of CABG-on statin, metoprolol. Aspirin 81 mg added. Does not follow-up with cardiology, encouraged to establish with cardiology at discharge. 3. 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 Echocardiogram ordered. Patient was to follow-up for repeat echocardiogram to reassess thrombus did not complete this. 4. Hypertension-stable, continue home metoprolol regimen. 5. Hyperlipidemia-continue statin. Fasting lipid profile in a.m. 6. Chronic normocytic anemia-appears at baseline, trend CBC. DVT prophylaxis-Lovenox subcu CODE STATUS: Discussed with patient in length including differences between full code, DNR CCA and DNR CC. Patient elects DNR CCA no intubation CODE STATUS. This patient was seen by CLINTON Anglin under the supervision of Dr. Hernandez. Documented by User: Dr. Renetta Hernandez MD 04/20/21 18:46 HPI - General General Date of Admission: 04/20/21 [facility] Medical History (Updated 04/20/21 @ 17:54 by Lillie Antony) Anemia Anxiety Blood in urine CAD (coronary artery disease) Chronic renal failure, stage 3 (moderate) Depression Diastolic heart failure GERD (gastroesophageal reflux disease) GI bleed Heart attack Heme + stool High cholesterol Hypertension Iron deficiency anemia due to chronic blood loss Marijuana use Obesity (BMI 30-39.9) Osteoarthritis Vitamin D deficiency Home Medications omeprazole 40 mg PO DAILY 04/15/15 [History Last Taken 04/20/21] atorvastatin 40 mg PO DAILY 04/20/20 [History Last Taken 04/20/21] apixaban 5 mg PO BID #60 tab 09/26/20 [Rx Last Taken 12/04/20 06:45 5 MG] ondansetron HCl 8 mg PO Q8H PRN 11/06/20 [History Last Taken 04/20/21] acetaminophen [Tylenol Arthritis] 1,300 mg PO Q12H PRN 04/20/21 [History Last Taken 04/20/21 .] magnesium oxide 400 mg PO DAILY 04/20/21 [History Last Taken 04/20/21] meloxicam 15 mg PO DAILY 04/20/21 [History Last Taken 04/20/21] metoprolol tartrate 25 mg PO BID 04/20/21 [History Last Taken 04/20/21] potassium 99 mg PO DAILY 04/20/21 [History Last Taken 04/20/21] Allergy/AdvReac Type Severity Reaction Status Date / Time Sulfa (Sulfonamide Allergy Intermediate Hives Verified 04/20/21 17:56 Antibiotics) Family History Mother Hypertension CVA (cerebral vascular accident) Grandfather CVA (cerebral vascular accident) Grandmother CVA (cerebral vascular accident) Father Hypertension Surgical History (Updated 04/20/21 @ 17:55 by Lillie Antony) History of appendectomy History of cardiac catheterization History of section History of hysterectomy History of sinus surgery Hx of bilateral cataract extraction Hx of CABG Hx of cholecystectomy Hx of tonsillectomy S/P triple vessel bypass Social History (Updated 04/20/21 @ 17:25 by Bere Buck NP, GEOPHYSICS SCIENTIST-C) Smoking Status: Former smoker alcohol intake: never substance use type: marijuana and other details: reports occasional marijuana use Results Lab / Micro Data Result Diagrams: 04/20/21 14:20 04/20/21 14:20 Charges/Coding Addendum Addendum: Patient seen by Bere ALONZO under my supervision Patient is an 80 y/o female with a PMH as outlined who was admitted with a complaint of shortness of breath, and chest pressure. Symptoms had been going on for a few months, and she described the chest pain as pressure, with associated nausea, and relieved by aspirin and SL nitroglycerin. She says diagnosed with a clot in her heart in September 2020, and was placed on blood thinners but stopped taking it in March due to bleeding hemorrhoids. Review of systems was otherwise negative. O/E: Constitutional Constitutional: Denies change in weight, chills, fatigue, fever(s) or weakness Cardiovascular Cardiovascular: Reports chest pain; Denies edema, lightheadedness, palpitations or syncope Respiratory/Chest Respiratory/Chest: Reports shortness of breath with exertion; Denies cough, dyspnea, productive cough, shortness of breath at rest or wheezing Gastrointestinal Gastrointestinal: Denies abdominal pain, constipation, diarrhea, nausea or vomiting Genitourinary Genitourinary: Denies burning urination, difficulty urinating, dysuria, hematuria, urinary frequency, urinary incontinence or urinary urgency Musculoskeletal Musculoskeletal: Denies back pain, joint pain or muscle weakness Integumentary Integumentary: Denies erythema, lesions, rash or wounds Neurologic Neurologic: Denies abnormal speech, confusion, dizziness, focal weakness, numbness, paresthesias, seizure-like activity or syncope Psychiatric Psychiatric: Denies anxiety or depression Hematologic/Lymphatic Hematologic/Lymphatic: Denies anemia, easy bleeding or easy bruising Allergic/Immunologic Allergic/Immunologic: Denies hives or asthma She has been admitted to be managed for chest pain rule out ACS. She did have some T wave inversions in the lateral leads will consult cardiology. Cycle troponins. 2D echo and stress test unless otherwise stated by cardiology. Sublingual nitroglycerin as needed. 2D echo to assess for the right atrial thrombus as patient stopped Eliquis herself recently. Rest as per Bere Buck NP-see his note which I reviewed and endorsed. Visit Charges OBSV E&M: [id number] Initial observation care L2
--- NOTE | 2021-04-20 17:42 | EKG12_ITS ---
Test Reason : CP Blood Pressure : / mmHG Vent. Rate : 078 BPM Atrial Rate : 078 BPM P-R Int : 158 ms QRS Dur : 104 ms QT Int : 432 ms P-R-T Axes : 072 069 108 degrees QTc Int : 492 ms Normal sinus rhythm ST & T wave abnormality, consider lateral ischemia Abnormal ECG When compared with ECG of 20-APR-2021 20:00, MANUAL COMPARISON REQUIRED, DATA IS UNCONFIRMED Confirmed by BETTY GARRIDO, KAYCEE ([id number]), image editor ZOHAIB WU ([id number]) on 05/01/2021 7:46:44 AM Referred By: DR DANIELSON Confirmed By:KAYCEE HERNÁNDEZ MD
[2021-04-20 17:54] LABS: Magnesium 1.9 mg/dL (1.6-2.6)
[2021-04-20 19:23] LABS: Troponin-I HS 13.3 pg/mL (3.0-53.7)
[2021-04-20 22:41] LABS: Troponin-I HS 12.9 pg/mL (3.0-53.7)
[2021-04-20] MEDS: Metoprolol Tartrate 25 MG Tablet PO (22:44)
[2021-04-20] MEDS: hydrALAZINE 20 MG/ML Vial 10 MG IV (23:37)
[2021-04-20] MEDS: 0.9% Saline Lock 10 ML Syringe IV (23:37)
[2021-04-21] VITALS (16 sets, daily range): BP systolic 119–162; BP diastolic 51–94; PULSE 79–97; RESP 18–20; TEMP 36.7–36.9; O2SAT 93–100
--- NOTE | 2021-04-21 00:25 | EKG12_ITS ---
Test Reason : CP Blood Pressure : / mmHG Vent. Rate : 089 BPM Atrial Rate : 089 BPM P-R Int : 154 ms QRS Dur : 104 ms QT Int : 408 ms P-R-T Axes : 069 065 100 degrees QTc Int : 496 ms Normal sinus rhythm ST & T wave abnormality, consider lateral ischemia Abnormal ECG When compared with ECG of 21-APR-2021 00:30, MANUAL COMPARISON REQUIRED, DATA IS UNCONFIRMED Confirmed by BETTY GARRIDO, KAYCEE ([id number]), communications editor ZOHAIB WU ([id number]) on 05/01/2021 7:46:10 AM Referred By: MARYJO Confirmed By:KAYCEE HERNÁNDEZ MD
[2021-04-21] MEDS: Nitroglycerin (INPATIENT USE) 0.4 MG TAB.SUBL SL ×3 (00:55→18:04)
[2021-04-21] MEDS: Ondansetron 4 MG/2 ML Vial IV (00:56)
[2021-04-21] MEDS: 0.9% Saline Lock 10 ML Syringe IV (00:57)
[2021-04-21] MEDS: oxyCODONE 5 MG Tablet PO ×2 (00:57→05:08)
[2021-04-21] MEDS: LORazepam 0.5 MG Tablet PO (00:57)
[2021-04-21] MEDS: Albuterol 2.5 MG/3 ML VIAL.NEB. INHALATION (01:15)
[2021-04-21] MEDS: Aspirin E.C. 81 MG Tablet PO (05:08)
--- NOTE | 2021-04-21 05:55 | ECHOCS_ITS ---
Reason For Study: Chest Pain Procedure This was a 2D Doppler, Color Flow transthoracic echocardiogram. The study was technically difficult. Contrast injection was performed. Exam performed portable in patient room. Left Ventricle Moderate concentric left ventricular hypertrophy. The estimated ejection fraction is EF 55-60 %. Right Ventricle Normal right ventricle. Normal systolic function. Atria The left atrium is mildly enlarged. Normal right atrium. Mitral Valve There is mild mitral annular calcification. Mild-Moderate (1-2+) mitral valve insufficiency. Tricuspid Valve Normal tricuspid valve. Trivial tricuspid valve insufficiency. Aortic Valve Moderate restriction of the aortic valve. Severe aortic stenosis. Mild (1+) aortic valve insufficiency. Pulmonic Valve The pulmonic valve is not well visualized. Great Vessels Normal aortic root. Pericardium/Pleural No pericardial effusion. Medication Diluted definity 2ml given slow IV push to enhance endocardial definition. MMode/2D Measurements & Calculations LVIDd: 4.9 cm IVSd: 1.5 cm LVOT diam: 2.0 cm LVIDs: 3.3 cm LVPWd: 1.3 cm FS: 31.6 % LVOT area: 3.0 cm2 Ao root diam: 3.5 cm LAV(MOD-bp): 54.7 ml LA A4 area: 19.0 cm2 LA dimension: 4.3 cm LAV(MOD-bp) Indexed: 29.2 ml/m2 LAV(MOD-sp2): 51.4 ml LAV(MOD-sp4): 56.8 ml RA A4 area: 13.2 cm2 Time Measurements MV dec time: 0.22 sec Doppler Measurements & Calculations MV E max apolinar: 169.9 cm/sec Lat Peak E' Apolinar: 6.6 cm/sec Med Peak E' Apolinar: 5.3 cm/sec MV A max apolinar: 118.1 cm/sec E/E' lat: 25.6 E/E' med: 32.1 MV E/A: 1.4 MV V2 max: 171.2 cm/sec MV P1/2t max apolinar: 170.1 cm/sec Ao V2 max: 304.5 cm/sec MV max P.7 mmHg MV P1/2t: 63.3 msec Ao max P.2 mmHg MV V2 mean: 87.7 cm/sec MV dec slope: 787.8 cm/sec2 Ao V2 mean: 210.5 cm/sec MV mean P.9 mmHg Ao mean P.2 mmHg MV V2 VTI: 39.9 cm MVA(P1/2t): 3.5 cm2 Ao V2 VTI: 72.1 cm MVA(VTI): 1.5 cm2 SILKE(I,D): 0.80 cm2 SILKE(V,D): 0.82 cm2 LV V1 max: 83.0 cm/sec SV(LVOT): 57.9 ml PA V2 max: 98.7 cm/sec LV V1 max P.8 mmHg LV V1 mean P.3 mmHg LV V1 mean: 53.5 cm/sec LV V1 VTI: 19.2 cm ECHO/Echo Complete W/ Contrast Interpretation Summary The estimated ejection fraction is EF 55-60 %. The left atrium is mildly enlarged. SILKE 0.8 cm[,mean gradient 20 mmhg,Max .2 Recommendation: further evaluation to assess Severity of by LHC/RHC Ordering Physician: Bere Buck Referring Physician: Steffen Roper Chi Performed By: Gary Miller RCS
[2021-04-21 07:17] LABS: Absolute Lymphocyte Count 0.58 X10^3/uL (0.83-4.51); Absolute Neutrophil Count 7.5 X10^3/uL (2.0-7.7); Basophil# 0.04 X10^3/uL; Basophil% 0.5 % (0-1); Eosinophil# 0.01 X10^3/uL; Eosinophils% 0.1 % (0-5); Hematocrit 28.8 % (37-47); Hemoglobin 8.6 g/dL (12.0-15.0); Lymphocyte # 0.58 X10^3/ul (0.83-4.51); Lymphocyte % 6.8 % (19-41); Mean Corp Hgb Conc 29.9 g/dL (32-36); Mean Platelet Vol. 11.1 fl (6.2-12.0); Monocyte# 0.34 X10^3/uL; NRBC Flagged by Analyzer 0 % (0-5); Neutrophil # 7.46 X10^3/uL (2.7-7.7); POSITIVE COUNT YES; POSITIVE DIFFERENTIAL YES; Platelet Count 144 K/mm3 (150-450); RBC Distribution Width CV 17.2 % (11.6-14.6); RBC Distribution Width SD 54.4 fl (35.1-43.9); Red Blood Count 3.31 M/mm3 (4.2-5.4); White Blood Count 8.5 K/mm3 (4.4-11.0)
[2021-04-21 07:19] LABS: Differential Indicated SCAN CRITERIA MET
[2021-04-21 07:54] LABS: Anion Gap 6 (5-15); BUN 18 mg/dL (7-18); BUN/Creat Ratio 18.8 RATIO (10-20); Calcium,Total 8.6 mg/dL (8.5-10.1); Chloride 109 mmol/L (98-107); Cholesterol 125 mg/dL (200); Creatinine, Serum 0.96 mg/dL (0.55-1.02); EST Glomerular Filtration Rate 60 mL/min (>60); Est Glom Filt Rate - Afr Amer 72 mL/min (>60); Estimated Creatinine Clearance 36.97 ml/min; Glucose 111 mg/dL (74-106); High Density Lipoprotein 62 mg/dL; Potassium 4.4 mmol/L (3.5-5.1); Sodium Level 140 mmol/L (136-145); Triglycerides 79 mg/dL; Very Low Density Lipoprotein 16 mg/dL (5-40)
[2021-04-21] MEDS: Metoprolol Tartrate 25 MG Tablet PO ×2 (09:31→21:27)
[2021-04-21] MEDS: Pantoprazole Sodium 40 MG Tablet PO (09:32)
[2021-04-21] MEDS: Atorvastatin Calcium 40 MG Tablet PO (09:32)
[2021-04-21] MEDS: Enoxaparin 40 MG/0.4 ML Syringe SC (09:32)
--- NOTE | 2021-04-21 12:02 | CASEMGMT ---
According to the [employer] website, the following are in-network tertiary facilities: [facility], [facility], [facility], and . Lisa JOINER CM
--- NOTE | 2021-04-21 12:19 | PN.HOSP_ITS ---
Documented by User: Bere Buck NP, ASSISTANT CENTER DIRECTOR-C 04/21/21 12:33 Subjective Subjective Patient seen and examined. Denies further chest pressure, shortness of breath. Cardiology following, plan for heart cath on Friday. Objective Data Objective Data Vital Signs: Vital Signs Temp Pulse Resp BP Pulse Ox 98.4 F 83 18 150/94 H 100 04/21/21 09:30 04/21/21 09:31 04/21/21 09:30 04/21/21 09:30 04/21/21 09:30 Oxygen Flow Rate (L/min) 2 Oxygen Delivery Method Room Air Weight: 190 lb 1.6 oz Body Mass Index (BMI) 34.7 Intake & Output: Intake and Output for Last 24 Hours 04/19/21 04/20/21 04/21/21 23:59 23:59 23:59 Intake Total 360 / 360 300 / 300 Balance 360 / 360 300 / 300 Lab / Micro Data Result Diagrams: 04/21/21 06:45 04/21/21 06:45 Labs: Laboratory Results - last 24 hr 04/20/21 04/20/21 04/20/21 14:20 14:20 14:20 WBC 6.6 RBC 3.34 L Hgb 8.8 L Hct 28.4 L MCV 85.0 MCH 26.3 L MCHC 31.0 L RDW Std Deviation 52.0 H RDW Coeff of Genny 17.1 H Plt Count 189 MPV 10.1 Immature Gran % (Auto) 0.300 Neut % (Auto) 80.3 H Lymph % (Auto) 10.7 L [place] % (Auto) 5.5 Eos % (Auto) 2.4 Baso % (Auto) 0.8 Absolute Neuts (auto) 5.3 Absolute Lymphs (auto) 0.70 L Nucleated RBC % 0 Sodium 142 Potassium 3.9 Chloride 110 H Carbon Dioxide 27.0 Anion Gap 5 BUN 18 Creatinine 1.08 H Estim Creat Clear Calc 32.86 Est GFR (MDRD) Af Amer 63 Est GFR (MDRD) Non-Af 52 L BUN/Creatinine Ratio 16.7 Glucose 105 Calcium 8.9 Magnesium 1.9 Troponin I High Sens 14.6 Triglycerides Cholesterol LDL Cholesterol VLDL Cholesterol HDL Cholesterol 04/20/21 04/20/21 04/21/21 18:50 21:56 06:45 WBC 8.5 RBC 3.31 L Hgb 8.6 L Hct 28.8 L MCV 87.0 MCH 26.0 L MCHC 29.9 L RDW Std Deviation 54.4 H RDW Coeff of Genny 17.2 H Plt Count 144 L MPV 11.1 Immature Gran % (Auto) 0.600 Neut % (Auto) 88.0 H Lymph % (Auto) 6.8 L [place] % (Auto) 4.0 Eos % (Auto) 0.1 Baso % (Auto) 0.5 Absolute Neuts (auto) 7.5 Absolute Lymphs (auto) 0.58 L Nucleated RBC % 0 Sodium Potassium Chloride Carbon Dioxide Anion Gap BUN Creatinine Estim Creat Clear Calc Est GFR (MDRD) Af Amer Est GFR (MDRD) Non-Af BUN/Creatinine Ratio Glucose Calcium Magnesium Troponin I High Sens 13.3 12.9 Triglycerides Cholesterol LDL Cholesterol VLDL Cholesterol HDL Cholesterol 04/21/21 06:45 WBC RBC Hgb Hct MCV MCH MCHC RDW Std Deviation RDW Coeff of Genny Plt Count MPV Immature Gran % (Auto) Neut % (Auto) Lymph % (Auto) [place] % (Auto) Eos % (Auto) Baso % (Auto) Absolute Neuts (auto) Absolute Lymphs (auto) Nucleated RBC % Sodium 140 Potassium 4.4 Chloride 109 H Carbon Dioxide 25.0 Anion Gap 6 BUN 18 Creatinine 0.96 Estim Creat Clear Calc 36.97 Est GFR (MDRD) Af Amer 72 Est GFR (MDRD) Non-Af 60 BUN/Creatinine Ratio 18.8 Glucose 111 H Calcium 8.6 Magnesium Troponin I High Sens Triglycerides 79 Cholesterol 125 LDL Cholesterol 47 VLDL Cholesterol 16 HDL Cholesterol 62 Radiography Diagnostic Testing: Radiology Impression Chest X-Ray 04/20/21 14:39 IMPRESSION: Mild cardiomegaly and mild degree of CHF. Electronically Signed: Michael Rojas MD at 14:56 EDT , Service support , Rhythm Strip Rhythm Strip: Sinus Rhythm Rate: 65 Ectopy: None Physical Exam Const alert, oriented x3 and no apparent distress Orientation / Consciousness: awake, oriented to person, oriented to place and oriented to time HEENT normocephalic and moist oral mucous membranes Eyes PERRL, EOMs intact bilaterally and conjunctivae normal Neck no lymphadenopathy Resp clear to auscultation bilaterally Auscultation: diminished lung sounds Cardio regular rate and regular rhythm Heart Sounds: murmur Peripheral Pulses: pulses 2+ throughout GI normal to inspection, nondistended, normoactive bowel sounds, non-tender and non-distended Extremity normal to inspection Skin no rashes or lesions noted Lesions: no lesions Rashes: no rashes Trauma: no lacerations or abrasions Neuro CN's II-XII intact bilaterally, no focal motor deficits, no sensory deficits noted and deep tendon reflexes 2+ bilaterally Psych mental status grossly normal and affect normal Assessment & Plan Assessment/Plan (1) Chest pain: PLAN: 1. Chest pain, dyspnea on exertion- troponin negative. EKG without ST-T changes. Given concerning symptoms as well as history, cardiology consulted. Aspirin, statin. Plan for heart cath on Friday. Patient also has notable murmur which will be further evaluated with echo. Echocardiogram September 2020 did not mention any significant valvular disease. 2. CAD with history of CABG-on statin, metoprolol. Aspirin 81 mg added. Does not follow-up with cardiology, encouraged to establish with cardiology at discharge. 3. 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 Echocardiogram ordered. Patient was to follow-up for repeat echocardiogram to reassess thrombus did not complete this. 4. Hypertension-stable, continue home metoprolol regimen. 5. Hyperlipidemia-continue statin. 6. Chronic normocytic anemia-appears at baseline, trend CBC. DVT prophylaxis-Lovenox subcu This patient was seen by CLINTON Anglin under the supervision of Dr. Garcia. Documented by User: Dr. Cem Garcia MD 04/21/21 14:37 Objective Data Lab / Micro Data Result Diagrams: 04/21/21 06:45 04/21/21 06:45 Charges/Coding Addendum Addendum: Dr. Garcia: I personally reviewed the chart and examined the patient, and agree with the above findings. 80-year-old female presents with chest pain and murmur in her right upper sternal border consistent with aortic stenosis, she did have an echo which demonstrated aortic stenosis and cardiology's plan is to proceed with an cardiac cath to further evaluate the severity of aortic stenosis. Her chest pain has resolved and her troponins remain normal. Visit Charges OBSV E&M: 20719 Subsequent observation care L2
--- NOTE | 2021-04-21 13:22 | CON.PCM.CA_ITS ---
Assessment & Plan Assessment/Plan (1) Acute GI bleeding: (2) Hemorrhoids: (3) Pneumonia due to COVID-19 virus: (4) S/P triple vessel bypass: PLAN: This is a 80-year-old female presented with intermittent chest pressure states with dyspnea is having for the last few months this noted mainly on exertion relieved with rest This patient had significant coronary artery disease with CABG 2015 triple bypass Also she had a history of clot in the LV and had been on anticoagulation which he discontinued due to recent GI bleed. Other medical history includes history of GERD hypertension hyperlipidemia and history of marijuana use. On cardiovascular exam she had ejection systolic murmur heard in the aortic valve area and And the patient had evaluation by echocardiogram which showed ejection fraction preserved with 0.8 cm? aortic valve by planimetry with a mean gradient of 20 and a maximum gradient of 37 Clearly evidence of description between the planimetry and the gradient across aortic valve. In addition to this she had moderate left atrial enlargement, moderate concentric ventricle hypertrophy and mild to moderate mitral regurgitat ion Recommendation plan; From cardiac standpoint #1 patient will be evaluated further by cardiac catheterization including left heart cath/right heart cath to assess her coron erick anatomy and to evaluate for progression of atherosclerosis in the bypass graft 2. The left heart catheter right heart cath also to determine the severity of the aortic valve stenosis and to discuss further plan if she has patency of her bypass graft then she may be a candidate for TAVR. 3. I discussed in detail with the patient and the nursing staff cardiac care plan and she will be scheduled for cardiac catheterization by her primary mainspring reverse winder HPI Consult Data Date of Consult: 04/21/21 HPI Narrative Reason for Consultation: Patient with intermittent chest pain, CAD, CABG, aortic valve stenosis HPI Narrative: JOSE ARRIETA, is a 80 F who presents [facility] Medical History (Updated 04/20/21 @ 17:54 by Lillie Antony) Anemia Anxiety Blood in urine CAD (coronary artery disease) Chronic renal failure, stage 3 (moderate) Depression Diastolic heart failure GERD (gastroesophageal reflux disease) GI bleed Heart attack Heme + stool High cholesterol Hypertension Iron deficiency anemia due to chronic blood loss Marijuana use Obesity (BMI 30-39.9) Osteoarthritis Vitamin D deficiency Home Medications omeprazole 40 mg PO DAILY 04/15/15 [History Last Taken 04/20/21] atorvastatin 40 mg PO DAILY 04/20/20 [History Last Taken 04/20/21] apixaban 5 mg PO BID #60 tab 09/26/20 [Rx Last Taken 12/04/20 06:45 5 MG] ondansetron HCl 8 mg PO Q8H PRN 11/06/20 [History Last Taken 04/20/21] acetaminophen [Tylenol Arthritis] 1,300 mg PO Q12H PRN 04/20/21 [History Last Taken 04/20/21 .] magnesium oxide 400 mg PO DAILY 04/20/21 [History Last Taken 04/20/21] meloxicam 15 mg PO DAILY 04/20/21 [History Last Taken 04/20/21] metoprolol tartrate 25 mg PO BID 04/20/21 [History Last Taken 04/20/21] potassium 99 mg PO DAILY 04/20/21 [History Last Taken 04/20/21] Allergy/AdvReac Type Severity Reaction Status Date / Time Sulfa (Sulfonamide Allergy Intermediate Hives Verified 04/20/21 17:56 Antibiotics) Family History Mother Hypertension CVA (cerebral vascular accident) Grandfather CVA (cerebral vascular accident) Grandmother CVA (cerebral vascular accident) Father Hypertension Surgical History (Updated 04/20/21 @ 17:55 by Lillie Antony) History of appendectomy History of cardiac catheterization History of section History of hysterectomy History of sinus surgery Hx of bilateral cataract extraction Hx of CABG Hx of cholecystectomy Hx of tonsillectomy S/P triple vessel bypass Social History (Updated 04/20/21 @ 17:25 by Bere Buck NP, WEB APPLICATIONS ADMINISTRATOR-C) Smoking Status: Former smoker alcohol intake: never substance use type: marijuana and other details: reports occasional marijuana use Physical Exam Narrative Patient seen and evaluated today and discussed cardiac care with the nursing staff She is alert orientated x3 Cardiovascular examination S1-S2 is regular, she had ejection systolic murmur heard in the aortic valve. There is no diastolic murmur Chest examination is clear to auscultation bilaterally Examination lower extremity no clubbing no cyanosis lower extremity edema Central nervous system exam no focal neurological deficit. Objective Data Vital Signs: Vital Signs Temp Pulse Resp BP Pulse Ox 98.4 F 83 18 150/94 H 100 04/21/21 09:30 04/21/21 09:31 07/03/21 09:30 04/21/21 09:30 04/21/21 09:30 Oxygen Flow Rate (L/min) 2 Oxygen Delivery Method Room Air Weight: 190 lb 1.6 oz Body Mass Index (BMI) 34.7 Intake & Output: Intake and Output for Last 24 Hours 04/19/21 04/20/21 04/21/21 23:59 23:59 23:59 Intake Total 360 / 360 300 / 300 Balance 360 / 360 300 / 300 Lab / Micro Data Result Diagrams: 04/21/21 06:45 04/21/21 06:45 Labs: Laboratory Results - last 24 hr 04/20/21 04/20/21 04/20/21 14:20 14:20 14:20 WBC 6.6 RBC 3.34 L Hgb 8.8 L Hct 28.4 L MCV 85.0 MCH 26.3 L MCHC 31.0 L RDW Std Deviation 52.0 H RDW Coeff of Genny 17.1 H Plt Count 189 MPV 10.1 Immature Gran % (Auto) 0.300 Neut % (Auto) 80.3 H Lymph % (Auto) 10.7 L [place] % (Auto) 5.5 Eos % (Auto) 2.4 Baso % (Auto) 0.8 Absolute Neuts (auto) 5.3 Absolute Lymphs (auto) 0.70 L Nucleated RBC % 0 Sodium 142 Potassium 3.9 Chloride 110 H Carbon Dioxide 27.0 Anion Gap 5 BUN 18 Creatinine 1.08 H Estim Creat Clear Calc 32.86 Est GFR (MDRD) Af Amer 63 Est GFR (MDRD) Non-Af 52 L BUN/Creatinine Ratio 16.7 Glucose 105 Calcium 8.9 Magnesium 1.9 Troponin I High Sens 14.6 Triglycerides Cholesterol LDL Cholesterol VLDL Cholesterol HDL Cholesterol 04/20/21 04/20/21 04/21/21 18:50 21:56 06:45 WBC 8.5 RBC 3.31 L Hgb 8.6 L Hct 28.8 L MCV 87.0 MCH 26.0 L MCHC 29.9 L RDW Std Deviation 54.4 H RDW Coeff of Genny 17.2 H Plt Count 144 L MPV 11.1 Immature Gran % (Auto) 0.600 Neut % (Auto) 88.0 H Lymph % (Auto) 6.8 L [place] % (Auto) 4.0 Eos % (Auto) 0.1 Baso % (Auto) 0.5 Absolute Neuts (auto) 7.5 Absolute Lymphs (auto) 0.58 L Nucleated RBC % 0 Sodium Potassium Chloride Carbon Dioxide Anion Gap BUN Creatinine Estim Creat Clear Calc Est GFR (MDRD) Af Amer Est GFR (MDRD) Non-Af BUN/Creatinine Ratio Glucose Calcium Magnesium Troponin I High Sens 13.3 12.9 Triglycerides Cholesterol LDL Cholesterol VLDL Cholesterol HDL Cholesterol 04/21/21 06:45 WBC RBC Hgb Hct MCV MCH MCHC RDW Std Deviation RDW Coeff of Genny Plt Count MPV Immature Gran % (Auto) Neut % (Auto) Lymph % (Auto) [place] % (Auto) Eos % (Auto) Baso % (Auto) Absolute Neuts (auto) Absolute Lymphs (auto) Nucleated RBC % Sodium 140 Potassium 4.4 Chloride 109 H Carbon Dioxide 25.0 Anion Gap 6 BUN 18 Creatinine 0.96 Estim Creat Clear Calc 36.97 Est GFR (MDRD) Af Amer 72 Est GFR (MDRD) Non-Af 60 BUN/Creatinine Ratio 18.8 Glucose 111 H Calcium 8.6 Magnesium Troponin I High Sens Triglycerides 79 Cholesterol 125 LDL Cholesterol 47 VLDL Cholesterol 16 HDL Cholesterol 62 Rhythm Strip Rhythm Strip: Sinus Rhythm Rate: 65 Ectopy: None Cardiology Labs/Tests 04/20/21 14:20: WBC 6.6, RBC 3.34 L, Hgb 8.8 L, Hct 28.4 L, MCV 85.0, MCH 26.3 L , MCHC 31.0 L, Plt Count 189, MPV 10.1, Immature Gran % (Auto) 0.300, Neut % (Auto) 80.3 H, Lymph % (Auto) 10.7 L, [place] % (Auto) 5.5, Eos % (Auto) 2.4, Baso % (Auto) 0.8, Absolute Neuts (auto) 5.3, Nucleated RBC % 0 04/20/21 14:20: Sodium 142, Potassium 3.9, Chloride 110 H, Carbon Dioxide 27.0, Anion Gap 5, BUN 18, Creatinine 1.08 H, Est GFR (MDRD) Af Amer 63, Est GFR (MDRD) Non-Af 52 L, BUN/Creatinine Ratio 16.7, Glucose 105, Calcium 8.9 04/20/21 14:20: Magnesium 1.9 04/21/21 06:45: WBC 8.5, RBC 3.31 L, Hgb 8.6 L, Hct 28.8 L, MCV 87.0, MCH 26.0 L , MCHC 29.9 L, Plt Count 144 L, MPV 11.1, Immature Gran % (Auto) 0.600, Neut % (Auto) 88.0 H, Lymph % (Auto) 6.8 L, [place] % (Auto) 4.0, Eos % (Auto) 0.1, Baso % (Auto) 0.5, Absolute Neuts (auto) 7.5, Nucleated RBC % 0 04/21/21 06:45: Sodium 140, Potassium 4.4, Chloride 109 H, Carbon Dioxide 25.0, Anion Gap 6, BUN 18, Creatinine 0.96, Est GFR (MDRD) Af Amer 72, Est GFR (MDRD) Non-Af 60, BUN/Creatinine Ratio 18.8, Glucose 111 H, Calcium 8.6, Triglycerides 79, Cholesterol 125, LDL Cholesterol 47, VLDL Cholesterol 16, HDL Cholesterol 62 Rhythm: Normal sinus rhythm ECHO: LV systolic function, aortic valve area 0.8 cm?, by planimetry with maximum aortic valve gradient 37 mmHg and a mean of 20 mmHg : Radiography Diagnostic Testing: Radiology Impression Chest X-Ray 04/20/21 14:39 IMPRESSION: Mild cardiomegaly and mild degree of CHF. Electronically Signed: Michael Rojas MD at 14:56 EDT , Service support , Echocardiogram 04/21/21 05:55 Interpretation Summary The estimated ejection fraction is EF 55-60 %. The left atrium is mildly enlarged. SILKE 0.8 cm[,mean gradient 20 mmhg,Max [id number] Recommendation: further evaluation to assess Severity of by LHC/RHC Ordering Physician: Bere Buck Referring Physician: Steffen Roper Chi Performed By: Gary Miller RCS
--- NOTE | 2021-04-21 13:59 | CASEMGMT ---
This RN CM to room with FORBES form, explanation done-pt voices understanding, and signs FORBES form. Original to chart and copy to pt. Pt has MCR IP vs OBS booklet at bedside. Pt voices no further questions/concerns/needs. SStaten RHYS CM
[2021-04-21] MEDS: Acetaminophen 325 MG Tablet 650 MG PO (16:26)
--- NOTE | 2021-04-21 18:02 | EKG12_ITS ---
Test Reason : CP ADMIT Blood Pressure : / mmHG Vent. Rate : 081 BPM Atrial Rate : 081 BPM P-R Int : 156 ms QRS Dur : 104 ms QT Int : 422 ms P-R-T Axes : 071 071 078 degrees QTc Int : 490 ms Normal sinus rhythm Nonspecific T wave abnormality Abnormal ECG When compared with ECG of 20-APR-2021 14:37, MANUAL COMPARISON REQUIRED, DATA IS UNCONFIRMED Confirmed by BETTY GARRIDO, KAYCEE ([id number]), health editor ZOHAIB WU ([id number]) on 05/01/2021 7:47:30 AM Referred By: DR SIBLEY Confirmed By:KAYCEE HERNÁNDEZ MD
[2021-04-22] VITALS (14 sets, daily range): BP systolic 119–153; BP diastolic 46–85; PULSE 66–98; RESP 16–20; TEMP 36.2–37; O2SAT 87–100
--- NOTE | 2021-04-22 07:58 | CPS ---
pt placed on 2 lpm. nurse aware of change
[2021-04-22] MEDS: Aspirin E.C. 81 MG Tablet PO (08:07)
[2021-04-22] MEDS: Enoxaparin 40 MG/0.4 ML Syringe SC (10:52)
[2021-04-22] MEDS: Pantoprazole Sodium 40 MG Tablet PO (10:53)
[2021-04-22] MEDS: Metoprolol Tartrate 25 MG Tablet PO ×2 (10:53→21:20)
[2021-04-22] MEDS: Atorvastatin Calcium 40 MG Tablet PO (10:53)
[2021-04-22] MEDS: Acetaminophen 325 MG Tablet 650 MG PO (11:00)
--- NOTE | 2021-04-22 12:26 | PCM.PN.HOSP ---
Documented by User: Bere Buck MILL TENDER SECOND OPERATOR, MILL TENDER SECOND OPERATOR-C 04/22/21 12:36 Subjective Subjective Patient seen and examined. Denies chest pain, shortness of breath. Reports occasional thud in her chest. Plan for heart cath in a.m. Objective Data Objective Data Vital Signs: Vital Signs Temp Pulse Resp BP Pulse Ox 98.3 F 86 16 153/54 H 100 04/22/21 08:02 04/22/21 11:29 04/22/21 08:02 04/22/21 10:53 04/22/21 08:02 Oxygen Flow Rate (L/min) 2 Oxygen Delivery Method Nasal Cannula Weight: 190 lb 1.6 oz Body Mass Index (BMI) 34.7 Intake & Output: Intake and Output for Last 24 Hours 04/20/21 04/21/21 04/22/21 23:59 23:59 23:59 Intake Total 360 / 360 840 / 840 320 / 320 Balance 360 / 360 840 / 840 320 / 320 Lab / Micro Data Result Diagrams: 04/21/21 06:45 04/21/21 06:45 Radiography Diagnostic Testing: Radiology Impression Echocardiogram 04/21/21 05:55 Interpretation Summary The estimated ejection fraction is EF 55-60 %. The left atrium is mildly enlarged. SILKE 0.8 cm[,mean gradient 20 mmhg,Max [id number] Recommendation: further evaluation to assess Severity of by LHC/RHC Ordering Physician: Bere Buck Referring Physician: Steffen Roper Chi Performed By: Gary Miller RCS Rhythm Strip Rhythm Strip: Sinus Rhythm Rate: 65 Ectopy: None Physical Exam Const alert, oriented x3 and no apparent distress Orientation / Consciousness: awake, oriented to person, oriented to place and oriented to time HEENT normocephalic and moist oral mucous membranes Eyes PERRL, EOMs intact bilaterally and conjunctivae normal Neck no lymphadenopathy Resp normal respiratory effort and clear to auscultation bilaterally Cardio regular rate and regular rhythm Heart Sounds: murmur Peripheral Pulses: pulses 2+ throughout GI normal to inspection, nondistended, normoactive bowel sounds, non-tender and non-distended Extremity normal to inspection Skin no rashes or lesions noted Lesions: no lesions Rashes: no rashes Trauma: no lacerations or abrasions Neuro CN's II-XII intact bilaterally, no focal motor deficits, no sensory deficits noted and deep tendon reflexes 2+ bilaterally Psych mental status grossly normal and affect normal Assessment & Plan Assessment/Plan (1) Chest pain: PLAN: 1. Chest pain, dyspnea on exertion- troponin negative. EKG without ST-T changes. Given concerning symptoms as well as history, cardiology consulted. Aspirin, statin. Plan for heart cath 04/23/2021 to assess coronary status and aortic valve. 2. Aortic stenosis: Echocardiogram September 2020 mentioned mild aortic insufficiency. Repeat echocardiogram demonstrates severe aortic stenosis with moderate restriction of the aortic valve. Plan for heart cath for further evaluation. 3. CAD with history of CABG-on statin, metoprolol. Aspirin 81 mg added. Does not follow-up with cardiology, encouraged to establish with cardiology at discharge. 4. 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 Repeat echo without thrombus. 5. Hypertension-stable, continue home metoprolol regimen. 6. Hyperlipidemia-continue statin. 7. Chronic normocytic anemia-appears at baseline, trend CBC. DVT prophylaxis-Lovenox subcu Plan: heart cath 04/23/21 This patient was seen by CLINTON Anglin under the supervision of Dr. Garcia. Documented by User: Dr. Cem Garcia MD 04/22/21 18:03 Objective Data Lab / Micro Data Result Diagrams: 04/21/21 06:45 04/21/21 06:45 Charges/Coding Addendum Addendum: Dr. Garcia: I personally reviewed the chart and examined the patient, and agree with the above findings. 80-year-old female presents with chest pain and murmur in her right upper sternal border consistent with aortic stenosis, she did have an echo which demonstrated aortic stenosis and cardiology's plan is to proceed with an cardiac cath to further evaluate the severity of aortic stenosis. Her chest pain has resolved and her troponins remain normal. 04/22/2021: Doing well, no issues overnight. Still has no chest pain plan will be to proceed with a heart cath in the morning secondary to her aortic stenosis on echo correlating with her murmur. Visit Charges OBSV E&M: 22372 Subsequent observation care L2
[2021-04-23] VITALS (11 sets, daily range): BP systolic 152–189; BP diastolic 55–87; PULSE 73–97; RESP 16–18; TEMP 36.2–36.6; O2SAT 90–96
[2021-04-23 06:52] LABS: Absolute Lymphocyte Count 1.03 X10^3/uL (0.83-4.51); Absolute Neutrophil Count 4.1 X10^3/uL (2.0-7.7); Basophil# 0.04 X10^3/uL; Basophil% 0.7 % (0-1); Eosinophil# 0.32 X10^3/uL; Eosinophils% 5.4 % (0-5); Hematocrit 29.7 % (37-47); Hemoglobin 8.8 g/dL (12.0-15.0); Lymphocyte # 1.03 X10^3/ul (0.83-4.51); Lymphocyte % 17.5 % (19-41); Mean Corp Hgb Conc 29.6 g/dL (32-36); Mean Corpuscular Hgb 26.4 pg (27.0-32.0); Mean Corpuscular Volume 89.2 fL (81-99); Mean Platelet Vol. 10.1 fl (6.2-12.0); Monocyte# 0.37 X10^3/uL; Monocyte% 6.3 % (0-10); NRBC Flagged by Analyzer 0 % (0-5); Neutrophil % 69.8 % (47-70); Platelet Count 180 K/mm3 (150-450); RBC Distribution Width CV 17.4 % (11.6-14.6); Red Blood Count 3.33 M/mm3 (4.2-5.4); White Blood Count 5.9 K/mm3 (4.4-11.0)
[2021-04-23 07:00] LABS: Prothrombin Time (Protime)PT. 12.9 SECONDS (11.7-14.9)
[2021-04-23 07:21] LABS: Anion Gap 6 (5-15); BUN 30 mg/dL (7-18); BUN/Creat Ratio 25.6 RATIO (10-20); Chloride 109 mmol/L (98-107); Creatinine, Serum 1.17 mg/dL (0.55-1.02); EST Glomerular Filtration Rate 47 mL/min (>60); Est Glom Filt Rate - Afr Amer 57 mL/min (>60); Estimated Creatinine Clearance 30.33 ml/min; Glucose 96 mg/dL (74-106); Sodium Level 141 mmol/L (136-145)
--- NOTE | 2021-04-23 07:40 | NURSING ---
Received report. Purposeful rounds complete. Patient denies needs. Will monitor.
[2021-04-23] MEDS: Aspirin E.C. 81 MG Tablet PO (08:12)
[2021-04-23] MEDS: Acetaminophen 325 MG Tablet 650 MG PO (08:13)
[2021-04-23] MEDS: Atorvastatin Calcium 40 MG Tablet PO (08:14)
[2021-04-23] MEDS: Metoprolol Tartrate 25 MG Tablet PO ×2 (08:14→21:07)
[2021-04-23] MEDS: Pantoprazole Sodium 40 MG Tablet PO (08:15)
[2021-04-23] MEDS: Enoxaparin 40 MG/0.4 ML Syringe SC (08:15)
--- NOTE | 2021-04-23 11:36 | PN.HOSP_ITS ---
Documented by User: Bere Buck NP, FELLING MACHINE OPERATOR-C 04/23/21 11:41 Hospitalist Note Subjective: Patient seen and examined. Denies chest pain, shortness of breath. Plan for heart cath in a.m. Objective: Vital signs, labs, and I&O reviewed. Unremarkable. Physical Exam: Const alert, oriented x3 and no apparent distress Orientation / Consciousness: awake, oriented to person, oriented to place and oriented to time HEENT normocephalic and moist oral mucous membranes Eyes PERRL, EOMs intact bilaterally and conjunctivae normal Neck no lymphadenopathy Resp normal respiratory effort and clear to auscultation bilaterally Cardio regular rate and regular rhythm Heart Sounds: murmur Peripheral Pulses: pulses 2+ throughout GI normal to inspection, nondistended, normoactive bowel sounds, non-tender and non-distended Extremity normal to inspection Skin no rashes or lesions noted Lesions: no lesions Rashes: no rashes Trauma: no lacerations or abrasions Neuro CN's II-XII intact bilaterally, no focal motor deficits, no sensory deficits noted and deep tendon reflexes 2+ bilaterally Psych mental status grossly normal and affect normal Assessment/Plan 1. Chest pain, dyspnea on exertion- troponin negative. EKG without ST-T changes. Given concerning symptoms as well as history, cardiology consulted. Aspirin, statin. Plan for heart cath 04/23/2021 to assess coronary status and aortic valve. 2. Aortic stenosis: Echocardiogram September 2020 mentioned mild aortic insufficiency. Repeat echocardiogram demonstrates severe aortic stenosis with moderate restriction of the aortic valve. Plan for heart cath for further evaluation. 3. CAD with history of CABG-on statin, metoprolol. Aspirin 81 mg added. Does not follow-up with cardiology, encouraged to establish with cardiology at discharge. 4. 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 Repeat echo without thrombus. 5. Hypertension-stable, continue home metoprolol regimen. 6. Hyperlipidemia-continue statin. 7. Chronic normocytic anemia-appears at baseline, trend CBC. DVT prophylaxis-Lovenox subcu Plan: heart cath 04/24/21 This patient was seen by KIKA AnglinC under the supervision of Dr. Garcia. Documented by User: Dr. Cem Garcia MD 04/23/21 16:28 Addendum Addendum: Dr. Garcia: I personally reviewed the chart and examined the patient, and agree with the above findings. 80-year-old female presents with chest pain and murmur in her right upper sternal border consistent with aortic stenosis, she did have an echo which demonstrated aortic stenosis and cardiology's plan is to proceed with an cardiac cath to further evaluate the severity of aortic stenosis. Her chest pain has resolved and her troponins remain normal. 04/22/2021: Doing well, no issues overnight. Still has no chest pain plan will be to proceed with a heart cath in the morning secondary to her aortic stenosis on echo correlating with her murmur. 04/23/2021: Doing well, no issues overnight. Denies any chest pain or lightheadedness. I did explain to her the reason for needing to evaluate her aortic stenosis. We will proceed with heart cath tomorrow. Visit Charges OBSV E&M: 36080 Subsequent observation care L2
--- NOTE | 2021-04-23 13:03 | PCM.PN.CARD ---
Subjective Subjective The patient is awake and alert. She appears to be resting comfortably. She denies any ongoing chest discomfort or difficulty breathing at this time. Objective Data Vital Signs: Vital Signs Temp Pulse Resp BP Pulse Ox 97.8 F 81 18 157/86 H 92 04/23/21 07:57 04/23/21 08:14 04/23/21 07:57 04/23/21 08:14 04/23/21 07:57 Oxygen Flow Rate (L/min) 2 Oxygen Delivery Method Room Air Weight: 190 lb 1.6 oz Body Mass Index (BMI) 34.7 Intake & Output: Intake and Output for Last 24 Hours 04/21/21 04/22/21 04/23/21 23:59 23:59 23:59 Intake Total 840 / 840 1040 / 1040 120 / 120 Balance 840 / 840 1040 / 1040 120 / 120 Lab / Micro Data Result Diagrams: 04/23/21 06:30 04/23/21 06:30 Labs: Laboratory Results - last 24 hr 04/23/21 04/23/21 04/23/21 06:30 06:30 06:30 WBC 5.9 RBC 3.33 L Hgb 8.8 L Hct 29.7 L MCV 89.2 MCH 26.4 L MCHC 29.6 L RDW Std Deviation 55.0 H RDW Coeff of Genny 17.4 H Plt Count 180 MPV 10.1 Immature Gran % (Auto) 0.300 Neut % (Auto) 69.8 Lymph % (Auto) 17.5 L [place] % (Auto) 6.3 Eos % (Auto) 5.4 H Baso % (Auto) 0.7 Absolute Neuts (auto) 4.1 Absolute Lymphs (auto) 1.03 Nucleated RBC % 0 PT 12.9 INR 1.0 Sodium 141 Potassium 4.0 Chloride 109 H Carbon Dioxide 26.0 Anion Gap 6 BUN 30 H Creatinine 1.17 H Estim Creat Clear Calc 30.33 Est GFR (MDRD) Af Amer 57 L Est GFR (MDRD) Non-Af 47 L BUN/Creatinine Ratio 25.6 H Glucose 96 Calcium 9.0 Rhythm Strip Rhythm Strip: Sinus Rhythm Rate: 65 Ectopy: None Cardiology Labs/Tests 04/23/21 06:30: WBC 5.9, RBC 3.33 L, Hgb 8.8 L, Hct 29.7 L, MCV 89.2, MCH 26.4 L, MCHC 29.6 L, Plt Count 180, MPV 10.1, Immature Gran % (Auto) 0.300, Neut % (Auto) 69.8, Lymph % (Auto) 17.5 L, [place] % (Auto) 6.3, Eos % (Auto) 5.4 H, Baso % (Auto) 0.7, Absolute Neuts (auto) 4.1, Nucleated RBC % 0 04/23/21 06:30: PT 12.9, INR 1.0 04/23/21 06:30: Sodium 141, Potassium 4.0, Chloride 109 H, Carbon Dioxide 26.0, Anion Gap 6, BUN 30 H, Creatinine 1.17 H, Est GFR (MDRD) Af Amer 57 L, Est GFR (MDRD) Non-Af 47 L, BUN/Creatinine Ratio 25.6 H, Glucose 96, Calcium 9.0 Rhythm: Sinus rhythm ECHO: 04-21-2021 Interpretation Summary The estimated ejection fraction is EF 55-60 %. The left atrium is mildly enlarged. SILKE 0.8 cm[,mean gradient 20 mmhg,Max .2 Recommendation: further evaluation to assess Severity of by LHC/RHC Stress Test: Cardiac Cath: 11-28-2014 HEMODYNAMICS: The baseline heart rate was noted to be 95 beats minute, sinus rhythm. Aortic pressure is 155/69. Left ventricular pressure is 187/29. Post-angiogram, left ventricular pressure is 174/29, aortic pressure is 170/76. CORONARY ARTERIOGRAPHY: There was mild calcification noted of the left main, left anterior descending artery and circumflex . LEFT MAIN CORONARY ARTERY: This was noted to be a short vessel. It bifurcated into left anterior descending artery and left circumflex artery. No high-grade stenosis was noted. LEFT ANTERIOR DESCENDING ARTERY: Left anterior descending artery immediately came off the left main coronary artery. It gave off a first diagonal vessel, which had mild disease. The left anterior descending artery then had an area of stenosis of approximately 80%. The vessel continued and further mid vessel. There was an area of stenosis of approximately 70%. The left anterior descending artery then continued towards the apex of the ventricle. The septal perforators were noted. No diffuse disease was noted over the left anterior descending artery system. LEFT CIRCUMFLEX ARTERY: The left circumflex artery was a nondominant vessel. It gave off a tiny first obtuse marginal branch and then an area of high-grade stenosis of approximately 80%-90%. The vessel continued distally and gave off 2 small obtuse marginal branches and terminated with a large bifurcating obtuse marginal branch. RIGHT CORONARY ARTERY: The right coronary artery was a dominant vessel. This vessel was severely diseased in multiple areas of sinoatrial branch, a conus branch. After this, there was an area of 40%-50% stenosis noted. The vessel then continued and an area of 80%-90% stenosis was noted acute marginal. The vessel continued distally and then there was an area of 60% stenosis prior to the takeoff and bifurcation of the posterior descending artery and posterolateral vessel, which trifurcated. LEFT VENTRICULOGRAM: The left ventriculogram demonstrated hypokinesis of the anterior wall and apex and inferoapical wall. Estimated ejection fraction was approximately 50%. CONCLUSION: 1. Normal left main coronary artery. 2. Left anterior descending artery with proximal 80% stenosis and mid segment 60%-70% stenosis. 3. Left circumflex artery nondominant with a proximal 80% stenosis. 4. Right coronary artery with proximal to mid 80% stenosis and distal 60% stenosis. 5. Mild left ventricular systolic dysfunction, estimated at 50% with anterior hypokinesis. 6. Elevated left ventricular end-diastolic pressure. 7. Hypertension. Based on the above angiographic findings, the patient will be referred for coronary artery bypass surgery, especially in face of her non-ST elevation myocardial infarction. Physical Exam Const alert, oriented x3, no apparent distress and healthy appearing Orientation / Consciousness: awake HEENT normocephalic, head/scalp atraumatic and hearing grossly normal bilaterally Eyes PERRL and EOMs intact bilaterally Neck supple and no JVD Chest Chest: midline sternotomy incision Resp clear to auscultation bilaterally Cardio regular rate, regular rhythm and S1 normal heart sound Cardio Narrative: Diminished A2 Heart Sounds: murmur systolic III/ crescendo-decrescendo LVOT and sternal notch to carotid arteries GI normal to inspection, nondistended, normoactive bowel sounds Extremity General Extremity: edema bilateral lower extremity Details: trace Skin no rashes or lesions noted Psych mental status grossly normal Assessment & Plan Assessment/Plan (1) CAD (coronary artery disease): (2) S/P triple vessel bypass: (3) Diastolic heart failure: (4) High cholesterol: (5) Hypertension: Procedure Criteria Type of Procedure Procedure Type: Elective Elective Risks - COVID COVID Risk Discussion: The surgeon/proceduralist and patient have discussed in detail the risk of exposure to and/or potential harm posed by the COVID-19 virus with having a surgery/procedure at this time versus the risk of delaying the surgery/procedure. It is not possible to know either the risk of delaying the surgery or procedure or chance of getting an infection with perfect accuracy, but a joint decision was made between the patient and the surgeon/proceduralist to proceed at this time with the scheduled surgery/procedure as indicated on the consent form.
[2021-04-23] MEDS: ALPRAZolam 0.25 MG Tablet PO ×2 (15:23→23:35)
[2021-04-24] VITALS (25 sets, daily range): BP systolic 140–191; BP diastolic 51–91; PULSE 70–111; RESP 16–20; TEMP 36.2–37; O2SAT 92–100
--- NOTE | 2021-04-24 05:55 | EKG12_ITS ---
Test Reason : AM EKG Blood Pressure : / mmHG Vent. Rate : 080 BPM Atrial Rate : 080 BPM P-R Int : 158 ms QRS Dur : 106 ms QT Int : 428 ms P-R-T Axes : 070 059 066 degrees QTc Int : 493 ms Normal sinus rhythm Normal ECG When compared with ECG of 21-APR-2021 18:13, MANUAL COMPARISON REQUIRED, DATA IS UNCONFIRMED Confirmed by BETTY GARRIDO, KAYCEE ([id number]), assistant production editor ZOHAIB WU ([id number]) on 05/01/2021 7:41:00 AM Referred By: XIAO Confirmed By:KAYCEE HERNÁNDEZ MD
[2021-04-24] MEDS: Aspirin E.C. 81 MG Tablet PO (06:40)
[2021-04-24] MEDS: Metoprolol Tartrate 25 MG Tablet PO (06:40)
[2021-04-24 06:53] LABS: Absolute Lymphocyte Count 0.78 X10^3/uL (0.83-4.51); Basophil# 0.03 X10^3/uL; Basophil% 0.6 % (0-1); Eosinophil# 0.23 X10^3/uL; Eosinophils% 4.3 % (0-5); Hematocrit 30.2 % (37-47); Hemoglobin 8.9 g/dL (12.0-15.0); Lymphocyte # 0.78 X10^3/ul (0.83-4.51); Lymphocyte % 14.7 % (19-41); Mean Corp Hgb Conc 29.5 g/dL (32-36); Mean Corpuscular Hgb 26.3 pg (27.0-32.0); Mean Corpuscular Volume 89.3 fL (81-99); Mean Platelet Vol. 10.4 fl (6.2-12.0); Monocyte# 0.32 X10^3/uL; NRBC Flagged by Analyzer 0 % (0-5); Neutrophil # 3.95 X10^3/uL (2.7-7.7); Neutrophil % 74.2 % (47-70); Platelet Count 181 K/mm3 (150-450); RBC Distribution Width SD 56.3 fl (35.1-43.9); Red Blood Count 3.38 M/mm3 (4.2-5.4); White Blood Count 5.3 K/mm3 (4.4-11.0)
[2021-04-24 07:20] LABS: Anion Gap 3 (5-15); BUN 24 mg/dL (7-18); BUN/Creat Ratio 23.5 RATIO (10-20); Calcium,Total 8.8 mg/dL (8.5-10.1); Chloride 109 mmol/L (98-107); Creatinine, Serum 1.02 mg/dL (0.55-1.02); EST Glomerular Filtration Rate 55 mL/min (>60); Est Glom Filt Rate - Afr Amer 67 mL/min (>60); Estimated Creatinine Clearance 34.79 ml/min; Glucose 85 mg/dL (74-106); Potassium 3.8 mmol/L (3.5-5.1); Sodium Level 139 mmol/L (136-145)
[2021-04-24] MEDS: ALPRAZolam 0.25 MG Tablet PO (08:03)
[2021-04-24] MEDS: hydrALAZINE 20 MG/ML Vial 10 MG IV (10:27)
--- NOTE | 2021-04-24 12:43 | PN.CARD_ITS ---
Subjective Subjective Patient seen and evaluated. Underwent cardiac catheterization today. Objective Data Vital Signs: Vital Signs Temp Pulse Resp BP Pulse Ox 98.6 F 77 18 175/52 H 98 04/24/21 09:57 04/24/21 10:27 04/24/21 09:57 04/24/21 10:27 04/24/21 09:57 Oxygen Flow Rate (L/min) 2 Oxygen Delivery Method Room Air Weight: 192 lb 3.889 oz Body Mass Index (BMI) 34.7 Intake & Output: Intake and Output for Last 24 Hours 04/22/21 04/23/21 04/24/21 23:59 23:59 23:59 Intake Total 1040 / 1040 240 / 480 360 / 360 Balance 1040 / 1040 240 / 480 360 / 360 Lab / Micro Data Result Diagrams: 04/24/21 06:01 04/24/21 06:01 Labs: Laboratory Results - last 24 hr 04/24/21 04/24/21 04/24/21 06:01 06:01 06:01 WBC 5.3 RBC 3.38 L Hgb 8.9 L Hct 30.2 L MCV 89.3 MCH 26.3 L MCHC 29.5 L RDW Std Deviation 56.3 H RDW Coeff of Genny 18.0 H Plt Count 181 MPV 10.4 Immature Gran % (Auto) 0.200 Neut % (Auto) 74.2 H Lymph % (Auto) 14.7 L [place] % (Auto) 6.0 Eos % (Auto) 4.3 Baso % (Auto) 0.6 Absolute Neuts (auto) 4.0 Absolute Lymphs (auto) 0.78 L Nucleated RBC % 0 PT 13.0 INR 1.0 Sodium 139 Potassium 3.8 Chloride 109 H Carbon Dioxide 27.0 Anion Gap 3 L BUN 24 H Creatinine 1.02 Estim Creat Clear Calc 34.79 Est GFR (MDRD) Af Amer 67 Est GFR (MDRD) Non-Af 55 L BUN/Creatinine Ratio 23.5 H Glucose 85 Calcium 8.8 Rhythm Strip Rhythm Strip: Sinus Rhythm Rate: 65 Ectopy: None Cardiology Labs/Tests 04/24/21 06:01: WBC 5.3, RBC 3.38 L, Hgb 8.9 L, Hct 30.2 L, MCV 89.3, MCH 26.3 L , MCHC 29.5 L, Plt Count 181, MPV 10.4, Immature Gran % (Auto) 0.200, Neut % (Auto) 74.2 H, Lymph % (Auto) 14.7 L, [place] % (Auto) 6.0, Eos % (Auto) 4.3, Baso % (Auto) 0.6, Absolute Neuts (auto) 4.0, Nucleated RBC % 0 04/24/21 06:01: PT 13.0, INR 1.0 04/24/21 06:01: Sodium 139, Potassium 3.8, Chloride 109 H, Carbon Dioxide 27.0, Anion Gap 3 L, BUN 24 H, Creatinine 1.02, Est GFR (MDRD) Af Amer 67, Est GFR (MDRD) Non-Af 55 L, BUN/Creatinine Ratio 23.5 H, Glucose 85, Calcium 8.8 Rhythm: EKG: ECHO: Stress Test: Cardiac Cath: PCI: CT Surgery: Holter monitor: EPS: PPM: CXR: Chest CT Scan: Physical Exam Const oriented x3 and healthy appearing Orientation / Consciousness: awake HEENT normocephalic Eyes PERRL and conjunctivae normal Neck supple, no JVD and no carotid bruits Chest inspection of chest normal Resp normal respiratory effort and clear to auscultation bilaterally Cardio Palpation: normal PMI Rate: regular rate Rhythm: regular rhythm Heart Sounds: S1 normal and S2 normal Peripheral Pulses: pulses 2+ throughout GI normal to inspection, nondistended, normoactive bowel sounds Extremity normal to inspection and no clubbing, cyanosis or edema Psych mental status grossly normal Assessment & Plan Assessment/Plan (1) Chest pain: PLAN: She does have a history of chest discomfort. She underwent cardiac catheterization today which demonstrated a patent VALDEZ to the LAD, saphenous vein graft to the obtuse marginal branch, right coronary artery which is dominant and totally occluded in the mid to distal segment with a totally occluded saphenous vein graft subtending this area. Ejection fraction is preserved with an akinetic inferobasal wall. I would recommend aggressive risk factor modification and medical therapy. (2) S/P triple vessel bypass: PLAN: She is status post triple-vessel disease and triple-vessel bypass surgery as noted above. Her graft anatomy is as discussed. I do not think that she is a candidate for PCI or redo bypass surgery. (3) Hypertension: PLAN: She does have a history of hypertension which is uncontrolled. I would suggest the addition of amlodipine 5 mg a day, losartan 50 mg a day, increasing her metoprolol to 50 mg twice a day and monitoring her carefully. I will suggest that her blood pressures be monitored at least through this evening for discharge in a.m. (4) Aortic stenosis: PLAN: She does have aortic stenosis which is at most moderate. She also has mild aortic regurgitation as well as being anemic. Her echocardiogram was reviewed and does demonstrate adequate excursion of her aortic valve. At this time I do not think that we need to pursue this aortic valve acutely. She can be followed up with serial echocardiograms as necessary. (5) Right atrial mass: PLAN: This was reviewed on her previous echocardiogram as well as her recent echocardiogram. It is not entirely clear what this mass lesion is. It does not appear however to be consistent with a thrombus. A consideration for further evaluation with a transesophageal echocardiogram will be considered. This may help further delineated. However at this time I do not think that she will be a candidate for surgery just for resection of this nonfreely mobile lesion.
--- NOTE | 2021-04-24 12:51 | PN.HOSP_ITS ---
Documented by User: Bere Buck NP, TERMITE CONTROL SERVICE REPRESENTATIVE-C 04/24/21 13:28 Subjective Subjective Patient seen and examined. Denies chest pain, shortness of breath. States she feels anxious regarding heart cath. Daughter at bedside. Objective Data Objective Data Vital Signs: Vital Signs Temp Pulse Resp BP Pulse Ox 98.6 F 77 18 175/52 H 98 04/24/21 09:57 04/24/21 10:27 04/24/21 09:57 04/24/21 10:27 04/24/21 09:57 Oxygen Flow Rate (L/min) 2 Oxygen Delivery Method Room Air Weight: 192 lb 3.889 oz Body Mass Index (BMI) 34.7 Intake & Output: Intake and Output for Last 24 Hours 04/22/21 04/23/21 04/24/21 23:59 23:59 23:59 Intake Total 1040 / 1040 240 / 480 360 / 360 Balance 1040 / 1040 240 / 480 360 / 360 Lab / Micro Data Result Diagrams: 04/24/21 06:01 04/24/21 06:01 Labs: Laboratory Results - last 24 hr 04/24/21 04/24/21 04/24/21 06:01 06:01 06:01 WBC 5.3 RBC 3.38 L Hgb 8.9 L Hct 30.2 L MCV 89.3 MCH 26.3 L MCHC 29.5 L RDW Std Deviation 56.3 H RDW Coeff of Genny 18.0 H Plt Count 181 MPV 10.4 Immature Gran % (Auto) 0.200 Neut % (Auto) 74.2 H Lymph % (Auto) 14.7 L [place] % (Auto) 6.0 Eos % (Auto) 4.3 Baso % (Auto) 0.6 Absolute Neuts (auto) 4.0 Absolute Lymphs (auto) 0.78 L Nucleated RBC % 0 PT 13.0 INR 1.0 Sodium 139 Potassium 3.8 Chloride 109 H Carbon Dioxide 27.0 Anion Gap 3 L BUN 24 H Creatinine 1.02 Estim Creat Clear Calc 34.79 Est GFR (MDRD) Af Amer 67 Est GFR (MDRD) Non-Af 55 L BUN/Creatinine Ratio 23.5 H Glucose 85 Calcium 8.8 Rhythm Strip Rhythm Strip: Sinus Rhythm Rate: 65 Ectopy: None Physical Exam Const alert, oriented x3 and no apparent distress Orientation / Consciousness: awake, oriented to person, oriented to place and oriented to time HEENT normocephalic and moist oral mucous membranes Eyes PERRL, EOMs intact bilaterally and conjunctivae normal Neck no lymphadenopathy Resp normal respiratory effort and clear to auscultation bilaterally Cardio regular rate and regular rhythm Heart Sounds: murmur Peripheral Pulses: pulses 2+ throughout GI normal to inspection, nondistended, normoactive bowel sounds, non-tender and non-distended Extremity normal to inspection Skin no rashes or lesions noted Lesions: no lesions Rashes: no rashes Trauma: no lacerations or abrasions Neuro CN's II-XII intact bilaterally, no focal motor deficits, no sensory deficits noted and deep tendon reflexes 2+ bilaterally Psych mental status grossly normal and affect normal Assessment & Plan Assessment/Plan (1) Right atrial mass: (2) Chest pain: PLAN: 1. Chest pain, dyspnea on exertion- troponin negative. EKG without ST-T changes. Given concerning symptoms as well as history, cardiology consulted. Aspirin, statin. Patient underwent heart cath which demonstrated patent [place]aza to LAD, saphenous vein graft to the obtuse marginal branch, RCA which is dominant and totally occluded in the mid to distal segment with a totally occluded saphenous vein graft. Plan for aggressive medical management. Continue aspirin, statin, beta-jennifer, losartan. 2. Aortic stenosis: Echocardiogram September 2020 mentioned mild aortic insufficiency. Repeat echocardiogram demonstrates severe aortic stenosis with moderate restriction of the aortic valve. Heart cath showed at most moderate aortic stenosis. No further need for aortic valve treatment or eval. 3. CAD with history of CABG-on statin, metoprolol. Aspirin 81 mg added. Does not follow-up with cardiology, encouraged to establish with cardiology at discharge. 4. 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 Repeat echo without thrombus. Heart cath showed mass/lesion, does not appear to be consistent with thrombus. Consider MAYA for further evaluation. 5. Hypertension-blood pressure elevated. Amlodipine 5 mg added as well as losartan 50 mg daily. Metoprolol increased to 50 mg twice daily. As needed hydralazine for systolic blood pressure greater than 160. 6. Hyperlipidemia-continue statin. 7. Chronic normocytic anemia-appears at baseline, trend CBC. DVT prophylaxis-Lovenox subcu This patient was seen by CLINTON Anglin under the supervision of Dr. Garcia. Documented by User: Dr. Cem Garcia MD 04/24/21 13:59 Objective Data Lab / Micro Data Result Diagrams: 04/24/21 06:01 04/24/21 06:01 Charges/Coding Addendum Addendum: Dr. Garcia: I personally reviewed the chart and examined the patient, and agree with the above findings. 80-year-old female presents with chest pain and murmur in her right upper sternal border consistent with aortic stenosis, she did have an echo which demonstrated aortic stenosis and cardiology's plan is to proceed with an cardiac cath to further evaluate the severity of aortic stenosis. Her chest pain has resolved and her troponins remain normal. 04/22/2021: Doing well, no issues overnight. Still has no chest pain plan will be to proceed with a heart cath in the morning secondary to her aortic stenosis on echo correlating with her murmur. 04/23/2021: Doing well, no issues overnight. Denies any chest pain or lightheadedness. I did explain to her the reason for needing to evaluate her aortic stenosis. We will proceed with heart cath tomorrow. 04/24/2021: Doing well, had her heart cath today and does have little bit of a h ematoma as well elevated blood pressures. She will need to spend the night of resolution of the hematoma and to make medication adjustments for her hypertension. Cardiac cath was unremarkable, very little coronary artery disease and her aortic valve was moderately stenosed at best. She will need outpatient monitoring of this right atrial mass as well with a MAYA plus serial echoes to monitor her aortic stenosis. Visit Charges OBSV E&M: 28844 Subsequent observation care L2
[2021-04-24] MEDS: Atorvastatin Calcium 40 MG Tablet PO (15:18)
[2021-04-24] MEDS: Pantoprazole Sodium 40 MG Tablet PO (15:18)
[2021-04-24] MEDS: amLODIPine 5 MG Tablet PO (15:19)
[2021-04-24] MEDS: Losartan Potassium 50 MG Tablet PO (15:19)
--- NOTE | 2021-04-24 16:59 | CL.D_ITS ---
Patient Name: JENNIFER ARRIETA Study Date: 04/24/2021 Performing: Aleksey Marroquin MD Ht: 62 inches 157.48 cm : 1940 Wt: 187.2 lbs 84.82 kg Age: 80 Gender: female BSA: 1.86 PROCEDURE(S) PERFORMED BF66-LON/COR/LV/CABG CLINICAL PROFILE AND INDICATIONS Indications: Suspected CAD Heart Failure: None Stress/Imaging Stress/Image Study Performed: No CAD Presentations: Unstable angina. CONCLUSIONS Coronary artery disease status post coronary bypass surgery with a patent VALDEZ to the LAD and sapheno us vein graft to the obtuse marginal branch. The [place] right coronary artery is occluded in the mid to distal segment and the saphenous vein graft to the right coronary artery is also occluded. RECOMMENDATIONS Medical therapy DESCRIPTION OF PROCEDURE The patient arrived to the procedure lab. The risks and benefits of the procedure as well as a full d escription of our services here and current unavailability of surgical backup were fully explained to the patient and/or their significant other prior to the catheterization. The Timeout was completed, verifying the correct patient and procedure. The patient's procedural site was prepped and draped in the usual fashion. Local anesthetic was given subcutaneously to right groin region with Lidocaine 2%. Using a modified Seldinger technique, arterial access was obtained via the right femoral artery, a 5 Fr sheath was inserted. Left Coronary Artery selective angiography was performed in multiple views u sing a 5 Fr. JL4 catheter. Right Coronary Artery selective angiography was then performed in multiple views using a 5 Fr. 3DRC (Jared) catheter. Left internal mammary artery graft to the LAD selectiv e angiography was performed in multiple views using a 5 Fr. 3DRC (Jared) catheter. Saphenous Vein graft to the OM 1 selective angiography was performed in multiple views using a 5 Fr. 3DRC (Jared) catheter. Left Ventriculography was performed in IQBAL projection using a 5 Fr. Pigtail catheter. LV to AO pullback pressures were then recorded.Contrast was injected through the sheath an d the Right Iliac and Femoral artery were assessed for possible closure device.The arterial sheath wa s pulled and a Mynx closure device was deployed for hemostasis CORONARY ANGIOGRAPHY DOMINANCE: Right Dominant LEFT HEART ASSESSMENT Left Ventricular Ejection Fraction: by LV Gram 55 % Inferior Basal Akinesis Normal Left Ventricular systolic function LEFT MAIN: Mild calcification, Mild luminal irregularities LEFT ANTERIOR DESCENDING ARTERY: MID LAD: is occluded DIAGONAL 1: Proximal - Moderate luminal irregularities up to 50% CIRCUMFLEX ARTERY: Mild luminal irregularities less than 30% OM 1: Proximal - is occluded RIGHT CORONARY ARTERY: DISTAL RCA: is occluded GRAFTS: Saphenous Vein graft to the RCA is totally occluded Saphenous Vein graft to the 1st OM is patent VALDEZ graft to the Mid LAD is patent VALVE FINDINGS: Aortic Valve Stenosis - mild COMPLICATIONS No Complications PROCEDURE MEDICATIONS Versed 1 mg IV Oxygen: 2 L/min via nasal cannula SUMMARY OF HEMODYNAMIC DATA Time AIR REST ECG 12:01:10 AO 196/75 (126) SA 12:11:25 AO 195/73 (123) 12:23:20 LV 202/10, 26 12:27:00 LV 202/13, 26 12:27:06 LV 190/10, 25 12:27:40 LV 191/9, 24 12:27:47 LVp 190/17, 35 12:27:50 AOp 173/61 (108) 12:27:55 Signed By Aleksey Marroquin MD On 04/24/2021 16:58:18 Aleksey Marroquin MD
[2021-04-24] MEDS: Metoprolol Tartrate 50 MG Tablet PO (21:38)
[2021-04-25] VITALS (7 sets, daily range): BP systolic 117–151; BP diastolic 46–64; PULSE 71–96; RESP 16–18; TEMP 36.6–36.9; O2SAT 94
[2021-04-25 07:01] LABS: Absolute Lymphocyte Count 0.78 X10^3/uL (0.83-4.51); Absolute Neutrophil Count 5.6 X10^3/uL (2.0-7.7); Basophil# 0.04 X10^3/uL; Basophil% 0.6 % (0-1); Eosinophil# 0.13 X10^3/uL; Eosinophils% 1.8 % (0-5); Hematocrit 27.3 % (37-47); Hemoglobin 8.5 g/dL (12.0-15.0); Lymphocyte # 0.78 X10^3/ul (0.83-4.51); Mean Corp Hgb Conc 31.1 g/dL (32-36); Mean Corpuscular Hgb 27.1 pg (27.0-32.0); Mean Corpuscular Volume 86.9 fL (81-99); Mean Platelet Vol. 11.2 fl (6.2-12.0); NRBC Flagged by Analyzer 0 % (0-5); Neutrophil # 5.64 X10^3/uL (2.7-7.7); Neutrophil % 79.3 % (47-70); POSITIVE COUNT YES; Platelet Count 171 K/mm3 (150-450); RBC Distribution Width CV 18.6 % (11.6-14.6); RBC Distribution Width SD 57.1 fl (35.1-43.9); Red Blood Count 3.14 M/mm3 (4.2-5.4); White Blood Count 7.1 K/mm3 (4.4-11.0)
[2021-04-25 07:06] LABS: Differential Indicated SCAN CRITERIA MET
[2021-04-25 07:36] LABS: Hypochromasia 2+; Platelet Estimate ADEQUATE (ADEQ); Polychromasia RARE
[2021-04-25 07:45] LABS: Anion Gap 6 (5-15); BUN 17 mg/dL (7-18); Calcium,Total 8.3 mg/dL (8.5-10.1); Chloride 108 mmol/L (98-107); Creatinine, Serum 0.85 mg/dL (0.55-1.02); EST Glomerular Filtration Rate 68 mL/min (>60); Est Glom Filt Rate - Afr Amer 83 mL/min (>60); Estimated Creatinine Clearance 41.75 ml/min; Glucose 113 mg/dL (74-106); Potassium 3.3 mmol/L (3.5-5.1); Sodium Level 141 mmol/L (136-145)
[2021-04-25] MEDS: Pantoprazole Sodium 40 MG Tablet PO (09:29)
[2021-04-25] MEDS: Metoprolol Tartrate 50 MG Tablet PO (09:29)
[2021-04-25] MEDS: Aspirin E.C. 81 MG Tablet PO (09:29)
[2021-04-25] MEDS: Enoxaparin 40 MG/0.4 ML Syringe SC (09:29)
[2021-04-25] MEDS: Losartan Potassium 50 MG Tablet PO (09:29)
[2021-04-25] MEDS: Atorvastatin Calcium 40 MG Tablet PO (09:29)
[2021-04-25] MEDS: amLODIPine 5 MG Tablet PO (09:30)
--- NOTE | 2021-04-25 11:41 | PCM.DC ---
Discharge Instructions Diet Discharge Diet: Low fat / Low cholesterol Activity Discharge Activity: Return to Normal Activity Additional Activity Instructions:: Follow post-op cath instructions Dressing / Incision Call your doctor if your incision/area has: Continuous Slow Oozing, Sudden Increased Bleeding, Increased Pain/ Swelling, Increased Redness, Foul Smelling Discharge and Swelling at the incision site Call your doctor if you observe: Shortness of breath, Dizziness and Chest pain Follow Up Care Test Results: Test results from this visit will be discussed in further detail at your follow-up appointment, if applicable. Discharge Plan Admission Admit Date/Time: 04/20/21 17:35 Primary Reason for Your Visit: Chest pain Attending Provider: Cem Garcia Primary Care Provider: Steffen Roper Chi Consulting Providers: Avila Nevarez Instructions Additional Instructions / Restrictions: Your heart cath showed a mass in the right atrium. You may need transesophageal echocardiogram in the future for further evaluation which can be completed as an outpatient. Plan to continue medical management for underlying chronic heart disease and medication adjustments for blood pressure control. Discharge Orders/Prescriptions Prescriptions: New losartan 50 mg Tablet 50 mg PO DAILY Qty: 30 RF: 0 amlodipine 5 mg Tablet 5 mg PO DAILY Qty: 30 RF: 0 aspirin 81 mg Tablet,Delayed Release (Dr/Ec) 81 mg PO DAILY@0800 Qty: 30 RF: 0 metoprolol tartrate 50 mg Tablet 50 mg PO BID Qty: 60 RF: 0 Continued omeprazole 40 MG capsule 40 mg PO DAILY RF: 0 atorvastatin 40 MG tablet 40 mg PO DAILY RF: 0 ondansetron HCl 8 MG tablet 8 mg PO Q8H PRN (Reason: Nausea) RF: 0 acetaminophen 650 mg Tablet Extended Release 1,300 mg PO Q12H PRN (Reason: Pain) RF: 0 potassium 99 mg Tablet 99 mg PO DAILY RF: 0 magnesium oxide 400 mg magnesium Tablet 400 mg PO DAILY RF: 0 meloxicam 15 mg tablet 15 mg PO DAILY RF: 0 Discontinued apixaban 5 MG tablet 5 mg PO BID Qty: 60 RF: 0 metoprolol tartrate 25 mg tablet 25 mg PO BID RF: 0 Referrals / Follow Up: Steffen Roper Chi, MD [Primary Care Provider] - In 1 Week Divina Guzman PA [PHYSICIAN RECORDS MANAGEMENT ASSOCIATE] - In 1 Week Disposition Disposition (needs filled in before D/C Order can be placed): Home, Self Care
--- NOTE | 2021-04-25 11:57 | PCM.DC.SUM ---
Documented by User: Bere Buck NP, G[employer] COMPRESSOR TURBINE OPERATOR-C 04/25/21 12:01 Providers Date of Admission: 04/20/21 Date of Discharge: 04/25/21 Primary Care Physician: Dr. Steffen Roper MD Consultations 04/20/21 17:42 Consult: Cardiology Routine Consulting Provider: Avila Nevarez Reason for Consult: chest pain, CAD EMERGENT Consult: No MD Notified: Yes Date Notified: 04/20/21 Time Notified: 17:33 Method of Notification: Text Reason For Visit: CHEST PAIN Diagnosis Discharge Diagnosis (1) Right atrial mass: Status: Acute Code(s): I51.89 - Other ill-defined heart diseases (2) Chest pain: Status: Acute Code(s): R07.9 - Chest pain, unspecified Medications at Discharge Home Medications omeprazole 40 mg PO DAILY 04/15/15 atorvastatin 40 mg PO DAILY 04/20/20 ondansetron HCl 8 mg PO Q8H PRN 11/06/20 acetaminophen 1,300 mg PO Q12H PRN 04/20/21 magnesium oxide 400 mg PO DAILY 04/20/21 meloxicam 15 mg PO DAILY 04/20/21 potassium 99 mg PO DAILY 04/20/21 amlodipine 5 mg PO DAILY #30 tab 04/25/21 aspirin 81 mg PO DAILY@0800 #30 tab 04/25/21 losartan 50 mg PO DAILY #30 tab 04/25/21 metoprolol tartrate 50 mg PO BID #60 tab 04/25/21 Hospital Course Operations None Procedures 2-D Echocardiogram and Cardiac catheterization Summary of Care Provided Minutes Spent on Discharge: 35 Hospital Course: Patient is an 80-year-old female admitted April 20, 2021 due to chest pain, shortness of breath. 1. Chest pain, dyspnea on exertion- troponin negative. EKG without ST-T changes. Given concerning symptoms as well as history, cardiology consulted. Patient underwent heart cath which demonstrated patent [place] to LAD, saphenous vein graft to the obtuse marginal branch, RCA which is dominant and totally occluded in the mid to distal segment with a totally occluded saphenous vein graft. Plan for aggressive medical management. Continue aspirin, statin, beta-jennifer, losartan. Follow-up with cardiology in 1 week. 2. Aortic stenosis: Echocardiogram September 2020 mentioned mild aortic insufficiency. Repeat echocardiogram demonstrates severe aortic stenosis with moderate restriction of the aortic valve. Heart cath showed at most moderate aortic stenosis. No further need for aortic valve treatment or eval. 3. CAD with history of CABG-on statin, metoprolol. Aspirin 81 mg added. Would like to follow up with Dr. Howard at [facility]. Follow up with GAS COMPRESSOR TURBINE OPERATOR/PA in 1 week. 4. 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 Repeat echo without thrombus. Heart cath showed right atrial mass/lesion, does not appear to be consistent with thrombus. Consider MAYA for further evaluation which may be completed as outpatient. Follow-up with cardiology at discharge for further evaluation. 5. Hypertension-elevated during admission. Amlodipine 5 mg added as well as losartan 50 mg daily. Metoprolol increased to 50 mg twice daily. Improved on current regimen. 6. Hyperlipidemia-continue statin. 7. Chronic normocytic anemia-appears at baseline. Physical Exam Const alert, oriented x3 and no apparent distress Orientation / Consciousness: awake, oriented to person, oriented to place and oriented to time HEENT normocephalic and moist oral mucous membranes Eyes PERRL, EOMs intact bilaterally and conjunctivae normal Neck no lymphadenopathy Resp normal respiratory effort and clear to auscultation bilaterally Cardio regular rate and regular rhythm Heart Sounds: murmur Peripheral Pulses: pulses 2+ throughout GI normal to inspection, nondistended, normoactive bowel sounds, non-tender and non-distended Extremity normal to inspection Skin no rashes or lesions noted Lesions: no lesions Rashes: no rashes Trauma: no lacerations or abrasions Neuro CN's II-XII intact bilaterally, no focal motor deficits, no sensory deficits noted and deep tendon reflexes 2+ bilaterally Psych mental status grossly normal and affect normal Patient seen and examined prior to discharge. Physical assessment as noted above. Patient is stable for discharge with follow up recommendations as noted above. This patient was seen by CLINTON Anglin under the supervision of Dr. Garcia. Weight / BMI Weight Weight: 145 lb 1.027 oz Body Mass Index (BMI) 34.7 ABG / Lab / Microbiology Data Result Diagrams: 04/25/21 06:35 04/25/21 06:35 Laboratory: Laboratory Results - last 24 hr 04/25/21 04/25/21 06:35 06:35 WBC 7.1 RBC 3.14 L Hgb 8.5 L Hct 27.3 L MCV 86.9 MCH 27.1 MCHC 31.1 L D RDW Std Deviation 57.1 H RDW Coeff of Genny 18.6 H Plt Count 171 MPV 11.2 Immature Gran % (Auto) 0.300 Neut % (Auto) 79.3 H Lymph % (Auto) 11.0 L Posey % (Auto) 7.0 Eos % (Auto) 1.8 Baso % (Auto) 0.6 Absolute Neuts (auto) 5.6 Absolute Lymphs (auto) 0.78 L Nucleated RBC % 0 Platelet Estimate ADEQUATE Polychromasia RARE Hypochromasia 2+ Sodium 141 Potassium 3.3 L Chloride 108 H Carbon Dioxide 27.0 Anion Gap 6 BUN 17 Creatinine 0.85 Estim Creat Clear Calc 41.75 Est GFR (MDRD) Af Amer 83 Est GFR (MDRD) Non-Af 68 BUN/Creatinine Ratio 20.0 Glucose 113 H Calcium 8.3 L D/C Instructions Discharge Diet: Low fat / Low cholesterol Additional Activity Instructions: Follow post-op cath instructions Call your doctor if your incision/area has: Continuous Slow Oozing, Sudden Increased Bleeding, Increased Pain/ Swelling, Increased Redness, Foul Smelling Discharge and Swelling at the incision site Call your doctor if you observe: Shortness of breath, Dizziness and Chest pain Meaningful Use Info Meaningful Use Diagnoses (Choose all that apply): None applicable Discharge Plan Admission Admit Date/Time: 04/20/21 17:35 Primary Reason for Your Visit: Chest pain Attending Provider: Cem Garcia Primary Care Provider: Steffen Roper Chi Consulting Providers: Avila Nevarez Instructions Additional Instructions / Restrictions: Your heart cath showed a mass in the right atrium. You may need transesophageal echocardiogram in the future for further evaluation which can be completed as an outpatient. Plan to continue medical management for underlying chronic heart disease and medication adjustments for blood pressure control. Discharge Orders/Prescriptions Prescriptions: New losartan 50 mg Tablet 50 mg PO DAILY Qty: 30 RF: 0 amlodipine 5 mg Tablet 5 mg PO DAILY Qty: 30 RF: 0 aspirin 81 mg Tablet,Delayed Release (Dr/Ec) 81 mg PO DAILY@0800 Qty: 30 RF: 0 metoprolol tartrate 50 mg Tablet 50 mg PO BID Qty: 60 RF: 0 Continued omeprazole 40 MG capsule 40 mg PO DAILY RF: 0 atorvastatin 40 MG tablet 40 mg PO DAILY RF: 0 ondansetron HCl 8 MG tablet 8 mg PO Q8H PRN (Reason: Nausea) RF: 0 acetaminophen 650 mg Tablet Extended Release 1,300 mg PO Q12H PRN (Reason: Pain) RF: 0 potassium 99 mg Tablet 99 mg PO DAILY RF: 0 magnesium oxide 400 mg magnesium Tablet 400 mg PO DAILY RF: 0 meloxicam 15 mg tablet 15 mg PO DAILY RF: 0 Discontinued apixaban 5 MG tablet 5 mg PO BID Qty: 60 RF: 0 metoprolol tartrate 25 mg tablet 25 mg PO BID RF: 0 Referrals / Follow Up: Steffen Roper Chi, MD [Primary Care Provider] - In 1 Week Divina Guzman PA [PHYSICIAN CHOCOLATE COATER] - In 1 Week Disposition Disposition (needs filled in before D/C Order can be placed): Home, Self Care Documented by User: Dr. Cem Garcia MD 04/25/21 13:42 Providers Date of Admission: 04/20/21 Reason For Visit: CHEST PAIN Medications at Discharge Home Medications omeprazole 40 mg PO DAILY 04/15/15 atorvastatin 40 mg PO DAILY 04/20/20 ondansetron HCl 8 mg PO Q8H PRN 11/06/20 acetaminophen 1,300 mg PO Q12H PRN 04/20/21 magnesium oxide 400 mg PO DAILY 04/20/21 meloxicam 15 mg PO DAILY 04/20/21 potassium 99 mg PO DAILY 04/20/21 amlodipine 5 mg PO DAILY #30 tab 04/25/21 aspirin 81 mg PO DAILY@0800 #30 tab 04/25/21 losartan 50 mg PO DAILY #30 tab 04/25/21 metoprolol tartrate 50 mg PO BID #60 tab 04/25/21 ABG / Lab / Microbiology Data Result Diagrams: 04/25/21 06:35 04/25/21 06:35 Discharge Plan Admission Admit Date/Time: 04/20/21 17:35 Primary Reason for Your Visit: Chest pain Attending Provider: Cem Garcia Primary Care Provider: Steffen Roper Chi Consulting Providers: Avila Nevarez Instructions Additional Instructions / Restrictions: Your heart cath showed a mass in the right atrium. You may need transesophageal echocardiogram in the future for further evaluation which can be completed as an outpatient. Plan to continue medical management for underlying chronic heart disease and medication adjustments for blood pressure control. Discharge Orders/Prescriptions Prescriptions: New losartan 50 mg Tablet 50 mg PO DAILY Qty: 30 RF: 0 amlodipine 5 mg Tablet 5 mg PO DAILY Qty: 30 RF: 0 aspirin 81 mg Tablet,Delayed Release (Dr/Ec) 81 mg PO DAILY@0800 Qty: 30 RF: 0 metoprolol tartrate 50 mg Tablet 50 mg PO BID Qty: 60 RF: 0 Continued omeprazole 40 MG capsule 40 mg PO DAILY RF: 0 atorvastatin 40 MG tablet 40 mg PO DAILY RF: 0 ondansetron HCl 8 MG tablet 8 mg PO Q8H PRN (Reason: Nausea) RF: 0 acetaminophen 650 mg Tablet Extended Release 1,300 mg PO Q12H PRN (Reason: Pain) RF: 0 potassium 99 mg Tablet 99 mg PO DAILY RF: 0 magnesium oxide 400 mg magnesium Tablet 400 mg PO DAILY RF: 0 meloxicam 15 mg tablet 15 mg PO DAILY RF: 0 Discontinued apixaban 5 MG tablet 5 mg PO BID Qty: 60 RF: 0 metoprolol tartrate 25 mg tablet 25 mg PO BID RF: 0 Referrals / Follow Up: Steffen Roper Chi, MD [Primary Care Provider] - In 1 Week Divina Guzman PA [PHYSICIAN CHOCOLATE COATER] - In 1 Week Disposition Disposition (needs filled in before D/C Order can be placed): Home, Self Care Charges/Coding Addendum Addendum: Dr. Garcia: I personally reviewed the chart and examined the patient, and agree with the above findings. 80-year-old female presents with chest pain and murmur in her right upper sternal border consistent with aortic stenosis, she did have an echo which demonstrated aortic stenosis and cardiology's plan is to proceed with an cardiac cath to further evaluate the severity of aortic stenosis. Her chest pain has resolved and her troponins remain normal. 04/22/2021: Doing well, no issues overnight. Still has no chest pain plan will be to proceed with a heart cath in the morning secondary to her aortic stenosis on echo correlating with her murmur. 04/23/2021: Doing well, no issues overnight. Denies any chest pain or lightheadedness. I did explain to her the reason for needing to evaluate her aortic stenosis. We will proceed with heart cath tomorrow. 04/24/2021: Doing well, had her heart cath today and does have little bit of a hematoma as well elevated blood pressures. She will need to spend the night of resolution of the hematoma and to make medication adjustments for her hypertension. Cardiac cath was unremarkable, very little coronary artery disease and her aortic valve was moderately stenosed at best. She will need outpatient monitoring of this right atrial mass as well with a MAYA plus serial echoes to monitor her aortic stenosis. 04/25/2021: Doing well, cath yesterday was unremarkable however she did have a postoperative hematoma and blood pressures were elevated so she had some blood pressure medication changes and was monitored overnight. Today she feels much better and would like to go home. Plan will be to discharge her on Norvasc, Lipitor, losartan, metoprolol. The dose on her home metoprolol was increased from 25 mg twice daily to 50 mg twice daily, and losartan and Norvasc are new additions. She had some issues with bleeding hemorrhoid therefore she took herself off of Eliquis in March, and she does not have a history of A. fib therefore it is okay to discontinue the Eliquis for now and continue with just aspirin and she will need to follow-up with cardiology as an outpatient as well. The Eliquis was secondary to a right atrial thrombus thrombus which was thought to be seen in September 2020 however on the heart cath during this admission while she does have a mass in her right atrium it does not appear consistent with a thrombus therefore the need for anticoagulation is minimal. Visit Charges OBSV E&M: 53585 Observation care discharge
[2021-04-25] MEDS: Potassium Chloride Oral Tablet 20 MEQ 40 MEQ PO (12:14)
--- NOTE | 2021-04-25 14:17 | PHA.DC.MC ---
Pharmacy Service has performed discharge medication reconciliation and counseling for this patient. 1. ASPIRIN 81MG PO DAILY 2. AMLODIPINE 5MG PO DAILY 3. LOSARTAN 50MG PO DAILY The patient's discharge medication list was reviewed for discrepancies and discrepancies were resolved. Home Medications omeprazole 40 mg PO DAILY 04/15/15 atorvastatin 40 mg PO DAILY 04/20/20 ondansetron HCl 8 mg PO Q8H PRN 11/06/20 acetaminophen 1,300 mg PO Q12H PRN 04/20/21 magnesium oxide 400 mg PO DAILY 04/20/21 meloxicam 15 mg PO DAILY 04/20/21 potassium 99 mg PO DAILY 04/20/21 amlodipine 5 mg PO DAILY #30 tab 04/25/21 aspirin 81 mg PO DAILY@0800 #30 tab 04/25/21 losartan 50 mg PO DAILY #30 tab 04/25/21 metoprolol tartrate 50 mg PO BID #60 tab 04/25/21 The patient was counseled on the following discharge medications and changes in medications for homegoing were reviewed. The Reason for Use, instructions for use, and potential side effects were reviewed for all new medications. The patient's questions regarding all of their medications were answered. The patient was able to verbally demonstrate an understanding of their discharge medications.
[2021-04-25] MEDS: Acetaminophen 325 MG Tablet 650 MG PO (17:58)
== END 2021-04-25 11:50 | disposition home or self-care (01) ==
LOC: ED 14:45 → PCU 17:02
PROVIDERS: Nurse Practitioner Family; Admitting Provider Student in an Organized Health Care Education/Training Program; Emergency Provider Emergency Medicine; PCP Family Medicine Geriatric Medicine; Visit Provider Family Medicine
DX: I25.110 Atherosclerotic heart disease of native coronary artery with unstable angina pectoris (principal); I25.2 Old myocardial infarction; I13.0 Hypertensive heart and chronic kidney disease with heart failure and stage 1 through stage 4 chronic kidney disease, or unspecified chronic kidney disease; D50.0 Iron deficiency anemia secondary to blood loss (chronic); K21.9 Gastro-esophageal reflux disease without esophagitis; M19.90 Unspecified osteoarthritis, unspecified site; F32.9 Major depressive disorder, single episode, unspecified; N18.30 Chronic kidney disease, stage 3 unspecified; I25.82 Chronic total occlusion of coronary artery; I50.32 Chronic diastolic (congestive) heart failure; Z79.01 Long term (current) use of anticoagulants; Z79.899 Other long term (current) drug therapy; Z95.1 Presence of aortocoronary bypass graft; Z87.891 Personal history of nicotine dependence; E78.5 Hyperlipidemia, unspecified; F41.9 Anxiety disorder, unspecified; K64.9 Unspecified hemorrhoids; I08.3 Combined rheumatic disorders of mitral, aortic and tricuspid valves; E66.9 Obesity, unspecified; Z68.35 Body mass index [BMI] 35.0-35.9, adult; Z86.718 Personal history of other venous thrombosis and embolism; Z86.16 Personal history of COVID-19
CPT/HCPCS: 36415; 71045; 80048; 80061; 83735; 84484; 85025; 85610; 93005; 93306; 93459; 94640; 96372; 96374; 96375; 96376; 99152; 99153; 99218; 99285; C1760; Q9957; A4216; C1769; C8929; G0378; J2405; J3490; Q9967

== ENCOUNTER 2021-05-07 06:06 | Day surgery (SDC) | payer MEDICARE, SELFPAY ==
[2021-05-03 14:21] VITALS: BMI 33.8
[2021-05-07 06:45] VITALS: BP 156/60; PULSE 60; RESP 16; TEMP 36.3; O2SAT 95; BMI 33.7
--- NOTE | 2021-05-07 07:30 | RAD_ITS ---
PROCEDURE: Left L3-S1 radiofrequency ablation. DATE OF EXAMINATION: 05/07/2021. INDICATION: Female, 80 years old. Chronic low back pain. FLUOROSCOPY TIME (if supplied): (22 seconds) minutes/seconds. 8 images were obtained. RAD/L/S Spine Min 4 Views IMPRESSION: Intraoperative imaging provided for left L3-S1 radiofrequency ablation. Electronically Signed: Michael Rojas MD at 14:18 EDT , Service support ,
[2021-05-07] MEDS: Bupivacaine 0.25% 30 ML Vial (07:54)
[2021-05-07] MEDS: Lidocaine 1% (30 ml sdv) 30 ML Vial (07:54)
[2021-05-07] MEDS: MethylPREDNISolone Acetate 40 MG/ML Vial IM (07:54)
[2021-05-07 08:15] VITALS: BP 136/63; BP 156/60; PULSE 69; RESP 18; TEMP 36.4; O2SAT 100
[2021-05-07 08:20] VITALS: BP 143/44; BP 156/60; PULSE 65; RESP 16; O2SAT 99
[2021-05-07 08:25] VITALS: BP 149/46; BP 156/60; PULSE 65; RESP 16; O2SAT 100
[2021-05-07 08:30] VITALS: BP 153/48; BP 156/60; PULSE 65; RESP 16; TEMP 36.3; O2SAT 98
[2021-05-07] MEDS: Lactated Ringers 1,000 ML 100 ML IV (08:35)
[2021-05-07 09:22] VITALS: BP 156/60
--- NOTE | 2021-05-07 16:17 | PCM.OPRPT ---
Report of Operation Date of Procedure: 05/07/21 Pre-Operative Diagnosis: Lumbosacral spondylosis, lumbosacral degenerative disc disease, lumbar facet arthropathy Post-Operative Diagnosis: Lumbosacral spondylosis, lumbosacral degenerative disc disease, lumbar facet arthropathy Surgery/Procedure Performed:: Left-sided lumbar radiofrequency ablation of the medial branch L3, L4, L5, S1 Type of Anesthesia: MAC Estimated Blood Loss (mL): Minimal Description of Procedure: History and physical today was reviewed. Risks and benefits of procedure explained. The patient understood, agreed to the procedure and informed consent was obtained. IV inserted per routine protocol. The patient was taken to the operating room, placed in the prone position with a pillow positioned underneath the abdomen. The left side of the lower back was prepped and draped in a sterile fashion using iodine x 3. Under fluoroscopy guidance, on an oblique view, the L3 through S1 vertebral bodies were visualized. The skin and subcutaneous tissue was anesthetized with approximately 10 mL of 1% lidocaine using a 25-gauge regular needle. Under direct visualization with fluoroscopy at approximately 25-degree angle, starting on the left L3, ending on the left S1 passing through the L4-L5 using a 20-gauge 15 cm with a 10 mm curved active tip radiofrequency ablation needle the needle passed through the skin. The tip of the needle was maneuvered and directed towards the superior and medial gutter of the transverse process at the vicinity of the medial branch. Once the tip of the needle was in contact with the bone, the needle pulled approximately 2 mm up the bone. The stylet of each needle was then removed. After negative aspiration of blood with CSF and confirmation of AP as well as oblique view, radiofrequency ablation probe was then inserted at each level. Impedance was then recorded at L3 to be 236, at L4 335, at L5 279, at S1 317 ohm. Motor-evoked potential was then initiated to 1.5 volt without any motor response at each corresponding level. The probe was then removed intact and a total of 6 mL preservative-free 1% lidocaine was injected in divided doses between those 4 levels after negative aspiration of blood with CSF. The radiofrequency ablation probe was then reinserted after confirmation of AP, oblique as well as lateral view. Radiofrequency ablation was then initiated to 80 degrees Celsius for 90 seconds at each level. Once concluded, the probe was then removed intact and a total of 6 mL of preservative-free 0.25% Marcaine with 40 mg Depo-Medrol was injected in divided doses between those 4 levels. The needles were then removed intact. The patient experienced no signs or symptoms of intrathecal, intravascular injection. The patient experienced no paraesthesia. The procedure was completed without any apparent difficulty, any complication. The patient appeared to tolerate well. Sensory as well as motor exam was unchanged from prior to procedure. ASSESSMENT AND PLAN: This is a 80-year-old female with lumbosacral spondylosis, lumbosacral degenerative disc disease, lumbar facet arthropathy, status post left-sided lumbar radiofrequency ablation of the medial branch L3 through S1. The patient will continue her current medications. The patient will follow up in approximately 2 weeks for reevaluation. Complications None
== END 2021-05-07 09:23 | disposition home or self-care (01) ==
LOC: SDC 06:08 → AC 06:10
PROVIDERS: PCP Family Medicine Geriatric Medicine; Referring Provider Anesthesiology Pain Medicine; Visit Provider Anesthesiology Pain Medicine
PROC: (CPT 64635; principal; 2021-05-07 07:25)
DX: M47.817 Spondylosis without myelopathy or radiculopathy, lumbosacral region (principal); M51.17 Intervertebral disc disorders with radiculopathy, lumbosacral region; G89.29 Other chronic pain; I25.10 Atherosclerotic heart disease of native coronary artery without angina pectoris; I13.0 Hypertensive heart and chronic kidney disease with heart failure and stage 1 through stage 4 chronic kidney disease, or unspecified chronic kidney disease; I50.32 Chronic diastolic (congestive) heart failure; N18.30 Chronic kidney disease, stage 3 unspecified; I35.0 Nonrheumatic aortic (valve) stenosis; E78.5 Hyperlipidemia, unspecified; M19.90 Unspecified osteoarthritis, unspecified site; E55.9 Vitamin D deficiency, unspecified; K21.9 Gastro-esophageal reflux disease without esophagitis; F32.9 Major depressive disorder, single episode, unspecified; Z79.891 Long term (current) use of opiate analgesic; Z79.899 Other long term (current) drug therapy; I25.2 Old myocardial infarction; Z87.891 Personal history of nicotine dependence; Z95.1 Presence of aortocoronary bypass graft; E66.9 Obesity, unspecified; Z68.33 Body mass index [BMI] 33.0-33.9, adult
CPT/HCPCS: 64635; 64636 ×2; 72110; 76000; J7120

== ENCOUNTER → 2021-07-19 16:40 | Outpatient (CLI) | payer MEDICARE, SELFPAY ==
[2021-07-19 17:16] LABS: Absolute Lymphocyte Count 0.97 X10^3/uL (0.83-4.51); Absolute Neutrophil Count 4.8 X10^3/uL (2.0-7.7); Basophil# 0.04 X10^3/uL; Basophil% 0.6 % (0-1); Eosinophil# 0.19 X10^3/uL; Hematocrit 35.9 % (37-47); Hemoglobin 11.4 g/dL (12.0-15.0); Lymphocyte # 0.97 X10^3/ul (0.83-4.51); Lymphocyte % 15.2 % (19-41); Mean Corp Hgb Conc 31.8 g/dL (32-36); Mean Corpuscular Hgb 27.7 pg (27.0-32.0); Mean Corpuscular Volume 87.1 fL (81-99); Mean Platelet Vol. 10.3 fl (6.2-12.0); Monocyte# 0.36 X10^3/uL; Monocyte% 5.6 % (0-10); NRBC Flagged by Analyzer 0 % (0-5); Neutrophil % 75.3 % (47-70); Platelet Count 224 K/mm3 (150-450); RBC Distribution Width SD 47.6 fl (35.1-43.9); Red Blood Count 4.12 M/mm3 (4.2-5.4); White Blood Count 6.4 K/mm3 (4.4-11.0)
[2021-07-19 17:30] LABS: Vitamin D,25 Hydroxy 8.5 ng/mL
[2021-07-19 17:35] LABS: ALB/GLOB Ratio 0.9 RATIO (0.9-2.4); AST(SGOT) 14 U/L (15-37); Alanine Aminotransfer ALT/SGPT 23 U/L (13-56); Albumin, Serum 3.3 g/dL (3.2-5.0); Alkaline Phosphatase 65 U/L (45-117); Anion Gap 8 (5-15); BUN 20 mg/dL (7-18); Calcium,Total 8.8 mg/dL (8.5-10.1); Chloride 107 mmol/L (98-107); EST Glomerular Filtration Rate 57 mL/min (>60); Est Glom Filt Rate - Afr Amer 69 mL/min (>60); Globulin 3.8 g/dL (2.2-4.2); Glucose 90 mg/dL (74-106); Potassium 4.1 mmol/L (3.5-5.1); Protein, Total 7.1 g/dL (6.4-8.2); Sodium Level 142 mmol/L (136-145); Thyroid Stim Hormone (TSH) 1.51 uIU/mL (0.358-3.74)
== END ==
PROVIDERS: PCP Family Medicine Geriatric Medicine; Visit Provider Family Medicine Geriatric Medicine
DX: I10 Essential (primary) hypertension (principal); E55.9 Vitamin D deficiency, unspecified
CPT/HCPCS: 36415; 80053; 82306; 84443; 85025

== ENCOUNTER 2022-01-23 15:34 | Outpatient (CLI) | payer MEDICARE, SELFPAY ==
[2022-01-23 17:08] LABS: Absolute Lymphocyte Count 1.42 X10^3/uL (0.83-4.51); Absolute Neutrophil Count 5.4 X10^3/uL (2.0-7.7); Basophil# 0.04 X10^3/uL; Basophil% 0.5 % (0-1); Eosinophil# 0.19 X10^3/uL; Eosinophils% 2.5 % (0-5); Hematocrit 35.7 % (37-47); Hemoglobin 11.1 g/dL (12.0-15.0); Lymphocyte # 1.42 X10^3/ul (0.83-4.51); Lymphocyte % 18.9 % (19-41); Mean Corp Hgb Conc 31.1 g/dL (32-36); Mean Corpuscular Hgb 25.1 pg (27.0-32.0); Mean Corpuscular Volume 80.6 fL (81-99); Mean Platelet Vol. 10.9 fl (6.2-12.0); Monocyte% 6.6 % (0-10); NRBC Flagged by Analyzer 0 % (0-5); Neutrophil # 5.36 X10^3/uL (2.7-7.7); Neutrophil % 71.2 % (47-70); Platelet Count 249 K/mm3 (150-450); RBC Distribution Width CV 15.8 % (11.6-14.6); RBC Distribution Width SD 45.8 fl (35.1-43.9); Red Blood Count 4.43 M/mm3 (4.2-5.4); White Blood Count 7.5 K/mm3 (4.4-11.0)
[2022-01-23 17:25] LABS: Vitamin D,25 Hydroxy 9.6 ng/mL
[2022-01-23 17:36] LABS: ALB/GLOB Ratio 0.9 RATIO (0.9-2.4); AST(SGOT) 13 U/L (15-37); Alanine Aminotransfer ALT/SGPT 16 U/L (13-56); Albumin, Serum 3.2 g/dL (3.2-5.0); Alkaline Phosphatase 84 U/L (45-117); Anion Gap 3 (5-15); BUN 25 mg/dL (7-18); BUN/Creat Ratio 20.3 RATIO (10-20); Calcium,Total 8.9 mg/dL (8.5-10.1); Chloride 107 mmol/L (98-107); Creatinine, Serum 1.23 mg/dL (0.55-1.02); EST Glomerular Filtration Rate 45 mL/min (>60); Est Glom Filt Rate - Afr Amer 54 mL/min (>60); Globulin 3.6 g/dL (2.2-4.2); Glucose 82 mg/dL (74-106); Potassium 4.2 mmol/L (3.5-5.1); Protein, Total 6.8 g/dL (6.4-8.2); Sodium Level 139 mmol/L (136-145); Thyroid Stim Hormone (TSH) 1.95 uIU/mL (0.358-3.74)
== END 2022-01-23 23:59 | disposition home or self-care (01) ==
LOC: POLAB3 15:35
PROVIDERS: PCP Family Medicine Geriatric Medicine; Visit Provider Family Medicine Geriatric Medicine
DX: E55.9 Vitamin D deficiency, unspecified (principal); I10 Essential (primary) hypertension
CPT/HCPCS: 36415; 80053; 82306; 84443; 85025